=== PATIENT | female | born 1955 | race Caucasian/White ===

== ENCOUNTER 2016-05-10 16:04 | Emergency (ER) | payer OTHER ==
[~2016-05-10 16:04] MED LIST: CEPH500C PO; DILT120C2 PO; FURO-68 PO; HYDR-2672 PO; MULT-18 PO; ONDA4TAB10 PO; PANT40TA5 PO; PETR99OI2 TP; POTA20TA12 PO; PROP225C3 PO; PROP225T2 PO; Vancomycin Hcl PO; WARF2.5T PO
[2016-05-10 16:41] VITALS: BP 152/64
[2016-05-10] MEDS ORDERED: PROCHLORPERAZINE 10 MG/2 ML VIAL. IM ONE (17:15)
[2016-05-10] MEDS ORDERED: DIPHENHYDRAMINE 50 MG/ML VIAL IM ONE (17:15)
--- NOTE | 2016-05-10 17:28 | PHYS DOC ---
Past Medical History Past Medical History: A-Fib, Hypertension, Other Additional Past Medical Histor: lymphadema, morbid obesity Past Surgical History: Appendectomy, Cholecystectomy, Tubal ligation Alcohol Use: None Drug Use: None Adult General Chief Complaint Chief Complaint: NAUSEA/VOMITING/DIARRHA HPI HPI Patient is a 60 year old female who presents the emergency room with complaint of nausea, vomiting and diarrhea that began 4 days ago. Patient reports nonbloody but bilious emesis that initially began the first 2 days of her illness. That she be and experienced nonbloody/nonblack diarrhea yesterday. Patient states that she has had some improvement with diarrhea and she's only had 2 loose bowel movements today. Patient states that she's been hasn't to take her medication for the past couple of days because she worries about vomiting. Patient denies any history of chronic gastrointestinal diseases. Patient states that she does have a "nervous stomach" and has been prescribed Zofran in the past. Patient states that she took 8 mg of Zofran earlier today and was "barely The nausea and vomiting under control". Review of Systems Review of Systems Constitutional: Denies fever or chills [] Eyes: Denies change in visual acuity, redness, or eye pain [] HENT: Denies nasal congestion or sore throat [] Respiratory: Denies cough or shortness of breath [] Cardiovascular: No additional information not addressed in HPI [] GI: Denies abdominal pain, nausea, vomiting, bloody stools or diarrhea [] : Denies dysuria or hematuria [] Musculoskeletal: Denies back pain or joint pain [] Integument: Denies rash or skin lesions [] Neurologic: Denies headache, focal weakness or sensory changes [] Endocrine: Denies polyuria or polydipsia [] Current Medications Current Medications Current Medications Medications (Trade) Dose Ordered Sig/Hoang Start Time Stop Time Status Last Admin Dose Admin Diphenhydramine HCl (Benadryl) 25 mg 1X ONCE 05/10/16 17:15 05/10/16 17:16 DC 05/10/16 17:51 25 MG Prochlorperazine Edisylate (Compazine) 10 mg 1X ONCE 05/10/16 17:15 05/10/16 17:16 DC 05/10/16 17:51 10 MG Allergies Allergies Allergies Coded Allergies Type Severity Reaction Last Updated Verified Sulfa (Sulfonamide Antibiotics) Allergy Intermediate Rash 04/18/14 Yes amoxicillin Allergy Intermediate Rash 04/18/14 Yes clavulanic acid Allergy Intermediate Rash 04/18/14 Yes dabigatran etexilate Allergy Intermediate Rash 04/18/14 Yes meperidine Allergy Intermediate HALLUCINATIONS 04/18/14 Yes Physical Exam Physical Exam Constitutional: Well developed, well nourished, no acute distress, non-toxic appearance. [] HENT: Normocephalic, atraumatic, bilateral external ears normal, oropharynx moist, no oral exudates, nose normal. [] Eyes: PERRLA, EOMI, conjunctiva normal, no discharge. [] Neck: Normal range of motion, no tenderness, supple, no stridor. [] Cardiovascular:Heart rate regular rhythm, no murmur [] Lungs & Thorax: Bilateral breath sounds clear to auscultation [] Abdomen: Patient has a very large abdomen. Bowel sounds are difficult to auscultate due to the patient's body habitus. There is no palpable defect to the abdominal wall or pulsatile mass. Patient does not have a complaint of focal abdominal tenderness. There is no rebound or guarding. Skin: Warm, dry, no erythema, no rash. [] Back: No tenderness, no CVA tenderness. [] Extremities: No tenderness, no cyanosis, no clubbing, ROM intact, no edema. [] Neurologic: Alert and oriented X 3, normal motor function, normal sensory function, no focal deficits noted. [] Psychologic: Affect normal, judgement normal, mood normal. [] Current Patient Data Vital Signs Vital Signs Date Time Temp Pulse Resp B/P Pulse Ox O2 Delivery O2 Flow Rate FiO2 05/10/16 16:41 98.3 52 24 94 Room Air 98.3 EKG EKG [] Radiology/Procedures Radiology/Procedures [] Course & Med Decision Making Course & Med Decision Making Patient received 10 mg of Compazine and 25 mg of Benadryl IM. Patient was able to drink juice without throwing up. She's had no episodes of emesis during her stay in the emergency department. Dragon Disclaimer Dragon Disclaimer This electronic medical record was generated, in whole or in part, using a voice recognition dictation system. Departure Departure Impression: Primary Impression: Nausea and vomiting Disposition: HOME, SELF-CARE Condition: IMPROVED Referrals: JAGUAR BRICE MD (PCP) Patient Instructions: Viral Gastroenteritis, [id number] Additional Instructions: 1. Take the medication as prescribed. 2. Review the discharge instructions for reasons to return to the emergency room. 3. Clear liquids, light soups and broths for the next 24 hours. Begin advanced her diet after that period of time. Avoid fried foods, heavy foods or creams or gravies for the next 72 hours. 4. Call your primary care doctor's office the morning to schedule follow-up appointment to be seen within the next 2-3 days. Scripts Prochlorperazine Maleate (Compazine)10 Mg [id number] Mg PO Q8HRS nausea and vomiting #10 Prov:DIDIER GARDNER 05/10/16 DIDIER GARDNER May 10, 2016 17:28
[2016-05-10] MEDS ORDERED: PROC10TA57 PO (18:49)
== END 2016-05-10 18:57 | disposition home or self-care (01) ==
LOC: ER 16:04
DX: R11.2 Nausea with vomiting, unspecified (principal); I10 Essential (primary) hypertension; E66.01 Morbid (severe) obesity due to excess calories; Z68.41 Body mass index [BMI] 40.0-44.9, adult; Z88.0 Allergy status to penicillin; Z88.1 Allergy status to other antibiotic agents; Z88.5 Allergy status to narcotic agent; Z88.8 Allergy status to other drugs, medicaments and biological substances; Z88.2 Allergy status to sulfonamides
CPT/HCPCS: 96372; 99284; J0780; J1200

== ENCOUNTER 2016-07-12 15:53 | Inpatient (IN) | payer OTHER ==
[~2016-07-12] VITALS: Ht 171.4 cm; Wt 172.9 kg
[~2016-07-12 15:53] MED LIST changes: +PROC10TA57 PO
[2016-07-12] MEDS ORDERED: HYDROCODONE/APAP 10/325 TABLET. PO PRN (21:15)
[2016-07-12] MEDS ORDERED: VANCOMYCIN 1.75 GM in IV NORMAL SALINE 500ML BAG 500 ML IV ONE (21:15)
[2016-07-12] MEDS ORDERED: VANCOMYCIN PER PHARMACY MC PRN (21:15)
[2016-07-12] MEDS ORDERED: ONDANSETRON ODT 4 MG TAB.RAPDIS PO PRN (21:15)
[2016-07-12] MEDS ORDERED: WARFARIN 2.5 MG TABLET. PO SCH (21:15)
[2016-07-12] MEDS ORDERED: VENTOLIN HFA18 GM INH (21:21)
[2016-07-12] MEDS ORDERED: POTA20TA82 PO (21:21)
[2016-07-12] MEDS ORDERED: CEPH-264 PO (21:21)
[2016-07-12] MEDS ORDERED: OXYC-250 PO (21:21)
[2016-07-12] MEDS ORDERED: ATOR10TA60 PO (21:21)
[2016-07-12] MEDS ORDERED: CEFTRIAXONE SODIUM 2 GM in IV NORMAL SALINE 100ML 100 ML IV SCH (22:00)
[2016-07-12 22:23] LABS: BASO # 0.1 x10^3/uL (0.0-0.2); BASO % 1 % (0-3); EOS % 2 % (0-3); HEMATOCRIT 29.1 % (36.0-47.0); HEMOGLOBIN 9.3 g/dL (12.0-15.5); LYMPH # 1.1 x10^3/uL (1.0-4.8); LYMPH % 15 % (24-48); MEAN CORPUSCULAR HEMOGLOBIN 26 pg (25-35); MEAN CORPUSCULAR HGB CONC 32 g/dL (31-37); MEAN CORPUSCULAR VOLUME 83 fL (79-100); MONO % 8 % (0-9); NEUT % 74 % (31-73); PLATELET COUNT 358 x10^3/uL (140-400); RED BLOOD COUNT 3.53 x10^6/uL (3.50-5.40); RED CELL DISTRIBUTION WIDTH 16.1 % (11.5-14.5); WHITE BLOOD COUNT 7.8 x10^3/uL (4.0-11.0)
--- NOTE | 2016-07-12 22:30 | EKG ---
[facility] [address] [place] [address] Test Date: 2016-07-12 Test Time: 22:24:33 Pat Name: JERI RAMOS Department: Room: 560 1 Gender: F Surgical Scheduler: ANNALISA : 1955 Requested By: JAGUAR BRICE Order Number: [id number] Reading MD: Measurements Intervals [place] Rate: 70 P: 44 LA: 170 QRS: 31 QRSD: 94 T: 45 QT: 458 QTc: 498 Interpretive Statements SINUS RHYTHM CONSIDER RIGHT VENTRICULAR HYPERTROPHY ST & T ABNORMALITY, CONSIDER ANTEROSEPTAL ISCHEMIA OR LEFT VENTRICULAR STRAIN T ABNORMALITY IN ANTERIOR LEADS ABNORMAL ECG RI6.01 Unconfirmed report Compared to ECG 04/15/2014 09:32:41 Possible ischemia now present T-wave abnormality now present Atrial flutter no longer present
[2016-07-12 22:34] LABS: PROTHROMBIN TIME PATIENT 65.9 SEC (11.7-14.0)
[2016-07-12 22:44] LABS: INR 8.5 (0.8-1.1)
[2016-07-12 23:00] VITALS: BP 124/50
[2016-07-12] MEDS: IV DEXTROSE 5 %-0.45 % NACL 1,000 ML IV SCH (23:13)
[2016-07-12] MEDS ORDERED: PHYTONADIONE 10 MG/ML AMPUL. SQ ONE (23:30)
[2016-07-12] MEDS ORDERED: PROPAFENONE SR 225 MG CAP.ER.12H. PO ONE (23:45)
[2016-07-13] MEDS ORDERED: VANCOMYCIN 2 GM in IV NORMAL SALINE 500ML BAG 500 ML IV ONE ×2
[2016-07-13] MEDS: OXYCODONE/APAP 5/325 TABLET. PO PRN ×3 (00:17→16:24)
[2016-07-13 03:00] VITALS: BP 103/49
[2016-07-13 04:21] LABS: BASO # 0.1 x10^3/uL (0.0-0.2); BASO % 1 % (0-3); EOS % 3 % (0-3); HEMATOCRIT 28.9 % (36.0-47.0); HEMOGLOBIN 9.4 g/dL (12.0-15.5); LYMPH # 1.3 x10^3/uL (1.0-4.8); LYMPH % 19 % (24-48); MEAN CORPUSCULAR HEMOGLOBIN 26 pg (25-35); MEAN CORPUSCULAR HGB CONC 32 g/dL (31-37); MEAN CORPUSCULAR VOLUME 82 fL (79-100); MONO % 11 % (0-9); NEUT % 66 % (31-73); PLATELET COUNT 375 x10^3/uL (140-400); RED BLOOD COUNT 3.55 x10^6/uL (3.50-5.40); RED CELL DISTRIBUTION WIDTH 17.1 % (11.5-14.5)
[2016-07-13 04:28] LABS: PROTHROMBIN TIME PATIENT 63.3 SEC (11.7-14.0)
[2016-07-13 04:41] LABS: CALCIUM 8.5 mg/dL (8.5-10.1); CREATININE 1.1 mg/dL (0.6-1.0); GFR 50.8; POTASSIUM 3.6 mmol/L (3.5-5.1)
[2016-07-13] MEDS ORDERED: PHYTONADIONE 10 MG/ML AMPUL. SQ ONE (06:00)
[2016-07-13] MEDS: PANTOPRAZOLE 40 MG TABLET. PO SCH (06:08)
[2016-07-13 07:00] VITALS: BP 104/61
[2016-07-13] MEDS: FUROSEMIDE 40 MG TABLET PO SCH (08:33)
[2016-07-13] MEDS: PROPAFENONE SR 225 MG CAP.ER.12H. PO SCH ×2 (08:33→22:12)
[2016-07-13] MEDS: SENNOSIDES/DOCUSATE 8.6/50MG TABLET. PO SCH ×2 (08:34→22:12)
[2016-07-13] MEDS: POTASSIUM CHLORIDE 20 MEQ TABLET.ER. PO SCH (08:34)
[2016-07-13] MEDS: DILTIAZEM HCL 120 MG CAP.ER.24H PO SCH (08:34)
[2016-07-13] MEDS ORDERED: VANCOMYCIN 1 GM in IV NORMAL SALINE 250ML 250 ML IV SCH (09:15)
--- NOTE | 2016-07-13 09:56 | PDOC ---
Provider Note Provider Note Pt seen.H&P dictated. #[id number] JAGUAR BRICE MD Jul 13, 2016 09:56
--- NOTE | 2016-07-13 10:21 | PDOC ---
Infectious Disease Note Vital Sign Vital Signs Vital Signs Date Time Temp Pulse Resp B/P Pulse Ox O2 Delivery O2 Flow Rate FiO2 07/13/16 08:34 59 104/61 07/13/16 08:33 Room Air 07/13/16 07:00 98.3 20 93 98.3 Labs Lab Laboratory Tests Test 07/12/16 21:55 07/13/16 04:03 White Blood Count 7.8x10^3/uL (4.0-11.0) 7.0x10^3/uL (4.0-11.0) Red Blood Count 3.53x10^6/uL (3.50-5.40) 3.55x10^6/uL (3.50-5.40) Hemoglobin 9.3g/dL (12.0-15.5) 9.4g/dL (12.0-15.5) Hematocrit 29.1% (36.0-47.0) 28.9% (36.0-47.0) Mean Corpuscular Volume 83fL (79-100) 82fL (79-100) Mean Corpuscular Hemoglobin 26pg (25-35) 26pg (25-35) Mean Corpuscular Hemoglobin Concent 32g/dL (31-37) 32g/dL (31-37) Red Cell Distribution Width 16.1% (11.5-14.5) 17.1% (11.5-14.5) Platelet Count 358x10^3/uL (140-400) 375x10^3/uL (140-400) Neutrophils (%) (Auto) 74% (31-73) 66% (31-73) Lymphocytes (%) (Auto) 15% (24-48) 19% (24-48) Monocytes (%) (Auto) 8% (0-9) 11% (0-9) Eosinophils (%) (Auto) 2% (0-3) 3% (0-3) Basophils (%) (Auto) 1% (0-3) 1% (0-3) Neutrophils # (Auto) 5.8x10^3uL (1.8-7.7) 4.6x10^3uL (1.8-7.7) Lymphocytes # (Auto) 1.1x10^3/uL (1.0-4.8) 1.3x10^3/uL (1.0-4.8) Monocytes # (Auto) 0.6x10^3/uL (0.0-1.1) 0.8x10^3/uL (0.0-1.1) Eosinophils # (Auto) 0.2x10^3/uL (0.0-0.7) 0.2x10^3/uL (0.0-0.7) Basophils # (Auto) 0.1x10^3/uL (0.0-0.2) 0.1x10^3/uL (0.0-0.2) Prothrombin Time 65.9SEC (11.7-14.0) 63.3SEC (11.7-14.0) Prothromb Time International Ratio 8.5 (0.8-1.1) 8.0 (0.8-1.1) Albumin 1.8g/dL (3.4-5.0) Thyroid Stimulating Hormone (TSH) 1.567uIU/mL (0.358-3.74) Sodium Level 140mmol/L (136-145) Potassium Level 3.6mmol/L (3.5-5.1) Chloride Level 103mmol/L (98-107) Carbon Dioxide Level 27mmol/L (21-32) Anion Gap 10 (6-14) Blood Urea Nitrogen 10mg/dL (7-20) Creatinine 1.1mg/dL (0.6-1.0) Estimated GFR (Cockcroft-Gault) 50.8 Glucose Level 89mg/dL (70-99) Calcium Level 8.5mg/dL (8.5-10.1) Objective Assessment Left leg cellulitis Panniculitis Obesity h/o C diff Plan Plan of Care change antibiotics to unasyn po vanc bid YOLETTE COOK MD Jul 13, 2016 10:21
--- NOTE | 2016-07-13 10:41 | PDOC ---
SURGICAL PROGRESS NOTE Subjective 60 yo F with cellulitis and chronic lymphedema pt poor surgical candidate agree with wound care consult will also order PT eval for lymphedema treatment Thanks for consult! [id number] Vital Signs Vital Signs Date Time Temp Pulse Resp B/P Pulse Ox O2 Delivery O2 Flow Rate FiO2 07/13/16 08:34 59 104/61 07/13/16 08:33 Room Air 07/13/16 07:00 98.3 20 93 98.3 I&O Intake and Output 07/13/16 07:00 Intake Total 660 ml Balance 660 ml Intake Oral 660 ml # Voids 2 Labs Laboratory Tests Test 07/12/16 21:55 07/13/16 04:03 White Blood Count 7.8x10^3/uL (4.0-11.0) 7.0x10^3/uL (4.0-11.0) Red Blood Count 3.53x10^6/uL (3.50-5.40) 3.55x10^6/uL (3.50-5.40) Hemoglobin 9.3g/dL (12.0-15.5) 9.4g/dL (12.0-15.5) Hematocrit 29.1% (36.0-47.0) 28.9% (36.0-47.0) Mean Corpuscular Volume 83fL (79-100) 82fL (79-100) Mean Corpuscular Hemoglobin 26pg (25-35) 26pg (25-35) Mean Corpuscular Hemoglobin Concent 32g/dL (31-37) 32g/dL (31-37) Red Cell Distribution Width 16.1% (11.5-14.5) 17.1% (11.5-14.5) Platelet Count 358x10^3/uL (140-400) 375x10^3/uL (140-400) Neutrophils (%) (Auto) 74% (31-73) 66% (31-73) Lymphocytes (%) (Auto) 15% (24-48) 19% (24-48) Monocytes (%) (Auto) 8% (0-9) 11% (0-9) Eosinophils (%) (Auto) 2% (0-3) 3% (0-3) Basophils (%) (Auto) 1% (0-3) 1% (0-3) Neutrophils # (Auto) 5.8x10^3uL (1.8-7.7) 4.6x10^3uL (1.8-7.7) Lymphocytes # (Auto) 1.1x10^3/uL (1.0-4.8) 1.3x10^3/uL (1.0-4.8) Monocytes # (Auto) 0.6x10^3/uL (0.0-1.1) 0.8x10^3/uL (0.0-1.1) Eosinophils # (Auto) 0.2x10^3/uL (0.0-0.7) 0.2x10^3/uL (0.0-0.7) Basophils # (Auto) 0.1x10^3/uL (0.0-0.2) 0.1x10^3/uL (0.0-0.2) Prothrombin Time 65.9SEC (11.7-14.0) 63.3SEC (11.7-14.0) Prothromb Time International Ratio 8.5 (0.8-1.1) 8.0 (0.8-1.1) Albumin 1.8g/dL (3.4-5.0) Thyroid Stimulating Hormone (TSH) 1.567uIU/mL (0.358-3.74) Sodium Level 140mmol/L (136-145) Potassium Level 3.6mmol/L (3.5-5.1) Chloride Level 103mmol/L (98-107) Carbon Dioxide Level 27mmol/L (21-32) Anion Gap 10 (6-14) Blood Urea Nitrogen 10mg/dL (7-20) Creatinine 1.1mg/dL (0.6-1.0) Estimated GFR (Cockcroft-Gault) 50.8 Glucose Level 89mg/dL (70-99) Calcium Level 8.5mg/dL (8.5-10.1) Laboratory Tests Test 07/12/16 21:55 07/13/16 04:03 White Blood Count 7.8x10^3/uL (4.0-11.0) 7.0x10^3/uL (4.0-11.0) Red Blood Count 3.53x10^6/uL (3.50-5.40) 3.55x10^6/uL (3.50-5.40) Hemoglobin 9.3g/dL (12.0-15.5) 9.4g/dL (12.0-15.5) Hematocrit 29.1% (36.0-47.0) 28.9% (36.0-47.0) Mean Corpuscular Volume 83fL (79-100) 82fL (79-100) Mean Corpuscular Hemoglobin 26pg (25-35) 26pg (25-35) Mean Corpuscular Hemoglobin Concent 32g/dL (31-37) 32g/dL (31-37) Red Cell Distribution Width 16.1% (11.5-14.5) 17.1% (11.5-14.5) Platelet Count 358x10^3/uL (140-400) 375x10^3/uL (140-400) Neutrophils (%) (Auto) 74% (31-73) 66% (31-73) Lymphocytes (%) (Auto) 15% (24-48) 19% (24-48) Monocytes (%) (Auto) 8% (0-9) 11% (0-9) Eosinophils (%) (Auto) 2% (0-3) 3% (0-3) Basophils (%) (Auto) 1% (0-3) 1% (0-3) Neutrophils # (Auto) 5.8x10^3uL (1.8-7.7) 4.6x10^3uL (1.8-7.7) Lymphocytes # (Auto) 1.1x10^3/uL (1.0-4.8) 1.3x10^3/uL (1.0-4.8) Monocytes # (Auto) 0.6x10^3/uL (0.0-1.1) 0.8x10^3/uL (0.0-1.1) Eosinophils # (Auto) 0.2x10^3/uL (0.0-0.7) 0.2x10^3/uL (0.0-0.7) Basophils # (Auto) 0.1x10^3/uL (0.0-0.2) 0.1x10^3/uL (0.0-0.2) Prothrombin Time 65.9SEC (11.7-14.0) 63.3SEC (11.7-14.0) Prothromb Time International Ratio 8.5 (0.8-1.1) 8.0 (0.8-1.1) Albumin 1.8g/dL (3.4-5.0) Thyroid Stimulating Hormone (TSH) 1.567uIU/mL (0.358-3.74) Sodium Level 140mmol/L (136-145) Potassium Level 3.6mmol/L (3.5-5.1) Chloride Level 103mmol/L (98-107) Carbon Dioxide Level 27mmol/L (21-32) Anion Gap 10 (6-14) Blood Urea Nitrogen 10mg/dL (7-20) Creatinine 1.1mg/dL (0.6-1.0) Estimated GFR (Cockcroft-Gault) 50.8 Glucose Level 89mg/dL (70-99) Calcium Level 8.5mg/dL (8.5-10.1) Problem List Problems Medical Problems: (1) Left leg cellulitis Status: Acute Problems: DARBY SIMENTAL MD Jul 13, 2016 10:41
[2016-07-13 11:11] VITALS: BP 94/49
[2016-07-13] MEDS: AMPICILLIN/SULBACTAM 3 GM in IV NORMAL SALINE 100ML 100 ML IV SCH ×2 (11:43→18:02)
[2016-07-13] MEDS: VANCOMYCIN 125 MG/2.5 ML ORAL SOLUTION. PO SCH ×2 (11:48→22:12)
[2016-07-13] MEDS ORDERED: VANCOMYCIN 2 GM in IV NORMAL SALINE 500ML BAG 500 ML IV SCH (12:00)
--- NOTE | 2016-07-13 14:46 | HP ---
ADMIT DATE: 07/12/2016 LOCATION: 560. REASON FOR ADMISSION TO THE HOSPITAL: Cellulitis, lymphedema with secondary cellulitis of the left thigh with draining, redness and fever. HISTORY OF PRESENT ILLNESS: The patient is a 60-year-old female with history of morbid obesity, chronic lymphedema of both extremities and she is on antibiotics outpatient including Keflex. The patient had finished 3 rounds of antibiotic. She is still having lot of drainage, redness and oozing and she was feverish, was seen in the office. She had kind of lot of fluid dripping from the thigh, redness, tender, was admitted to the hospital for IV antibiotics. PAST MEDICAL HISTORY: Has a history of hypertension, atrial fibrillation on Coumadin, obesity and lymphedema. PAST SURGICAL HISTORY: Had a cardiac catheterization. No major blockages, surgery in the right breast for benign lesion, tubal ligation, arthritis, appendectomy and gallbladder surgery. ALLERGIES: TO SULFA, AMOXICILLIN, AUGMENTIN, PRADAXA, AND DEMEROL. FAMILY HISTORY: Positive for diabetes, kidney problems in the mother. MEDICATIONS AT HOME: Coumadin 2.5 mg daily, atorvastatin 10 mg daily, oxycodone 10/325 q. 6, albuterol 2 puffs 4 times daily, Keflex recently 500 mg 4 times daily, multivitamin daily, potassium 20 mEq daily, diltiazem 120 mg daily, Lasix 40 mg daily, Zofran 4 mg daily, Protonix 40 mg daily, propafenone 225 mg twice a day. PERSONAL HISTORY: Denies smoking, alcohol or drug abuse. REVIEW OF SYMPTOMS: CARDIAC: No chest pain. LUNGS: No cough, sputum. CONSTITUTIONAL: Complains of feverish, not feeling well. The patient looks sick. PHYSICAL EXAMINATION: VITAL SIGNS: Temperature at the time of admission 98, pulse 68, respirations 20, blood pressure 124/50, 93% on room air. HEENT: Head is atraumatic. Pupils equal. Oral cavity: No congestion. NECK: Supple. Thyroid not enlarged. JVD not elevated. CHEST: Symmetrical. CARDIOVASCULAR: S1, S2. LUNGS: Clear. GENERAL: The patient is obese. BMI 59.3, morbid obesity. ABDOMEN: Obese. No mass palpable. EXTERNAL GENITALIA: No Newman. RECTAL: Deferred. EXTREMITIES: Chronic lymphedema of both extremities, has discoloration on the right upper thigh, but the left upper thigh has redness, oozing lot of drainage and some blister there, mostly in the lower part of the thigh and lymphedema. LABORATORY DATA: Shows a white count of 8, hemoglobin 9, platelets 358. Electrolytes: Sodium 140, potassium 3.6, chloride 103, bicarbonate 27, BUN 10, creatinine 1.1. Albumin 1.8. TSH is 1.57. INR is 8.5. FINAL IMPRESSION: 1. Cellulitis of the thigh. 2. Chronic lymphedema. 3. Atrial fibrillation, on Coumadin. 4. Coagulopathy. 5. Morbid obesity. 6. Protein-calorie malnutrition, moderate. 7. Hypertension. 8. Hyperlipidemia. 9. Arthritis. PLAN: At this time, admit to hospital, IV antibiotics, vancomycin and Rocephin and ID consult and General Surgery consult, lymphedema consult, wound cultures, rest, elevation and see how the patient's condition improves, hold Coumadin because of coagulopathy. The patient was on antibiotics and supposed to cut down the Coumadin dose by half but she forgot and given vitamin K one dose and monitor INR. No evidence of any bleeding at this point. JAGUAR BRICE MD DR: PALAK/shayla JOB#: [id number] / [id number]
[2016-07-13 15:00] VITALS: BP 110/57
[2016-07-13] MEDS: IV DEXTROSE 5 %-0.45 % NACL 1,000 ML IV SCH ×2 (15:01→17:11)
[2016-07-13 19:00] VITALS: BP 91/44
--- NOTE | 2016-07-13 22:57 | CONS ---
DATE OF CONSULTATION: 07/13/2016 REQUESTING PHYSICIAN: Dr. Townsend. REASON FOR CONSULTATION: Cellulitis of the leg. HISTORY OF PRESENT ILLNESS: This is a 60-year-old female with morbid obesity with multiple layers of pannus on the leg and abdomen, who was admitted with leaking from the left leg pannus, yellow fluid. The patient denies any fever. Denies any nausea, vomiting, diarrhea, chest pain, shortness of breath, abdominal pain, urinary symptoms, bowel symptoms. PAST MEDICAL HISTORY: Positive for morbid obesity. She has had colon polyps, osteoarthritis, gastroesophageal reflux disease. PAST SURGICAL HISTORY: Has had appendicectomy, breast biopsy and cholecystectomy. SOCIAL HISTORY: Negative for smoking, alcohol, illicit drug use. The patient does have dogs and she says she is not allowing them to lick. REVIEW OF SYSTEMS: As per HPI, all other systems reviewed are negative. CURRENT MEDICATIONS: Reviewed. The patient is on vancomycin and Rocephin. PHYSICAL EXAMINATION: GENERAL: Alert, oriented female, not in any distress. VITAL SIGNS: Stable, afebrile. HEENT: NAD. NECK: Supple, no JVP. No lymphadenopathy. LUNGS: Clear. HEART: S1, S2 regular. ABDOMEN: Benign. EXTREMITIES: The patient does have significant pannus on the abdomen and into the legs and the pannus from the left leg is leaking with some erythema in the surrounding area. NEUROLOGIC: The patient is neurologically intact. LABORATORY DATA: White count is normal. Creatinine is 1.1. IMPRESSION: 1. Left leg cellulitis. 2. Left leg panniculitis. 3. History of Clostridium difficile. 4. Obesity. 5. Arthritis. RECOMMENDATIONS: We will change vancomycin and Rocephin to Unasyn p.o., vancomycin b.i.d. to protect her from C. diff and will continue to follow. Leg elevation should be done and ambulation. Thank you very much, Dr. Townsend for giving me the opportunity to participate in this patient's care. YOLETTE COOK MD DR: ALINE/shayla JOB#: [id number] / [id number]
[2016-07-13 23:00] VITALS: BP 104/49
[2016-07-14] MEDS: AMPICILLIN/SULBACTAM 3 GM in IV NORMAL SALINE 100ML 100 ML IV SCH ×4 (00:27→18:22)
[2016-07-14 03:00] VITALS: BP 108/49
[2016-07-14] MEDS: OXYCODONE/APAP 5/325 TABLET. PO PRN ×3 (03:52→21:52)
[2016-07-14 06:28] LABS: INR 3.3 (0.8-1.1); PROTHROMBIN TIME PATIENT 31.4 SEC (11.7-14.0)
[2016-07-14 06:37] LABS: ALBUMIN 1.9 g/dL (3.4-5.0); ALBUMIN/GLOBULIN RATIO 0.3 (1.0-1.7); CALCIUM 8.6 mg/dL (8.5-10.1); CHOLESTEROL/HDL RATIO 4.4; CREATININE 1.2 mg/dL (0.6-1.0); POTASSIUM 3.5 mmol/L (3.5-5.1); TOTAL BILIRUBIN 0.3 mg/dL (0.2-1.0); TOTAL PROTEIN 7.8 g/dL (6.4-8.2)
[2016-07-14 07:00] VITALS: BP 106/83
[2016-07-14] MEDS: POTASSIUM CHLORIDE 20 MEQ TABLET.ER. PO SCH (09:00)
[2016-07-14] MEDS: FUROSEMIDE 40 MG TABLET PO SCH (09:00)
[2016-07-14] MEDS: VANCOMYCIN 125 MG/2.5 ML ORAL SOLUTION. PO SCH ×2 (09:15→21:53)
[2016-07-14] MEDS: PANTOPRAZOLE 40 MG TABLET. PO SCH (09:16)
[2016-07-14] MEDS: SENNOSIDES/DOCUSATE 8.6/50MG TABLET. PO SCH ×2 (09:16→21:53)
[2016-07-14] MEDS: PROPAFENONE SR 225 MG CAP.ER.12H. PO SCH ×2 (09:16→21:53)
[2016-07-14] MEDS: DILTIAZEM HCL 120 MG CAP.ER.24H PO SCH (09:16)
--- NOTE | 2016-07-14 09:31 | PDOC ---
Infectious Disease Note Subjective Subjective feeling ok ROS ROS GEN: Denies fevers, chills, sweats HEENT: Denies blurred vision, sore throat CV: Denies chest pain RESP: Denies shortness of air, cough GI: Denies n/v/d NEURO: Denies confusion, dizziness Vital Sign Vital Signs Vital Signs Date Time Temp Pulse Resp B/P Pulse Ox O2 Delivery O2 Flow Rate FiO2 07/14/16 09:16 69 106/83 07/14/16 08:00 Room Air 07/14/16 07:00 98.6 16 92.0 98.6 07/14/16 03:00 98 Physical Exam PHYSICAL EXAM GENERAL: NAD, Alert HEENT: PERRL, OC/OP NECK: Supple, no JVD, no LN LUNGS: Clear HEART: S1S2, no gallop, no murmur ABD: Soft, NT, no organomegaly, no rebound EXT: No edema, no cyanosis,, left leg wound with pannus and drainage DIGITAL PH[employer] PRINTER: Alert, oriented x 3, no focal neurologic deficit SKIN: No rash IV: ok Labs Lab Laboratory Tests Test 07/14/16 05:20 Prothrombin Time 31.4SEC (11.7-14.0) Prothromb Time International Ratio 3.3 (0.8-1.1) Sodium Level 137mmol/L (136-145) Potassium Level 3.5mmol/L (3.5-5.1) Chloride Level 103mmol/L (98-107) Carbon Dioxide Level 27mmol/L (21-32) Anion Gap 7 (6-14) Blood Urea Nitrogen 7mg/dL (7-20) Creatinine 1.2mg/dL (0.6-1.0) Estimated GFR (Cockcroft-Gault) 46.0 BUN/Creatinine Ratio 6 (6-20) Glucose Level 95mg/dL (70-99) Calcium Level 8.6mg/dL (8.5-10.1) Total Bilirubin 0.3mg/dL (0.2-1.0) Aspartate Amino Transf (AST/SGOT) 20U/L (15-37) Alanine Aminotransferase (ALT/SGPT) 10U/L (14-59) Alkaline Phosphatase 134U/L (46-116) Total Protein 7.8g/dL (6.4-8.2) Albumin 1.9g/dL (3.4-5.0) Albumin/Globulin Ratio 0.3 (1.0-1.7) Triglycerides Level 144mg/dL (0-150) Cholesterol Level 106mg/dL (0-200) LDL Cholesterol, Calculated 53mg/dL (0-100) VLDL Cholesterol, Calculated 29mg/dL (0-40) HDL Cholesterol 24mg/dL (40-60) Cholesterol/HDL Ratio 4.4 Micro G neg valerio Objective Assessment Left leg cellulitis Panniculitis Obesity h/o C diff Plan Plan of Care unasyn po vanc bid pt/ot YOLETTE COOK MD Jul 14, 2016 09:31
--- NOTE | 2016-07-14 10:28 | PDOC ---
PROGRESS NOTES Subjective Subjective less pain today Objective Objective Vital Signs Date Time Temp Pulse Resp B/P Pulse Ox O2 Delivery O2 Flow Rate FiO2 07/14/16 09:16 69 106/83 07/14/16 08:00 Room Air 07/14/16 07:00 98.6 16 92.0 98.6 07/14/16 03:00 98 Intake and Output 07/14/16 07:00 Intake Total 760 ml Output Total 553 ml Balance 207 ml Intake Oral 660 ml IV Total 100 ml Output Urine Total 553 ml # Voids 1 # Bowel Movements 1 Physical Exam Abdomen: Normal bowel sounds, Soft Heart: Regular rate, Normal S1 Extremities: No clubbing General: Alert HEENT: Atraumatic Lungs: Clear to auscultation Neck: Supple Neuro: Normal speech Psych/Mental Status: Mental status NL Diagnosis Problem List Problems Medical Problems: (1) Left leg cellulitis Status: Acute Assessment Assessment Problems Medical Problems: (1) Left leg cellulitis Status: Acute FINAL IMPRESSION: 1. Cellulitis of the thigh. 2. Chronic lymphedema. 3. Atrial fibrillation, on Coumadin. 4. Coagulopathy. 5. Morbid obesity. 6. Protein-calorie malnutrition, moderate. 7. Hypertension. 8. Hyperlipidemia. 9. Arthritis. PLAN: Inr 3.6 today improving holding coumadin. ID and surgery consult appreciated. At this time, admit to hospital, IV antibiotics, vanco+unasyn+po vanco and ID consult and General Surgery consult, lymphedema consult, wound cultures, rest, elevation and see how the patient's condition improves, hold Coumadin because of coagulopathy. The patient was on antibiotics and supposed to cut down the Coumadin dose by half but she forgot and given vitamin K one dose and monitor INR. No evidence of any bleeding at this point. Problems: Plan Plan of Care Problems Medical Problems: (1) Left leg cellulitis Status: Acute Comment Review of Relevant I have reviewed the following items quentin (where applicable) has been applied. Labs Laboratory Tests Test 07/14/16 05:20 Prothrombin Time 31.4SEC (11.7-14.0) Prothromb Time International Ratio 3.3 (0.8-1.1) Sodium Level 137mmol/L (136-145) Potassium Level 3.5mmol/L (3.5-5.1) Chloride Level 103mmol/L (98-107) Carbon Dioxide Level 27mmol/L (21-32) Anion Gap 7 (6-14) Blood Urea Nitrogen 7mg/dL (7-20) Creatinine 1.2mg/dL (0.6-1.0) Estimated GFR (Cockcroft-Gault) 46.0 BUN/Creatinine Ratio 6 (6-20) Glucose Level 95mg/dL (70-99) Calcium Level 8.6mg/dL (8.5-10.1) Total Bilirubin 0.3mg/dL (0.2-1.0) Aspartate Amino Transf (AST/SGOT) 20U/L (15-37) Alanine Aminotransferase (ALT/SGPT) 10U/L (14-59) Alkaline Phosphatase 134U/L (46-116) Total Protein 7.8g/dL (6.4-8.2) Albumin 1.9g/dL (3.4-5.0) Albumin/Globulin Ratio 0.3 (1.0-1.7) Triglycerides Level 144mg/dL (0-150) Cholesterol Level 106mg/dL (0-200) LDL Cholesterol, Calculated 53mg/dL (0-100) VLDL Cholesterol, Calculated 29mg/dL (0-40) HDL Cholesterol 24mg/dL (40-60) Cholesterol/HDL Ratio 4.4 Microbiology 07/12/16 Blood Culture - Preliminary, Resulted NO GROWTH AFTER 1 DAY 07/12/16 Gram Stain - Final, Complete Medications Current Medications Ampicillin Sodium/ Sulbactam Sodium/ Sodium Chloride (Unasyn/Iv Sodium Chloride 0.9% 100ml) 100 ml @ 200 mls/hr Q6HRS IV Last administered on 07/14/16 06:02; Start 07/13/16 at 12:00 Vancomycin HCl 125 mg BID PO Last administered on 07/14/16 09:15; Start at 11:30 Vancomycin HCl 1 each 1 each 1X ONCE MC ; Start 07/14/16 at 11:30; Stop 07/14/16 at 11:30; Status DC Vancomycin HCl/ Sodium Chloride (Iv Sodium Chloride 0.9% 500ml Bag) 500 ml @ 250 mls/hr Q12H IV ; Start 07/13/16 at 12:00; Stop 07/13/16 at 12:00; Status DC Vitals/I & O Vital Sign - Last 24 Hours 07/13/16 07/13/16 07/13/16 07/13/16 11:11 15:00 16:24 19:00 Temp 97.0 98.2 98.2 97.0 98.2 98.2 Pulse 74 72 61 Resp 14 16 20 B/P 94/49 110/57 91/44 Pulse Ox 94 95 93 O2 Delivery Room Air Room Air Room Air Room Air 07/13/16 07/13/16 07/13/16 07/14/16 20:00 22:12 23:00 03:00 Temp 98.3 98.0 98.3 98.0 Pulse 61 65 65 Resp 20 20 B/P 91/44 104/49 108/49 Pulse Ox 96 98 O2 Delivery Room Air Room Air Room Air 07/14/16 07/14/16 07/14/16 07/14/16 03:52 07:00 08:00 09:16 Temp 98.6 98.6 Pulse 69 69 Resp 20 16 B/P 106/83 106/83 O2 Delivery Room Air Room Air Room Air O2 Flow Rate 92.0 07/14/16 09:16 Pulse 69 B/P 106/83 Intake and Output 07/13/16 07/13/16 07/14/16 15:00 23:00 07:00 Intake Total 360 ml 400 ml Output Total 300 ml 253 ml Balance -300 ml 107 ml 400 ml JAGUAR BRICE MD Jul 14, 2016 10:28
[2016-07-14 11:00] VITALS: BP 106/74
--- NOTE | 2016-07-14 11:37 | CONS ---
DATE OF CONSULTATION: 07/13/2016 REFERRING PHYSICIANS: Dr. Evangelist Flores, Dr. Townsend. Thank you for the consult. CHIEF COMPLAINT: Drainage from left leg, diagnosis of left leg cellulitis, chronic lymphedema. HISTORY OF PRESENT ILLNESS: This is a 60-year-old female with history of chronic lymphedema, who developed significant drainage from the left leg, which is serous in nature. She reports chronic lymphedema of her bilateral lower extremities, and reports easy infection of this tissue. She reports her legs have been worsening in size for quite some time. She is seen in her hospital room and appears to be relatively comfortable and is tolerating diet. She has significant serous drainage from her left medial thigh and large area of chronic lymphedema. ALLERGIES: SHE HAS AN ALLERGY TO DEMEROL, GABAPENTIN, AMOXIL, SULFA, POTASSIUM. MEDICATIONS: Reviewed, but include Coumadin. PAST MEDICAL HISTORY: Obesity, atrial fibrillation, hypertension, arthritis, chronic lymphedema in the lower extremities. PAST SURGICAL HISTORY: Includes cardiac cath, colonoscopies, appendectomy, and cholecystectomy. SOCIAL HISTORY: No tobacco, no significant alcohol use. FAMILY HISTORY: Noncontributory. REVIEW OF SYSTEMS: All systems reviewed and negative except for HPI. PHYSICAL EXAMINATION: GENERAL: Well-developed, morbidly obese female, has BMI of 59.3. VITAL SIGNS: She is afebrile. Vital signs within normal limits. HEENT: Normocephalic, anicteric sclerae, atraumatic. Oropharynx clear. NECK: Supple. CHEST: Bilateral chest excursion. ABDOMEN: Soft, nondistended, nontender to palpation, morbidly obese. EXTREMITIES: She has chronic lymphedema of the bilateral lower extremities with significant woody edema especially of the medial thighs bilaterally, right leg being larger than the left. She has significant serous drainage of the left medial thigh. White blood cell count is 7.0. Creatinine is mildly elevated at 1.1. INR is 8. IMPRESSION AND RECOMMENDATIONS: A 60-year-old female with chronic lymphedema of the bilateral lower extremities. She certainly represents a very poor surgical candidate. Given her longstanding lymphedema and elevated INR, certainly I would recommend holding her Coumadin at this time and carefully monitoring. Regarding her lymphedema, I agree with wound care consult, but she may also benefit from physical therapy consultation for lymphedema treatment. She may benefit from being seen in the Lymphedema Clinic. I will be available for possible intervention. Thank you for allowing me to participate in the care of this pleasant patient. DARBY SIMENTAL MD DR: VOLODYMYR/shayla JOB#: [id number] / [id number] EVANGELIST Garcia MD, VINAYA MD
--- NOTE | 2016-07-14 13:56 | PDOC ---
SURGICAL PROGRESS NOTE Subjective Pt with c/o significant drainage left thigh Vital Signs Vital Signs Date Time Temp Pulse Resp B/P Pulse Ox O2 Delivery O2 Flow Rate FiO2 07/14/16 13:48 Room Air 07/14/16 11:00 98.2 82 106/74 95 98.2 07/14/16 07:00 16 92.0 I&O Intake and Output 07/14/16 07:00 Intake Total 760 ml Output Total 553 ml Balance 207 ml Intake Oral 660 ml IV Total 100 ml Output Urine Total 553 ml # Voids 1 # Bowel Movements 1 General: Alert, Oriented X3, Cooperative, No acute distress Extremities: Other (extensive edema, serous drainage left thigh) Labs Laboratory Tests Test 07/12/16 21:55 07/13/16 04:03 07/14/16 05:20 White Blood Count 7.8x10^3/uL (4.0-11.0) 7.0x10^3/uL (4.0-11.0) Red Blood Count 3.53x10^6/uL (3.50-5.40) 3.55x10^6/uL (3.50-5.40) Hemoglobin 9.3g/dL (12.0-15.5) 9.4g/dL (12.0-15.5) Hematocrit 29.1% (36.0-47.0) 28.9% (36.0-47.0) Mean Corpuscular Volume 83fL (79-100) 82fL (79-100) Mean Corpuscular Hemoglobin 26pg (25-35) 26pg (25-35) Mean Corpuscular Hemoglobin Concent 32g/dL (31-37) 32g/dL (31-37) Red Cell Distribution Width 16.1% (11.5-14.5) 17.1% (11.5-14.5) Platelet Count 358x10^3/uL (140-400) 375x10^3/uL (140-400) Neutrophils (%) (Auto) 74% (31-73) 66% (31-73) Lymphocytes (%) (Auto) 15% (24-48) 19% (24-48) Monocytes (%) (Auto) 8% (0-9) 11% (0-9) Eosinophils (%) (Auto) 2% (0-3) 3% (0-3) Basophils (%) (Auto) 1% (0-3) 1% (0-3) Neutrophils # (Auto) 5.8x10^3uL (1.8-7.7) 4.6x10^3uL (1.8-7.7) Lymphocytes # (Auto) 1.1x10^3/uL (1.0-4.8) 1.3x10^3/uL (1.0-4.8) Monocytes # (Auto) 0.6x10^3/uL (0.0-1.1) 0.8x10^3/uL (0.0-1.1) Eosinophils # (Auto) 0.2x10^3/uL (0.0-0.7) 0.2x10^3/uL (0.0-0.7) Basophils # (Auto) 0.1x10^3/uL (0.0-0.2) 0.1x10^3/uL (0.0-0.2) Prothrombin Time 65.9SEC (11.7-14.0) 63.3SEC (11.7-14.0) 31.4SEC (11.7-14.0) Prothromb Time International Ratio 8.5 (0.8-1.1) 8.0 (0.8-1.1) 3.3 (0.8-1.1) Albumin 1.8g/dL (3.4-5.0) 1.9g/dL (3.4-5.0) Thyroid Stimulating Hormone (TSH) 1.567uIU/mL (0.358-3.74) Sodium Level 140mmol/L (136-145) 137mmol/L (136-145) Potassium Level 3.6mmol/L (3.5-5.1) 3.5mmol/L (3.5-5.1) Chloride Level 103mmol/L (98-107) 103mmol/L (98-107) Carbon Dioxide Level 27mmol/L (21-32) 27mmol/L (21-32) Anion Gap 10 (6-14) 7 (6-14) Blood Urea Nitrogen 10mg/dL (7-20) 7mg/dL (7-20) Creatinine 1.1mg/dL (0.6-1.0) 1.2mg/dL (0.6-1.0) Estimated GFR (Cockcroft-Gault) 50.8 46.0 Glucose Level 89mg/dL (70-99) 95mg/dL (70-99) Calcium Level 8.5mg/dL (8.5-10.1) 8.6mg/dL (8.5-10.1) BUN/Creatinine Ratio 6 (6-20) Total Bilirubin 0.3mg/dL (0.2-1.0) Aspartate Amino Transf (AST/SGOT) 20U/L (15-37) Alanine Aminotransferase (ALT/SGPT) 10U/L (14-59) Alkaline Phosphatase 134U/L (46-116) Total Protein 7.8g/dL (6.4-8.2) Albumin/Globulin Ratio 0.3 (1.0-1.7) Triglycerides Level 144mg/dL (0-150) Cholesterol Level 106mg/dL (0-200) LDL Cholesterol, Calculated 53mg/dL (0-100) VLDL Cholesterol, Calculated 29mg/dL (0-40) HDL Cholesterol 24mg/dL (40-60) Cholesterol/HDL Ratio 4.4 Laboratory Tests Test 07/14/16 05:20 Prothrombin Time 31.4SEC (11.7-14.0) Prothromb Time International Ratio 3.3 (0.8-1.1) Sodium Level 137mmol/L (136-145) Potassium Level 3.5mmol/L (3.5-5.1) Chloride Level 103mmol/L (98-107) Carbon Dioxide Level 27mmol/L (21-32) Anion Gap 7 (6-14) Blood Urea Nitrogen 7mg/dL (7-20) Creatinine 1.2mg/dL (0.6-1.0) Estimated GFR (Cockcroft-Gault) 46.0 BUN/Creatinine Ratio 6 (6-20) Glucose Level 95mg/dL (70-99) Calcium Level 8.6mg/dL (8.5-10.1) Total Bilirubin 0.3mg/dL (0.2-1.0) Aspartate Amino Transf (AST/SGOT) 20U/L (15-37) Alanine Aminotransferase (ALT/SGPT) 10U/L (14-59) Alkaline Phosphatase 134U/L (46-116) Total Protein 7.8g/dL (6.4-8.2) Albumin 1.9g/dL (3.4-5.0) Albumin/Globulin Ratio 0.3 (1.0-1.7) Triglycerides Level 144mg/dL (0-150) Cholesterol Level 106mg/dL (0-200) LDL Cholesterol, Calculated 53mg/dL (0-100) VLDL Cholesterol, Calculated 29mg/dL (0-40) HDL Cholesterol 24mg/dL (40-60) Cholesterol/HDL Ratio 4.4 Problem List Problems Medical Problems: (1) Left leg cellulitis Status: Acute Assessment/Plan cont supportive care and dressing changes lymphedema team treatment Problems: DARBY SIMENTAL MD Jul 14, 2016 13:56
[2016-07-14 15:00] VITALS: BP 100/88
[2016-07-14 19:00] VITALS: BP 98/34
[2016-07-14 22:51] VITALS: BP 103/53
[2016-07-15] MEDS: AMPICILLIN/SULBACTAM 3 GM in IV NORMAL SALINE 100ML 100 ML IV SCH ×4 (00:03→17:35)
[2016-07-15 02:37] VITALS: BP 105/40
[2016-07-15 05:33] LABS: PROTHROMBIN TIME PATIENT 21.7 SEC (11.7-14.0)
[2016-07-15 07:00] VITALS: BP 105/47
[2016-07-15] MEDS: PANTOPRAZOLE 40 MG TABLET. PO SCH (08:41)
[2016-07-15] MEDS: OXYCODONE/APAP 5/325 TABLET. PO PRN ×2 (08:42→17:36)
[2016-07-15] MEDS: SENNOSIDES/DOCUSATE 8.6/50MG TABLET. PO SCH ×2 (08:42→21:57)
[2016-07-15] MEDS: DILTIAZEM HCL 120 MG CAP.ER.24H PO SCH (08:43)
[2016-07-15] MEDS: PROPAFENONE SR 225 MG CAP.ER.12H. PO SCH ×2 (08:43→21:57)
[2016-07-15] MEDS: VANCOMYCIN 125 MG/2.5 ML ORAL SOLUTION. PO SCH ×2 (08:44→21:57)
[2016-07-15] MEDS: FUROSEMIDE 40 MG TABLET PO SCH (08:44)
[2016-07-15] MEDS: POTASSIUM CHLORIDE 20 MEQ TABLET.ER. PO SCH (08:45)
[2016-07-15 11:00] VITALS: BP 117/71
--- NOTE | 2016-07-15 11:04 | PDOC ---
Infectious Disease Note Subjective Subjective feeling ok ROS ROS GEN: Denies fevers, chills, sweats HEENT: Denies blurred vision, sore throat CV: Denies chest pain RESP: Denies shortness of air, cough GI: Denies n/v/d NEURO: Denies confusion, dizziness MSK: Denies weakness, joint pain/swelling Vital Sign Vital Signs Vital Signs Date Time Temp Pulse Resp B/P Pulse Ox O2 Delivery O2 Flow Rate FiO2 07/15/16 08:43 73 105/47 07/15/16 08:42 Room Air 07/15/16 07:00 97.5 18 95 97.5 07/14/16 20:00 92.0 Physical Exam PHYSICAL EXAM GENERAL: NAD, Alert HEENT: PERRL, OC/OP NECK: Supple, no JVD, no LN LUNGS: Clear HEART: S1S2, no gallop, no murmur ABD: Soft, NT, no organomegaly, no rebound EXT: No edema, no cyanosis 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
--- NOTE | 2016-07-15 11:28 | PDOC ---
SURGICAL PROGRESS NOTE Subjective Pt feels better after shower, still with drainage Vital Signs Vital Signs Date Time Temp Pulse Resp B/P Pulse Ox O2 Delivery O2 Flow Rate FiO2 07/15/16 08:43 73 105/47 07/15/16 08:42 Room Air 07/15/16 07:00 97.5 18 95 97.5 07/14/16 20:00 92.0 I&O Intake and Output 07/15/16 07:00 Intake Total 3590 ml Output Total 750 ml Balance 2840 ml Intake Oral 3590 ml Output Urine Total 750 ml # Voids 12 # Bowel Movements 2 General: Alert, Oriented X3, Cooperative, No acute distress Skin: Other (Biliateral chronic edema, serous drainage left thigh) Labs Laboratory Tests Test 07/14/16 05:20 07/15/16 05:10 Prothrombin Time 31.4SEC (11.7-14.0) 21.7SEC (11.7-14.0) Prothromb Time International Ratio 3.3 (0.8-1.1) 2.0 (0.8-1.1) Sodium Level 137mmol/L (136-145) Potassium Level 3.5mmol/L (3.5-5.1) Chloride Level 103mmol/L (98-107) Carbon Dioxide Level 27mmol/L (21-32) Anion Gap 7 (6-14) Blood Urea Nitrogen 7mg/dL (7-20) Creatinine 1.2mg/dL (0.6-1.0) Estimated GFR (Cockcroft-Gault) 46.0 BUN/Creatinine Ratio 6 (6-20) Glucose Level 95mg/dL (70-99) Calcium Level 8.6mg/dL (8.5-10.1) Total Bilirubin 0.3mg/dL (0.2-1.0) Aspartate Amino Transf (AST/SGOT) 20U/L (15-37) Alanine Aminotransferase (ALT/SGPT) 10U/L (14-59) Alkaline Phosphatase 134U/L (46-116) Total Protein 7.8g/dL (6.4-8.2) Albumin 1.9g/dL (3.4-5.0) Albumin/Globulin Ratio 0.3 (1.0-1.7) Triglycerides Level 144mg/dL (0-150) Cholesterol Level 106mg/dL (0-200) LDL Cholesterol, Calculated 53mg/dL (0-100) VLDL Cholesterol, Calculated 29mg/dL (0-40) HDL Cholesterol 24mg/dL (40-60) Cholesterol/HDL Ratio 4.4 Laboratory Tests Test 07/15/16 05:10 Prothrombin Time 21.7SEC (11.7-14.0) Prothromb Time International Ratio 2.0 (0.8-1.1) Problem List Problems Medical Problems: (1) Left leg cellulitis Status: Acute Assessment/Plan lymphedema OT consult for treatment no surgical plans Problems: DARBY SIMENTAL MD Jul 15, 2016 11:28
[2016-07-15 15:05] VITALS: BP 118/57
[2016-07-15] MEDS ORDERED: MINERAL OIL/PETROLATUM TOPICAL CREAM 113GM JAR. TP PRN (15:15)
[2016-07-15] MEDS ORDERED: WARFARIN 2 MG TABLET. PO ONE (16:00)
[2016-07-15 19:00] VITALS: BP 126/59
[2016-07-15 23:25] VITALS: BP 102/49
[2016-07-16] MEDS: AMPICILLIN/SULBACTAM 3 GM in IV NORMAL SALINE 100ML 100 ML IV SCH ×2 (00:04→05:59)
[2016-07-16] MEDS: OXYCODONE/APAP 5/325 TABLET. PO PRN ×2 (00:16→08:20)
[2016-07-16 03:33] VITALS: BP 110/52
[2016-07-16 05:54] LABS: INR 1.9 (0.8-1.1); PROTHROMBIN TIME PATIENT 20.3 SEC (11.7-14.0)
[2016-07-16 07:00] VITALS: BP 123/60
[2016-07-16] MEDS: PANTOPRAZOLE 40 MG TABLET. PO SCH (08:18)
[2016-07-16] MEDS: VANCOMYCIN 125 MG/2.5 ML ORAL SOLUTION. PO SCH (08:19)
[2016-07-16] MEDS: DILTIAZEM HCL 120 MG CAP.ER.24H PO SCH (08:21)
[2016-07-16] MEDS: SENNOSIDES/DOCUSATE 8.6/50MG TABLET. PO SCH (08:21)
[2016-07-16] MEDS: POTASSIUM CHLORIDE 20 MEQ TABLET.ER. PO SCH (08:21)
[2016-07-16] MEDS: FUROSEMIDE 40 MG TABLET PO SCH (08:21)
[2016-07-16] MEDS: PROPAFENONE SR 225 MG CAP.ER.12H. PO SCH (08:22)
--- NOTE | 2016-07-16 08:29 | PDOC ---
SURGICAL PROGRESS NOTE Subjective Pt reports being hungry this AM, but otherwise doing well. She was evaluated by lymphedema team, and no new interventions available Vital Signs Vital Signs Date Time Temp Pulse Resp B/P Pulse Ox O2 Delivery O2 Flow Rate FiO2 07/16/16 08:22 69 123/60 07/16/16 08:20 Room Air 07/16/16 07:00 97.6 14 97.6 07/16/16 03:33 94 07/15/16 20:00 92.0 I&O Intake and Output 07/16/16 07:00 Intake Total 700 ml Output Total 976 ml Balance -276 ml Intake Oral 600 ml IV Total 100 ml Output Urine Total 975 ml Stool Total 1 ml # Voids 4 # Bowel Movements 3 General: Alert, Oriented X3, Cooperative, No acute distress Skin: Other (chronic lymphedema bilaterally, draining serous fluid left thigh) Labs Laboratory Tests Test 07/15/16 05:10 07/16/16 05:00 Prothrombin Time 21.7SEC (11.7-14.0) 20.3SEC (11.7-14.0) Prothromb Time International Ratio 2.0 (0.8-1.1) 1.9 (0.8-1.1) Laboratory Tests Test 07/16/16 05:00 Prothrombin Time 20.3SEC (11.7-14.0) Prothromb Time International Ratio 1.9 (0.8-1.1) Problem List Problems Medical Problems: (1) Left leg cellulitis Status: Acute Assessment/Plan cont local wound care no surgical plans Problems: DARBY SIMENTAL MD Jul 16, 2016 08:29
--- NOTE | 2016-07-16 09:36 | PDOC ---
Infectious Disease Note Subjective Subjective feeling ok ROS ROS GEN: Denies fevers, chills, sweats HEENT: Denies blurred vision, sore throat CV: Denies chest pain RESP: Denies shortness of air, cough GI: Denies n/v/d NEURO: Denies confusion, dizziness MSK: Denies weakness, joint pain/swelling Vital Sign Vital Signs Vital Signs Date Time Temp Pulse Resp B/P Pulse Ox O2 Delivery O2 Flow Rate FiO2 07/16/16 08:22 69 123/60 07/16/16 08:20 Room Air 07/16/16 08:00 92.0 07/16/16 07:00 97.6 14 97.6 07/16/16 03:33 94 Physical Exam PHYSICAL EXAM GENERAL: NAD, Alert HEENT: PERRL, OC/OP NECK: Supple, no JVD, no LN LUNGS: Clear HEART: S1S2, no gallop, no murmur ABD: Soft, NT, no organomegaly, no rebound EXT: No edema, no cyanosis 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
[2016-07-16] MEDS ORDERED: CIPROFLOXACIN HCL 250 MG TABLET PO SCH (10:00)
--- NOTE | 2016-07-16 10:37 | PDOC ---
PROGRESS NOTES Subjective Subjective slowly improving Objective Objective Vital Signs Date Time Temp Pulse Resp B/P Pulse Ox O2 Delivery O2 Flow Rate FiO2 07/16/16 09:20 Room Air 07/16/16 08:22 69 123/60 07/16/16 08:00 92.0 07/16/16 07:00 97.6 14 97.6 07/16/16 03:33 94 Intake and Output 07/16/16 07:00 Intake Total 700 ml Output Total 976 ml Balance -276 ml Intake Oral 600 ml IV Total 100 ml Output Urine Total 975 ml Stool Total 1 ml # Voids 4 # Bowel Movements 3 Physical Exam Abdomen: Normal bowel sounds, Soft Heart: Regular rate, Normal S1 Extremities: No clubbing General: Alert, Oriented X3, Cooperative, No acute distress HEENT: Atraumatic Lungs: Clear to auscultation Neck: Supple Neuro: Normal speech Psych/Mental Status: Mental status NL Skin: Other (chronic lymphedema bilaterally, draining serous fluid left thigh) COMMENT drainage from left thigh Diagnosis Problem List Problems Medical Problems: (1) Left leg cellulitis Status: Acute Assessment Assessment Problems Medical Problems: (1) Left leg cellulitis Status: Acute FINAL IMPRESSION: 1. Cellulitis of the thigh. 2. Chronic lymphedema. 3. Atrial fibrillation, on Coumadin. 4. Coagulopathy. 5. Morbid obesity. 6. Protein-calorie malnutrition, moderate. 7. Hypertension. 8. Hyperlipidemia. 9. Arthritis. PLAN: oral antibiotics. d/c to [facility]U today Inr 2.6today improving holding coumadin.restart from tomorrow ID and surgery consult appreciated. At this time, admit to hospital, IV antibiotics, vanco+unasyn+po vanco and ID consult and General Surgery consult, lymphedema consult, wound cultures, rest, elevation and see how the patient's condition improves, hold Coumadin because of coagulopathy. The patient was on antibiotics and supposed to cut down the Coumadin dose by half but she forgot and given vitamin K one dose and monitor INR. No evidence of any bleeding at this point. Problems: Plan Plan of Care Problems Medical Problems: (1) Left leg cellulitis Status: Acute Comment Review of Relevant I have reviewed the following items quentin (where applicable) has been applied. Labs Laboratory Tests Test 07/16/16 05:00 Prothrombin Time 20.3SEC (11.7-14.0) Prothromb Time International Ratio 1.9 (0.8-1.1) Microbiology 07/12/16 Blood Culture - Preliminary, Resulted NO GROWTH AFTER 3 DAYS 07/12/16 Gram Stain - Final, Complete Medications Current Medications Ciprofloxacin (Cipro) 500 mg BID PO Last administered on 07/16/16 10:04; Start 07/16/16 at 10:00 Multi-Ingred Cream/Lotion/Oil/ Oint (Hydrocerin) 1 dante PRN BID PRN TP Dry skin on legs Last administered on 07/15/16 21:58; Start 07/15/16 at 15:15 Warfarin Sodium (Coumadin Per Pharmacy) 1 each PRN DAILY PRN MC SEE COMMENTS Last administered on 07/15/16 16:13; Start 07/15/16 at 14:30 Warfarin Sodium (Coumadin) 2 mg 1X WARF ONCE PO Last administered on 07/15/16 17:35; Start 07/15/16 at 16:00; Stop 07/15/16 at 16:01; Status DC Vitals/I & O Vital Sign - Last 24 Hours 07/15/16 07/15/16 07/15/16 07/15/16 11:00 15:05 17:36 19:00 Temp 97.8 97.6 97.5 97.8 97.6 97.5 Pulse 68 61 68 Resp 18 16 18 B/P 117/71 118/57 126/59 Pulse Ox 94 94 96 O2 Delivery Room Air Room Air Room Air Room Air 07/15/16 07/15/16 07/15/16 07/16/16 20:00 21:57 23:25 00:16 Temp 97.8 97.8 Pulse 68 67 Resp 18 20 B/P 126/59 102/49 Pulse Ox 94 O2 Delivery Room Air Room Air Room Air O2 Flow Rate 92.0 07/16/16 07/16/16 07/16/16 07/16/16 01:16 03:33 07:00 08:00 Temp 97.8 97.6 97.8 97.6 Pulse 62 69 Resp 20 18 14 B/P 110/52 123/60 Pulse Ox 94 O2 Delivery Room Air Room Air Room Air O2 Flow Rate 92.0 07/16/16 07/16/16 07/16/16 07/16/16 08:20 08:21 08:22 09:20 Pulse 69 69 B/P 123/60 123/60 O2 Delivery Room Air Room Air Intake and Output 07/15/16 07/15/16 07/16/16 15:00 23:00 07:00 Intake Total 360 ml 340 ml Output Total 376 ml 600 ml Balance -376 ml -240 ml 340 ml JAGUAR BRICE MD Jul 16, 2016 10:37
[2016-07-16 10:52] VITALS: BP 105/43
[2016-07-16 15:00] VITALS: BP 103/46
[2016-07-16] MEDS ORDERED: WARFARIN 2.5 MG TABLET. PO ONE (16:00)
[2016-07-16] MEDS ORDERED: AMOXICILLIN 250 MG CAPSULE PO SCH (21:00)
--- NOTE | 2016-07-17 14:40 | PDOC ---
Provider Note Provider Note Discharge summary dictated. #[id number] JAGUAR BRICE MD Jul 17, 2016 14:40
--- NOTE | 2016-07-17 18:32 | DS ---
DATE OF DISCHARGE: 07/16/2016 REASON FOR ADMISSION TO THE HOSPITAL: Left thigh cellulitis, chronic lymphedema. CONSULTATIONS: Dr. Evangelist Flores, Infectious Disease and Dr. Ferreira, General Surgery. PROCEDURES DONE: None. COMPLICATIONS NOTED: None. HOSPITAL COURSE: The patient is a 60-year-old female. The patient has comorbid obesity, chronic lymphedema of lower extremities, mostly in the thighs, the patient has developed cellulitis with infection and draining, was admitted to the hospital, seen by Infectious Disease, was given vancomycin and Zosyn IVs. The patient was seen by General Surgery, does not think she needs any surgical intervention at this point, recommended Lymphedema Clinic to see compression wraps, the patient was seeing Physical Therapy and Lymphedema Clinic. On the whole, patient's condition was slightly improving and antibiotics were changed from IV to oral, and she was discharged from nursing home to [place]. The patient also has a history of atrial fibrillation, on Coumadin; hypertension; and hyperlipidemia. FINAL DIAGNOSES: 1. Left leg cellulitis. 2. Chronic lymphedema. 3. Atrial fibrillation, rate controlled. 4. Coumadin for anticoagulation, for 5. Morbid obesity. BMI is 56. 6. Hypertension and hyperlipidemia. ADDENDUM: The cultures shows Serratia and enterococcus. The patient will be followed at the assisted with PT, OT, and compression wraps. JAGUAR BRICE MD DR: PALAK/shayla JOB#: [id number] / [id number] JAIDA
== END 2016-07-16 16:12 | DRG 603 ==
LOC: 5 SOUTH 18:38
PROVIDERS: ADMIT Internal Medicine; ATTEND Internal Medicine
DX: L03.116 Cellulitis of left lower limb (principal); E44.0 Moderate protein-calorie malnutrition; D68.9 Coagulation defect, unspecified; Z68.43 Body mass index [BMI] 50.0-59.9, adult; M79.3 Panniculitis, unspecified; E66.01 Morbid (severe) obesity due to excess calories; E78.5 Hyperlipidemia, unspecified; I10 Essential (primary) hypertension; I48.91 Unspecified atrial fibrillation; K21.9 Gastro-esophageal reflux disease without esophagitis; M19.90 Unspecified osteoarthritis, unspecified site; Z79.01 Long term (current) use of anticoagulants; Z79.899 Other long term (current) drug therapy; Z88.2 Allergy status to sulfonamides; Z88.1 Allergy status to other antibiotic agents; Z88.8 Allergy status to other drugs, medicaments and biological substances; Z83.3 Family history of diabetes mellitus; Z86.010 Personal history of colon polyps
CPT/HCPCS: 36415; 80048; 80053; 80061; 82040; 84443; 85027; 85610; 87040; 87071; 87075; 87186; 87205; 93005; J0295; J0696; J3370; J3430; J7040; 97110; 97530

== ENCOUNTER 2016-08-17 10:08 | Inpatient (IN) | payer OTHER ==
[~2016-08-17] VITALS: Ht 170.2 cm; Wt 178.7 kg
[~2016-08-17 10:08] MED LIST changes: +ATOR10TA60 PO; +CEPH-264 PO; +OXYC-250 PO; +POTA20TA82 PO; +VENTOLIN HFA18 GM INH; -WARF2.5T PO; +WARF2.5T83 PO
[2016-08-17] MEDS ORDERED: KETOROLAC TROMETHAMINE 60 MG/2 ML INJ. IM ONE (11:30)
--- NOTE | 2016-08-17 12:23 | RAD ---
AP and lateral left knee radiographs 08/17/2016 Clinical history: Left knee pain post fall. Portable AP and crosstable lateral digital radiographs of left knee were obtained. Comparison study is dated 10/12/2013. No fracture or dislocation of the left knee is seen. Moderate to severe degenerative changes are seen involving all 3 compartments of the left knee. Impression: No fracture or dislocation of the left knee is seen.
--- NOTE | 2016-08-17 13:52 | PHYS DOC ---
Past Medical History Past Medical History: A-Fib, Hypertension, Other Additional Past Medical Histor: lymphadema, morbid obesity Past Surgical History: Appendectomy, Cholecystectomy, Tubal ligation Alcohol Use: None Drug Use: None Adult General Chief Complaint Chief Complaint: PAIN CONTROL HPI HPI Patient is a 60 year old female with history of morbidity obesity, left knee pain, A. fib and hypertension who presents today with left knee pain. Patient states she has history of chronic left knee pain. Patient states the pain got exacerbated 2 days ago after she fell. Patient states she's not been able to ambulate since she fell. Patient denies any loss of consciousness when she fell. She states she took oxycodone 10/325 mg today with no relief. Review of Systems Review of Systems Constitutional: Denies fever or chills [] Eyes: Denies change in visual acuity, redness, or eye pain [] Musculoskeletal: Left knee pain Integument: Denies rash or skin lesions [] Neurologic: Denies headache, focal weakness or sensory changes [] Endocrine: Denies polyuria or polydipsia [] Current Medications Current Medications Current Medications Medications (Trade) Dose Ordered Sig/Hoang Start Time Stop Time Status Last Admin Dose Admin Ketorolac Tromethamine (Toradol Im) 30 mg 1X ONCE 08/17/16 11:30 08/17/16 11:31 DC 08/17/16 11:28 30 MG Allergies Allergies Allergies Coded Allergies Type Severity Reaction Last Updated Verified Sulfa (Sulfonamide Antibiotics) Allergy Intermediate Rash 04/18/14 Yes amoxicillin Allergy Intermediate Rash 04/18/14 Yes clavulanic acid Allergy Intermediate Rash 04/18/14 Yes dabigatran etexilate Allergy Intermediate Rash 04/18/14 Yes meperidine Allergy Intermediate HALLUCINATIONS 04/18/14 Yes Physical Exam Physical Exam Constitutional: Well developed, well nourished, no acute distress, non-toxic appearance. [] HENT: Normocephalic, atraumatic, bilateral external ears normal, oropharynx moist, no oral exudates, nose normal. [] Skin: Warm, dry, no erythema, no rash. [] Back: No tenderness, no CVA tenderness. [] Extremities: This is a morbidly obese patient with no obvious deformity to the left knee, exam extremely difficult due to her weight and body habitus. +2 left pedal pulse. Cap refill less than 2 seconds the left lower extremity. Sensation intact to the left lower extremity. Neurologic: Alert and oriented X 3, normal motor function, normal sensory function, no focal deficits noted. [] Psychologic: Affect normal, judgement normal, mood normal. [] Current Patient Data Vital Signs Vital Signs Date Time Temp Pulse Resp B/P Pulse Ox O2 Delivery O2 Flow Rate FiO2 08/17/16 10:16 98.4 80 18 105/50 96 Nasal Cannula 1 98.4 EKG EKG [] Radiology/Procedures Radiology/Procedures [] Course & Med Decision Making Course & Med Decision Making Pertinent Labs and Imaging studies reviewed. (See chart for details) This is a morbidly obese patient who presents today ED with left knee pain after falling 3 days ago, exam is extremely difficult due to her weight and body habitus Left knee x-rays 2 views interpreted by radiologist are negative for any acute findings. Patient states she's not been able to ambulate for the last 2 days after falling. 14:[address] Townsend who accepted patient for admission. Consult was placed for Dr. Chou pain management per request of Dr. Cary Pérez Disclaimer Beto Disclaimer This electronic medical record was generated, in whole or in part, using a voice recognition dictation system. Departure Departure Impression: Primary Impression: Fall from standing Additional Impression: Left knee pain Disposition: ADMITTED INPATIENT Condition: STABLE Referrals: JAGUAR TOWNSEND MD (PCP) Problem Qualifiers Primary Impression: Fall from standing Encounter type: initial encounter Qualified Code: W19.XXXA - Unspecified fall, initial encounter Additional Impression: Left knee pain Chronicity: chronic Qualified Code: M25.562 - Pain in left knee RADHASHORTYFiorMINH ASSOCIATE PROFESSOR PHYSICIAN Aug 17, 2016 13:52
[2016-08-17] MEDS ORDERED: MORPHINE SULFATE 2 MG/ML DISP.SYRIN. IV PRN (14:30)
[2016-08-17] MEDS ORDERED: ACETAMINOPHEN 325 MG TABLET. PO PRN (14:30)
[2016-08-17] MEDS ORDERED: ONDANSETRON PF 4 MG/2 ML VIAL. IV PRN (14:30)
--- NOTE | 2016-08-17 16:20 | ACF ---
Admission Forms Criteria PAIN MANAGEMENT [facility] Clinical Indications for Admission to Inpatient Care (Place 'X' for any and all applicable criteria): Hospital admission is needed for appropriate care of the patient because of 1 or more of the following are present (1)(2)(3)(4)(5): [ ]I. Severe pain requiring acute inpatient management as indicated by 1 or more of the following (2)(5)(10): [ ]a) Continuous or frequent (eg, every 2 to 4 hours) parenteral analgesics required [A] [ ]b) Necessity (ie, alternative approaches not effective) for analgesic regimen that can only be performed or initiated in inpatient setting [X]II. Pain causing debilitation to the point of inability to function or be supported at any other level of care [ ]III. Severe side effects from pain medications as indicated by ANY ONE of the following (12)(13)(14)(15): [ ]a) Uncontrollable seizures [ ]b) Cardiac arrhythmias of immediate concern [ ]c) Dehydration that is severe or persistent [ ]d) Vomiting that is severe or persistent [ ]e) Altered mental status that is severe or persistent [ ]f) Obstipation with inadequate GI function to maintain nutrition The original [employer] content created by [employer] has been revised. The portions of the content which have been revised are identified through the use of italic text or in bold, and [email or web address] has neither reviewed nor approved the modified material. All other unmodified content is copyright [employer]. Please see references footnoted in the original [employer] edition 2016 Admission Criteria Met?: Yes SARAH POP Aug 17, 2016 16:20
[2016-08-17 19:00] VITALS: BP 112/46
[2016-08-17 19:40] LABS: INR 2.1 (0.8-1.1); PROTHROMBIN TIME PATIENT 22.1 SEC (11.7-14.0)
[2016-08-17] MEDS ORDERED: NON FORMULARY ITEM (Albuterol Sulfate (Ventolin Hfa Inhaler) 2 PUFF) INH SCH (20:00)
[2016-08-17] MEDS: ALBUTEROL SULFATE 2.5 MG/3 ML NEBU. NEB SCH (20:44)
[2016-08-17] MEDS: NYSTATIN TOPICAL POWDER 15GM BOTTLE. TP SCH (21:00)
[2016-08-17] MEDS ORDERED: PETROLATUM WHITE TP SCH (21:00)
[2016-08-17] MEDS ORDERED: ONDANSETRON ODT 4 MG TAB.RAPDIS. PO SCH (22:00)
[2016-08-17] MEDS: WARFARIN 2.5 MG TABLET. PO SCH (22:16)
[2016-08-17] MEDS: ATORVASTATIN CALCIUM 10 MG TABLET. PO SCH (22:16)
[2016-08-17] MEDS: PROPAFENONE SR 225 MG CAP.ER.12H. PO SCH (22:20)
[2016-08-17] MEDS: OXYCODONE/APAP 10/325 TABLET. PO PRN (22:40)
[2016-08-17 23:00] VITALS: BP 128/50
[2016-08-18] VITALS (21 sets, daily range): BP systolic 88–189; BP diastolic 38–97
[2016-08-18] MEDS ORDERED: ONDANSETRON ODT 4 MG TAB.RAPDIS. PO PRN (01:15)
[2016-08-18 05:09] LABS: CALCIUM 8.4 mg/dL (8.5-10.1); CREATININE 1.8 mg/dL (0.6-1.0); GFR 28.8
[2016-08-18 06:52] LABS: BASO % 0 % (0-3); EOS % 1 % (0-3); HEMATOCRIT 28.8 % (36.0-47.0); HEMOGLOBIN 9.1 g/dL (12.0-15.5); LYMPH # 0.6 x10^3/uL (1.0-4.8); LYMPH % 4 % (24-48); MEAN CORPUSCULAR HEMOGLOBIN 27 pg (25-35); MEAN CORPUSCULAR HGB CONC 32 g/dL (31-37); MEAN CORPUSCULAR VOLUME 83 fL (79-100); MONO % 3 % (0-9); NEUT % 92 % (31-73); PLATELET COUNT 90 x10^3/uL (140-400); RED BLOOD COUNT 3.46 x10^6/uL (3.50-5.40); RED CELL DISTRIBUTION WIDTH 17.4 % (11.5-14.5); WHITE BLOOD COUNT 16.8 x10^3/uL (4.0-11.0)
[2016-08-18] MEDS: ALBUTEROL SULFATE 2.5 MG/3 ML NEBU. NEB SCH ×3 (07:07→19:45)
[2016-08-18] MEDS ORDERED: PANTOPRAZOLE 40 MG TABLET.DR. PO SCH (07:30)
--- NOTE | 2016-08-18 07:56 | EKG ---
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
[2016-08-18] MEDS ORDERED: POTASSIUM CHLORIDE 20 MEQ TABLET.ER. PO SCH (08:00)
--- NOTE | 2016-08-18 08:16 | RAD ---
Portable chest, 08/18/2016: History: Hypertension Comparison is made to a study from 04/15/2014. The heart is at the upper limits of normal in size. There is calcific plaquing of the aorta. The pulmonary vascularity is normal. There is mild linear scarring in the left base. No acute infiltrates are seen. A density at the cardiac apex is probably due to a prominent epicardial fat pad. IMPRESSION: 1. Borderline cardiomegaly. 2. No acute abnormality is detected.
[2016-08-18] MEDS: PROPAFENONE SR 225 MG CAP.ER.12H. PO SCH ×2 (09:00→21:00)
[2016-08-18] MEDS: NYSTATIN TOPICAL POWDER 15GM BOTTLE. TP SCH (09:00)
[2016-08-18] MEDS ORDERED: FUROSEMIDE 40 MG TABLET. PO SCH (09:00)
[2016-08-18] MEDS: MULTIVITAMIN with MINERAL TABLET. PO SCH (09:29)
[2016-08-18] MEDS ORDERED: IV NORMAL SALINE 1000ML BAG 1,000 ML IV ONE ×2 (10:00→17:45)
[2016-08-18] MEDS ORDERED: VANCOMYCIN 1.5 GM in IV NORMAL SALINE 500ML BAG 500 ML IV SCH (10:00)
[2016-08-18] MEDS ORDERED: VANCOMYCIN PER PHARMACY MC PRN (10:00)
[2016-08-18] MEDS: WARFARIN 2.5 MG TABLET. PO SCH (10:01)
--- NOTE | 2016-08-18 10:07 | PDOC ---
Provider Note Provider Note Pt seen,H&P dictated. transfer to icu JAGUAR BRICE MD Aug 18, 2016 10:07
[2016-08-18 10:18] LABS: PLT ESTIMATE DECREASED (ADEQUATE)
[2016-08-18] MEDS ORDERED: VANCOMYCIN 2 GM in IV NORMAL SALINE 500ML BAG 500 ML IV ONE (11:00)
[2016-08-18 11:19] LABS: BILIRUBIN,URINE SMALL (NEG); GLUCOSE,URINE NEGATIVE (NEG); NITRITE,URINE NEGATIVE (NEG); PROTEIN,URINE 100 mg/dL (NEG-TRACE)
[2016-08-18 11:22] LABS: ALBUMIN/GLOBULIN RATIO 0.4 (1.0-1.7); CREATININE 1.7 mg/dL (0.6-1.0); GFR 30.8; MAGNESIUM 1.7 mg/dL (1.8-2.4); POTASSIUM 3.6 mmol/L (3.5-5.1); TOTAL BILIRUBIN 0.9 mg/dL (0.2-1.0); TOTAL PROTEIN 6.9 g/dL (6.4-8.2)
[2016-08-18 11:41] LABS: BODY TEMP ABG 99.3 DEG; CORRECTED PCO2 ABG 31 mmHg; CORRECTED PH ABG 7.44; CORRECTED PO2 ABG 87 mmHg; HCO3 ABG 21 mmol/L (21-28); SAT O2 ABG 96 % (92-99)
[2016-08-18 11:42] LABS: FIO2 ABG 40; PCO2 ABG 31 mmHg (35-46); PH ABG 7.45 (7.35-7.45); PO2 ABG 85 mmHg (65-108)
[2016-08-18 11:43] LABS: BACTERIA,URINE 0 /HPF (0-FEW); RBC,URINE OCC /HPF (0-2); WBC,URINE 0 /HPF (0-4)
[2016-08-18 11:44] LABS: SQUAMOUS EPITHELIAL CELL,UR OCC /LPF
[2016-08-18] MEDS: IV NORMAL SALINE 1000ML BAG 1,000 ML IV SCH ×2 (12:10→20:00)
--- NOTE | 2016-08-18 12:26 | PDOC ---
Infectious Disease Note Vital Sign Vital Signs Vital Signs Date Time Temp Pulse Resp B/P Pulse Ox O2 Delivery O2 Flow Rate FiO2 08/18/16 11:00 94 Nasal Cannula 4.0 08/18/16 09:00 111 88/38 08/18/16 07:00 98.3 28 98.3 Labs Lab Laboratory Tests Test 08/17/16 18:55 08/18/16 03:50 08/18/16 10:29 08/18/16 10:40 Prothrombin Time 22.1SEC (11.7-14.0) Prothromb Time International Ratio 2.1 (0.8-1.1) White Blood Count 16.8x10^3/uL (4.0-11.0) Red Blood Count 3.46x10^6/uL (3.50-5.40) Hemoglobin 9.1g/dL (12.0-15.5) Hematocrit 28.8% (36.0-47.0) Mean Corpuscular Volume 83fL (79-100) Mean Corpuscular Hemoglobin 27pg (25-35) Mean Corpuscular Hemoglobin Concent 32g/dL (31-37) Red Cell Distribution Width 17.4% (11.5-14.5) Platelet Count 90x10^3/uL (140-400) Neutrophils (%) (Auto) 92% (31-73) Lymphocytes (%) (Auto) 4% (24-48) Monocytes (%) (Auto) 3% (0-9) Eosinophils (%) (Auto) 1% (0-3) Basophils (%) (Auto) 0% (0-3) Neutrophils # (Auto) 15.5x10^3uL (1.8-7.7) Lymphocytes # (Auto) 0.6x10^3/uL (1.0-4.8) Monocytes # (Auto) 0.4x10^3/uL (0.0-1.1) Eosinophils # (Auto) 0.2x10^3/uL (0.0-0.7) Basophils # (Auto) 0.0x10^3/uL (0.0-0.2) Segmented Neutrophils % 96% (35-66) Band Neutrophils % 3% (0-9) Lymphocytes % 1% (24-48) Platelet Estimate Decreased (ADEQUATE) Sodium Level 136mmol/L (136-145) 135mmol/L (136-145) Potassium Level 4.0mmol/L (3.5-5.1) 3.6mmol/L (3.5-5.1) Chloride Level 101mmol/L (98-107) 100mmol/L (98-107) Carbon Dioxide Level 26mmol/L (21-32) 22mmol/L (21-32) Anion Gap 9 (6-14) 13 (6-14) Blood Urea Nitrogen 42mg/dL (7-20) 39mg/dL (7-20) Creatinine 1.8mg/dL (0.6-1.0) 1.7mg/dL (0.6-1.0) Estimated GFR (Cockcroft-Gault) 28.8 30.8 Glucose Level 86mg/dL (70-99) 77mg/dL (70-99) Calcium Level 8.4mg/dL (8.5-10.1) 8.0mg/dL (8.5-10.1) O2 Saturation 96% (92-99) Arterial Blood pH 7.45 (7.35-7.45) Arterial Blood pH (Temp corrected) 7.44 Arterial Blood pCO2 at Patient Temp 31mmHg (35-46) Arterial Blood pCO2 (Temp correct) 31mmHg Arterial Blood pO2 at Patient Temp 85mmHg (65-108) Arterial Blood pO2 (Temp corrected) 87mmHg Arterial Blood HCO3 21mmol/L (21-28) Arterial Blood Base Excess -3mmol/L (-3-3) FiO2 40 BUN/Creatinine Ratio 23 (6-20) Lactic Acid Level 3.5mmol/L (0.4-2.0) Magnesium Level 1.7mg/dL (1.8-2.4) Total Bilirubin 0.9mg/dL (0.2-1.0) Aspartate Amino Transf (AST/SGOT) 99U/L (15-37) Alanine Aminotransferase (ALT/SGPT) 27U/L (14-59) Alkaline Phosphatase 136U/L (46-116) Total Protein 6.9g/dL (6.4-8.2) Albumin 2.0g/dL (3.4-5.0) Albumin/Globulin Ratio 0.4 (1.0-1.7) Test 08/18/16 11:00 Urine Collection Type Unknown Urine Color Kristine Urine Clarity Cloudy Urine pH 6.0 Urine Specific [place] >=1.030 Urine Protein 100mg/dL (NEG-TRACE) Urine Glucose (UA) Negativemg/dL (NEG) Urine Ketones (Stick) Negativemg/dL (NEG) Urine Blood Trace (NEG) Urine Nitrite Negative (NEG) Urine Bilirubin Small (NEG) Urine Urobilinogen Dipstick 1.0mg/dL (0.2 mg/dL) Urine Leukocyte Esterase Negative (NEG) Urine RBC Occ/HPF (0-2) Urine WBC 0/HPF (0-4) Urine Squamous Epithelial Cells Occ/LPF Urine Amorphous Sediment Present/HPF Urine Bacteria 0/HPF (0-FEW) Urine Hyaline Casts Occasional/HPF Urine Mucus Slight/LPF Objective Assessment Leukocytosis Lactic acidosis Dehydration LISSETH Hypotension likely sec to dehydration , infection appears less likely Obesity Plan Plan of Care change antibiotics to meropenem hydration supportive care soon to d/c antibiotics d/w YOLETTE Ledesma MD Aug 18, 2016 12:26
--- NOTE | 2016-08-18 12:38 | HP ---
ADMIT DATE: 08/17/2016 LOCATION: [facility] REASON FOR ADMISSION TO THE HOSPITAL: Weakness, confusion and possible sepsis. HISTORY OF PRESENT ILLNESS: The patient is a 60-year-old female with history of morbid obesity, atrial fibrillation, chronic lymphedema. She had C. diff colitis in the past. She was at [facility] recovering from leg cellulitis, went home and she was not doing well. She has kind of pain, did not fall at home. No fractures and she said she cannot be at home and she was found to have a white count of 16,000 this morning. The patient was confused. She was dry. BUN and creatinine was elevated. White count was elevated and she looks like she is in acute sepsis with hypertension and confusion. The patient is transferred to the ICU, started on IV fluids, bolus and antibiotics. PAST MEDICAL HISTORY: Has a history of morbid obesity, atrial fibrillation, hypertension, hyperlipidemia, chronic lymphedema with cellulitis of the legs. PAST SURGICAL HISTORY: Had appendectomy, gallbladder surgery, tubal ligation and cardiac catheterization in the past. No major blockages. ALLERGIES: SULFA, AMOXIL, CARBOLIC ACID, DABIGATRAN and DEMEROL. MEDICATIONS AT HOME: Atorvastatin 10 mg daily, diltiazem 100 mg daily, Lasix 40 mg daily, multivitamin daily, Zofran daily, oxycodone 10/325 q. 6, Protonix 40 mg daily, potassium 20 mEq daily, propafenone 225 mg twice a day, Coumadin 2.5 mg daily. PERSONAL HISTORY: No history of smoking, alcohol or drug abuse. SOCIAL HISTORY: Lives at home, walks with a walker. REVIEW OF SYSTEMS: Fourteen-system reviewed: CARDIAC: Denies any chest pain. LUNGS: No cough or sputum. GASTROINTESTINAL: No nausea or vomiting. NEUROLOGIC: The patient is drifting in and out of conversation, recognized my name, but patient's mouth is dry. PHYSICAL EXAMINATION: VITAL SIGNS: At the time of admission shows a temperature 98, pulse 80, respirations 18, blood pressure 105/50, 96% on 2 liters. HEENT: Head is atraumatic. Pupils equal. Oral cavity, dry mouth. NECK: Supple. Thyroid not enlarged. JVD not elevated. CHEST: Symmetrical. CARDIOVASCULAR: S1, S2. LUNGS: Clear to auscultation. ABDOMEN: Morbid obesity, nontender. EXTERNAL GENITALIA: No Newman. RECTAL: Deferred. EXTREMITIES: Chronic lymphedema, has thickening of the skin secondary to chronic lymphedema. No redness at this time. Foot, no ulcerations. NEUROLOGIC: The patient is in and out drifting, making conversations, recognized my name, but she goes in to sleep. LABORATORY DATA: Shows a white count of 16.8, hemoglobin 9, platelets 90,000. Electrolytes show sodium 136, potassium 4.0, chloride 101, bicarbonate 26, BUN 42, creatinine 1.8, glucose 86. INR is 2.1. Chest x-ray was negative. X-ray of the knee, negative for fracture. FINAL IMPRESSION: 1. Acute sepsis. 2. Elevated white count with hypertension as well as renal insufficiency. 3. Chronic recurrent cellulitis of the legs. 4. Chronic lymphedema. 5. Morbid obesity. 6. History of Clostridium difficile. 7. Chronic atrial fibrillation, on Coumadin. PLAN: At this time, was admitted to the hospital. Blood cultures, urine cultures. Broad spectrum antibiotic. ID consult. Newman catheter to monitor urine output. Check stool for C. diff. I will transfer to the ICU because of acute change in mental status. I will also check lactic acid. JAGUAR BRICE MD DR: PALAK/shayla JOB#: [id number] / [id number]
--- NOTE | 2016-08-18 12:43 | PDOC ---
PULMONARY PROGRESS NOTES Vitals Vital Signs Date Time Temp Pulse Resp B/P Pulse Ox O2 Delivery O2 Flow Rate FiO2 08/18/16 11:00 94 Nasal Cannula 4.0 08/18/16 09:00 111 88/38 08/18/16 07:00 98.3 28 98.3 Labs Laboratory Tests Test 08/17/16 18:55 08/18/16 03:50 08/18/16 10:29 08/18/16 10:40 Prothrombin Time 22.1SEC (11.7-14.0) Prothromb Time International Ratio 2.1 (0.8-1.1) White Blood Count 16.8x10^3/uL (4.0-11.0) Red Blood Count 3.46x10^6/uL (3.50-5.40) Hemoglobin 9.1g/dL (12.0-15.5) Hematocrit 28.8% (36.0-47.0) Mean Corpuscular Volume 83fL (79-100) Mean Corpuscular Hemoglobin 27pg (25-35) Mean Corpuscular Hemoglobin Concent 32g/dL (31-37) Red Cell Distribution Width 17.4% (11.5-14.5) Platelet Count 90x10^3/uL (140-400) Neutrophils (%) (Auto) 92% (31-73) Lymphocytes (%) (Auto) 4% (24-48) Monocytes (%) (Auto) 3% (0-9) Eosinophils (%) (Auto) 1% (0-3) Basophils (%) (Auto) 0% (0-3) Neutrophils # (Auto) 15.5x10^3uL (1.8-7.7) Lymphocytes # (Auto) 0.6x10^3/uL (1.0-4.8) Monocytes # (Auto) 0.4x10^3/uL (0.0-1.1) Eosinophils # (Auto) 0.2x10^3/uL (0.0-0.7) Basophils # (Auto) 0.0x10^3/uL (0.0-0.2) Segmented Neutrophils % 96% (35-66) Band Neutrophils % 3% (0-9) Lymphocytes % 1% (24-48) Platelet Estimate Decreased (ADEQUATE) Sodium Level 136mmol/L (136-145) 135mmol/L (136-145) Potassium Level 4.0mmol/L (3.5-5.1) 3.6mmol/L (3.5-5.1) Chloride Level 101mmol/L (98-107) 100mmol/L (98-107) Carbon Dioxide Level 26mmol/L (21-32) 22mmol/L (21-32) Anion Gap 9 (6-14) 13 (6-14) Blood Urea Nitrogen 42mg/dL (7-20) 39mg/dL (7-20) Creatinine 1.8mg/dL (0.6-1.0) 1.7mg/dL (0.6-1.0) Estimated GFR (Cockcroft-Gault) 28.8 30.8 Glucose Level 86mg/dL (70-99) 77mg/dL (70-99) Calcium Level 8.4mg/dL (8.5-10.1) 8.0mg/dL (8.5-10.1) O2 Saturation 96% (92-99) Arterial Blood pH 7.45 (7.35-7.45) Arterial Blood pH (Temp corrected) 7.44 Arterial Blood pCO2 at Patient Temp 31mmHg (35-46) Arterial Blood pCO2 (Temp correct) 31mmHg Arterial Blood pO2 at Patient Temp 85mmHg (65-108) Arterial Blood pO2 (Temp corrected) 87mmHg Arterial Blood HCO3 21mmol/L (21-28) Arterial Blood Base Excess -3mmol/L (-3-3) FiO2 40 BUN/Creatinine Ratio 23 (6-20) Lactic Acid Level 3.5mmol/L (0.4-2.0) Magnesium Level 1.7mg/dL (1.8-2.4) Total Bilirubin 0.9mg/dL (0.2-1.0) Aspartate Amino Transf (AST/SGOT) 99U/L (15-37) Alanine Aminotransferase (ALT/SGPT) 27U/L (14-59) Alkaline Phosphatase 136U/L (46-116) Total Protein 6.9g/dL (6.4-8.2) Albumin 2.0g/dL (3.4-5.0) Albumin/Globulin Ratio 0.4 (1.0-1.7) Test 4/12/17 11:00 Urine Collection Type Unknown Urine Color Kristine Urine Clarity Cloudy Urine pH 6.0 Urine Specific [place] >=1.030 Urine Protein 100mg/dL (NEG-TRACE) Urine Glucose (UA) Negativemg/dL (NEG) Urine Ketones (Stick) Negativemg/dL (NEG) Urine Blood Trace (NEG) Urine Nitrite Negative (NEG) Urine Bilirubin Small (NEG) Urine Urobilinogen Dipstick 1.0mg/dL (0.2 mg/dL) Urine Leukocyte Esterase Negative (NEG) Urine RBC Occ/HPF (0-2) Urine WBC 0/HPF (0-4) Urine Squamous Epithelial Cells Occ/LPF Urine Amorphous Sediment Present/HPF Urine Bacteria 0/HPF (0-FEW) Urine Hyaline Casts Occasional/HPF Urine Mucus Slight/LPF Laboratory Tests Test 08/17/16 18:55 08/18/16 03:50 08/18/16 10:29 08/18/16 10:40 Prothrombin Time 22.1SEC (11.7-14.0) Prothromb Time International Ratio 2.1 (0.8-1.1) White Blood Count 16.8x10^3/uL (4.0-11.0) Red Blood Count 3.46x10^6/uL (3.50-5.40) Hemoglobin 9.1g/dL (12.0-15.5) Hematocrit 28.8% (36.0-47.0) Mean Corpuscular Volume 83fL (79-100) Mean Corpuscular Hemoglobin 27pg (25-35) Mean Corpuscular Hemoglobin Concent 32g/dL (31-37) Red Cell Distribution Width 17.4% (11.5-14.5) Platelet Count 90x10^3/uL (140-400) Neutrophils (%) (Auto) 92% (31-73) Lymphocytes (%) (Auto) 4% (24-48) Monocytes (%) (Auto) 3% (0-9) Eosinophils (%) (Auto) 1% (0-3) Basophils (%) (Auto) 0% (0-3) Neutrophils # (Auto) 15.5x10^3uL (1.8-7.7) Lymphocytes # (Auto) 0.6x10^3/uL (1.0-4.8) Monocytes # (Auto) 0.4x10^3/uL (0.0-1.1) Eosinophils # (Auto) 0.2x10^3/uL (0.0-0.7) Basophils # (Auto) 0.0x10^3/uL (0.0-0.2) Segmented Neutrophils % 96% (35-66) Band Neutrophils % 3% (0-9) Lymphocytes % 1% (24-48) Platelet Estimate Decreased (ADEQUATE) Sodium Level 136mmol/L (136-145) 135mmol/L (136-145) Potassium Level 4.0mmol/L (3.5-5.1) 3.6mmol/L (3.5-5.1) Chloride Level 101mmol/L (98-107) 100mmol/L (98-107) Carbon Dioxide Level 26mmol/L (21-32) 22mmol/L (21-32) Anion Gap 9 (6-14) 13 (6-14) Blood Urea Nitrogen 42mg/dL (7-20) 39mg/dL (7-20) Creatinine 1.8mg/dL (0.6-1.0) 1.7mg/dL (0.6-1.0) Estimated GFR (Cockcroft-Gault) 28.8 30.8 Glucose Level 86mg/dL (70-99) 77mg/dL (70-99) Calcium Level 8.4mg/dL (8.5-10.1) 8.0mg/dL (8.5-10.1) O2 Saturation 96% (92-99) Arterial Blood pH 7.45 (7.35-7.45) Arterial Blood pH (Temp corrected) 7.44 Arterial Blood pCO2 at Patient Temp 31mmHg (35-46) Arterial Blood pCO2 (Temp correct) 31mmHg Arterial Blood pO2 at Patient Temp 85mmHg (65-108) Arterial Blood pO2 (Temp corrected) 87mmHg Arterial Blood HCO3 21mmol/L (21-28) Arterial Blood Base Excess -3mmol/L (-3-3) FiO2 40 BUN/Creatinine Ratio 23 (6-20) Lactic Acid Level 3.5mmol/L (0.4-2.0) Magnesium Level 1.7mg/dL (1.8-2.4) Total Bilirubin 0.9mg/dL (0.2-1.0) Aspartate Amino Transf (AST/SGOT) 99U/L (15-37) Alanine Aminotransferase (ALT/SGPT) 27U/L (14-59) Alkaline Phosphatase 136U/L (46-116) Total Protein 6.9g/dL (6.4-8.2) Albumin 2.0g/dL (3.4-5.0) Albumin/Globulin Ratio 0.4 (1.0-1.7) Test 08/18/16 11:00 Urine Collection Type Unknown Urine Color Kristine Urine Clarity Cloudy Urine pH 6.0 Urine Specific [place] >=1.030 Urine Protein 100mg/dL (NEG-TRACE) Urine Glucose (UA) Negativemg/dL (NEG) Urine Ketones (Stick) Negativemg/dL (NEG) Urine Blood Trace (NEG) Urine Nitrite Negative (NEG) Urine Bilirubin Small (NEG) Urine Urobilinogen Dipstick 1.0mg/dL (0.2 mg/dL) Urine Leukocyte Esterase Negative (NEG) Urine RBC Occ/HPF (0-2) Urine WBC 0/HPF (0-4) Urine Squamous Epithelial Cells Occ/LPF Urine Amorphous Sediment Present/HPF Urine Bacteria 0/HPF (0-FEW) Urine Hyaline Casts Occasional/HPF Urine Mucus Slight/LPF Medications Active Scripts Medications Dose Route/Sig Days Date Category Dose Instructions Keflex (Cephalexin) 500 Mg Capsule 500 Mg PO QID 07/12/16 Reported take for 10 days start 07/12 Percocet 10-325 Mg Tablet (Oxycodone/Acetaminophen) 1 Each Tablet 1 Tab PO PRN Q6HRS PRN 07/12/16 Reported Potassium Chloride 20 Meq Tablet.er 20 Meq PO DAILY 07/12/16 Reported Ventolin Hfa Inhaler (Albuterol Sulfate) 18 Gm Hfa.aer.ad 2 Puff INH Q4HRS 07/12/16 Reported Atorvastatin Calcium 10 Mg Tablet 1 Tab PO DAILY 07/12/16 Reported Daily Vitamin (Multivitamin) 1 Each Tablet 1 Each PO DAILY 04/15/14 Reported Coumadin (Warfarin Sodium) 2.5 Mg Tablet 0.5 Tab PO DAILY 04/15/14 Reported Propafenone Hcl 225 Mg Cap.er.12h 225 Mg PO BID 04/15/14 Reported Pantoprazole Sodium 40 Mg Tablet.dr 1 Tab PO DAILY 04/15/14 Reported Aquaphor (Petrolatum,White) 99 Gm Oint...g. 99 Gm TP BID 12/04/13 Reported Cardizem Cd (Diltiazem Hcl) 120 Mg Cap.er.24h 120 Mg PO DAILY 12/04/13 Reported Zofran Odt (Ondansetron) 4 Mg Tab.rapdis 8 Mg PO Q8HRS 12/04/13 Reported x 2 days start 6 then 4 mg q 6hrs prn Lasix (Furosemide) 40 Mg Tablet 40 Mg PO DAILY 12/04/13 Reported Impression . FULL CONSULT DICTATED POSSIBLE SEPSIS D/W TWILA ELKINS MD Aug 18, 2016 12:43
[2016-08-18] MEDS ORDERED: SODIUM BICARB ADULT 8.4% 50 MEQ/50 ML DISP.SYRIN. ONE (12:57)
[2016-08-18] MEDS ORDERED: EPINEPHrine SYRINGE 1 MG/10 ML SYRINGE ONE ×2 (12:57)
[2016-08-18] MEDS ORDERED: MIDAZOLAM HCL/PF 5 MG/5 ML VIAL. ONE (12:57)
[2016-08-18] MEDS ORDERED: MIDAZOLAM PREMIX 100 ML IV ONE ×2 (13:05→18:21)
[2016-08-18 13:17] LABS: HCO3 ABG 19 mmol/L (21-28); PO2 ABG 217 mmHg (65-108); SAT O2 ABG 99 % (92-99)
--- NOTE | 2016-08-18 13:29 | RAD ---
Portable chest, 08/18/2016: History: Intubation, post code Comparison is made to the study of earlier the same day. The patient is rotated to the left. An ET tube has been inserted with its tip located 3.5 cm above the lyndon. The heart is at the upper limits of normal in size. Mild right parahilar infiltrate has developed obscuring the underlying pulmonary vascularity. No definite pleural fluid is seen. IMPRESSION: 1. The ET tube is in satisfactory position. 2. Mild right parahilar infiltrates have developed suggesting pulmonary edema. Pneumonia is less likely.
--- NOTE | 2016-08-18 13:52 | PDOC5 ---
CODE REPORT CODE REPORT CODE NOTE PT IN THE ICU AND WENT INTO V-TACH CODE WAS CALLED AND PT WAS SHOCKED BUT RHYTHM WENT INTO A FIB WITH RVR CPR INITIATED, PT INTUBATED BY THE ER PHYSICIAN PT WAS TREATED AND REQUIRED 2 MORE SHOCKS WELL MEDS. SHE ONLY HAD A SMALL IV IN THE HAND. IO INSERTED INTO L PRETIBIAL AREA BY RN AT THE END OF THE CODE A TRIPLE LUMEN CENTRAL LINE WAS INSERTED INTO THE RIGHT FEMORAL LINE WITH CLEAN ENERGY POLICY ANALYST. PT IN SINUS TACH WITH A BP OF 140/52 AFTER THE CODE. MOVING ALL EXTREMITIES. CXR SHOWED ET TUBE IN GOOD POSITION. MARY LOU SANCHEZ MD Aug 18, 2016 13:52
[2016-08-18 13:55] LABS: PCO2 ABG 64 mmHg (35-46)
--- NOTE | 2016-08-18 14:27 | RAD ---
Right leg venous Doppler study: Clinical indications: Right leg swelling and pain. Findings: Duplex sonography (including price scale evaluation and color flow and waveform spectral analysis) of the proximal aspect of the greater saphenous vein and proximal aspect of the profunda femoral vein and the entire length of the common femoral and superficial femoral and popliteal veins and the tibioperoneal trunk and the proximal aspect of the posterior tibial and peroneal veins of the right leg was performed. Normal compressibility, augmentation of color Doppler flow after calf compression, and respiratory variation of Doppler flow is seen. Thus, there are no sonographic findings of deep venous thrombosis within these veins. Impression: There are no sonographic findings of deep venous thrombosis within the veins discussed above of the right lower extremity. Left leg venous Doppler study: Clinical indications: Left leg swelling and pain. Findings: Duplex sonography (including price scale evaluation and color flow and waveform spectral analysis) of the proximal aspect of the greater saphenous vein and the proximal aspect of the profunda femoral vein and the entire length of the common femoral and superficial femoral and popliteal veins and the tibioperoneal trunk and the proximal aspect of the posterior tibial and peroneal veins of the left leg was performed. Normal compressibility, augmentation of color Doppler flow after calf compression, and respiratory variation of Doppler flow is seen. Thus, there are no sonographic findings of deep venous thrombosis within these veins. Impression: There are no sonographic findings of deep venous thrombosis within the veins discussed above of the left lower extremity.
[2016-08-18] MEDS ORDERED: DIGOXIN IV 500 MCG/2 ML AMPUL. IV STA (14:29)
[2016-08-18] MEDS ORDERED: MAGNESIUM SULFATE 1GM 100 ML IV ONE (15:00)
--- NOTE | 2016-08-18 15:04 | PDOC2 ---
CARDIAC CONSULT DATE OF CONSULT Date of Consult DATE: 08/18/16 TIME: 14:40 REASON FOR CONSULT Reason for Consult: cardiopulmonary arrest REFERRING PHYSICIAN Referring Physician: Dr. Bushra Townsend SOURCE Source: Caregiver (son), Chart review HISTORY OF PRESENT ILLNESS HISTORY OF PRESENT ILLNESS 60 year old female admitted through the ER on 08/17/2016 with left knee and fall 2 days prior to admission. Recent admission @ [facility] for lower extremity cellulitis. Transferred to ICU earlier today with hypotension. Cardiopulmonary arrest started about 1251; cyanotic with respiratory arrest. Rhythm VT and shocked; then into atrial fib with RVR; intubated by ER physician. Also treated with meds and required 1 more shocks. Seen post-code, is intubated/sedated. Reason for Visit: CP arrest PAST MEDICAL HISTORY Cardiovascular: AFIB, HTN, Hyperlipidemia GI: Other (morbid obesity with BMI of 59) Musculoskeletal: Other (falls) Dermatology: Cellulitis, Other (chronic lymphedema) PAST SURGICAL HISTORY Past Surgical History: Appendectomy, Cholecystectomy, Tubal Ligation FAMILY HISTORY Family History: Family History Unknown SOCIAL HISTORY Smoke: No ALCOHOL: none Drugs: None Lives: with Family (son) CURRENT MEDICATIONS CURRENT MEDICATIONS Current Medications Medications (Trade) Dose Ordered Sig/Hoang Route PRN Reason Start Time Stop Time Status Last Admin Dose Admin Atorvastatin Calcium (Lipitor) 10 mg QHS PO 08/17/16 21:00 08/17/16 22:16 Ondansetron HCl (Zofran Odt) 8 mg Q8HRS PO 08/17/16 22:00 08/18/16 01:13 DC 08/17/16 22:16 Oxycodone/ Acetaminophen (Percocet 10/325) 1 tab PRN Q6HRS PRN PO PAIN 08/17/16 18:30 08/17/16 22:40 Pantoprazole Sodium (Protonix) 40 mg DAILYAC PO 08/18/16 07:30 08/18/16 09:29 Propafenone HCl (Rythmol Sr) 225 mg BID PO 08/17/16 21:00 08/17/16 22:20 Warfarin Sodium (Coumadin) 2.5 mg DAILY PO 08/17/16 22:00 08/18/16 12:48 DC 08/18/16 10:01 Multivitamins (Thera M Plus) 1 tab DAILY PO 08/18/16 09:00 08/18/16 09:29 Potassium Chloride (Klor-Con) 20 meq DAILYWBKFT PO 08/18/16 08:00 08/18/16 10:10 DC 08/18/16 09:29 Nystatin (Nystop) 1 dante BID TP 08/17/16 21:00 08/17/16 21:00 Albuterol Sulfate (Ventolin Neb Soln) 2.5 mg RTQID NEB 08/17/16 20:00 08/18/16 11:07 Warfarin Sodium 1 each 1 each PRN DAILY PRN MC SEE COMMENTS 08/17/16 21:15 08/18/16 12:47 Sodium Chloride 1,000 ml @ 100 mls/hr Q10H IV 08/18/16 10:00 08/18/16 12:10 Sodium Chloride 1,000 ml @ 1,000 mls/hr 1X ONCE IV 08/18/16 10:00 08/18/16 10:59 DC 08/18/16 12:34 Levofloxacin/ Dextrose 150 ml @ 100 mls/hr Q24H IV 08/18/16 11:00 08/18/16 12:31 DC 08/18/16 12:09 Vancomycin HCl/ Sodium Chloride (Iv Sodium Chloride 0.9% 500ml Bag) 500 ml @ 250 mls/hr 1X ONCE IV 08/18/16 11:00 08/18/16 12:36 DC 08/18/16 12:28 ALLERGIES ALLERGIES: Coded Allergies: Sulfa (Sulfonamide Antibiotics) (Verified Allergy, Intermediate, Rash, 03/22) amoxicillin (Verified Allergy, Intermediate, Rash, 04/18/14) clavulanic acid (Verified Allergy, Intermediate, Rash, 04/18/14) dabigatran etexilate (Verified Allergy, Intermediate, Rash, 04/18/14) meperidine (Verified Allergy, Intermediate, HALLUCINATIONS, 04/18/14) ROS Review of System unobtainable due to intubation PHYSICAL EXAM General: Other (intubated/sedated) HEENT: Other (petechiae on face and neck) Heart: Regular rate, Normal S1, Normal S2, Other (tachycardic) Abdomen: Soft, Other (obese abdomen and difficult to examine) Extremities: Other (trace to 1+ edema - LE) Skin: No rashes Neuro: Other (sedated) Psych/Mental Status: Other (sedated) MUSCULOSKELETAL: Osteoarthritic changes both hands VITALS VITALS Vital Signs Date Time Temp Pulse Resp B/P Pulse Ox O2 Delivery O2 Flow Rate FiO2 08/18/16 11:00 94 Nasal Cannula 4.0 08/18/16 09:00 111 88/38 08/18/16 07:00 98.3 28 98.3 LABS Lab: Laboratory Tests Test 08/17/16 18:55 08/18/16 03:50 08/18/16 10:29 08/18/16 10:40 Prothrombin Time 22.1SEC (11.7-14.0) Prothromb Time International Ratio 2.1 (0.8-1.1) White Blood Count 16.8x10^3/uL (4.0-11.0) Red Blood Count 3.46x10^6/uL (3.50-5.40) Hemoglobin 9.1g/dL (12.0-15.5) Hematocrit 28.8% (36.0-47.0) Mean Corpuscular Volume 83fL (79-100) Mean Corpuscular Hemoglobin 27pg (25-35) Mean Corpuscular Hemoglobin Concent 32g/dL (31-37) Red Cell Distribution Width 17.4% (11.5-14.5) Platelet Count 90x10^3/uL (140-400) Neutrophils (%) (Auto) 92% (31-73) Lymphocytes (%) (Auto) 4% (24-48) Monocytes (%) (Auto) 3% (0-9) Eosinophils (%) (Auto) 1% (0-3) Basophils (%) (Auto) 0% (0-3) Neutrophils # (Auto) 15.5x10^3uL (1.8-7.7) Lymphocytes # (Auto) 0.6x10^3/uL (1.0-4.8) Monocytes # (Auto) 0.4x10^3/uL (0.0-1.1) Eosinophils # (Auto) 0.2x10^3/uL (0.0-0.7) Basophils # (Auto) 0.0x10^3/uL (0.0-0.2) Segmented Neutrophils % 96% (35-66) Band Neutrophils % 3% (0-9) Lymphocytes % 1% (24-48) Platelet Estimate Decreased (ADEQUATE) Sodium Level 136mmol/L (136-145) 135mmol/L (136-145) Potassium Level 4.0mmol/L (3.5-5.1) 3.6mmol/L (3.5-5.1) Chloride Level 101mmol/L (98-107) 100mmol/L (98-107) Carbon Dioxide Level 26mmol/L (21-32) 22mmol/L (21-32) Anion Gap 9 (6-14) 13 (6-14) Blood Urea Nitrogen 42mg/dL (7-20) 39mg/dL (7-20) Creatinine 1.8mg/dL (0.6-1.0) 1.7mg/dL (0.6-1.0) Estimated GFR (Cockcroft-Gault) 28.8 30.8 Glucose Level 86mg/dL (70-99) 77mg/dL (70-99) Calcium Level 8.4mg/dL (8.5-10.1) 8.0mg/dL (8.5-10.1) O2 Saturation 96% (92-99) Arterial Blood pH 7.45 (7.35-7.45) Arterial Blood pH (Temp corrected) 7.44 Arterial Blood pCO2 at Patient Temp 31mmHg (35-46) Arterial Blood pCO2 (Temp correct) 31mmHg Arterial Blood pO2 at Patient Temp 85mmHg (65-108) Arterial Blood pO2 (Temp corrected) 87mmHg Arterial Blood HCO3 21mmol/L (21-28) Arterial Blood Base Excess -3mmol/L (-3-3) FiO2 40 BUN/Creatinine Ratio 23 (6-20) Lactic Acid Level 3.5mmol/L (0.4-2.0) Magnesium Level 1.7mg/dL (1.8-2.4) Total Bilirubin 0.9mg/dL (0.2-1.0) Aspartate Amino Transf (AST/SGOT) 99U/L (15-37) Alanine Aminotransferase (ALT/SGPT) 27U/L (14-59) Alkaline Phosphatase 136U/L (46-116) Total Protein 6.9g/dL (6.4-8.2) Albumin 2.0g/dL (3.4-5.0) Albumin/Globulin Ratio 0.4 (1.0-1.7) Test 08/18/16 11:00 08/18/16 13:10 08/18/16 13:11 Urine Collection Type Unknown Urine Color Kristine Urine Clarity Cloudy Urine pH 6.0 Urine Specific [place] >=1.030 Urine Protein 100mg/dL (NEG-TRACE) Urine Glucose (UA) Negativemg/dL (NEG) Urine Ketones (Stick) Negativemg/dL (NEG) Urine Blood Trace (NEG) Urine Nitrite Negative (NEG) Urine Bilirubin Small (NEG) Urine Urobilinogen Dipstick 1.0mg/dL (0.2 mg/dL) Urine Leukocyte Esterase Negative (NEG) Urine RBC Occ/HPF (0-2) Urine WBC 0/HPF (0-4) Urine Squamous Epithelial Cells Occ/LPF Urine Amorphous Sediment Present/HPF Urine Bacteria 0/HPF (0-FEW) Urine Hyaline Casts Occasional/HPF Urine Mucus Slight/LPF Lactic Acid Level 6.6mmol/L (0.4-2.0) O2 Saturation 99% (92-99) Arterial Blood pH 7.10 (7.35-7.45) Arterial Blood pCO2 at Patient Temp 64mmHg (35-46) Arterial Blood pO2 at Patient Temp 217mmHg (65-108) Arterial Blood HCO3 19mmol/L (21-28) Arterial Blood Base Excess -11mmol/L (-3-3) IMAGES IMAGES CXR: Comparison is made to the study of earlier the same day. The patient is rotated to the left. An ET tube has been inserted with its tip located 3.5 cm above the lyndon. The heart is at the upper limits of normal in size. Mild right parahilar infiltrate has developed obscuring the underlying pulmonary vascularity. No definite pleural fluid is seen. IMPRESSION: 1. The ET tube is in satisfactory position. 2. Mild right parahilar infiltrates have developed suggesting pulmonary edema. Pneumonia is less likely. EKG EKG post - code pending EKG done @ 0754 today - ASSESSMENT/PLAN ASSESSMENT/PLAN 1. cardiopulmonary arrest VT with shock to afib RVR to VT = total of 2 shocks LE venous negative for DVT echo pending to evaluate LV function and assess wall motion may benefit from VQ scan or CT scan to evaluate for pulm embolus etiology currently unclear 2. atrial fib also with ST EKG pending will give one dose of dig in effort to decrease rate 3. morbid obesity 4. recent tx for cellulitis Problems: ARACELY URBANO CUSTOMER SUPPORT ASSOCIATE Aug 18, 2016 15:04
--- NOTE | 2016-08-18 15:12 | EKG ---
[facility] [address] [place] [address] Test Date: 2016-08-18 Test Time: 15:11:31 Pat Name: JERI RAMOS Department: Room: 102 1 Gender: F Pulp Bleacher: CORDELL : 1955 Requested By: ARACELY URBANO Order Number: [id number] Reading MD: Syed Figueroa Measurements Intervals [place] Rate: 141 P: -107 OK: 82 QRS: 43 QRSD: 96 T: 64 QT: 324 QTc: 498 Interpretive Statements SINUS TACHYCARDIA NON-SPECIFIC ST/T CHANGES Electronically Signed On 08-31-2016 11:59:53 CDT by Syed Figueroa
[2016-08-18] MEDS: MEROPENEM 500 MG in IV NORMAL SALINE 50ML 50 ML IV SCH ×2 (15:31→21:57)
[2016-08-18 16:09] LABS: BASO # 0.1 x10^3/uL (0.0-0.2); BASO % 0 % (0-3); EOS % 1 % (0-3); HEMATOCRIT 34.2 % (36.0-47.0); HEMOGLOBIN 10.6 g/dL (12.0-15.5); LYMPH # 4.3 x10^3/uL (1.0-4.8); LYMPH % 21 % (24-48); MEAN CORPUSCULAR HEMOGLOBIN 26 pg (25-35); MEAN CORPUSCULAR HGB CONC 31 g/dL (31-37); MEAN CORPUSCULAR VOLUME 84 fL (79-100); MONO % 6 % (0-9); NEUT % 71 % (31-73); PLATELET COUNT 96 x10^3/uL (140-400); RED BLOOD COUNT 4.07 x10^6/uL (3.50-5.40); RED CELL DISTRIBUTION WIDTH 18.1 % (11.5-14.5); WHITE BLOOD COUNT 20.4 x10^3/uL (4.0-11.0)
[2016-08-18 16:18] LABS: CALCIUM 8.1 mg/dL (8.5-10.1); CREATININE 1.8 mg/dL (0.6-1.0); GFR 28.8
[2016-08-18 16:26] LABS: FIO2 ABG 100; HCO3 ABG 20 mmol/L (21-28); PCO2 ABG 41 mmHg (35-46); PH ABG 7.31 (7.35-7.45); PO2 ABG 131 mmHg (65-108); SAT O2 ABG 98 % (92-99)
[2016-08-18 16:34] LABS: ANISOCYTOSIS SLIGHT; PLT ESTIMATE DECREASED (ADEQUATE); TOXIC GRANULATION SLIGHT; TOXIC VACUOLATION MOD
--- NOTE | 2016-08-18 17:00 | PDOC ---
PROGRESS NOTES Subjective Subjective ON VENT .S/P CODE BLUE Objective Objective Vital Signs Date Time Temp Pulse Resp B/P Pulse Ox O2 Delivery O2 Flow Rate FiO2 08/18/16 16:32 99 Ventilator 08/18/16 15:19 149 123/63 08/18/16 13:00 15.0 08/18/16 07:00 98.3 28 98.3 Intake and Output 08/18/16 07:00 Intake Total 1800 ml Balance 1800 ml Intake Oral 1800 ml # Voids 2 # Bowel Movements 1 Physical Exam Abdomen: Soft, Other (obese abdomen and difficult to examine) Heart: Normal S1, Normal S2, Other (tachycardic) Extremities: Other (trace to 1+ edema - LE) General: Other (intubated/sedated) HEENT: Other (petechiae on face and neck) MUSCULOSKELETAL: Osteoarthritic changes both hands Neuro: Other (sedated) Psych/Mental Status: Other (sedated) Skin: No rashes Diagnosis Problem List Problems Medical Problems: (1) Fall from standing Status: Acute (2) Left knee pain Status: Acute Assessment Assessment Problems Medical Problems: (1) Fall from standing Status: Acute (2) Left knee pain Status: Acute FINAL IMPRESSION: CODE BLUE INTUBATED 1. Acute sepsis. 2. Elevated white count with hypertension as well as renal insufficiency. 3. Chronic recurrent cellulitis of the legs. 4. Chronic lymphedema. 5. Morbid obesity. 6. History of Clostridium difficile. 7. Chronic atrial fibrillation, on Coumadin. PLAN: SPOKE WITH PULMONARY SPOKE WITH SONS ,FAMILY. SEEN IN ICU, ON VENT. NO URINE OUT PUT At this time, was admitted to the hospital. Blood cultures, urine cultures. Broad spectrum antibiotic. ID consult. Newman catheter to monitor urine output. Check stool for C. diff. I will transfer to the ICU because of acute change in mental status. I will also check lactic acid. Problems: Plan Plan of Care Problems Medical Problems: (1) Fall from standing Status: Acute (2) Left knee pain Status: Acute Comment Review of Relevant I have reviewed the following items quentin (where applicable) has been applied. Labs Laboratory Tests Test 08/17/16 18:55 08/18/16 03:50 08/18/16 10:29 08/18/16 10:40 Prothrombin Time 22.1SEC (11.7-14.0) Prothromb Time International Ratio 2.1 (0.8-1.1) White Blood Count 16.8x10^3/uL (4.0-11.0) Red Blood Count 3.46x10^6/uL (3.50-5.40) Hemoglobin 9.1g/dL (12.0-15.5) Hematocrit 28.8% (36.0-47.0) Mean Corpuscular Volume 83fL (79-100) Mean Corpuscular Hemoglobin 27pg (25-35) Mean Corpuscular Hemoglobin Concent 32g/dL (31-37) Red Cell Distribution Width 17.4% (11.5-14.5) Platelet Count 90x10^3/uL (140-400) Neutrophils (%) (Auto) 92% (31-73) Lymphocytes (%) (Auto) 4% (24-48) Monocytes (%) (Auto) 3% (0-9) Eosinophils (%) (Auto) 1% (0-3) Basophils (%) (Auto) 0% (0-3) Neutrophils # (Auto) 15.5x10^3uL (1.8-7.7) Lymphocytes # (Auto) 0.6x10^3/uL (1.0-4.8) Monocytes # (Auto) 0.4x10^3/uL (0.0-1.1) Eosinophils # (Auto) 0.2x10^3/uL (0.0-0.7) Basophils # (Auto) 0.0x10^3/uL (0.0-0.2) Segmented Neutrophils % 96% (35-66) Band Neutrophils % 3% (0-9) Lymphocytes % 1% (24-48) Platelet Estimate Decreased (ADEQUATE) Sodium Level 136mmol/L (136-145) 135mmol/L (136-145) Potassium Level 4.0mmol/L (3.5-5.1) 3.6mmol/L (3.5-5.1) Chloride Level 101mmol/L (98-107) 100mmol/L (98-107) Carbon Dioxide Level 26mmol/L (21-32) 22mmol/L (21-32) Anion Gap 9 (6-14) 13 (6-14) Blood Urea Nitrogen 42mg/dL (7-20) 39mg/dL (7-20) Creatinine 1.8mg/dL (0.6-1.0) 1.7mg/dL (0.6-1.0) Estimated GFR (Cockcroft-Gault) 28.8 30.8 Glucose Level 86mg/dL (70-99) 77mg/dL (70-99) Calcium Level 8.4mg/dL (8.5-10.1) 8.0mg/dL (8.5-10.1) O2 Saturation 96% (92-99) Arterial Blood pH 7.45 (7.35-7.45) Arterial Blood pH (Temp corrected) 7.44 Arterial Blood pCO2 at Patient Temp 31mmHg (35-46) Arterial Blood pCO2 (Temp correct) 31mmHg Arterial Blood pO2 at Patient Temp 85mmHg (65-108) Arterial Blood pO2 (Temp corrected) 87mmHg Arterial Blood HCO3 21mmol/L (21-28) Arterial Blood Base Excess -3mmol/L (-3-3) FiO2 40 BUN/Creatinine Ratio 23 (6-20) Lactic Acid Level 3.5mmol/L (0.4-2.0) Magnesium Level 1.7mg/dL (1.8-2.4) Total Bilirubin 0.9mg/dL (0.2-1.0) Aspartate Amino Transf (AST/SGOT) 99U/L (15-37) Alanine Aminotransferase (ALT/SGPT) 27U/L (14-59) Alkaline Phosphatase 136U/L (46-116) Total Protein 6.9g/dL (6.4-8.2) Albumin 2.0g/dL (3.4-5.0) Albumin/Globulin Ratio 0.4 (1.0-1.7) Thyroid Stimulating Hormone (TSH) 1.328uIU/mL (0.358-3.74) Test 08/18/16 11:00 08/18/16 13:10 08/18/16 13:11 08/18/16 16:23 Urine Collection Type Unknown Urine Color Kristine Urine Clarity Cloudy Urine pH 6.0 Urine Specific [place] >=1.030 Urine Protein 100mg/dL (NEG-TRACE) Urine Glucose (UA) Negativemg/dL (NEG) Urine Ketones (Stick) Negativemg/dL (NEG) Urine Blood Trace (NEG) Urine Nitrite Negative (NEG) Urine Bilirubin Small (NEG) Urine Urobilinogen Dipstick 1.0mg/dL (0.2 mg/dL) Urine Leukocyte Esterase Negative (NEG) Urine RBC Occ/HPF (0-2) Urine WBC 0/HPF (0-4) Urine Squamous Epithelial Cells Occ/LPF Urine Amorphous Sediment Present/HPF Urine Bacteria 0/HPF (0-FEW) Urine Hyaline Casts Occasional/HPF Urine Mucus Slight/LPF White Blood Count 20.4x10^3/uL (4.0-11.0) Red Blood Count 4.07x10^6/uL (3.50-5.40) Hemoglobin 10.6g/dL (12.0-15.5) Hematocrit 34.2% (36.0-47.0) Mean Corpuscular Volume 84fL (79-100) Mean Corpuscular Hemoglobin 26pg (25-35) Mean Corpuscular Hemoglobin Concent 31g/dL (31-37) Red Cell Distribution Width 18.1% (11.5-14.5) Platelet Count 96x10^3/uL (140-400) Neutrophils (%) (Auto) 71% (31-73) Lymphocytes (%) (Auto) 21% (24-48) Monocytes (%) (Auto) 6% (0-9) Eosinophils (%) (Auto) 1% (0-3) Basophils (%) (Auto) 0% (0-3) Neutrophils # (Auto) 14.5x10^3uL (1.8-7.7) Lymphocytes # (Auto) 4.3x10^3/uL (1.0-4.8) Monocytes # (Auto) 1.2x10^3/uL (0.0-1.1) Eosinophils # (Auto) 0.3x10^3/uL (0.0-0.7) Basophils # (Auto) 0.1x10^3/uL (0.0-0.2) Segmented Neutrophils % 60% (35-66) Band Neutrophils % 13% (0-9) Lymphocytes % 20% (24-48) Atypical Lymphocytes % (Manual) 1% (0-0) Monocytes % 5% (0-10) Metamyelocytes % 1% (0-0) Toxic Granulation Slight Toxic Vacuolation Mod Platelet Estimate Decreased (ADEQUATE) Anisocytosis Slight Sodium Level 136mmol/L (136-145) Potassium Level 4.0mmol/L (3.5-5.1) Chloride Level 101mmol/L (98-107) Carbon Dioxide Level 18mmol/L (21-32) Anion Gap 17 (6-14) Blood Urea Nitrogen 38mg/dL (7-20) Creatinine 1.8mg/dL (0.6-1.0) Estimated GFR (Cockcroft-Gault) 28.8 Glucose Level 138mg/dL (70-99) Lactic Acid Level 6.6mmol/L (0.4-2.0) Calcium Level 8.1mg/dL (8.5-10.1) Troponin I Quantitative 0.732ng/mL (0.000-0.055) O2 Saturation 99% (92-99) 98% (92-99) Arterial Blood pH 7.10 (7.35-7.45) 7.31 (7.35-7.45) Arterial Blood pCO2 at Patient Temp 64mmHg (35-46) 41mmHg (35-46) Arterial Blood pO2 at Patient Temp 217mmHg (65-108) 131mmHg (65-108) Arterial Blood HCO3 19mmol/L (21-28) 20mmol/L (21-28) Arterial Blood Base Excess -11mmol/L (-3-3) -6mmol/L (-3-3) FiO2 100 Medications Current Medications Albuterol Sulfate (Ventolin Neb Soln) 2.5 mg RTQID NEB Last administered on 11:07; Start 08/17/16 at 20:00 Atorvastatin Calcium (Lipitor) 10 mg QHS PO Last administered on 08/17/16 22: 16; Start 08/17/16 at 21:00 Digoxin 250 mcg 250 mcg 1X STAT IV Last administered on 08/18/16 15:19; Start 08/18/16 at 14:29; Stop 08/18/16 at 14:33; Status DC Diltiazem HCl (Cardizem 24hr Cd) 120 mg DAILY PO ; Start 08/18/16 at 09:00 Furosemide (Lasix) 40 mg DAILY PO ; Start 08/18/16 at 09:00; Stop 08/18/16 at 10 :10; Status DC Levofloxacin/ Dextrose 100 ml @ 100 mls/hr Q24H IV ; Start 08/18/16 at 10:00; Status UNV Levofloxacin/ Dextrose 150 ml @ 100 mls/hr Q24H IV Last administered on 12:09; Start 08/18/16 at 11:00; Stop 08/18/16 at 12:31; Status DC Magnesium Sulfate/ Dextrose (Magnesium Sulfate PREMIX 1GM) 100 ml @ 100 mls/hr 1X ONCE IV Last administered on 08/18/16 15:00; Start 08/18/16 at 15:00; Stop 08/18/16 at 15:59; Status DC Meropenem/Sodium Chloride (Merrem/Iv Sodium Chloride 0.9% 50ml) 50 ml @ 100 mls /hr Q8HRS IV Last administered on 08/18/16 15:31; Start 08/18/16 at 14:00 Midazolam HCl (Versed 100mg/ 100ml Premix) 100 ml @ As Directed STK-MED ONCE IV ; Start 08/18/16 at 13:05; Stop 08/18/16 at 13:06; Status DC Multivitamins (Thera M Plus) 1 tab DAILY PO Last administered on 08/18/16 09: 29; Start 08/18/16 at 09:00 Non-Formulary Medication 2 puff Q4HRS INH FOR ASTHMA; Start 08/17/16 at 20:00; Status UNV Non-Formulary Medication 99 gm BID TP ; Start 08/17/16 at 21:00; Status UNV Norepinephrine Bitartrate 8 mg/ Sodium Chloride 258 ml @ 1.93 mls/hr CONT PRN IV SEE I/O RECORD; Start 08/18/16 at 13:00 Nystatin (Nystop) 1 dante BID TP Last administered on 08/17/16 21:00; Start 03/25 at 21:00 Ondansetron HCl (Zofran Odt) 8 mg Q8HRS PO Last administered on 08/17/16 22:16 ; Start 08/17/16 at 22:00; Stop 08/18/16 at 01:13; Status DC Ondansetron HCl 8 mg 8 mg PRN Q8HRS PRN PO NAUSEA; Start 08/18/16 at 01:15 Oxycodone/ Acetaminophen (Percocet 10/325) 1 tab PRN Q6HRS PRN PO PAIN Last administered on 08/17/16 22:40; Start 08/17/16 at 18:30 Pantoprazole Sodium (Protonix) 40 mg DAILYAC PO Last administered on 08/18/16 09:29; Start 08/18/16 at 07:30 Potassium Chloride (Klor-Con) 20 meq DAILYWBKFT PO Last administered on 09:29; Start 08/18/16 at 08:00; Stop 08/18/16 at 10:10; Status DC Propafenone HCl (Rythmol Sr) 225 mg BID PO Last administered on 08/17/16 22:20 ; Start 08/17/16 at 21:00 Sodium Chloride 1,000 ml @ 100 mls/hr Q10H IV Last administered on 08/18/16 12:10; Start 08/18/16 at 10:00 Sodium Chloride 1,000 ml @ 1,000 mls/hr 1X ONCE IV Last administered on 12:34; Start 08/18/16 at 10:00; Stop 08/18/16 at 10:59; Status DC Vancomycin HCl 1.5 gm/Sodium Chloride 500 ml @ 250 mls/hr Q24H IV ; Start 08/18 at 10:00; Status UNV Vancomycin HCl 1 each 1 each PRN DAILY PRN MC SEE COMMENTS; Start 08/18/16 at 10:00; Stop 08/18/16 at 12:31; Status DC Vancomycin HCl 2 gm/Sodium Chloride 500 ml @ 250 mls/hr 1X ONCE IV Last administered on 08/18/16 12:28; Start 08/18/16 at 11:00; Stop 08/18/16 at 12:36 ; Status DC Vancomycin HCl/ Sodium Chloride (Iv Sodium Chloride 0.9% 250ml) 250 ml @ 250 mls/hr DAILY IV ; Start 08/19/16 at 09:00; Status UNV Warfarin Sodium (Coumadin Per Physician) 1 each PRN DAILY PRN MC SEE COMMENTS Last administered on 08/18/16 15:20; Start 08/17/16 at 21:15 Warfarin Sodium (Coumadin) 2.5 mg DAILY PO Last administered on 08/18/16t 10:01 ; Start 08/17/16 at 22:00; Stop 08/18/16 at 12:48; Status DC Warfarin Sodium 2.5 mg 2.5 mg DAILY16 PO ; Start 08/19/16 at 16:00 Vitals/I & O Vital Sign - Last 24 Hours 08/17/16 08/17/16 08/17/16 08/17/16 17:46 19:00 20:00 20:45 Temp 98.6 98.6 Pulse 79 Resp 18 B/P 112/46 Pulse Ox 94 93 O2 Delivery Nasal Cannula Nasal Cannula Nasal Cannula Nasal Cannula O2 Flow Rate 2.0 2.0 2.0 2.0 08/17/16 08/17/16 08/18/16 08/18/16 22:20 23:00 03:00 07:00 Temp 97.6 98.3 98.3 97.6 98.3 98.3 Pulse 79 95 77 111 Resp 18 18 28 B/P 112/46 128/50 105/40 88/38 Pulse Ox 89 95 90 O2 Delivery Room Air Nasal Cannula Nasal Cannula O2 Flow Rate 2.0 2.0 08/18/16 08/18/16 08/18/16 08/18/16 07:09 08:30 09:00 11:00 Pulse 111 B/P 88/38 Pulse Ox 91 94 O2 Delivery Nasal Cannula Nasal Cannula Nasal Cannula O2 Flow Rate 2.0 2.0 4.0 08/18/16 08/18/16 08/18/16 08/18/16 13:00 13:10 15:19 16:32 Pulse 149 B/P 123/63 Pulse Ox 98 99 O2 Delivery Bag Valve Mask Ventilator Ventilator O2 Flow Rate 15.0 Intake and Output 08/17/16 08/17/16 08/18/16 15:00 23:00 07:00 Intake Total 900 ml 900 ml Balance 900 ml 900 ml JAGUAR BRICE MD Aug 18, 2016 17:00
[2016-08-18] MEDS ORDERED: ACETAMINOPHEN 325 MG TABLET. PO PRN (17:15)
--- NOTE | 2016-08-18 17:34 | RAD ---
PROCEDURE KUB. HISTORY OG tube placement. TECHNIQUE Supine position. COMPARISON None. FINDINGS There is enteric tube, tip is in the stomach. There is motion artifact. There are cholecystectomy clips. There is small amount of air in the stomach. Minimal air in visualized bowel. Right lateral abdomen and lower abdomen are excluded. No evidence of bowel obstruction. IMPRESSION Enteric tube tip is in the stomach. Electronically signed by: Vinicius Fonseca MD (Aug 18, 2016 17:33:58)
[2016-08-18] MEDS: NOREPINEPHRINE 8 MG in IV NORMAL SALINE 250 ML IV PRN (17:35)
[2016-08-18] MEDS: MORPHINE SULFATE/PF 30 ML IV PRN (18:06)
[2016-08-18] MEDS: SODIUM BICARBONATE VIAL 50 MEQ in IV 1/2 NORMAL SALINE 1,000 ML IV SCH ×2 (18:17→20:11)
[2016-08-18] MEDS ORDERED: DIGOXIN IV 500 MCG/2 ML AMPUL. IV ONE (18:30)
--- NOTE | 2016-08-18 18:52 | PDOC ---
Provider Note Provider Note SECOND VISIT S/P CODE BLUE PT RE EVAULATION ABG NOTED SUSPECT SEPSIS AND CARDIAC ARREST SPOKE WITH SON, NO SPECIFIC SYMPTOMS THE PAST WEEK THAT ARE AID US IN NARROWING DOWN THE CAUSE OF PT CODE BLUE WILL CONTINUE CURRENT SUPPORT TWILA OROZCO MD Aug 18, 2016 18:52
[2016-08-18] MEDS: ATORVASTATIN CALCIUM 10 MG TABLET. PO SCH (21:56)
--- NOTE | 2016-08-18 23:38 | CONS ---
DATE OF CONSULTATION: 08/18/2016 REQUESTING PHYSICIAN: Dr. Townsend. REASON FOR CONSULTATION: Possible sepsis. HISTORY OF PRESENT ILLNESS: This is a 60-year-old female with morbid obesity who came in because of left knee pain. The patient actually also fell at home. The patient was on the floor and then had hypotension, hence she was transferred to the ICU. The patient has been put on vancomycin and Levaquin and consult has been requested. The patient does have slightly elevated lactic acid. The patient's blood pressure responded to IV fluids. The patient is alert, awake. The only complaint she has is left knee pain. The patient denies any nausea, vomiting, diarrhea. Denies any chest pain, shortness of breath, abdominal pain. She denies any bleeding, denies any urinary symptoms. PAST MEDICAL HISTORY: Positive for morbid obesity, atrial fibrillation, hypertension, has had appendicectomy, cholecystectomy. The patient has lymphedema, also recent a month ago admission with the left leg pannus leaking and infection. The patient was treated, now it has healed. REVIEW OF SYSTEMS: As per HPI. All other systems reviewed are negative. Social History : denies smoking, etoh or drugs CURRENT MEDICATIONS: Reviewed. PHYSICAL EXAMINATION: GENERAL: Alert, oriented female, not in any distress. VITAL SIGNS: Stable, afebrile. HEENT: NAD. NECK: Supple, no JVP, no lymphadenopathy. LUNGS: Clear. CARDIOVASCULAR: S1, S2 regular. ABDOMEN: Benign. EXTREMITIES: No edema or cyanosis other than significant lymphedema and pannuses that she has. Her knee feels tender, slightly swollen. There is no redness. There is no other abnormality detected. Her movements are very painful. LABORATORY DATA: White count is 16,000, BUN 39, creatinine 1.7. Urinalysis unremarkable. Prior cultures reviewed. An x-ray of the knee was unremarkable for any acute fracture. IMPRESSION: 1. Hypotension, likely secondary to dehydration, infection appears less likely, but cannot entirely be ruled out in this patient. 2. Lactic acidosis. 3. Dehydration. 4. Acute kidney injury. 5. Morbid obesity. 6. Leukocytosis. 7. Left knee pain. The patient probably has cartilage injury. RECOMMENDATIONS: 1. We would change antibiotics to meropenem. Blood cultures have been done, soon to be able to discontinue if blood culture remains negative. 2. Hydration. 3. Supportive care. 4. The patient is going to need MRI of the left knee. Discussion with Dr. Oliveira done. Thank you very much, Dr. Townsend for giving me opportunity to participate in this patient's care. YOLETTE COOK MD DR: ALINE/shayla JOB#: [id number] / [id number] JAIDA
--- NOTE | 2016-08-18 23:47 | CONS ---
DATE OF CONSULTATION: 08/18/2016 ATTENDING PHYSICIAN: Dr. Townsend. REASON FOR CONSULTATION: The patient is seen in pulmonary consultation at the request of Dr. Townsend for acute respiratory failure requiring facemask. HISTORY OF PRESENT ILLNESS: The patient is a 60-year-old female, morbidly obese with a body mass index of 59, presented with left knee pain. Apparently, she fell. She has some left knee pain. She is on Coumadin. It appears that she may have a hematoma. She has a prior history of AFib, hypertension. The patient was admitted to the floor today. She started experiencing increasing shortness of breath. Arterial blood gas was obtained revealing evidence of acidosis, compensated pH of 7.44, PaCO2 of 31, pO2 of 85. Her white count is elevated. INR is 2.1. Electrolytes are noted. BUN and creatinine are elevated. I reviewed her chest x-ray, cardiomegaly with no acute cardiopulmonary process. The patient is short of breath, has no specific complaints except for the knee pain. PAST MEDICAL HISTORY: Chronic AFib, hypertension, morbid obesity, chronic lymphedema. PAST SURGICAL HISTORY: Status post appendectomy, cholecystectomy and tubal ligation. ALLERGIES: LISTED TO AUGMENTIN, SULFA. SHE IS ALSO INTOLERANT TO MEPERIDINE and DABIGATRAN. HOME MEDICATIONS: List was reviewed. Please see the MRAD. CURRENT MEDICATIONS: List was likewise reviewed. PHYSICAL EXAMINATION: GENERAL: The patient was in the intensive care unit on facemask oxygen. VITAL SIGNS: O2 saturation was greater than 92%. Earlier today, she had a low blood pressure of 88/38. HEENT: Eyes, the sclerae were nonicteric. NECK: Jugular venous distention was not elevated. No lymphadenopathy. CHEST: Full expansion. LUNGS: Poor airway flow with no wheezes. CARDIOVASCULAR: Regular rate and rhythm with S1, S2, no S3. ABDOMEN: Obese. EXTREMITIES: Obese. There was hematoma in the left posterior knee ____ left leg, mainly around the knee. IMPRESSION: 1. Acute respiratory failure secondary to sepsis. 2. Sepsis with hypotension. 3. Atrial fibrillation. 4. Acute on chronic kidney failure. 5. Morbid obesity. 6. MULTIPLE ALLERGIES TO MEDICATIONS INCLUDING AMOXICILLIN. PLAN: 1. Continue current supportive care with IV antibiotics, IV fluids, oxygen supplementation. 2. P.r.n. BiPAP. 3. Broad-spectrum antibiotics to cover both for gram-negative and gram-positive organisms. 4. Consult ID, already performed. I do appreciate the privilege in sharing in the patient's care. Total cumulative critical care time of 40 minutes. TWILA OROZCO MD DR: SAMY/shayla JOB#: [id number] / [id number]
[2016-08-19] VITALS (24 sets, daily range): BP systolic 90–144; BP diastolic 40–54
[2016-08-19] MEDS: NYSTATIN TOPICAL POWDER 15GM BOTTLE. TP SCH ×3 (00:41→22:40)
[2016-08-19] MEDS: IV NORMAL SALINE 1000ML BAG 1,000 ML IV SCH (02:20)
[2016-08-19] MEDS: SODIUM BICARBONATE VIAL 50 MEQ in IV 1/2 NORMAL SALINE 1,000 ML IV SCH ×3 (02:20→19:29)
[2016-08-19] MEDS: MIDAZOLAM PREMIX 100 ML IV PRN ×2 (03:46→19:28)
[2016-08-19] MEDS: NOREPINEPHRINE 8 MG in IV NORMAL SALINE 250 ML IV PRN (03:47)
[2016-08-19] MEDS: MEROPENEM 500 MG in IV NORMAL SALINE 50ML 50 ML IV SCH ×3 (05:21→17:43)
[2016-08-19 05:48] LABS: BASO % 0 % (0-3); EOS % 4 % (0-3); HEMATOCRIT 28.7 % (36.0-47.0); HEMOGLOBIN 9.1 g/dL (12.0-15.5); LYMPH # 1.2 x10^3/uL (1.0-4.8); LYMPH % 9 % (24-48); MEAN CORPUSCULAR HEMOGLOBIN 26 pg (25-35); MEAN CORPUSCULAR HGB CONC 32 g/dL (31-37); MEAN CORPUSCULAR VOLUME 83 fL (79-100); MONO % 11 % (0-9); NEUT % 77 % (31-73); PLATELET COUNT 70 x10^3/uL (140-400); RED BLOOD COUNT 3.44 x10^6/uL (3.50-5.40); RED CELL DISTRIBUTION WIDTH 17.9 % (11.5-14.5); WHITE BLOOD COUNT 13.1 x10^3/uL (4.0-11.0)
[2016-08-19 06:02] LABS: PROTHROMBIN TIME PATIENT 45.2 SEC (11.7-14.0)
[2016-08-19 06:06] LABS: ALBUMIN 1.4 g/dL (3.4-5.0); ALBUMIN/GLOBULIN RATIO 0.3 (1.0-1.7); CALCIUM 7.7 mg/dL (8.5-10.1); CREATININE 1.5 mg/dL (0.6-1.0); GFR 35.5; POTASSIUM 3.7 mmol/L (3.5-5.1); TOTAL BILIRUBIN 0.6 mg/dL (0.2-1.0); TOTAL PROTEIN 6.1 g/dL (6.4-8.2)
[2016-08-19 06:09] LABS: INR 5.2 (0.8-1.1)
--- NOTE | 2016-08-19 07:34 | PDOC ---
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5-5.1) Chloride Level 100mmol/L (98-107) Carbon Dioxide Level 22mmol/L (21-32) Anion Gap 13 (6-14) Blood Urea Nitrogen 39mg/dL (7-20) Creatinine 1.7mg/dL (0.6-1.0) Estimated GFR (Cockcroft-Gault) 30.8 BUN/Creatinine Ratio 23 (6-20) Glucose Level 77mg/dL (70-99) Lactic Acid Level 3.5mmol/L (0.4-2.0) Calcium Level 8.0mg/dL (8.5-10.1) Magnesium Level 1.7mg/dL (1.8-2.4) Total Bilirubin 0.9mg/dL (0.2-1.0) Aspartate Amino Transf (AST/SGOT) 99U/L (15-37) Alanine Aminotransferase (ALT/SGPT) 27U/L (14-59) Alkaline Phosphatase 136U/L (46-116) Total Protein 6.9g/dL (6.4-8.2) Albumin 2.0g/dL (3.4-5.0) Albumin/Globulin Ratio 0.4 (1.0-1.7) Thyroid Stimulating Hormone (TSH) 1.328uIU/mL (0.358-3.74) Urine Collection Type Unknown Urine Color Kristine Urine Clarity Cloudy Urine pH 6.0 Urine Specific [place] >=1.030 Urine Protein 100mg/dL (NEG-TRACE) Urine Glucose (UA) Negativemg/dL (NEG) Urine Ketones (Stick) Negativemg/dL (NEG) Urine Blood Trace (NEG) Urine Nitrite Negative (NEG) Urine Bilirubin Small (NEG) Urine Urobilinogen Dipstick 1.0mg/dL (0.2 mg/dL) Urine Leukocyte Esterase Negative (NEG) Urine RBC Occ/HPF (0-2) Urine WBC 0/HPF (0-4) Urine Squamous Epithelial Cells Occ/LPF Urine Amorphous Sediment Present/HPF Urine Bacteria 0/HPF (0-FEW) Urine Hyaline Casts Occasional/HPF Urine Mucus Slight/LPF Test 08/18/16 13:10 08/18/16 13:11 08/18/16 16:23 08/19/16 01:40 White Blood Count 20.4x10^3/uL (4.0-11.0) Red Blood Count 4.07x10^6/uL (3.50-5.40) Hemoglobin 10.6g/dL (12.0-15.5) Hematocrit 34.2% (36.0-47.0) Mean Corpuscular Volume 84fL (79-100) Mean Corpuscular Hemoglobin 26pg (25-35) Mean Corpuscular Hemoglobin Concent 31g/dL (31-37) Red Cell Distribution Width 18.1% (11.5-14.5) Platelet Count 96x10^3/uL (140-400) Neutrophils (%) (Auto) 71% (31-73) Lymphocytes (%) (Auto) 21% (24-48) Monocytes (%) (Auto) 6% (0-9) Eosinophils (%) (Auto) 1% (0-3) Basophils (%) (Auto) 0% (0-3) Neutrophils # (Auto) 14.5x10^3uL (1.8-7.7) Lymphocytes # (Auto) 4.3x10^3/uL (1.0-4.8) Monocytes # (Auto) 1.2x10^3/uL (0.0-1.1) Eosinophils # (Auto) 0.3x10^3/uL (0.0-0.7) Basophils # (Auto) 0.1x10^3/uL (0.0-0.2) Segmented Neutrophils % 60% (35-66) Band Neutrophils % 13% (0-9) Lymphocytes % 20% (24-48) Atypical Lymphocytes % (Manual) 1% (0-0) Monocytes % 5% (0-10) Metamyelocytes % 1% (0-0) Toxic Granulation Slight Toxic Vacuolation Mod Platelet Estimate Decreased (ADEQUATE) Anisocytosis Slight Sodium Level 136mmol/L (136-145) Potassium Level 4.0mmol/L (3.5-5.1) Chloride Level 101mmol/L (98-107) Carbon Dioxide Level 18mmol/L (21-32) Anion Gap 17 (6-14) Blood Urea Nitrogen 38mg/dL (7-20) Creatinine 1.8mg/dL (0.6-1.0) Estimated GFR (Cockcroft-Gault) 28.8 Glucose Level 138mg/dL (70-99) Lactic Acid Level 6.6mmol/L (0.4-2.0) Calcium Level 8.1mg/dL (8.5-10.1) Troponin I Quantitative 0.732ng/mL (0.000-0.055) 1.852ng/mL (0.000-0.055) O2 Saturation 99% (92-99) 98% (92-99) Arterial Blood pH 7.10 (7.35-7.45) 7.31 (7.35-7.45) Arterial Blood pCO2 at Patient Temp 64mmHg (35-46) 41mmHg (35-46) Arterial Blood pO2 at Patient Temp 217mmHg (65-108) 131mmHg (65-108) Arterial Blood HCO3 19mmol/L (21-28) 20mmol/L (21-28) Arterial Blood Base Excess -11mmol/L (-3-3) -6mmol/L (-3-3) FiO2 100 Test 08/19/16 05:37 White Blood Count 13.1x10^3/uL (4.0-11.0) Red Blood Count 3.44x10^6/uL (3.50-5.40) Hemoglobin 9.1g/dL (12.0-15.5) Hematocrit 28.7% (36.0-47.0) Mean Corpuscular Volume 83fL (79-100) Mean Corpuscular Hemoglobin 26pg (25-35) Mean Corpuscular Hemoglobin Concent 32g/dL (31-37) Red Cell Distribution Width 17.9% (11.5-14.5) Platelet Count 70x10^3/uL (140-400) Neutrophils (%) (Auto) 77% (31-73) Lymphocytes (%) (Auto) 9% (24-48) Monocytes (%) (Auto) 11% (0-9) Eosinophils (%) (Auto) 4% (0-3) Basophils (%) (Auto) 0% (0-3) Neutrophils # (Auto) 10.0x10^3uL (1.8-7.7) Lymphocytes # (Auto) 1.2x10^3/uL (1.0-4.8) Monocytes # (Auto) 1.4x10^3/uL (0.0-1.1) Eosinophils # (Auto) 0.5x10^3/uL (0.0-0.7) Basophils # (Auto) 0.0x10^3/uL (0.0-0.2) Prothrombin Time 45.2SEC (11.7-14.0) Prothromb Time International Ratio 5.2 (0.8-1.1) Sodium Level 141mmol/L (136-145) Potassium Level 3.7mmol/L (3.5-5.1) Chloride Level 108mmol/L (98-107) Carbon Dioxide Level 23mmol/L (21-32) Anion Gap 10 (6-14) Blood Urea Nitrogen 31mg/dL (7-20) Creatinine 1.5mg/dL (0.6-1.0) Estimated GFR (Cockcroft-Gault) 35.5 BUN/Creatinine Ratio 21 (6-20) Glucose Level 84mg/dL (70-99) Lactic Acid Level 1.5mmol/L (0.4-2.0) Calcium Level 7.7mg/dL (8.5-10.1) Total Bilirubin 0.6mg/dL (0.2-1.0) Aspartate Amino Transf (AST/SGOT) 72U/L (15-37) Alanine Aminotransferase (ALT/SGPT) 20U/L (14-59) Alkaline Phosphatase 110U/L (46-116) Total Protein 6.1g/dL (6.4-8.2) Albumin 1.4g/dL (3.4-5.0) Albumin/Globulin Ratio 0.3 (1.0-1.7) Triglycerides Level 174mg/dL (0-150) Cholesterol Level 72mg/dL (0-200) LDL Cholesterol, Calculated 31mg/dL (0-100) VLDL Cholesterol, Calculated 35mg/dL (0-40) HDL Cholesterol 6mg/dL (40-60) Cholesterol/HDL Ratio 12.0 Objective Assessment Leukocytosis Lactic acidosis Dehydration LISSETH Hypotension likely sec to dehydration , infection appears less likely Obesity Respiratory failure Plan Plan of Care meropenem hydration supportive care d/w YOLETTE Ledesma MD Aug 19, 2016 07:34
[2016-08-19] MEDS: ALBUTEROL SULFATE 2.5 MG/3 ML NEBU. NEB SCH ×4 (07:41→19:31)
--- NOTE | 2016-08-19 07:54 | EKG ---
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
[2016-08-19] MEDS: MULTIVITAMIN with MINERAL TABLET. PO SCH (08:56)
[2016-08-19] MEDS: PROPAFENONE SR 225 MG CAP.ER.12H. PO SCH ×2 (09:00→21:00)
[2016-08-19] MEDS ORDERED: VANCOMYCIN 1 GM in IV NORMAL SALINE 250ML 250 ML IV SCH (09:00)
[2016-08-19] MEDS: PANTOPRAZOLE IV PUSH 40 MG VIAL. IVP SCH (09:13)
[2016-08-19 09:20] LABS: HCO3 ABG 20 mmol/L (21-28); PCO2 ABG 32 mmHg (35-46); PH ABG 7.42 (7.35-7.45); PO2 ABG 143 mmHg (65-108); SAT O2 ABG 99 % (92-99)
--- NOTE | 2016-08-19 10:00 | RAD ---
AP portable chest radiograph 08/19/2016 Clinical History: Pneumonia. Respiratory failure. An AP portable erect digital radiograph of the chest was obtained. Comparison study is dated 08/18/2016. The ET tube is unchanged in position. An NG tube has been placed. The tip of this tube is off this radiograph in the expected location of the body the stomach. The cardiac silhouette is mildly enlarged. Atherosclerotic calcification of the thoracic aorta is seen. Areas of infiltrate/atelectasis are seen involving both lower lobes, left greater than right which have increased since the previous examination. No pneumothorax or large pleural effusion is noted. The osseous structures are unchanged. Impression: Areas of atelectasis and/or infiltrate are seen involving both lower lobes, left greater than right which have increased since the previous examination.
--- NOTE | 2016-08-19 10:08 | PDOC ---
PULMONARY PROGRESS NOTES Subjective PT SEDATED ON VENT Vitals Vital Signs Date Time Temp Pulse Resp B/P Pulse Ox O2 Delivery O2 Flow Rate FiO2 08/19/16 09:36 99 Ventilator 08/19/16 06:00 97 22 106/46 08/19/16 04:00 98.7 98.7 08/18/16 13:00 15.0 Lungs: Clear Cardiovascular: S1, S2 Abdomen: Other (OBESE) Extremities: Other (OBESE) Skin: Warm, Dry Labs Laboratory Tests Test 08/17/16 18:55 08/18/16 03:50 08/18/16 08:00 08/18/16 10:29 Prothrombin Time 22.1SEC (11.7-14.0) Prothromb Time International Ratio 2.1 (0.8-1.1) White Blood Count 16.8x10^3/uL (4.0-11.0) Red Blood Count 3.46x10^6/uL (3.50-5.40) Hemoglobin 9.1g/dL (12.0-15.5) Hematocrit 28.8% (36.0-47.0) Mean Corpuscular Volume 83fL (79-100) Mean Corpuscular Hemoglobin 27pg (25-35) Mean Corpuscular Hemoglobin Concent 32g/dL (31-37) Red Cell Distribution Width 17.4% (11.5-14.5) Platelet Count 90x10^3/uL (140-400) Neutrophils (%) (Auto) 92% (31-73) Lymphocytes (%) (Auto) 4% (24-48) Monocytes (%) (Auto) 3% (0-9) Eosinophils (%) (Auto) 1% (0-3) Basophils (%) (Auto) 0% (0-3) Neutrophils # (Auto) 15.5x10^3uL (1.8-7.7) Lymphocytes # (Auto) 0.6x10^3/uL (1.0-4.8) Monocytes # (Auto) 0.4x10^3/uL (0.0-1.1) Eosinophils # (Auto) 0.2x10^3/uL (0.0-0.7) Basophils # (Auto) 0.0x10^3/uL (0.0-0.2) Segmented Neutrophils % 96% (35-66) Band Neutrophils % 3% (0-9) Lymphocytes % 1% (24-48) Platelet Estimate Decreased (ADEQUATE) Sodium Level 136mmol/L (136-145) Potassium Level 4.0mmol/L (3.5-5.1) Chloride Level 101mmol/L (98-107) Carbon Dioxide Level 26mmol/L (21-32) Anion Gap 9 (6-14) Blood Urea Nitrogen 42mg/dL (7-20) Creatinine 1.8mg/dL (0.6-1.0) Estimated GFR (Cockcroft-Gault) 28.8 Glucose Level 86mg/dL (70-99) Calcium Level 8.4mg/dL (8.5-10.1) Nasal Screen MRSA (PCR) Positive (Negative) O2 Saturation 96% (92-99) Arterial Blood pH 7.45 (7.35-7.45) Arterial Blood pH (Temp corrected) 7.44 Arterial Blood pCO2 at Patient Temp 31mmHg (35-46) Arterial Blood pCO2 (Temp correct) 31mmHg Arterial Blood pO2 at Patient Temp 85mmHg (65-108) Arterial Blood pO2 (Temp corrected) 87mmHg Arterial Blood HCO3 21mmol/L (21-28) Arterial Blood Base Excess -3mmol/L (-3-3) FiO2 40 Test 08/18/16 10:40 08/18/16 11:00 08/18/16 13:10 08/18/16 13:11 Sodium Level 135mmol/L (136-145) 136mmol/L (136-145) Potassium Level 3.6mmol/L (3.5-5.1) 4.0mmol/L (3.5-5.1) Chloride Level 100mmol/L (98-107) 101mmol/L (98-107) Carbon Dioxide Level 22mmol/L (21-32) 18mmol/L (21-32) Anion Gap 13 (6-14) 17 (6-14) Blood Urea Nitrogen 39mg/dL (7-20) 38mg/dL (7-20) Creatinine 1.7mg/dL (0.6-1.0) 1.8mg/dL (0.6-1.0) Estimated GFR (Cockcroft-Gault) 30.8 28.8 BUN/Creatinine Ratio 23 (6-20) Glucose Level 77mg/dL (70-99) 138mg/dL (70-99) Lactic Acid Level 3.5mmol/L (0.4-2.0) 6.6mmol/L (0.4-2.0) Calcium Level 8.0mg/dL (8.5-10.1) 8.1mg/dL (8.5-10.1) Magnesium Level 1.7mg/dL (1.8-2.4) Total Bilirubin 0.9mg/dL (0.2-1.0) Aspartate Amino Transf (AST/SGOT) 99U/L (15-37) Alanine Aminotransferase (ALT/SGPT) 27U/L (14-59) Alkaline Phosphatase 136U/L (46-116) Total Protein 6.9g/dL (6.4-8.2) Albumin 2.0g/dL (3.4-5.0) Albumin/Globulin Ratio 0.4 (1.0-1.7) Thyroid Stimulating Hormone (TSH) 1.328uIU/mL (0.358-3.74) Urine Collection Type Unknown Urine Color Kristine Urine Clarity Cloudy Urine pH 6.0 Urine Specific [place] >=1.030 Urine Protein 100mg/dL (NEG-TRACE) Urine Glucose (UA) Negativemg/dL (NEG) Urine Ketones (Stick) Negativemg/dL (NEG) Urine Blood Trace (NEG) Urine Nitrite Negative (NEG) Urine Bilirubin Small (NEG) Urine Urobilinogen Dipstick 1.0mg/dL (0.2 mg/dL) Urine Leukocyte Esterase Negative (NEG) Urine RBC Occ/HPF (0-2) Urine WBC 0/HPF (0-4) Urine Squamous Epithelial Cells Occ/LPF Urine Amorphous Sediment Present/HPF Urine Bacteria 0/HPF (0-FEW) Urine Hyaline Casts Occasional/HPF Urine Mucus Slight/LPF White Blood Count 20.4x10^3/uL (4.0-11.0) Red Blood Count 4.07x10^6/uL (3.50-5.40) Hemoglobin 10.6g/dL (12.0-15.5) Hematocrit 34.2% (36.0-47.0) Mean Corpuscular Volume 84fL (79-100) Mean Corpuscular Hemoglobin 26pg (25-35) Mean Corpuscular Hemoglobin Concent 31g/dL (31-37) Red Cell Distribution Width 18.1% (11.5-14.5) Platelet Count 96x10^3/uL (140-400) Neutrophils (%) (Auto) 71% (31-73) Lymphocytes (%) (Auto) 21% (24-48) Monocytes (%) (Auto) 6% (0-9) Eosinophils (%) (Auto) 1% (0-3) Basophils (%) (Auto) 0% (0-3) Neutrophils # (Auto) 14.5x10^3uL (1.8-7.7) Lymphocytes # (Auto) 4.3x10^3/uL (1.0-4.8) Monocytes # (Auto) 1.2x10^3/uL (0.0-1.1) Eosinophils # (Auto) 0.3x10^3/uL (0.0-0.7) Basophils # (Auto) 0.1x10^3/uL (0.0-0.2) Segmented Neutrophils % 60% (35-66) Band Neutrophils % 13% (0-9) Lymphocytes % 20% (24-48) Atypical Lymphocytes % (Manual) 1% (0-0) Monocytes % 5% (0-10) Metamyelocytes % 1% (0-0) Toxic Granulation Slight Toxic Vacuolation Mod Platelet Estimate Decreased (ADEQUATE) Anisocytosis Slight Troponin I Quantitative 0.732ng/mL (0.000-0.055) O2 Saturation 99% (92-99) Arterial Blood pH 7.10 (7.35-7.45) Arterial Blood pCO2 at Patient Temp 64mmHg (35-46) Arterial Blood pO2 at Patient Temp 217mmHg (65-108) Arterial Blood HCO3 19mmol/L (21-28) Arterial Blood Base Excess -11mmol/L (-3-3) Test 08/18/16 16:23 08/19/16 01:40 08/19/16 05:37 O2 Saturation 98% (92-99) Arterial Blood pH 7.31 (7.35-7.45) Arterial Blood pCO2 at Patient Temp 41mmHg (35-46) Arterial Blood pO2 at Patient Temp 131mmHg (65-108) Arterial Blood HCO3 20mmol/L (21-28) Arterial Blood Base Excess -6mmol/L (-3-3) FiO2 100 Troponin I Quantitative 1.852ng/mL (0.000-0.055) White Blood Count 13.1x10^3/uL (4.0-11.0) Red Blood Count 3.44x10^6/uL (3.50-5.40) Hemoglobin 9.1g/dL (12.0-15.5) Hematocrit 28.7% (36.0-47.0) Mean Corpuscular Volume 83fL (79-100) Mean Corpuscular Hemoglobin 26pg (25-35) Mean Corpuscular Hemoglobin Concent 32g/dL (31-37) Red Cell Distribution Width 17.9% (11.5-14.5) Platelet Count 70x10^3/uL (140-400) Neutrophils (%) (Auto) 77% (31-73) Lymphocytes (%) (Auto) 9% (24-48) Monocytes (%) (Auto) 11% (0-9) Eosinophils (%) (Auto) 4% (0-3) Basophils (%) (Auto) 0% (0-3) Neutrophils # (Auto) 10.0x10^3uL (1.8-7.7) Lymphocytes # (Auto) 1.2x10^3/uL (1.0-4.8) Monocytes # (Auto) 1.4x10^3/uL (0.0-1.1) Eosinophils # (Auto) 0.5x10^3/uL (0.0-0.7) Basophils # (Auto) 0.0x10^3/uL (0.0-0.2) Prothrombin Time 45.2SEC (11.7-14.0) Prothromb Time International Ratio 5.2 (0.8-1.1) Sodium Level 141mmol/L (136-145) Potassium Level 3.7mmol/L (3.5-5.1) Chloride Level 108mmol/L (98-107) Carbon Dioxide Level 23mmol/L (21-32) Anion Gap 10 (6-14) Blood Urea Nitrogen 31mg/dL (7-20) Creatinine 1.5mg/dL (0.6-1.0) Estimated GFR (Cockcroft-Gault) 35.5 BUN/Creatinine Ratio 21 (6-20) Glucose Level 84mg/dL (70-99) Lactic Acid Level 1.5mmol/L (0.4-2.0) Calcium Level 7.7mg/dL (8.5-10.1) Total Bilirubin 0.6mg/dL (0.2-1.0) Aspartate Amino Transf (AST/SGOT) 72U/L (15-37) Alanine Aminotransferase (ALT/SGPT) 20U/L (14-59) Alkaline Phosphatase 110U/L (46-116) Total Protein 6.1g/dL (6.4-8.2) Albumin 1.4g/dL (3.4-5.0) Albumin/Globulin Ratio 0.3 (1.0-1.7) Triglycerides Level 174mg/dL (0-150) Cholesterol Level 72mg/dL (0-200) LDL Cholesterol, Calculated 31mg/dL (0-100) VLDL Cholesterol, Calculated 35mg/dL (0-40) HDL Cholesterol 6mg/dL (40-60) Cholesterol/HDL Ratio 12.0 Laboratory Tests Test 08/18/16 10:29 08/18/16 10:40 08/18/16 11:00 08/18/16 13:10 O2 Saturation 96% (92-99) Arterial Blood pH 7.45 (7.35-7.45) Arterial Blood pH (Temp corrected) 7.44 Arterial Blood pCO2 at Patient Temp 31mmHg (35-46) Arterial Blood pCO2 (Temp correct) 31mmHg Arterial Blood pO2 at Patient Temp 85mmHg (65-108) Arterial Blood pO2 (Temp corrected) 87mmHg Arterial Blood HCO3 21mmol/L (21-28) Arterial Blood Base Excess -3mmol/L (-3-3) FiO2 40 Sodium Level 135mmol/L (136-145) 136mmol/L (136-145) Potassium Level 3.6mmol/L (3.5-5.1) 4.0mmol/L (3.5-5.1) Chloride Level 100mmol/L (98-107) 101mmol/L (98-107) Carbon Dioxide Level 22mmol/L (21-32) 18mmol/L (21-32) Anion Gap 13 (6-14) 17 (6-14) Blood Urea Nitrogen 39mg/dL (7-20) 38mg/dL (7-20) Creatinine 1.7mg/dL (0.6-1.0) 1.8mg/dL (0.6-1.0) Estimated GFR (Cockcroft-Gault) 30.8 28.8 BUN/Creatinine Ratio 23 (6-20) Glucose Level 77mg/dL (70-99) 138mg/dL (70-99) Lactic Acid Level 3.5mmol/L (0.4-2.0) 6.6mmol/L (0.4-2.0) Calcium Level 8.0mg/dL (8.5-10.1) 8.1mg/dL (8.5-10.1) Magnesium Level 1.7mg/dL (1.8-2.4) Total Bilirubin 0.9mg/dL (0.2-1.0) Aspartate Amino Transf (AST/SGOT) 99U/L (15-37) Alanine Aminotransferase (ALT/SGPT) 27U/L (14-59) Alkaline Phosphatase 136U/L (46-116) Total Protein 6.9g/dL (6.4-8.2) Albumin 2.0g/dL (3.4-5.0) Albumin/Globulin Ratio 0.4 (1.0-1.7) Thyroid Stimulating Hormone (TSH) 1.328uIU/mL (0.358-3.74) Urine Collection Type Unknown Urine Color Kristine Urine Clarity Cloudy Urine pH 6.0 Urine Specific [place] >=1.030 Urine Protein 100mg/dL (NEG-TRACE) Urine Glucose (UA) Negativemg/dL (NEG) Urine Ketones (Stick) Negativemg/dL (NEG) Urine Blood Trace (NEG) Urine Nitrite Negative (NEG) Urine Bilirubin Small (NEG) Urine Urobilinogen Dipstick 1.0mg/dL (0.2 mg/dL) Urine Leukocyte Esterase Negative (NEG) Urine RBC Occ/HPF (0-2) Urine WBC 0/HPF (0-4) Urine Squamous Epithelial Cells Occ/LPF Urine Amorphous Sediment Present/HPF Urine Bacteria 0/HPF (0-FEW) Urine Hyaline Casts Occasional/HPF Urine Mucus Slight/LPF White Blood Count 20.4x10^3/uL (4.0-11.0) Red Blood Count 4.07x10^6/uL (3.50-5.40) Hemoglobin 10.6g/dL (12.0-15.5) Hematocrit 34.2% (36.0-47.0) Mean Corpuscular Volume 84fL (79-100) Mean Corpuscular Hemoglobin 26pg (25-35) Mean Corpuscular Hemoglobin Concent 31g/dL (31-37) Red Cell Distribution Width 18.1% (11.5-14.5) Platelet Count 96x10^3/uL (140-400) Neutrophils (%) (Auto) 71% (31-73) Lymphocytes (%) (Auto) 21% (24-48) Monocytes (%) (Auto) 6% (0-9) Eosinophils (%) (Auto) 1% (0-3) Basophils (%) (Auto) 0% (0-3) Neutrophils # (Auto) 14.5x10^3uL (1.8-7.7) Lymphocytes # (Auto) 4.3x10^3/uL (1.0-4.8) Monocytes # (Auto) 1.2x10^3/uL (0.0-1.1) Eosinophils # (Auto) 0.3x10^3/uL (0.0-0.7) Basophils # (Auto) 0.1x10^3/uL (0.0-0.2) Segmented Neutrophils % 60% (35-66) Band Neutrophils % 13% (0-9) Lymphocytes % 20% (24-48) Atypical Lymphocytes % (Manual) 1% (0-0) Monocytes % 5% (0-10) Metamyelocytes % 1% (0-0) Toxic Granulation Slight Toxic Vacuolation Mod Platelet Estimate Decreased (ADEQUATE) Anisocytosis Slight Troponin I Quantitative 0.732ng/mL (0.000-0.055) Test 08/18/16 13:11 08/18/16 16:23 08/19/16 01:40 08/19/16 05:37 O2 Saturation 99% (92-99) 98% (92-99) Arterial Blood pH 7.10 (7.35-7.45) 7.31 (7.35-7.45) Arterial Blood pCO2 at Patient Temp 64mmHg (35-46) 41mmHg (35-46) Arterial Blood pO2 at Patient Temp 217mmHg (65-108) 131mmHg (65-108) Arterial Blood HCO3 19mmol/L (21-28) 20mmol/L (21-28) Arterial Blood Base Excess -11mmol/L (-3-3) -6mmol/L (-3-3) FiO2 100 Troponin I Quantitative 1.852ng/mL (0.000-0.055) White Blood Count 13.1x10^3/uL (4.0-11.0) Red Blood Count 3.44x10^6/uL (3.50-5.40) Hemoglobin 9.1g/dL (12.0-15.5) Hematocrit 28.7% (36.0-47.0) Mean Corpuscular Volume 83fL (79-100) Mean Corpuscular Hemoglobin 26pg (25-35) Mean Corpuscular Hemoglobin Concent 32g/dL (31-37) Red Cell Distribution Width 17.9% (11.5-14.5) Platelet Count 70x10^3/uL (140-400) Neutrophils (%) (Auto) 77% (31-73) Lymphocytes (%) (Auto) 9% (24-48) Monocytes (%) (Auto) 11% (0-9) Eosinophils (%) (Auto) 4% (0-3) Basophils (%) (Auto) 0% (0-3) Neutrophils # (Auto) 10.0x10^3uL (1.8-7.7) Lymphocytes # (Auto) 1.2x10^3/uL (1.0-4.8) Monocytes # (Auto) 1.4x10^3/uL (0.0-1.1) Eosinophils # (Auto) 0.5x10^3/uL (0.0-0.7) Basophils # (Auto) 0.0x10^3/uL (0.0-0.2) Prothrombin Time 45.2SEC (11.7-14.0) Prothromb Time International Ratio 5.2 (0.8-1.1) Sodium Level 141mmol/L (136-145) Potassium Level 3.7mmol/L (3.5-5.1) Chloride Level 108mmol/L (98-107) Carbon Dioxide Level 23mmol/L (21-32) Anion Gap 10 (6-14) Blood Urea Nitrogen 31mg/dL (7-20) Creatinine 1.5mg/dL (0.6-1.0) Estimated GFR (Cockcroft-Gault) 35.5 BUN/Creatinine Ratio 21 (6-20) Glucose Level 84mg/dL (70-99) Lactic Acid Level 1.5mmol/L (0.4-2.0) Calcium Level 7.7mg/dL (8.5-10.1) Total Bilirubin 0.6mg/dL (0.2-1.0) Aspartate Amino Transf (AST/SGOT) 72U/L (15-37) Alanine Aminotransferase (ALT/SGPT) 20U/L (14-59) Alkaline Phosphatase 110U/L (46-116) Total Protein 6.1g/dL (6.4-8.2) Albumin 1.4g/dL (3.4-5.0) Albumin/Globulin Ratio 0.3 (1.0-1.7) Triglycerides Level 174mg/dL (0-150) Cholesterol Level 72mg/dL (0-200) LDL Cholesterol, Calculated 31mg/dL (0-100) VLDL Cholesterol, Calculated 35mg/dL (0-40) HDL Cholesterol 6mg/dL (40-60) Cholesterol/HDL Ratio 12.0 Medications Active Scripts Medications Dose Route/Sig Days Date Category Dose Instructions Keflex (Cephalexin) 500 Mg Capsule 500 Mg PO QID 07/12/16 Reported take for 10 days start 07/12 Percocet 10-325 Mg Tablet (Oxycodone/Acetaminophen) 1 Each Tablet 1 Tab PO PRN Q6HRS PRN 07/12/16 Reported Potassium Chloride 20 Meq Tablet.er 20 Meq PO DAILY 07/12/16 Reported Ventolin Hfa Inhaler (Albuterol Sulfate) 18 Gm Hfa.aer.ad 2 Puff INH Q4HRS 07/12/16 Reported Atorvastatin Calcium 10 Mg Tablet 1 Tab PO DAILY 07/12/16 Reported Daily Vitamin (Multivitamin) 1 Each Tablet 1 Each PO DAILY 04/15/14 Reported Coumadin (Warfarin Sodium) 2.5 Mg Tablet 0.5 Tab PO DAILY 04/15/14 Reported Propafenone Hcl 225 Mg Cap.er.12h 225 Mg PO BID 04/15/14 Reported Pantoprazole Sodium 40 Mg Tablet. 1 Tab PO DAILY 04/15/14 Reported Aquaphor (Petrolatum,White) 99 Gm Oint...g. 99 Gm TP BID 12/04/13 Reported Cardizem Cd (Diltiazem Hcl) 120 Mg Cap.er.24h 120 Mg PO DAILY 12/04/13 Reported Zofran Odt (Ondansetron) 4 Mg Tab.rapdis 8 Mg PO Q8HRS 12/04/13 Reported x 2 days start 3/6 then 4 mg q 6hrs prn Lasix (Furosemide) 40 Mg Tablet 40 Mg PO DAILY 12/04/13 Reported Comments cxr reviewed Impression . 1. Acute respiratory failure secondary to sepsis. 2. Sepsis with hypotension. 3. Atrial fibrillation. 4. Acute on chronic kidney failure. 5. Morbid obesity. 6. MULTIPLE ALLERGIES TO MEDICATIONS INCLUDING AMOXICILLIN. 7. S/P code blue V-Fib 8. Abnormal cxr with infiltrates, possible edema or pneumonia Plan . on levophed d/w Dr Flores 1. pressors 2. ac mode 3. Broad-spectrum antibiotics to cover both for gram-negative and gram- positive organisms. 4. follow card input 5. follow nephro input CCT 30 min TWILA OROZCO MD Aug 19, 2016 10:07
--- NOTE | 2016-08-19 10:17 | PDOC ---
PROGRESS NOTES Subjective Subjective intubated on vent Objective Objective Vital Signs Date Time Temp Pulse Resp B/P Pulse Ox O2 Delivery O2 Flow Rate FiO2 08/19/16 09:36 99 Ventilator 08/19/16 06:00 97 22 106/46 08/19/16 04:00 98.7 98.7 08/18/16 13:00 15.0 Intake and Output 08/19/16 06:59 Intake Total 5826.80 ml Output Total 2715 ml Balance 3111.80 ml IV Total 5826.80 ml Output Urine Total 2465 ml Gastric Drainage Total 250 ml Physical Exam Abdomen: Soft, Other (obese abdomen and difficult to examine) Heart: Normal S1, Normal S2, Other (tachycardic) Extremities: Other (trace to 1+ edema - LE) General: Other (intubated/sedated) HEENT: Other (petechiae on face and neck) Lungs: Normal air movement MUSCULOSKELETAL: Osteoarthritic changes both hands Neuro: Other (sedated) Psych/Mental Status: Other (sedated) Skin: No rashes COMMENT pigmentation neck Diagnosis Problem List Problems Medical Problems: (1) Fall from standing Status: Acute (2) Left knee pain Status: Acute Assessment Assessment Problems Medical Problems: (1) Fall from standing Status: Acute (2) Left knee pain Status: Acute FINAL IMPRESSION: CODE BLUE INTUBATED Bacteremia gram positive. sepsis with lactic acidosis 1. Acute sepsis. 2. Elevated white count with hypertension as well as renal insufficiency. 3. Chronic recurrent cellulitis of the legs. 4. Chronic lymphedema. 5. Morbid obesity. 6. History of Clostridium difficile. 7. Chronic atrial fibrillation, on Coumadin. PLAN: SPOKE WITH PULMONARY SPOKE WITH ID SEEN IN ICU, ON VENT. URINE OUT PUT IMPROVED inr 5.4 hold coumadin low platelets 70,000 due to sepsis. critical care 30mts At this time, was admitted to the hospital. Blood cultures, urine cultures. Broad spectrum antibiotic. ID consult. Newman catheter to monitor urine output. Check stool for C. diff. I will transfer to the ICU because of acute change in mental status. I will also check lactic acid. Problems: Plan Plan of Care Problems Medical Problems: (1) Fall from standing Status: Acute (2) Left knee pain Status: Acute Comment Review of Relevant I have reviewed the following items quentin (where applicable) has been applied. Labs Laboratory Tests Test 08/18/16 10:29 08/18/16 10:40 08/18/16 11:00 08/18/16 13:10 O2 Saturation 96% (92-99) Arterial Blood pH 7.45 (7.35-7.45) Arterial Blood pH (Temp corrected) 7.44 Arterial Blood pCO2 at Patient Temp 31mmHg (35-46) Arterial Blood pCO2 (Temp correct) 31mmHg Arterial Blood pO2 at Patient Temp 85mmHg (65-108) Arterial Blood pO2 (Temp corrected) 87mmHg Arterial Blood HCO3 21mmol/L (21-28) Arterial Blood Base Excess -3mmol/L (-3-3) FiO2 40 Sodium Level 135mmol/L (136-145) 136mmol/L (136-145) Potassium Level 3.6mmol/L (3.5-5.1) 4.0mmol/L (3.5-5.1) Chloride Level 100mmol/L (98-107) 101mmol/L (98-107) Carbon Dioxide Level 22mmol/L (21-32) 18mmol/L (21-32) Anion Gap 13 (6-14) 17 (6-14) Blood Urea Nitrogen 39mg/dL (7-20) 38mg/dL (7-20) Creatinine 1.7mg/dL (0.6-1.0) 1.8mg/dL (0.6-1.0) Estimated GFR (Cockcroft-Gault) 30.8 28.8 BUN/Creatinine Ratio 23 (6-20) Glucose Level 77mg/dL (70-99) 138mg/dL (70-99) Lactic Acid Level 3.5mmol/L (0.4-2.0) 6.6mmol/L (0.4-2.0) Calcium Level 8.0mg/dL (8.5-10.1) 8.1mg/dL (8.5-10.1) Magnesium Level 1.7mg/dL (1.8-2.4) Total Bilirubin 0.9mg/dL (0.2-1.0) Aspartate Amino Transf (AST/SGOT) 99U/L (15-37) Alanine Aminotransferase (ALT/SGPT) 27U/L (14-59) Alkaline Phosphatase 136U/L (46-116) Total Protein 6.9g/dL (6.4-8.2) Albumin 2.0g/dL (3.4-5.0) Albumin/Globulin Ratio 0.4 (1.0-1.7) Thyroid Stimulating Hormone (TSH) 1.328uIU/mL (0.358-3.74) Urine Collection Type Unknown Urine Color Kristine Urine Clarity Cloudy Urine pH 6.0 Urine Specific [place] >=1.030 Urine Protein 100mg/dL (NEG-TRACE) Urine Glucose (UA) Negativemg/dL (NEG) Urine Ketones (Stick) Negativemg/dL (NEG) Urine Blood Trace (NEG) Urine Nitrite Negative (NEG) Urine Bilirubin Small (NEG) Urine Urobilinogen Dipstick 1.0mg/dL (0.2 mg/dL) Urine Leukocyte Esterase Negative (NEG) Urine RBC Occ/HPF (0-2) Urine WBC 0/HPF (0-4) Urine Squamous Epithelial Cells Occ/LPF Urine Amorphous Sediment Present/HPF Urine Bacteria 0/HPF (0-FEW) Urine Hyaline Casts Occasional/HPF Urine Mucus Slight/LPF White Blood Count 20.4x10^3/uL (4.0-11.0) Red Blood Count 4.07x10^6/uL (3.50-5.40) Hemoglobin 10.6g/dL (12.0-15.5) Hematocrit 34.2% (36.0-47.0) Mean Corpuscular Volume 84fL (79-100) Mean Corpuscular Hemoglobin 26pg (25-35) Mean Corpuscular Hemoglobin Concent 31g/dL (31-37) Red Cell Distribution Width 18.1% (11.5-14.5) Platelet Count 96x10^3/uL (140-400) Neutrophils (%) (Auto) 71% (31-73) Lymphocytes (%) (Auto) 21% (24-48) Monocytes (%) (Auto) 6% (0-9) Eosinophils (%) (Auto) 1% (0-3) Basophils (%) (Auto) 0% (0-3) Neutrophils # (Auto) 14.5x10^3uL (1.8-7.7) Lymphocytes # (Auto) 4.3x10^3/uL (1.0-4.8) Monocytes # (Auto) 1.2x10^3/uL (0.0-1.1) Eosinophils # (Auto) 0.3x10^3/uL (0.0-0.7) Basophils # (Auto) 0.1x10^3/uL (0.0-0.2) Segmented Neutrophils % 60% (35-66) Band Neutrophils % 13% (0-9) Lymphocytes % 20% (24-48) Atypical Lymphocytes % (Manual) 1% (0-0) Monocytes % 5% (0-10) Metamyelocytes % 1% (0-0) Toxic Granulation Slight Toxic Vacuolation Mod Platelet Estimate Decreased (ADEQUATE) Anisocytosis Slight Troponin I Quantitative 0.732ng/mL (0.000-0.055) Test 08/18/16 13:11 08/18/16 16:23 08/19/16 01:40 08/19/16 05:37 O2 Saturation 99% (92-99) 98% (92-99) Arterial Blood pH 7.10 (7.35-7.45) 7.31 (7.35-7.45) Arterial Blood pCO2 at Patient Temp 64mmHg (35-46) 41mmHg (35-46) Arterial Blood pO2 at Patient Temp 217mmHg (65-108) 131mmHg (65-108) Arterial Blood HCO3 19mmol/L (21-28) 20mmol/L (21-28) Arterial Blood Base Excess -11mmol/L (-3-3) -6mmol/L (-3-3) FiO2 100 Troponin I Quantitative 1.852ng/mL (0.000-0.055) White Blood Count 13.1x10^3/uL (4.0-11.0) Red Blood Count 3.44x10^6/uL (3.50-5.40) Hemoglobin 9.1g/dL (12.0-15.5) Hematocrit 28.7% (36.0-47.0) Mean Corpuscular Volume 83fL (79-100) Mean Corpuscular Hemoglobin 26pg (25-35) Mean Corpuscular Hemoglobin Concent 32g/dL (31-37) Red Cell Distribution Width 17.9% (11.5-14.5) Platelet Count 70x10^3/uL (140-400) Neutrophils (%) (Auto) 77% (31-73) Lymphocytes (%) (Auto) 9% (24-48) Monocytes (%) (Auto) 11% (0-9) Eosinophils (%) (Auto) 4% (0-3) Basophils (%) (Auto) 0% (0-3) Neutrophils # (Auto) 10.0x10^3uL (1.8-7.7) Lymphocytes # (Auto) 1.2x10^3/uL (1.0-4.8) Monocytes # (Auto) 1.4x10^3/uL (0.0-1.1) Eosinophils # (Auto) 0.5x10^3/uL (0.0-0.7) Basophils # (Auto) 0.0x10^3/uL (0.0-0.2) Prothrombin Time 45.2SEC (11.7-14.0) Prothromb Time International Ratio 5.2 (0.8-1.1) Sodium Level 141mmol/L (136-145) Potassium Level 3.7mmol/L (3.5-5.1) Chloride Level 108mmol/L (98-107) Carbon Dioxide Level 23mmol/L (21-32) Anion Gap 10 (6-14) Blood Urea Nitrogen 31mg/dL (7-20) Creatinine 1.5mg/dL (0.6-1.0) Estimated GFR (Cockcroft-Gault) 35.5 BUN/Creatinine Ratio 21 (6-20) Glucose Level 84mg/dL (70-99) Lactic Acid Level 1.5mmol/L (0.4-2.0) Calcium Level 7.7mg/dL (8.5-10.1) Total Bilirubin 0.6mg/dL (0.2-1.0) Aspartate Amino Transf (AST/SGOT) 72U/L (15-37) Alanine Aminotransferase (ALT/SGPT) 20U/L (14-59) Alkaline Phosphatase 110U/L (46-116) Total Protein 6.1g/dL (6.4-8.2) Albumin 1.4g/dL (3.4-5.0) Albumin/Globulin Ratio 0.3 (1.0-1.7) Triglycerides Level 174mg/dL (0-150) Cholesterol Level 72mg/dL (0-200) LDL Cholesterol, Calculated 31mg/dL (0-100) VLDL Cholesterol, Calculated 35mg/dL (0-40) HDL Cholesterol 6mg/dL (40-60) Cholesterol/HDL Ratio 12.0 Microbiology 08/18/16 Blood Culture - Final, Complete Medications Current Medications Acetaminophen 650 mg 650 mg PRN Q6HRS PRN PO FEVER; Start 08/18/16 at 17:15 Digoxin 250 mcg 250 mcg 1X ONCE IV Last administered on 08/18/16 18:17; Start 08/18/16 at 18:30; Stop 08/18/16 at 18:31; Status DC Digoxin 250 mcg 250 mcg 1X STAT IV Last administered on 08/18/16 15:19; Start 08/18/16 at 14:29; Stop 08/18/16 at 14:33; Status DC Fentanyl Citrate 30 ml @ 0 mls/hr CONT PRN IV PROTOCOL; Start 08/18/16 at 17:45 ; Status UNV Levofloxacin/ Dextrose 150 ml @ 100 mls/hr Q24H IV Last administered on 12:09; Start 08/18/16 at 11:00; Stop 08/18/16 at 12:31; Status DC Magnesium Sulfate/ Dextrose 100 ml @ 100 mls/hr 1X ONCE IV Last administered on 08/18/16 15:00; Start 08/18/16 at 15:00; Stop 08/18/16 at 15:59; Status DC Meropenem/Sodium Chloride (Merrem/Iv Sodium Chloride 0.9% 50ml) 50 ml @ 100 mls /hr Q6HRS IV ; Start 08/19/16 at 12:00 Meropenem/Sodium Chloride (Merrem/Iv Sodium Chloride 0.9% 50ml) 50 ml @ 100 mls /hr Q8HRS IV Last administered on 08/19/16 05:21; Start 08/18/16 at 14:00; Stop 08/19/16 at 08:47; Status DC Midazolam HCl 100 ml @ As Directed STK-MED ONCE IV ; Start 08/18/16 at 18:21; Stop 08/18/16 at 18:22; Status DC Midazolam HCl 100 ml @ 0 mls/hr CONT PRN IV SEE I/O RECORD Last administered on 08/19/16 03:46; Start 08/18/16 at 18:30 Midazolam HCl (Versed 100mg/ 100ml Premix) 100 ml @ As Directed STK-MED ONCE IV ; Start 08/18/16 at 13:05; Stop 08/18/16 at 13:06; Status DC Morphine Sulfate (Morphine 30 Mg/ 30 ml [employer]OR [employer]) 30 ml @ 0 mls/hr CONT PRN PRN IV PROTOCOL Last administered on 08/18/16 18:06; Start 08/18/16 at 17:45 Norepinephrine Bitartrate 8 mg/ Sodium Chloride 258 ml @ 1.93 mls/hr CONT PRN IV SEE I/O RECORD Last administered on 08/19/16 03:47; Start 08/18/16 at 13:00 Pantoprazole Sodium (Protonix Vial) 40 mg DAILY IVP Last administered on 09:13; Start 08/19/16 at 09:00 Sodium Bicarbonate 50 meq/Sodium Chloride 1,050 ml @ 150 mls/hr Q7H IV Last administered on 08/19/16 02:20; Start 08/18/16 at 18:30 Sodium Chloride (Iv Sodium Chloride 0.9% 1000ml Bag) 1,000 ml @ 1,000 mls/hr 1X ONCE IV Last administered on 08/18/16 18:05; Start 08/18/16 at 17:45; Stop 08/18/16 at 18:44; Status DC Vancomycin HCl 1 gm/Sodium Chloride 250 ml @ 250 mls/hr DAILY IV ; Start at 09:00; Status UNV Vancomycin HCl 2 gm/Sodium Chloride 500 ml @ 250 mls/hr 1X ONCE IV Last administered on 08/18/16 12:28; Start 08/18/16 at 11:00; Stop 08/18/16 at 12:36 ; Status DC Warfarin Sodium 2.5 mg 2.5 mg DAILY16 PO ; Start 08/19/16 at 16:00; Stop at 16:00; Status DC Vitals/I & O Vital Sign - Last 24 Hours 08/18/16 08/18/16 08/18/16 08/18/16 11:00 11:30 12:00 12:00 Temp 99.3 99.3 Pulse 96 94 Resp 33 31 B/P 113/68 98/41 Pulse Ox 94 96 92 O2 Delivery Nasal Cannula Simple Mask Nasal Cannula O2 Flow Rate 4.0 5.0 5.0 08/18/16 08/18/16 08/18/16 08/18/16 12:00 12:30 13:00 13:00 Pulse 92 74 Resp 29 27 B/P 100/42 149/59 Pulse Ox 97 61 O2 Delivery Mask Nasal Cannula Bag Valve Mask Ventilator O2 Flow Rate 5.0 5.0 15.0 08/18/16 08/18/16 08/18/16 08/18/16 13:10 13:30 14:00 14:30 Pulse 164 146 148 Resp 28 26 24 B/P 138/64 117/57 120/55 Pulse Ox 98 100 100 100 O2 Delivery Ventilator Ventilator Ventilator Ventilator 08/18/16 08/18/16 08/18/16 08/18/16 15:00 15:19 15:30 16:00 Pulse 148 149 138 148 Resp 24 27 26 B/P 135/60 123/63 133/77 152/60 Pulse Ox 100 100 100 O2 Delivery Ventilator Ventilator Ventilator 08/18/16 08/18/16 08/18/16 08/18/16 16:00 16:00 16:30 16:32 Temp 102.7 102.7 Pulse 140 Resp 27 B/P 155/70 Pulse Ox 99 99 O2 Delivery Mechanical Ventilator Ventilator Ventilator 08/18/16 08/18/16 08/18/16 08/18/16 17:30 17:51 18:06 18:17 Pulse 138 55 Resp 25 24 B/P 148/60 150/55 Pulse Ox 99 99 80 O2 Delivery Ventilator Ventilator Ventilator 08/18/16 08/18/16 08/18/16 08/18/16 18:30 18:36 19:00 19:48 Pulse 127 126 Resp 22 22 22 B/P 138/66 149/56 Pulse Ox 100 100 99 100 O2 Delivery Ventilator Ventilator Ventilator Ventilator 08/18/16 08/18/16 08/18/16 08/18/16 20:00 20:00 21:00 22:00 Temp 99.5 99.5 Pulse 123 118 117 Resp 23 22 24 B/P 142/54 103/47 117/48 Pulse Ox 99 99 100 O2 Delivery Mechanical Ventilator Ventilator Ventilator Ventilator 08/18/16 08/18/16 08/19/16 08/19/16 22:15 23:00 00:00 00:00 Temp 99.0 99.0 Pulse 111 105 Resp 22 25 B/P 102/50 97/44 Pulse Ox 100 100 100 O2 Delivery Ventilator Ventilator Ventilator Mechanical Ventilator 08/19/16 08/19/16 08/19/16 08/19/16 00:22 01:00 02:00 03:00 Pulse 105 105 101 Resp 22 22 B/P 97/49 111/49 106/53 Pulse Ox 100 99 99 99 O2 Delivery Ventilator Ventilator Ventilator Ventilator 08/19/16 08/19/16 08/19/16 08/19/16 03:21 04:00 04:00 05:00 Temp 98.7 98.7 Pulse 97 97 Resp 22 B/P 99/48 97/43 Pulse Ox 99 100 99 O2 Delivery Ventilator Mechanical Ventilator Ventilator Ventilator 08/19/16 08/19/16 08/19/16 08/19/16 05:00 06:00 07:35 09:36 Pulse 97 Resp 22 B/P 106/46 Pulse Ox 99 99 99 99 O2 Delivery Ventilator Ventilator Ventilator Ventilator Intake and Output 08/18/16 08/18/16 08/19/16 14:59 22:59 06:59 Intake Total 4559.5 ml 1267.30 ml Output Total 90 ml 1220 ml 1405 ml Balance -90 ml 3339.5 ml -137.70 ml JAGUAR BRICE MD Aug 19, 2016 10:16
[2016-08-19 10:53] LABS: FIO2 ABG 60
--- NOTE | 2016-08-19 11:49 | CARD ---
APPROVED REPORT EXAM: Two-dimensional and M-mode echocardiogram with Doppler and color Doppler. Other Information Quality : FairHR: 138bpm Rhythm : Tachycardia INDICATION Post code RISK FACTORS Obesity 2D DIMENSIONS RVDd2.6 (2.9-3.5cm)Left Atrium(2D)3.5 (1.6-4.0cm) IVSd1.2 (0.7-1.1cm)Aortic Root(2D)2.7 (2.0-3.7cm) LVDd4.9 (3.9-5.9cm)LVOT Diameter2.6 (1.8-2.4cm) PWd1.2 (0.7-1.1cm)LVDs3.9 (2.5-4.0cm) FS (%) 19.7 %SV44.8 ml Aortic Valve AoV Peak Darrell.241.5cm/sAoV VTI35.2cm AO Peak GR.23.3mmHgLVOT VTI 22.61cm AO Mean GR.16mmHg Mitral Valve MV E Peak Gr.9mmHgMV E Mean Gr.5mmHg Tricuspid Valve TR P. [id number] TR Peak Gr.59mmHg LEFT VENTRICLE Technically difficult study. The left ventricle is normal size. There is mild concentric left ventric ular hypertrophy. Left ventricle systolic function appears normal. The Ejection Fraction is 55-60%. L eft ventricular diastolic function was not assessed due to tachycardia. RIGHT VENTRICLE The right ventricle is borderline dilated. There is normal right ventricular wall thickness. The righ t ventricular systolic function is normal. ATRIA The left atrium size is normal. The right atrium size is normal. The interatrial septum is intact wit h no evidence for an atrial septal defect or patent foramen ovale as noted on 2-D or Doppler imaging. AORTIC VALVE The aortic valve is mildly sclerotic. The aortic valve is trileaflet. Doppler and Color Flow revealed no significant aortic regurgitation. There is no significant aortic valvular stenosis. MITRAL VALVE Mitral annular calcification is mild. The mitral valve leaflets are thickened. There is no evidence o f mitral valve prolapse. There is no mitral valve stenosis. Doppler and Color Flow revealed trace channing ral valve regurgitation. TRICUSPID VALVE Doppler and Color Flow revealed moderate tricuspid regurgitation. The pulmonary artery systolic press ure is estimated at 68 mmHg. PULMONIC VALVE The pulmonic valve is not well visualized. Doppler and Color Flow revealed no pulmonic valvular regur gitation. There is no pulmonic valvular stenosis. GREAT VESSELS The aortic root is normal in size. The ascending aorta is normal in size. The pulmonary artery is nor mal. The IVC is dilated. PERICARDIAL EFFUSION There is no evidence of significant pericardial effusion. Critical Notification Critical Value: No <Conclusion> Technically difficult study. The left ventricle is normal size. Left ventricle systolic function appears normal. The Ejection Fraction is 55-60%. There is mild concentric left ventricular hypertrophy. There is no significant aortic valvular stenosis. Doppler and Color Flow revealed no significant aortic regurgitation. Doppler and Color Flow revealed trace mitral valve regurgitation. Doppler and Color Flow revealed moderate tricuspid regurgitation. The pulmonary artery systolic pressure is estimated at 68 mmHg. Doppler and Color Flow revealed no pulmonic valvular regurgitation. There is no evidence of significant pericardial effusion.
--- NOTE | 2016-08-19 12:20 | PDOC2 ---
CONSULT Date of Consult Date of Consult DATE: 08/19/16 TIME: 12:16 Reason for Consult Reason for Consult: LISSETH Referring Physician Referring Physician: BABS Identification/Chief Complaint Chief Complaint KNEE PAIN Source Source: Chart review History of Present Illness Reason for Visit: THIS IS A 60 YR OLD HERE WITH LEFT KNEE PAIN. SHE WAS ON THE FLOOR AND BEING EVALUATED AND TREATED FOR THIS. SHE THEN DEVELOPED HYPOTENSION AND HAD WHAT APPEARS TO BE A RESP ARREST. SHE IS INTUBATED AND IN THE ICU. NO CKD HX BUT HER CR WENT UP TO 1.8 WITH ANURIA AND LACTIC ACIDOSIS Past Medical History Cardiovascular: AFIB, HTN, Hyperlipidemia GI: Other (morbid obesity with BMI of 59) Musculoskeletal: Other (falls) Dermatology: Cellulitis, Other (chronic lymphedema) Past Surgical History Past Surgical History: Appendectomy, Cholecystectomy, Tubal Ligation Family History Family History: Hypertension, Family History Unknown Social History No ALCOHOL: none Drugs: None Lives: with Family (son) Current Problem List Problem List Problems Medical Problems: (1) Fall from standing Status: Acute (2) Left knee pain Status: Acute Current Medications Current Medications Current Medications Ketorolac Tromethamine (Toradol Im) 30 mg 1X ONCE IM Last administered on 08/17 11:28; Start 08/17/16 at 11:30; Stop 08/17/16 at 11:31; Status DC Ondansetron HCl (Zofran) 4 mg PRN Q8HRS PRN IV NAUSEA/VOMITING; Start 08/17/16 at 14:30; Stop 08/18/16 at 14:29; Status DC Morphine Sulfate 2 mg PRN Q2HR PRN IV PAIN; Start 08/17/16 at 14:30; Stop 08/18 at 14:29; Status DC Acetaminophen (Tylenol) 650 mg PRN Q4HRS PRN PO FEVER; Start 08/17/16 at 14:30 ; Stop 08/18/16 at 14:29; Status DC Atorvastatin Calcium (Lipitor) 10 mg QHS PO Last administered on 08/18/16t 21: 56; Start 08/17/16 at 21:00 Diltiazem HCl (Cardizem 24hr Cd) 120 mg DAILY PO ; Start 08/18/16 at 09:00 Furosemide (Lasix) 40 mg DAILY PO ; Start 08/18/16 at 09:00; Stop 08/18/16 at 10 :10; Status DC Ondansetron HCl (Zofran Odt) 8 mg Q8HRS PO Last administered on 08/17/16 22:16 ; Start 08/17/16 at 22:00; Stop 08/18/16 at 01:13; Status DC Oxycodone/ Acetaminophen (Percocet 10/325) 1 tab PRN Q6HRS PRN PO PAIN Last administered on 08/17/16 22:40; Start 08/17/16 at 18:30 Pantoprazole Sodium (Protonix) 40 mg DAILYAC PO Last administered on 08/18/16 09:29; Start 08/18/16 at 07:30; Stop 08/18/16 at 17:08; Status DC Propafenone HCl (Rythmol Sr) 225 mg BID PO Last administered on 08/17/16 22:20 ; Start 08/17/16 at 21:00 Warfarin Sodium (Coumadin) 2.5 mg DAILY PO Last administered on 08/18/16 10:01 ; Start 08/17/16 at 22:00; Stop 08/18/16 at 12:48; Status DC Non-Formulary Medication 2 puff Q4HRS INH FOR ASTHMA; Start 08/17/16 at 20:00; Status UNV Multivitamins (Thera M Plus) 1 tab DAILY PO Last administered on 08/18/16 09: 29; Start 08/18/16 at 09:00 Non-Formulary Medication 99 gm BID TP ; Start 08/17/16 at 21:00; Status UNV Potassium Chloride (Klor-Con) 20 meq DAILYWBKFT PO Last administered on 09:29; Start 08/18/16 at 08:00; Stop 08/18/16 at 10:10; Status DC Nystatin (Nystop) 1 dante BID TP Last administered on 08/19/16 09:13; Start 03/25 at 21:00 Albuterol Sulfate (Ventolin Neb Soln) 2.5 mg RTQID NEB Last administered on 11:41; Start 08/17/16 at 20:00 Warfarin Sodium (Coumadin Per Physician) 1 each PRN DAILY PRN MC SEE COMMENTS Last administered on 08/18/16 15:20; Start 08/17/16 at 21:15; Stop 08/19/16 at 06:32; Status DC Ondansetron HCl 8 mg 8 mg PRN Q8HRS PRN PO NAUSEA; Start 08/18/16 at 01:15 Sodium Chloride 1,000 ml @ 100 mls/hr Q10H IV Last administered on 08/18/16 12:10; Start 08/18/16 at 10:00; Stop 08/19/16 at 02:21; Status DC Sodium Chloride 1,000 ml @ 1,000 mls/hr 1X ONCE IV Last administered on 12:34; Start 08/18/16 at 10:00; Stop 08/18/16 at 10:59; Status DC Vancomycin HCl 1.5 gm/Sodium Chloride 500 ml @ 250 mls/hr Q24H IV ; Start 08/18 at 10:00; Status UNV Vancomycin HCl/ Sodium Chloride (Iv Sodium Chloride 0.9% 250ml) 250 ml @ 250 mls/hr DAILY IV ; Start 08/19/16 at 09:00; Status UNV Vancomycin HCl 1 each 1 each PRN DAILY PRN MC SEE COMMENTS; Start 08/18/16 at 10:00; Stop 08/18/16 at 12:31; Status DC Levofloxacin/ Dextrose 100 ml @ 100 mls/hr Q24H IV ; Start 08/18/16 at 10:00; Status UNV Levofloxacin/ Dextrose 150 ml @ 100 mls/hr Q24H IV Last administered on 12:09; Start 08/18/16 at 11:00; Stop 08/18/16 at 12:31; Status DC Vancomycin HCl 2 gm/Sodium Chloride 500 ml @ 250 mls/hr 1X ONCE IV Last administered on 08/18/16 12:28; Start 08/18/16 at 11:00; Stop 08/18/16 at 12:36 ; Status DC Meropenem/Sodium Chloride (Merrem/Iv Sodium Chloride 0.9% 50ml) 50 ml @ 100 mls /hr Q8HRS IV Last administered on 08/19/16 05:21; Start 08/18/16 at 14:00; Stop 08/19/16 at 08:47; Status DC Warfarin Sodium 2.5 mg 2.5 mg DAILY16 PO ; Start 08/19/16 at 16:00; Stop at 16:00; Status DC Norepinephrine Bitartrate 8 mg/ Sodium Chloride 258 ml @ 1.93 mls/hr CONT PRN IV SEE I/O RECORD Last administered on 08/19/16 03:47; Start 08/18/16 at 13:00 Midazolam HCl (Versed 100mg/ 100ml Premix) 100 ml @ As Directed STK-MED ONCE IV ; Start 08/18/16 at 13:05; Stop 08/18/16 at 13:06; Status DC Digoxin 250 mcg 250 mcg 1X STAT IV Last administered on 08/18/16 15:19; Start 08/18/16 at 14:29; Stop 08/18/16 at 14:33; Status DC Magnesium Sulfate/ Dextrose 100 ml @ 100 mls/hr 1X ONCE IV Last administered on 08/18/16 15:00; Start 08/18/16 at 15:00; Stop 08/18/16 at 15:59; Status DC Sodium Chloride (Iv Sodium Chloride 0.9% 1000ml Bag) 1,000 ml @ 1,000 mls/hr 1X ONCE IV Last administered on 08/18/16 18:05; Start 08/18/16 at 17:45; Stop 08/18/16 at 18:44; Status DC Pantoprazole Sodium (Protonix Vial) 40 mg DAILY IVP Last administered on 09:13; Start 08/19/16 at 09:00 Acetaminophen 650 mg 650 mg PRN Q6HRS PRN PO FEVER; Start 08/18/16 at 17:15 Sodium Bicarbonate 50 meq/Sodium Chloride 1,050 ml @ 150 mls/hr Q7H IV Last administered on 08/19/16 11:30; Start 08/18/16 at 18:30 Fentanyl Citrate 30 ml @ 0 mls/hr CONT PRN IV PROTOCOL; Start 08/18/16 at 17:45 ; Status UNV Morphine Sulfate (Morphine 30 Mg/ 30 ml [employer]) 30 ml @ 0 mls/hr CONT PRN PRN IV PROTOCOL Last administered on 08/18/16 18:06; Start 08/18/16 at 17:45 Digoxin 250 mcg 250 mcg 1X ONCE IV Last administered on 08/18/16 18:17; Start 08/18/16 at 18:30; Stop 08/18/16 at 18:31; Status DC Midazolam HCl 100 ml @ As Directed STK-MED ONCE IV ; Start 08/18/16 at 18:21; Stop 08/18/16 at 18:22; Status DC Midazolam HCl 100 ml @ 0 mls/hr CONT PRN IV SEE I/O RECORD Last administered on 08/19/16t 03:46; Start 08/18/16 at 18:30 Meropenem/Sodium Chloride (Merrem/Iv Sodium Chloride 0.9% 50ml) 50 ml @ 100 mls /hr Q6HRS IV Last administered on 08/19/16t 12:14; Start 08/19/16 at 12:00 Midazolam HCl (Versed) 5 mg STK-MED ONCE .ROUTE ; Start 08/18/16 at 12:57; Stop 08/19/16 at 11:14; Status DC Epinephrine HCl (Epinephrine Syringe) 1 mg STK-MED ONCE .ROUTE ; Start 08/18/16 at 12:57; Stop 08/19/16 at 11:14; Status DC Sodium Bicarbonate 50 meq STK-MED ONCE .ROUTE ; Start 08/18/16 at 12:57; Stop at 11:14; Status DC Epinephrine HCl (Epinephrine Syringe) 1 mg STK-MED ONCE .ROUTE ; Start 08/18/16 at 12:57; Stop 08/19/16 at 11:14; Status DC Active Scripts Active Reported Keflex (Cephalexin) 500 Mg Capsule 500 Mg PO QID take for 10 days start 07/12 Percocet 10-325 Mg Tablet (Oxycodone/Acetaminophen) 1 Each Tablet 1 Tab PO PRN Q6HRS PRN Potassium Chloride 20 Meq Tablet.er 20 Meq PO DAILY Ventolin Hfa Inhaler (Albuterol Sulfate) 18 Gm Hfa.aer.ad 2 Puff INH Q4HRS Atorvastatin Calcium 10 Mg Tablet 1 Tab PO DAILY Daily Vitamin (Multivitamin) 1 Each Tablet 1 Each PO DAILY Coumadin (Warfarin Sodium) 2.5 Mg Tablet 0.5 Tab PO DAILY Propafenone Hcl 225 Mg Cap.er.12h 225 Mg PO BID Pantoprazole Sodium 40 Mg Tablet.dr 1 Tab PO DAILY Aquaphor (Petrolatum,White) 99 Gm Oint...g. 99 Gm TP BID Cardizem Cd (Diltiazem Hcl) 120 Mg Cap.er.24h 120 Mg PO DAILY Zofran Odt (Ondansetron) 4 Mg Tab.rapdis 8 Mg PO Q8HRS x 2 days start 07/12 then 4 mg q 6hrs prn Lasix (Furosemide) 40 Mg Tablet 40 Mg PO DAILY Allergies Allergies: Coded Allergies: Sulfa (Sulfonamide Antibiotics) (Verified Allergy, Intermediate, Rash, 03/22) amoxicillin (Verified Allergy, Intermediate, Rash, 04/18/14) clavulanic acid (Verified Allergy, Intermediate, Rash, 04/18/14) dabigatran etexilate (Verified Allergy, Intermediate, Rash, 04/18/14) meperidine (Verified Allergy, Intermediate, HALLUCINATIONS, 04/18/14) I S O L A T I O N *CONTACT* (Verified Allergy, Unknown, 08/19/16) mrsa ROS Review of System UNABLE TO OBTAIN Physical Exam General: No acute distress, Other (INTUBATED) HEENT: Atraumatic Lungs: Clear to auscultation Abdomen: Normal bowel sounds, No tenderness Skin: No breakdown Neuro: Normal speech, Cranial nerves 3-12 NL Psych/Mental Status: Mental status NL, Mood NL MUSCULOSKELETAL: No deformity Vitals VITALS Vital Signs Date Time Temp Pulse Resp B/P Pulse Ox O2 Delivery O2 Flow Rate FiO2 08/19/16 11:39 99 Ventilator 08/19/16 11:00 99 22 107/40 08/19/16 08:00 98.9 98.9 08/18/16 13:00 15.0 Labs Labs Laboratory Tests Test 08/17/16 18:55 08/18/16 03:50 08/18/16 08:00 08/18/16 10:29 Prothrombin Time 22.1SEC (11.7-14.0) Prothromb Time International Ratio 2.1 (0.8-1.1) White Blood Count 16.8x10^3/uL (4.0-11.0) Red Blood Count 3.46x10^6/uL (3.50-5.40) Hemoglobin 9.1g/dL (12.0-15.5) Hematocrit 28.8% (36.0-47.0) Mean Corpuscular Volume 83fL (79-100) Mean Corpuscular Hemoglobin 27pg (25-35) Mean Corpuscular Hemoglobin Concent 32g/dL (31-37) Red Cell Distribution Width 17.4% (11.5-14.5) Platelet Count 90x10^3/uL (140-400) Neutrophils (%) (Auto) 92% (31-73) Lymphocytes (%) (Auto) 4% (24-48) Monocytes (%) (Auto) 3% (0-9) Eosinophils (%) (Auto) 1% (0-3) Basophils (%) (Auto) 0% (0-3) Neutrophils # (Auto) 15.5x10^3uL (1.8-7.7) Lymphocytes # (Auto) 0.6x10^3/uL (1.0-4.8) Monocytes # (Auto) 0.4x10^3/uL (0.0-1.1) Eosinophils # (Auto) 0.2x10^3/uL (0.0-0.7) Basophils # (Auto) 0.0x10^3/uL (0.0-0.2) Segmented Neutrophils % 96% (35-66) Band Neutrophils % 3% (0-9) Lymphocytes % 1% (24-48) Platelet Estimate Decreased (ADEQUATE) Sodium Level 136mmol/L (136-145) Potassium Level 4.0mmol/L (3.5-5.1) Chloride Level 101mmol/L (98-107) Carbon Dioxide Level 26mmol/L (21-32) Anion Gap 9 (6-14) Blood Urea Nitrogen 42mg/dL (7-20) Creatinine 1.8mg/dL (0.6-1.0) Estimated GFR (Cockcroft-Gault) 28.8 Glucose Level 86mg/dL (70-99) Calcium Level 8.4mg/dL (8.5-10.1) Nasal Screen MRSA (PCR) Positive (Negative) O2 Saturation 96% (92-99) Arterial Blood pH 7.45 (7.35-7.45) Arterial Blood pH (Temp corrected) 7.44 Arterial Blood pCO2 at Patient Temp 31mmHg (35-46) Arterial Blood pCO2 (Temp correct) 31mmHg Arterial Blood pO2 at Patient Temp 85mmHg (65-108) Arterial Blood pO2 (Temp corrected) 87mmHg Arterial Blood HCO3 21mmol/L (21-28) Arterial Blood Base Excess -3mmol/L (-3-3) FiO2 40 Test 08/18/16 10:40 08/18/16 11:00 08/18/16 13:10 08/18/16 13:11 Sodium Level 135mmol/L (136-145) 136mmol/L (136-145) Potassium Level 3.6mmol/L (3.5-5.1) 4.0mmol/L (3.5-5.1) Chloride Level 100mmol/L (98-107) 101mmol/L (98-107) Carbon Dioxide Level 22mmol/L (21-32) 18mmol/L (21-32) Anion Gap 13 (6-14) 17 (6-14) Blood Urea Nitrogen 39mg/dL (7-20) 38mg/dL (7-20) Creatinine 1.7mg/dL (0.6-1.0) 1.8mg/dL (0.6-1.0) Estimated GFR (Cockcroft-Gault) 30.8 28.8 BUN/Creatinine Ratio 23 (6-20) Glucose Level 77mg/dL (70-99) 138mg/dL (70-99) Lactic Acid Level 3.5mmol/L (0.4-2.0) 6.6mmol/L (0.4-2.0) Calcium Level 8.0mg/dL (8.5-10.1) 8.1mg/dL (8.5-10.1) Magnesium Level 1.7mg/dL (1.8-2.4) Total Bilirubin 0.9mg/dL (0.2-1.0) Aspartate Amino Transf (AST/SGOT) 99U/L (15-37) Alanine Aminotransferase (ALT/SGPT) 27U/L (14-59) Alkaline Phosphatase 136U/L (46-116) Total Protein 6.9g/dL (6.4-8.2) Albumin 2.0g/dL (3.4-5.0) Albumin/Globulin Ratio 0.4 (1.0-1.7) Thyroid Stimulating Hormone (TSH) 1.328uIU/mL (0.358-3.74) Urine Collection Type Unknown Urine Color Kristine Urine Clarity Cloudy Urine pH 6.0 Urine Specific [place] >=1.030 Urine Protein 100mg/dL (NEG-TRACE) Urine Glucose (UA) Negativemg/dL (NEG) Urine Ketones (Stick) Negativemg/dL (NEG) Urine Blood Trace (NEG) Urine Nitrite Negative (NEG) Urine Bilirubin Small (NEG) Urine Urobilinogen Dipstick 1.0mg/dL (0.2 mg/dL) Urine Leukocyte Esterase Negative (NEG) Urine RBC Occ/HPF (0-2) Urine WBC 0/HPF (0-4) Urine Squamous Epithelial Cells Occ/LPF Urine Amorphous Sediment Present/HPF Urine Bacteria 0/HPF (0-FEW) Urine Hyaline Casts Occasional/HPF Urine Mucus Slight/LPF White Blood Count 20.4x10^3/uL (4.0-11.0) Red Blood Count 4.07x10^6/uL (3.50-5.40) Hemoglobin 10.6g/dL (12.0-15.5) Hematocrit 34.2% (36.0-47.0) Mean Corpuscular Volume 84fL (79-100) Mean Corpuscular Hemoglobin 26pg (25-35) Mean Corpuscular Hemoglobin Concent 31g/dL (31-37) Red Cell Distribution Width 18.1% (11.5-14.5) Platelet Count 96x10^3/uL (140-400) Neutrophils (%) (Auto) 71% (31-73) Lymphocytes (%) (Auto) 21% (24-48) Monocytes (%) (Auto) 6% (0-9) Eosinophils (%) (Auto) 1% (0-3) Basophils (%) (Auto) 0% (0-3) Neutrophils # (Auto) 14.5x10^3uL (1.8-7.7) Lymphocytes # (Auto) 4.3x10^3/uL (1.0-4.8) Monocytes # (Auto) 1.2x10^3/uL (0.0-1.1) Eosinophils # (Auto) 0.3x10^3/uL (0.0-0.7) Basophils # (Auto) 0.1x10^3/uL (0.0-0.2) Segmented Neutrophils % 60% (35-66) Band Neutrophils % 13% (0-9) Lymphocytes % 20% (24-48) Atypical Lymphocytes % (Manual) 1% (0-0) Monocytes % 5% (0-10) Metamyelocytes % 1% (0-0) Toxic Granulation Slight Toxic Vacuolation Mod Platelet Estimate Decreased (ADEQUATE) Anisocytosis Slight Troponin I Quantitative 0.732ng/mL (0.000-0.055) O2 Saturation 99% (92-99) Arterial Blood pH 7.10 (7.35-7.45) Arterial Blood pCO2 at Patient Temp 64mmHg (35-46) Arterial Blood pO2 at Patient Temp 217mmHg (65-108) Arterial Blood HCO3 19mmol/L (21-28) Arterial Blood Base Excess -11mmol/L (-3-3) Test 08/18/16 16:23 08/19/16 01:40 08/19/16 05:37 08/19/16 08:00 O2 Saturation 98% (92-99) 99% (92-99) Arterial Blood pH 7.31 (7.35-7.45) 7.42 (7.35-7.45) Arterial Blood pCO2 at Patient Temp 41mmHg (35-46) 32mmHg (35-46) Arterial Blood pO2 at Patient Temp 131mmHg (65-108) 143mmHg (65-108) Arterial Blood HCO3 20mmol/L (21-28) 20mmol/L (21-28) Arterial Blood Base Excess -6mmol/L (-3-3) -4mmol/L (-3-3) FiO2 100 60 Troponin I Quantitative 1.852ng/mL (0.000-0.055) White Blood Count 13.1x10^3/uL (4.0-11.0) Red Blood Count 3.44x10^6/uL (3.50-5.40) Hemoglobin 9.1g/dL (12.0-15.5) Hematocrit 28.7% (36.0-47.0) Mean Corpuscular Volume 83fL (79-100) Mean Corpuscular Hemoglobin 26pg (25-35) Mean Corpuscular Hemoglobin Concent 32g/dL (31-37) Red Cell Distribution Width 17.9% (11.5-14.5) Platelet Count 70x10^3/uL (140-400) Neutrophils (%) (Auto) 77% (31-73) Lymphocytes (%) (Auto) 9% (24-48) Monocytes (%) (Auto) 11% (0-9) Eosinophils (%) (Auto) 4% (0-3) Basophils (%) (Auto) 0% (0-3) Neutrophils # (Auto) 10.0x10^3uL (1.8-7.7) Lymphocytes # (Auto) 1.2x10^3/uL (1.0-4.8) Monocytes # (Auto) 1.4x10^3/uL (0.0-1.1) Eosinophils # (Auto) 0.5x10^3/uL (0.0-0.7) Basophils # (Auto) 0.0x10^3/uL (0.0-0.2) Prothrombin Time 45.2SEC (11.7-14.0) Prothromb Time International Ratio 5.2 (0.8-1.1) Sodium Level 141mmol/L (136-145) Potassium Level 3.7mmol/L (3.5-5.1) Chloride Level 108mmol/L (98-107) Carbon Dioxide Level 23mmol/L (21-32) Anion Gap 10 (6-14) Blood Urea Nitrogen 31mg/dL (7-20) Creatinine 1.5mg/dL (0.6-1.0) Estimated GFR (Cockcroft-Gault) 35.5 BUN/Creatinine Ratio 21 (6-20) Glucose Level 84mg/dL (70-99) Lactic Acid Level 1.5mmol/L (0.4-2.0) Calcium Level 7.7mg/dL (8.5-10.1) Total Bilirubin 0.6mg/dL (0.2-1.0) Aspartate Amino Transf (AST/SGOT) 72U/L (15-37) Alanine Aminotransferase (ALT/SGPT) 20U/L (14-59) Alkaline Phosphatase 110U/L (46-116) Total Protein 6.1g/dL (6.4-8.2) Albumin 1.4g/dL (3.4-5.0) Albumin/Globulin Ratio 0.3 (1.0-1.7) Triglycerides Level 174mg/dL (0-150) Cholesterol Level 72mg/dL (0-200) LDL Cholesterol, Calculated 31mg/dL (0-100) VLDL Cholesterol, Calculated 35mg/dL (0-40) HDL Cholesterol 6mg/dL (40-60) Cholesterol/HDL Ratio 12.0 Laboratory Tests Test 08/18/16 13:10 08/18/16 13:11 08/18/16 16:23 08/19/16 01:40 White Blood Count 20.4x10^3/uL (4.0-11.0) Red Blood Count 4.07x10^6/uL (3.50-5.40) Hemoglobin 10.6g/dL (12.0-15.5) Hematocrit 34.2% (36.0-47.0) Mean Corpuscular Volume 84fL (79-100) Mean Corpuscular Hemoglobin 26pg (25-35) Mean Corpuscular Hemoglobin Concent 31g/dL (31-37) Red Cell Distribution Width 18.1% (11.5-14.5) Platelet Count 96x10^3/uL (140-400) Neutrophils (%) (Auto) 71% (31-73) Lymphocytes (%) (Auto) 21% (24-48) Monocytes (%) (Auto) 6% (0-9) Eosinophils (%) (Auto) 1% (0-3) Basophils (%) (Auto) 0% (0-3) Neutrophils # (Auto) 14.5x10^3uL (1.8-7.7) Lymphocytes # (Auto) 4.3x10^3/uL (1.0-4.8) Monocytes # (Auto) 1.2x10^3/uL (0.0-1.1) Eosinophils # (Auto) 0.3x10^3/uL (0.0-0.7) Basophils # (Auto) 0.1x10^3/uL (0.0-0.2) Segmented Neutrophils % 60% (35-66) Band Neutrophils % 13% (0-9) Lymphocytes % 20% (24-48) Atypical Lymphocytes % (Manual) 1% (0-0) Monocytes % 5% (0-10) Metamyelocytes % 1% (0-0) Toxic Granulation Slight Toxic Vacuolation Mod Platelet Estimate Decreased (ADEQUATE) Anisocytosis Slight Sodium Level 136mmol/L (136-145) Potassium Level 4.0mmol/L (3.5-5.1) Chloride Level 101mmol/L (98-107) Carbon Dioxide Level 18mmol/L (21-32) Anion Gap 17 (6-14) Blood Urea Nitrogen 38mg/dL (7-20) Creatinine 1.8mg/dL (0.6-1.0) Estimated GFR (Cockcroft-Gault) 28.8 Glucose Level 138mg/dL (70-99) Lactic Acid Level 6.6mmol/L (0.4-2.0) Calcium Level 8.1mg/dL (8.5-10.1) Troponin I Quantitative 0.732ng/mL (0.000-0.055) 1.852ng/mL (0.000-0.055) O2 Saturation 99% (92-99) 98% (92-99) Arterial Blood pH 7.10 (7.35-7.45) 7.31 (7.35-7.45) Arterial Blood pCO2 at Patient Temp 64mmHg (35-46) 41mmHg (35-46) Arterial Blood pO2 at Patient Temp 217mmHg (65-108) 131mmHg (65-108) Arterial Blood HCO3 19mmol/L (21-28) 20mmol/L (21-28) Arterial Blood Base Excess -11mmol/L (-3-3) -6mmol/L (-3-3) FiO2 100 Test 08/19/16 05:37 08/19/16 08:00 White Blood Count 13.1x10^3/uL (4.0-11.0) Red Blood Count 3.44x10^6/uL (3.50-5.40) Hemoglobin 9.1g/dL (12.0-15.5) Hematocrit 28.7% (36.0-47.0) Mean Corpuscular Volume 83fL (79-100) Mean Corpuscular Hemoglobin 26pg (25-35) Mean Corpuscular Hemoglobin Concent 32g/dL (31-37) Red Cell Distribution Width 17.9% (11.5-14.5) Platelet Count 70x10^3/uL (140-400) Neutrophils (%) (Auto) 77% (31-73) Lymphocytes (%) (Auto) 9% (24-48) Monocytes (%) (Auto) 11% (0-9) Eosinophils (%) (Auto) 4% (0-3) Basophils (%) (Auto) 0% (0-3) Neutrophils # (Auto) 10.0x10^3uL (1.8-7.7) Lymphocytes # (Auto) 1.2x10^3/uL (1.0-4.8) Monocytes # (Auto) 1.4x10^3/uL (0.0-1.1) Eosinophils # (Auto) 0.5x10^3/uL (0.0-0.7) Basophils # (Auto) 0.0x10^3/uL (0.0-0.2) Prothrombin Time 45.2SEC (11.7-14.0) Prothromb Time International Ratio 5.2 (0.8-1.1) Sodium Level 141mmol/L (136-145) Potassium Level 3.7mmol/L (3.5-5.1) Chloride Level 108mmol/L (98-107) Carbon Dioxide Level 23mmol/L (21-32) Anion Gap 10 (6-14) Blood Urea Nitrogen 31mg/dL (7-20) Creatinine 1.5mg/dL (0.6-1.0) Estimated GFR (Cockcroft-Gault) 35.5 BUN/Creatinine Ratio 21 (6-20) Glucose Level 84mg/dL (70-99) Lactic Acid Level 1.5mmol/L (0.4-2.0) Calcium Level 7.7mg/dL (8.5-10.1) Total Bilirubin 0.6mg/dL (0.2-1.0) Aspartate Amino Transf (AST/SGOT) 72U/L (15-37) Alanine Aminotransferase (ALT/SGPT) 20U/L (14-59) Alkaline Phosphatase 110U/L (46-116) Total Protein 6.1g/dL (6.4-8.2) Albumin 1.4g/dL (3.4-5.0) Albumin/Globulin Ratio 0.3 (1.0-1.7) Triglycerides Level 174mg/dL (0-150) Cholesterol Level 72mg/dL (0-200) LDL Cholesterol, Calculated 31mg/dL (0-100) VLDL Cholesterol, Calculated 35mg/dL (0-40) HDL Cholesterol 6mg/dL (40-60) Cholesterol/HDL Ratio 12.0 O2 Saturation 99% (92-99) Arterial Blood pH 7.42 (7.35-7.45) Arterial Blood pCO2 at Patient Temp 32mmHg (35-46) Arterial Blood pO2 at Patient Temp 143mmHg (65-108) Arterial Blood HCO3 20mmol/L (21-28) Arterial Blood Base Excess -4mmol/L (-3-3) FiO2 60 Assessment/Plan Assessment/Plan IMP LISSETH DEHYDRATION RESP FAILURE ALLERGIC RXN TO VANCOMYCIN LEFT KNEE PAIN MORBID OBESITY LACTIC ACIDOSIS HYPOTENSION PLAN HCO3 GTT VOLUME EXPAND VENT SUPPORT EXPECT RENAL RECOVERY START TF ALESHA BONNER MD Aug 19, 2016 12:20
--- NOTE | 2016-08-19 12:22 | PDOC ---
CARDIO Progress Notes Date and Time Date of Service 08/19/2016 Time of Evaluation 1210 Subjective Subjective: Other (intubated/sedated) Vitals Vitals Vital Signs Date Time Temp Pulse Resp B/P Pulse Ox O2 Delivery O2 Flow Rate FiO2 08/19/16 11:39 99 Ventilator 08/19/16 11:00 99 22 107/40 08/19/16 08:00 98.9 98.9 08/18/16 13:00 15.0 Weight Weight [ ] Stability Assessment Stability Assess.: unstable for transfer (Intesive V. sign monit. req) Input and Output Intake and Output Intake and Output 08/19/16 06:59 Intake Total 5826.80 ml Output Total 2715 ml Balance 3111.80 ml IV Total 5826.80 ml Output Urine Total 2465 ml Gastric Drainage Total 250 ml Laboratory Labs Laboratory Tests Test 08/18/16 13:10 08/18/16 13:11 08/18/16 16:23 08/19/16 01:40 White Blood Count 20.4x10^3/uL (4.0-11.0) Red Blood Count 4.07x10^6/uL (3.50-5.40) Hemoglobin 10.6g/dL (12.0-15.5) Hematocrit 34.2% (36.0-47.0) Mean Corpuscular Volume 84fL (79-100) Mean Corpuscular Hemoglobin 26pg (25-35) Mean Corpuscular Hemoglobin Concent 31g/dL (31-37) Red Cell Distribution Width 18.1% (11.5-14.5) Platelet Count 96x10^3/uL (140-400) Neutrophils (%) (Auto) 71% (31-73) Lymphocytes (%) (Auto) 21% (24-48) Monocytes (%) (Auto) 6% (0-9) Eosinophils (%) (Auto) 1% (0-3) Basophils (%) (Auto) 0% (0-3) Neutrophils # (Auto) 14.5x10^3uL (1.8-7.7) Lymphocytes # (Auto) 4.3x10^3/uL (1.0-4.8) Monocytes # (Auto) 1.2x10^3/uL (0.0-1.1) Eosinophils # (Auto) 0.3x10^3/uL (0.0-0.7) Basophils # (Auto) 0.1x10^3/uL (0.0-0.2) Segmented Neutrophils % 60% (35-66) Band Neutrophils % 13% (0-9) Lymphocytes % 20% (24-48) Atypical Lymphocytes % (Manual) 1% (0-0) Monocytes % 5% (0-10) Metamyelocytes % 1% (0-0) Toxic Granulation Slight Toxic Vacuolation Mod Platelet Estimate Decreased (ADEQUATE) Anisocytosis Slight Sodium Level 136mmol/L (136-145) Potassium Level 4.0mmol/L (3.5-5.1) Chloride Level 101mmol/L (98-107) Carbon Dioxide Level 18mmol/L (21-32) Anion Gap 17 (6-14) Blood Urea Nitrogen 38mg/dL (7-20) Creatinine 1.8mg/dL (0.6-1.0) Estimated GFR (Cockcroft-Gault) 28.8 Glucose Level 138mg/dL (70-99) Lactic Acid Level 6.6mmol/L (0.4-2.0) Calcium Level 8.1mg/dL (8.5-10.1) Troponin I Quantitative 0.732ng/mL (0.000-0.055) 1.852ng/mL (0.000-0.055) O2 Saturation 99% (92-99) 98% (92-99) Arterial Blood pH 7.10 (7.35-7.45) 7.31 (7.35-7.45) Arterial Blood pCO2 at Patient Temp 64mmHg (35-46) 41mmHg (35-46) Arterial Blood pO2 at Patient Temp 217mmHg (65-108) 131mmHg (65-108) Arterial Blood HCO3 19mmol/L (21-28) 20mmol/L (21-28) Arterial Blood Base Excess -11mmol/L (-3-3) -6mmol/L (-3-3) FiO2 100 Test 08/19/16 05:37 08/19/16 08:00 White Blood Count 13.1x10^3/uL (4.0-11.0) Red Blood Count 3.44x10^6/uL (3.50-5.40) Hemoglobin 9.1g/dL (12.0-15.5) Hematocrit 28.7% (36.0-47.0) Mean Corpuscular Volume 83fL (79-100) Mean Corpuscular Hemoglobin 26pg (25-35) Mean Corpuscular Hemoglobin Concent 32g/dL (31-37) Red Cell Distribution Width 17.9% (11.5-14.5) Platelet Count 70x10^3/uL (140-400) Neutrophils (%) (Auto) 77% (31-73) Lymphocytes (%) (Auto) 9% (24-48) Monocytes (%) (Auto) 11% (0-9) Eosinophils (%) (Auto) 4% (0-3) Basophils (%) (Auto) 0% (0-3) Neutrophils # (Auto) 10.0x10^3uL (1.8-7.7) Lymphocytes # (Auto) 1.2x10^3/uL (1.0-4.8) Monocytes # (Auto) 1.4x10^3/uL (0.0-1.1) Eosinophils # (Auto) 0.5x10^3/uL (0.0-0.7) Basophils # (Auto) 0.0x10^3/uL (0.0-0.2) Prothrombin Time 45.2SEC (11.7-14.0) Prothromb Time International Ratio 5.2 (0.8-1.1) Sodium Level 141mmol/L (136-145) Potassium Level 3.7mmol/L (3.5-5.1) Chloride Level 108mmol/L (98-107) Carbon Dioxide Level 23mmol/L (21-32) Anion Gap 10 (6-14) Blood Urea Nitrogen 31mg/dL (7-20) Creatinine 1.5mg/dL (0.6-1.0) Estimated GFR (Cockcroft-Gault) 35.5 BUN/Creatinine Ratio 21 (6-20) Glucose Level 84mg/dL (70-99) Lactic Acid Level 1.5mmol/L (0.4-2.0) Calcium Level 7.7mg/dL (8.5-10.1) Total Bilirubin 0.6mg/dL (0.2-1.0) Aspartate Amino Transf (AST/SGOT) 72U/L (15-37) Alanine Aminotransferase (ALT/SGPT) 20U/L (14-59) Alkaline Phosphatase 110U/L (46-116) Total Protein 6.1g/dL (6.4-8.2) Albumin 1.4g/dL (3.4-5.0) Albumin/Globulin Ratio 0.3 (1.0-1.7) Triglycerides Level 174mg/dL (0-150) Cholesterol Level 72mg/dL (0-200) LDL Cholesterol, Calculated 31mg/dL (0-100) VLDL Cholesterol, Calculated 35mg/dL (0-40) HDL Cholesterol 6mg/dL (40-60) Cholesterol/HDL Ratio 12.0 O2 Saturation 99% (92-99) Arterial Blood pH 7.42 (7.35-7.45) Arterial Blood pCO2 at Patient Temp 32mmHg (35-46) Arterial Blood pO2 at Patient Temp 143mmHg (65-108) Arterial Blood HCO3 20mmol/L (21-28) Arterial Blood Base Excess -4mmol/L (-3-3) FiO2 60 Microbiology Micro Microbiology 08/18/16 Blood Culture - Final, Complete Radiology Rad Impression 08/19/2016 An AP portable erect digital radiograph of the chest was obtained. Comparison study is dated 08/18/2016. The ET tube is unchanged in position. An NG tube has been placed. The tip of this tube is off this radiograph in the expected location of the body the stomach. The cardiac silhouette is mildly enlarged. Atherosclerotic calcification of the thoracic aorta is seen. Areas of infiltrate/atelectasis are seen involving both lower lobes, left greater than right which have increased since the previous examination. No pneumothorax or large pleural effusion is noted. The osseous structures are unchanged. Impression: Areas of atelectasis and/or infiltrate are seen involving both lower lobes, left greater than right which have increased since the previous examination. Case Discussion Case Discussed with: Family Physical Exam Chest: Symmetric LUNGS: Other (diminished anteriorly) Heart: S1S2, irregularly irregular (tachycardic), other (tele: AF/AT) Abdomen: Other (morbidly obese) Extremities: Other (++ lower extremity edema with venous stasis changes) Neurology: other (sedated) Assessment Assessment 1. cardiopulmonary arrest VT with shock to afib RVR to VT = total of 2 shocks septic with lactic acid > 6 and WBC of 20 yesterday with fever to 102.7 yesterday as well - abx per ID echo with preserved LV function and EF of 55-60% and no WMA seen troponin levels increased as expected after pt received CPR & 2 shocks 2. atrial fib/atrial tach rates about 100 today would not treat further; will likely decrease as sepsis treated 3. acute respiratory failure per pulm 4 sepsis abx per ID ARACELY URBANO [facility] Aug 19, 2016 12:21
[2016-08-19] MEDS ORDERED: LIDOCAINE 1% / SOD BICARB 8.4% 20 ML VIAL. IJ ONE ×2 (13:35→14:00)
--- NOTE | 2016-08-19 14:19 | PDOC ---
Exam Rn X Ray Rn X Ray Jose Raul Php Wordpress Developer Php Wordpress Developer F Ndumbu Pre-Procedure Diagnosis Pre-Procedure Diagnosis 60 YO female ICU patient---post Code Blue---on Vent. Bedside Picc requested for IV abx, pressors, and sedation. Post-Procedure Diagnosis Post-Procedure Diagnosis Same Procedure Performed Procedure Performed Bedside ICU sono guided Power Picc insertion. Type of Anesthesia Type of Anesthesia Local Estimated Blood Loss EBL: Minimal Drain/Tubes Drains/Tubes Right cephalic vein 6F 3L 45cm Power Picc Condition of Patient Condition of Patient No change. Sedated on vent. No apparent complication. Disposition Disposition STAT pCXR requested for Picc position. Full report to follow. YOUNG JEFFERSON MD Aug 19, 2016 14:19
--- NOTE | 2016-08-19 14:34 | RAD ---
Portable chest, 08/19/2016, 2:21 PM: History: Check PICC placement Comparison is made to this morning's study. The tip of the ET tube lies well above the lynodn. An NG tube extends into the stomach. A right PICC has been inserted. Its tip is not clearly defined, however, it appears to extend into the superior to mid aspect of the right atrium. The heart is enlarged. Moderate bilateral pulmonary infiltrates continue to worsen. The underlying pulmonary vascularity is poorly defined. IMPRESSION: 1. Interval insertion of a right PICC extending into the right atrium. 2. The ET tube and NG tube are in satisfactory position. 3. Worsening bilateral pulmonary infiltrates suggesting pulmonary edema and/or pneumonia.
[2016-08-19] MEDS ORDERED: WARFARIN 2.5 MG TABLET. PO SCH (16:00)
[2016-08-19] MEDS ORDERED: POTASSIUM CHLORIDE 20 MEQ/15 ML ORAL LIQUID. PEG ONE (18:15)
[2016-08-19] MEDS ORDERED: DIGOXIN IV 500 MCG/2 ML AMPUL. IV ONE ×2 (18:15)
[2016-08-19] MEDS: ATORVASTATIN CALCIUM 10 MG TABLET. PO SCH (22:40)
[2016-08-20] VITALS (23 sets, daily range): BP systolic 83–148; BP diastolic 30–91
[2016-08-20] MEDS: MEROPENEM 500 MG in IV NORMAL SALINE 50ML 50 ML IV SCH ×5 (00:17→23:30)
[2016-08-20] MEDS: SODIUM BICARBONATE VIAL 50 MEQ in IV 1/2 NORMAL SALINE 1,000 ML IV SCH ×3 (04:09→19:26)
[2016-08-20] MEDS ORDERED: DIGOXIN IV 500 MCG/2 ML AMPUL. IV ONE (04:15)
[2016-08-20 05:47] LABS: BASO % 0 % (0-3); EOS % 1 % (0-3); HEMATOCRIT 30.8 % (36.0-47.0); LYMPH # 1.5 x10^3/uL (1.0-4.8); LYMPH % 12 % (24-48); MEAN CORPUSCULAR HEMOGLOBIN 27 pg (25-35); MEAN CORPUSCULAR HGB CONC 33 g/dL (31-37); MEAN CORPUSCULAR VOLUME 81 fL (79-100); MONO % 8 % (0-9); NEUT % 79 % (31-73); PLATELET COUNT 106 x10^3/uL (140-400); RED BLOOD COUNT 3.79 x10^6/uL (3.50-5.40); WHITE BLOOD COUNT 12.6 x10^3/uL (4.0-11.0)
[2016-08-20] MEDS: NOREPINEPHRINE 8 MG in IV NORMAL SALINE 250 ML IV PRN (05:52)
[2016-08-20 06:08] LABS: CALCIUM 7.6 mg/dL (8.5-10.1); CREATININE 1.1 mg/dL (0.6-1.0); GFR 50.8; POTASSIUM 3.8 mmol/L (3.5-5.1)
--- NOTE | 2016-08-20 06:58 | RAD ---
Bedside ultrasound guided PICC placement Indication: 60-year-old female ICU patient post CODE BLUE, sedated on ventilator, with sepsis. She has poor peripheral IV access. Bedside PICC insertion has been requested for antibiotics, sedation, and pressors. Anesthesia: Local only Sterility: All elements of maximal sterile barrier technique were utilized, including cap, mask, sterile gown, sterile gloves, large sterile sheet, appropriate hand hygiene, and 2% chlorhexidine for cutaneous antisepsis. Procedure: Informed consent was obtained from the patient's son. This procedure was performed bedside in ICU. Preliminary ultrasound examination of right upper arm revealed wide patency of right cephalic vein, which was documented with a single hard copy ultrasound image. Right upper arm was then prepped and draped in the usual sterile fashion, utilizing all elements of maximal sterile barrier technique, as described above. Using aseptic technique, local anesthesia, direct ultrasound guidance, and the micropuncture system, successful percutaneous entry was achieved into right cephalic vein at level of distal humerus. A 6F triple lumen Power PICC was trimmed to 45 cm in length, was inserted through a 6F peel-away sheath, and was easily advanced centrally. The PICC was then demonstrated to flush and aspirate normally, and was secured at the skin exit site with suture and sterile dressing. Patient tolerated the procedure well, without complication. A STAT portable CXR was requested for line position. Impression: Successful, uneventful sono guided placement of right cephalic vein 6F 3L 45 cm Power PICC, bedside in ICU, as described.
[2016-08-20] MEDS: ALBUTEROL SULFATE 2.5 MG/3 ML NEBU. NEB SCH ×4 (07:28→19:54)
--- NOTE | 2016-08-20 07:50 | PDOC ---
Infectious Disease Note Subjective Subjective Pt is intubated on vent ROS ROS unable to do Vital Sign Vital Signs Vital Signs Date Time Temp Pulse Resp B/P Pulse Ox O2 Delivery O2 Flow Rate FiO2 08/20/16 06:00 134 21 107/48 97 Ventilator 08/20/16 04:00 99.2 99.2 Physical Exam PHYSICAL EXAM GENERAL: NAD, on vent HEENT: PERRL, OC/OP NECK: Supple, no JVD, no LN LUNGS: Clear HEART: S1S2, no gallop, no murmur ABD: Soft, NT, no organomegaly, no rebound EXT: No edema, no cyanosis CEMENT PAVER: sedated on vent SKIN: No rash IV: ok Labs Lab Laboratory Tests Test 08/19/16 08:00 08/20/16 05:30 O2 Saturation 99% (92-99) Arterial Blood pH 7.42 (7.35-7.45) Arterial Blood pCO2 at Patient Temp 32mmHg (35-46) Arterial Blood pO2 at Patient Temp 143mmHg (65-108) Arterial Blood HCO3 20mmol/L (21-28) Arterial Blood Base Excess -4mmol/L (-3-3) FiO2 60 White Blood Count 12.6x10^3/uL (4.0-11.0) Red Blood Count 3.79x10^6/uL (3.50-5.40) Hemoglobin 10.0g/dL (12.0-15.5) Hematocrit 30.8% (36.0-47.0) Mean Corpuscular Volume 81fL (79-100) Mean Corpuscular Hemoglobin 27pg (25-35) Mean Corpuscular Hemoglobin Concent 33g/dL (31-37) Red Cell Distribution Width 18.0% (11.5-14.5) Platelet Count 106x10^3/uL (140-400) Neutrophils (%) (Auto) 79% (31-73) Lymphocytes (%) (Auto) 12% (24-48) Monocytes (%) (Auto) 8% (0-9) Eosinophils (%) (Auto) 1% (0-3) Basophils (%) (Auto) 0% (0-3) Neutrophils # (Auto) 9.9x10^3uL (1.8-7.7) Lymphocytes # (Auto) 1.5x10^3/uL (1.0-4.8) Monocytes # (Auto) 1.0x10^3/uL (0.0-1.1) Eosinophils # (Auto) 0.2x10^3/uL (0.0-0.7) Basophils # (Auto) 0.0x10^3/uL (0.0-0.2) Sodium Level 143mmol/L (136-145) Potassium Level 3.8mmol/L (3.5-5.1) Chloride Level 108mmol/L (98-107) Carbon Dioxide Level 24mmol/L (21-32) Anion Gap 11 (6-14) Blood Urea Nitrogen 20mg/dL (7-20) Creatinine 1.1mg/dL (0.6-1.0) Estimated GFR (Cockcroft-Gault) 50.8 Glucose Level 116mg/dL (70-99) Calcium Level 7.6mg/dL (8.5-10.1) Micro BLOOD CULTURE Final GRAM POSITIVE COCCI IN PAIRS AND CHAINS, SUGGESTIVE OF STREP. IN 3 OF 3 BOTTLES, TWO SETS DRAWN IN AM ON 08/18/16 CALLED TO [facility] IN ICU AT 8:15 ON 08/19/16 DW MT SENT TO LAB [facility] FOR FURTHER WORKUP. Objective Assessment Leukocytosis Lactic acidosis Dehydration LISSETH Hypotension likely sec to dehydration , infection appears less likely Obesity Respiratory failure BC + G + cocci in chains, id pending Plan Plan of Care meropenem + vanc hydration supportive care YOLETTE COOK MD Aug 20, 2016 07:50
[2016-08-20 07:57] LABS: HCO3 ABG 22 mmol/L (21-28); PCO2 ABG 32 mmHg (35-46); PH ABG 7.45 (7.35-7.45); PO2 ABG 78 mmHg (65-108); SAT O2 ABG 95 % (92-99)
[2016-08-20] MEDS ORDERED: VANCOMYCIN 2 GM in IV NORMAL SALINE 500ML BAG 500 ML IV ONE (08:00)
[2016-08-20] MEDS: PROPAFENONE SR 225 MG CAP.ER.12H. PO SCH ×2 (09:00→21:00)
[2016-08-20 09:03] LABS: FIO2 ABG 50
--- NOTE | 2016-08-20 09:34 | PDOC ---
CARDIO Progress Notes Date and Time Date of Service 08/20/2016 Time of Evaluation 09 Subjective Subjective: Other (intubated/sedated) Vitals Vitals Vital Signs Date Time Temp Pulse Resp B/P Pulse Ox O2 Delivery O2 Flow Rate FiO2 08/20/16 08:58 Mechanical Ventilator 5.0 08/20/16 07:28 98 08/20/16 06:00 134 21 107/48 08/20/16 04:00 99.2 99.2 Weight Weight [ ] Stability Assessment Stability Assess.: unstable for transfer (Intesive V. sign monit. req) Input and Output Intake and Output Intake and Output 08/20/16 06:59 Intake Total 4031 ml Output Total 3090 ml Balance 941 ml IV Total 3798 ml Tube Feeding 233 ml Output Urine Total 3090 ml Laboratory Labs Laboratory Tests Test 08/20/16 05:30 08/20/16 08:00 White Blood Count 12.6x10^3/uL (4.0-11.0) Red Blood Count 3.79x10^6/uL (3.50-5.40) Hemoglobin 10.0g/dL (12.0-15.5) Hematocrit 30.8% (36.0-47.0) Mean Corpuscular Volume 81fL (79-100) Mean Corpuscular Hemoglobin 27pg (25-35) Mean Corpuscular Hemoglobin Concent 33g/dL (31-37) Red Cell Distribution Width 18.0% (11.5-14.5) Platelet Count 106x10^3/uL (140-400) Neutrophils (%) (Auto) 79% (31-73) Lymphocytes (%) (Auto) 12% (24-48) Monocytes (%) (Auto) 8% (0-9) Eosinophils (%) (Auto) 1% (0-3) Basophils (%) (Auto) 0% (0-3) Neutrophils # (Auto) 9.9x10^3uL (1.8-7.7) Lymphocytes # (Auto) 1.5x10^3/uL (1.0-4.8) Monocytes # (Auto) 1.0x10^3/uL (0.0-1.1) Eosinophils # (Auto) 0.2x10^3/uL (0.0-0.7) Basophils # (Auto) 0.0x10^3/uL (0.0-0.2) Sodium Level 143mmol/L (136-145) Potassium Level 3.8mmol/L (3.5-5.1) Chloride Level 108mmol/L (98-107) Carbon Dioxide Level 24mmol/L (21-32) Anion Gap 11 (6-14) Blood Urea Nitrogen 20mg/dL (7-20) Creatinine 1.1mg/dL (0.6-1.0) Estimated GFR (Cockcroft-Gault) 50.8 Glucose Level 116mg/dL (70-99) Calcium Level 7.6mg/dL (8.5-10.1) O2 Saturation 95% (92-99) Arterial Blood pH 7.45 (7.35-7.45) Arterial Blood pCO2 at Patient Temp 32mmHg (35-46) Arterial Blood pO2 at Patient Temp 78mmHg (65-108) Arterial Blood HCO3 22mmol/L (21-28) Arterial Blood Base Excess -2mmol/L (-3-3) FiO2 50 Microbiology Micro Microbiology 08/19/16 Blood Culture - Preliminary, Resulted NO GROWTH AFTER 1 DAY 08/18/16 Urine Culture - Preliminary, Resulted 08/18/16 Urine Culture Result 1 (SILVINA) - Preliminary, Resulted Case Discussion Case Discussed with: Family Physical Exam Chest: Symmetric LUNGS: Other (coarse anteriorly) Heart: S1S2, irregularly irregular (tachycardic), other (tele: AF/AT) Abdomen: Other (morbidly obese) Extremities: Other (+ lower extremity edema with venous stasis changes) Neurology: other (sedated) Assessment Assessment 1. cardiopulmonary arrest VT with shock to afib RVR to VT = total of 2 shocks echo with preserved LV function and EF of 55-60% and no WMA seen continues to require vasopressive support continue supportive care 2. atrial fib/atrial tach was in SR yesterday afternoon; now back in afib with RVR will supplement K and check Mg INR was 5.2 yesterday 3. acute respiratory failure remains intubated/vent per pulm 4 sepsis abx per ARACELY YOST APRN Aug 20, 2016 09:34
[2016-08-20] MEDS ORDERED: POTASSIUM CHLORIDE 20MEQ 50 ML IV ONE (10:00)
[2016-08-20] MEDS: MIDAZOLAM PREMIX 100 ML IV PRN (10:30)
[2016-08-20] MEDS: MULTIVITAMIN with MINERAL TABLET. PO SCH (10:31)
[2016-08-20] MEDS: NYSTATIN TOPICAL POWDER 15GM BOTTLE. TP SCH ×2 (10:32→21:16)
[2016-08-20] MEDS: PANTOPRAZOLE IV PUSH 40 MG VIAL. IVP SCH (10:32)
--- NOTE | 2016-08-20 10:46 | PDOC ---
Renal-Progress Notes Subjective Notes Notes NONE History of Present Illness Hx of present illness STABLE Vitals Vitals Vital Signs Date Time Temp Pulse Resp B/P Pulse Ox O2 Delivery O2 Flow Rate FiO2 08/20/16 08:58 Mechanical Ventilator 5.0 08/20/16 07:28 98 08/20/16 06:00 134 21 107/48 08/20/16 04:00 99.2 99.2 Weight Weight [ ] Stability Assess. Stability Assess.: unstable for transfer (Intesive V. sign monit. req) I.O. Intake and Output Intake and Output 08/20/16 07:00 Intake Total 4031 ml Output Total 2965 ml Balance 1066 ml IV Total 3798 ml Tube Feeding 233 ml Output Urine Total 2965 ml Labs Labs Laboratory Tests Test 08/20/16 05:30 08/20/16 08:00 White Blood Count 12.6x10^3/uL (4.0-11.0) Red Blood Count 3.79x10^6/uL (3.50-5.40) Hemoglobin 10.0g/dL (12.0-15.5) Hematocrit 30.8% (36.0-47.0) Mean Corpuscular Volume 81fL (79-100) Mean Corpuscular Hemoglobin 27pg (25-35) Mean Corpuscular Hemoglobin Concent 33g/dL (31-37) Red Cell Distribution Width 18.0% (11.5-14.5) Platelet Count 106x10^3/uL (140-400) Neutrophils (%) (Auto) 79% (31-73) Lymphocytes (%) (Auto) 12% (24-48) Monocytes (%) (Auto) 8% (0-9) Eosinophils (%) (Auto) 1% (0-3) Basophils (%) (Auto) 0% (0-3) Neutrophils # (Auto) 9.9x10^3uL (1.8-7.7) Lymphocytes # (Auto) 1.5x10^3/uL (1.0-4.8) Monocytes # (Auto) 1.0x10^3/uL (0.0-1.1) Eosinophils # (Auto) 0.2x10^3/uL (0.0-0.7) Basophils # (Auto) 0.0x10^3/uL (0.0-0.2) Sodium Level 143mmol/L (136-145) Potassium Level 3.8mmol/L (3.5-5.1) Chloride Level 108mmol/L (98-107) Carbon Dioxide Level 24mmol/L (21-32) Anion Gap 11 (6-14) Blood Urea Nitrogen 20mg/dL (7-20) Creatinine 1.1mg/dL (0.6-1.0) Estimated GFR (Cockcroft-Gault) 50.8 Glucose Level 116mg/dL (70-99) Calcium Level 7.6mg/dL (8.5-10.1) Magnesium Level 2.0mg/dL (1.8-2.4) O2 Saturation 95% (92-99) Arterial Blood pH 7.45 (7.35-7.45) Arterial Blood pCO2 at Patient Temp 32mmHg (35-46) Arterial Blood pO2 at Patient Temp 78mmHg (65-108) Arterial Blood HCO3 22mmol/L (21-28) Arterial Blood Base Excess -2mmol/L (-3-3) FiO2 50 Micro Micro Microbiology 08/19/16 Blood Culture - Preliminary, Resulted NO GROWTH AFTER 1 DAY 08/18/16 Urine Culture - Preliminary, Resulted 08/18/16 Urine Culture Result 1 (SILVINA) - Preliminary, Resulted Case Discussion Case Discussed with: Family Review of Systems Constitutional: yes: no symptom reported Physical Exam General Appearance: no apparent distress Skin: warm Respiratory: decreased breath sounds Heart: S1S2 Abdomen: soft, bowel sounds present Genitourinary: bladder flat Neurology: alert, other (sedated) Musculoskeletal: Other (falls) Assessment Assessment IMP LISSETH-RESOLVED PLAN I WILL SIGN OFF ALESHA BONNER MD Aug 20, 2016 10:46
[2016-08-20] MEDS: VANCOMYCIN PER PHARMACY MC PRN (11:22)
[2016-08-20 12:18] LABS: INR 6.4 (0.8-1.1)
--- NOTE | 2016-08-20 12:20 | PDOC ---
PROGRESS NOTES Subjective Subjective on vent ,sedated Objective Objective Vital Signs Date Time Temp Pulse Resp B/P Pulse Ox O2 Delivery O2 Flow Rate FiO2 08/20/16 10:58 99 Ventilator 08/20/16 08:58 5.0 08/20/16 06:00 134 21 107/48 08/20/16 04:00 99.2 99.2 Intake and Output 08/20/16 07:00 Intake Total 4031 ml Output Total 2965 ml Balance 1066 ml IV Total 3798 ml Tube Feeding 233 ml Output Urine Total 2965 ml Physical Exam Abdomen: Normal bowel sounds, No tenderness Heart: Normal S1, Normal S2, Other (tachycardic) Extremities: Other (trace to 1+ edema - LE) General: No acute distress, Other (INTUBATED) HEENT: Atraumatic Lungs: Normal air movement MUSCULOSKELETAL: No deformity Neuro: Normal speech, Cranial nerves 3-12 NL Psych/Mental Status: Mental status NL, Mood NL Skin: No breakdown COMMENT pigmentation neck Diagnosis Problem List Problems Medical Problems: (1) Fall from standing Status: Acute (2) Left knee pain Status: Acute Assessment Assessment Problems Medical Problems: (1) Fall from standing Status: Acute (2) Left knee pain Status: Acute FINAL IMPRESSION: CODE BLUE INTUBATED Bacteremia gram positive strep. sepsis with lactic acidosis 1. Acute sepsis with hypotension. 2. Elevated white count with hypertension as well as renal insufficiency. 3. Chronic recurrent cellulitis of the legs. 4. Chronic lymphedema. 5. Morbid obesity. 6. History of Clostridium difficile. 7. Chronic atrial fibrillation, on Coumadin. 8. coagulopathy PLAN: iv antibiotics. vanco+meropenum. weaning off sedation. hypotension on low dose levophed SPOKE WITH PULMONARY SPOKE WITH ID SEEN IN ICU, ON VENT. URINE OUT PUT IMPROVED inr 6.4 hold coumadin low platelets 70,000 due to sepsis.improving to 90,000 critical care less than 30mts At this time, was admitted to the hospital. Blood cultures, urine cultures. Broad spectrum antibiotic. ID consult. Newman catheter to monitor urine output. Check stool for C. diff. I will transfer to the ICU because of acute change in mental status. I will also check lactic acid. Problems: Plan Plan of Care Problems Medical Problems: (1) Fall from standing Status: Acute (2) Left knee pain Status: Acute Comment Review of Relevant I have reviewed the following items quentin (where applicable) has been applied. Labs Laboratory Tests Test 08/20/16 05:30 08/20/16 08:00 08/20/16 11:15 White Blood Count 12.6x10^3/uL (4.0-11.0) Red Blood Count 3.79x10^6/uL (3.50-5.40) Hemoglobin 10.0g/dL (12.0-15.5) Hematocrit 30.8% (36.0-47.0) Mean Corpuscular Volume 81fL (79-100) Mean Corpuscular Hemoglobin 27pg (25-35) Mean Corpuscular Hemoglobin Concent 33g/dL (31-37) Red Cell Distribution Width 18.0% (11.5-14.5) Platelet Count 106x10^3/uL (140-400) Neutrophils (%) (Auto) 79% (31-73) Lymphocytes (%) (Auto) 12% (24-48) Monocytes (%) (Auto) 8% (0-9) Eosinophils (%) (Auto) 1% (0-3) Basophils (%) (Auto) 0% (0-3) Neutrophils # (Auto) 9.9x10^3uL (1.8-7.7) Lymphocytes # (Auto) 1.5x10^3/uL (1.0-4.8) Monocytes # (Auto) 1.0x10^3/uL (0.0-1.1) Eosinophils # (Auto) 0.2x10^3/uL (0.0-0.7) Basophils # (Auto) 0.0x10^3/uL (0.0-0.2) Sodium Level 143mmol/L (136-145) Potassium Level 3.8mmol/L (3.5-5.1) Chloride Level 108mmol/L (98-107) Carbon Dioxide Level 24mmol/L (21-32) Anion Gap 11 (6-14) Blood Urea Nitrogen 20mg/dL (7-20) Creatinine 1.1mg/dL (0.6-1.0) Estimated GFR (Cockcroft-Gault) 50.8 Glucose Level 116mg/dL (70-99) Calcium Level 7.6mg/dL (8.5-10.1) Magnesium Level 2.0mg/dL (1.8-2.4) O2 Saturation 95% (92-99) Arterial Blood pH 7.45 (7.35-7.45) Arterial Blood pCO2 at Patient Temp 32mmHg (35-46) Arterial Blood pO2 at Patient Temp 78mmHg (65-108) Arterial Blood HCO3 22mmol/L (21-28) Arterial Blood Base Excess -2mmol/L (-3-3) FiO2 50 Prothrombin Time 53.0SEC (11.7-14.0) Prothromb Time International Ratio 6.4 (0.8-1.1) Microbiology 08/19/16 Blood Culture - Preliminary, Resulted NO GROWTH AFTER 1 DAY 08/18/16 Urine Culture - Preliminary, Resulted 08/18/16 Urine Culture Result 1 (SILVINA) - Preliminary, Resulted Medications Current Medications Digoxin (Lanoxin) 125 mcg 1X ONCE IV Last administered on 08/19/16 18:18; Start 08/19/16 at 18:15; Stop 08/19/16 at 18:16; Status DC Digoxin (Lanoxin) 125 mcg 1X ONCE IV Last administered on 08/20/16 04:07; Start 08/20/16 at 04:15; Stop 08/20/16 at 04:16; Status DC Digoxin (Lanoxin) 500 mcg 1X ONCE IV ; Start 08/19/16 at 18:15; Stop 08/19/16 at 18:16; Status Cancel Heparin Sodium/ Sodium Chloride 60 unit 1X ONCE IV Last administered on 14:14; Start 08/19/16 at 14:00; Stop 08/19/16 at 14:01; Status DC Heparin Sodium/ Sodium Chloride 500 ml @ As Directed STK-MED ONCE .ROUTE ; Start 08/19/16 at 13:36; Stop 08/19/16 at 13:37; Status DC Lidocaine/Sodium Bicarbonate (Buffered Lidocaine 1%) 3 ml 1X ONCE IJ Last administered on 08/19/16 14:13; Start 08/19/16 at 14:00; Stop 08/19/16 at 14:01 ; Status DC Lidocaine/Sodium Bicarbonate 20 ml 20 ml STK-MED ONCE IJ ; Start 08/19/16 at 13: 35; Stop 08/19/16 at 13:36; Status DC Potassium Chloride 50 ml @ 50 mls/hr 1X ONCE IV Last administered on 10:31; Start 08/20/16 at 10:00; Stop 08/20/16 at 10:59; Status DC Potassium Chloride (KCl Oral Soln) 40 meq 1X ONCE PEG Last administered on 18:18; Start 08/19/16 at 18:15; Stop 08/19/16 at 18:16; Status DC Vancomycin HCl 1 each 1X ONCE MC ; Start 08/21/16 at 22:30; Stop 08/21/16 at 22 :31 Vancomycin HCl 1 each 1 each PRN DAILY PRN MC SEE COMMENTS Last administered on 08/20/16 11:22; Start 08/20/16 at 08:00 Vancomycin HCl 2 gm/Sodium Chloride 500 ml @ 250 mls/hr 1X ONCE IV Last administered on 08/20/16 10:33; Start 08/20/16 at 08:00; Stop 08/20/16 at 09:59 ; Status DC Vancomycin HCl/ Sodium Chloride (Iv Sodium Chloride 0.9% 500ml Bag) 500 ml @ 250 mls/hr Q12H IV ; Start 08/20/16 at 23:00 Warfarin Sodium (Coumadin) 2.5 mg DAILY16 PO ; Start 08/19/16 at 16:00; Stop at 16:00; Status DC Vitals/I & O Vital Sign - Last 24 Hours 08/19/16 08/19/16 08/19/16 08/19/16 13:00 13:06 14:00 14:59 Pulse 100 100 Resp 21 21 B/P 106/42 90/42 Pulse Ox 96 99 95 99 O2 Delivery Ventilator Ventilator Ventilator Ventilator 08/19/16 08/19/16 08/19/16 08/19/16 15:00 16:00 16:00 17:00 Temp 98.7 98.7 Pulse 101 100 98 Resp 22 21 21 B/P 119/44 106/47 103/40 Pulse Ox 97 97 96 O2 Delivery Ventilator Mechanical Ventilator Ventilator Ventilator 08/19/16 08/19/16 08/19/16 08/19/16 17:00 18:00 18:18 19:34 Pulse 141 148 Resp 21 B/P 122/50 106/42 Pulse Ox 99 95 96 O2 Delivery Ventilator Ventilator Ventilator 08/19/16 08/19/16 08/19/1613/17 19:49 20:00 20:00 20:00 Temp 100.1 100.1 Pulse 149 148 Resp 21 21 B/P 144/44 114/44 Pulse Ox 97 97 O2 Delivery Ventilator Mechanical Ventilator Ventilator 08/19/16 08/19/16 08/19/16 08/19/16 21:00 21:00 22:00 22:37 Pulse 149 148 149 Resp 21 21 B/P 108/53 107/47 111/41 Pulse Ox 99 99 99 O2 Delivery Ventilator Ventilator Ventilator 08/19/16 08/20/16 08/20/16 08/20/16 23:00 00:00 00:00 00:00 Temp 99.6 99.6 Pulse 150 126 Resp 21 21 B/P 119/54 99/53 Pulse Ox 99 99 O2 Delivery Ventilator Ventilator Mechanical Ventilator 08/20/16 08/20/16 08/20/16 08/20/16 01:00 02:00 02:47 03:00 Pulse 154 162 164 Resp 21 21 21 B/P 91/44 93/41 95/48 Pulse Ox 99 97 98 98 O2 Delivery Ventilator Ventilator Ventilator Ventilator 08/20/16 08/20/16 08/20/16 08/20/16 04:00 04:00 04:07 05:00 Temp 99.2 99.2 Pulse 164 165 110 Resp 21 21 B/P 90/49 90/59 84/50 Pulse Ox 98 97 O2 Delivery Mechanical Ventilator Ventilator Ventilator 08/20/16 08/20/16 08/20/16 08/20/16 06:00 07:28 08:58 09:30 Pulse 134 Resp 21 B/P 107/48 Pulse Ox 97 98 98 O2 Delivery Ventilator Ventilator Mechanical Ventilator Ventilator O2 Flow Rate 5.0 08/20/16 10:58 Pulse Ox 99 O2 Delivery Ventilator Intake and Output 08/19/16 08/19/16 08/20/16 15:00 23:00 07:00 Intake Total 30 ml 4001 ml Output Total 1235 ml 1150 ml 580 ml Balance -1235 ml -1120 ml 3421 ml JAGUAR BRICE MD Aug 20, 2016 12:20
--- NOTE | 2016-08-20 14:46 | PDOC ---
PULMONARY PROGRESS NOTES Subjective PT SEDATED ON VENT, on Levo Vitals Vital Signs Date Time Temp Pulse Resp B/P Pulse Ox O2 Delivery O2 Flow Rate FiO2 08/20/16 12:00 Mechanical Ventilator 08/20/16 12:00 130 21 106/50 99 08/20/16 08:58 5.0 08/20/16 08:00 99.5 99.5 Lungs: Clear Cardiovascular: S1, S2 Abdomen: Other (OBESE) Extremities: Other (OBESE) Skin: Warm, Dry Labs Laboratory Tests Test 08/18/16 16:23 08/19/16 01:40 08/19/16 05:37 08/19/16 08:00 O2 Saturation 98% (92-99) 99% (92-99) Arterial Blood pH 7.31 (7.35-7.45) 7.42 (7.35-7.45) Arterial Blood pCO2 at Patient Temp 41mmHg (35-46) 32mmHg (35-46) Arterial Blood pO2 at Patient Temp 131mmHg (65-108) 143mmHg (65-108) Arterial Blood HCO3 20mmol/L (21-28) 20mmol/L (21-28) Arterial Blood Base Excess -6mmol/L (-3-3) -4mmol/L (-3-3) FiO2 100 60 Troponin I Quantitative 1.852ng/mL (0.000-0.055) White Blood Count 13.1x10^3/uL (4.0-11.0) Red Blood Count 3.44x10^6/uL (3.50-5.40) Hemoglobin 9.1g/dL (12.0-15.5) Hematocrit 28.7% (36.0-47.0) Mean Corpuscular Volume 83fL (79-100) Mean Corpuscular Hemoglobin 26pg (25-35) Mean Corpuscular Hemoglobin Concent 32g/dL (31-37) Red Cell Distribution Width 17.9% (11.5-14.5) Platelet Count 70x10^3/uL (140-400) Neutrophils (%) (Auto) 77% (31-73) Lymphocytes (%) (Auto) 9% (24-48) Monocytes (%) (Auto) 11% (0-9) Eosinophils (%) (Auto) 4% (0-3) Basophils (%) (Auto) 0% (0-3) Neutrophils # (Auto) 10.0x10^3uL (1.8-7.7) Lymphocytes # (Auto) 1.2x10^3/uL (1.0-4.8) Monocytes # (Auto) 1.4x10^3/uL (0.0-1.1) Eosinophils # (Auto) 0.5x10^3/uL (0.0-0.7) Basophils # (Auto) 0.0x10^3/uL (0.0-0.2) Prothrombin Time 45.2SEC (11.7-14.0) Prothromb Time International Ratio 5.2 (0.8-1.1) Sodium Level 141mmol/L (136-145) Potassium Level 3.7mmol/L (3.5-5.1) Chloride Level 108mmol/L (98-107) Carbon Dioxide Level 23mmol/L (21-32) Anion Gap 10 (6-14) Blood Urea Nitrogen 31mg/dL (7-20) Creatinine 1.5mg/dL (0.6-1.0) Estimated GFR (Cockcroft-Gault) 35.5 BUN/Creatinine Ratio 21 (6-20) Glucose Level 84mg/dL (70-99) Lactic Acid Level 1.5mmol/L (0.4-2.0) Calcium Level 7.7mg/dL (8.5-10.1) Total Bilirubin 0.6mg/dL (0.2-1.0) Aspartate Amino Transf (AST/SGOT) 72U/L (15-37) Alanine Aminotransferase (ALT/SGPT) 20U/L (14-59) Alkaline Phosphatase 110U/L (46-116) Total Protein 6.1g/dL (6.4-8.2) Albumin 1.4g/dL (3.4-5.0) Albumin/Globulin Ratio 0.3 (1.0-1.7) Triglycerides Level 174mg/dL (0-150) Cholesterol Level 72mg/dL (0-200) LDL Cholesterol, Calculated 31mg/dL (0-100) VLDL Cholesterol, Calculated 35mg/dL (0-40) HDL Cholesterol 6mg/dL (40-60) Cholesterol/HDL Ratio 12.0 Test 08/20/16 05:30 08/20/16 08:00 08/20/16 11:15 White Blood Count 12.6x10^3/uL (4.0-11.0) Red Blood Count 3.79x10^6/uL (3.50-5.40) Hemoglobin 10.0g/dL (12.0-15.5) Hematocrit 30.8% (36.0-47.0) Mean Corpuscular Volume 81fL (79-100) Mean Corpuscular Hemoglobin 27pg (25-35) Mean Corpuscular Hemoglobin Concent 33g/dL (31-37) Red Cell Distribution Width 18.0% (11.5-14.5) Platelet Count 106x10^3/uL (140-400) Neutrophils (%) (Auto) 79% (31-73) Lymphocytes (%) (Auto) 12% (24-48) Monocytes (%) (Auto) 8% (0-9) Eosinophils (%) (Auto) 1% (0-3) Basophils (%) (Auto) 0% (0-3) Neutrophils # (Auto) 9.9x10^3uL (1.8-7.7) Lymphocytes # (Auto) 1.5x10^3/uL (1.0-4.8) Monocytes # (Auto) 1.0x10^3/uL (0.0-1.1) Eosinophils # (Auto) 0.2x10^3/uL (0.0-0.7) Basophils # (Auto) 0.0x10^3/uL (0.0-0.2) Sodium Level 143mmol/L (136-145) Potassium Level 3.8mmol/L (3.5-5.1) Chloride Level 108mmol/L (98-107) Carbon Dioxide Level 24mmol/L (21-32) Anion Gap 11 (6-14) Blood Urea Nitrogen 20mg/dL (7-20) Creatinine 1.1mg/dL (0.6-1.0) Estimated GFR (Cockcroft-Gault) 50.8 Glucose Level 116mg/dL (70-99) Calcium Level 7.6mg/dL (8.5-10.1) Magnesium Level 2.0mg/dL (1.8-2.4) O2 Saturation 95% (92-99) Arterial Blood pH 7.45 (7.35-7.45) Arterial Blood pCO2 at Patient Temp 32mmHg (35-46) Arterial Blood pO2 at Patient Temp 78mmHg (65-108) Arterial Blood HCO3 22mmol/L (21-28) Arterial Blood Base Excess -2mmol/L (-3-3) FiO2 50 Prothrombin Time 53.0SEC (11.7-14.0) Prothromb Time International Ratio 6.4 (0.8-1.1) Laboratory Tests Test 08/20/16 05:30 08/20/16 08:00 08/20/16 11:15 White Blood Count 12.6x10^3/uL (4.0-11.0) Red Blood Count 3.79x10^6/uL (3.50-5.40) Hemoglobin 10.0g/dL (12.0-15.5) Hematocrit 30.8% (36.0-47.0) Mean Corpuscular Volume 81fL (79-100) Mean Corpuscular Hemoglobin 27pg (25-35) Mean Corpuscular Hemoglobin Concent 33g/dL (31-37) Red Cell Distribution Width 18.0% (11.5-14.5) Platelet Count 106x10^3/uL (140-400) Neutrophils (%) (Auto) 79% (31-73) Lymphocytes (%) (Auto) 12% (24-48) Monocytes (%) (Auto) 8% (0-9) Eosinophils (%) (Auto) 1% (0-3) Basophils (%) (Auto) 0% (0-3) Neutrophils # (Auto) 9.9x10^3uL (1.8-7.7) Lymphocytes # (Auto) 1.5x10^3/uL (1.0-4.8) Monocytes # (Auto) 1.0x10^3/uL (0.0-1.1) Eosinophils # (Auto) 0.2x10^3/uL (0.0-0.7) Basophils # (Auto) 0.0x10^3/uL (0.0-0.2) Sodium Level 143mmol/L (136-145) Potassium Level 3.8mmol/L (3.5-5.1) Chloride Level 108mmol/L (98-107) Carbon Dioxide Level 24mmol/L (21-32) Anion Gap 11 (6-14) Blood Urea Nitrogen 20mg/dL (7-20) Creatinine 1.1mg/dL (0.6-1.0) Estimated GFR (Cockcroft-Gault) 50.8 Glucose Level 116mg/dL (70-99) Calcium Level 7.6mg/dL (8.5-10.1) Magnesium Level 2.0mg/dL (1.8-2.4) O2 Saturation 95% (92-99) Arterial Blood pH 7.45 (7.35-7.45) Arterial Blood pCO2 at Patient Temp 32mmHg (35-46) Arterial Blood pO2 at Patient Temp 78mmHg (65-108) Arterial Blood HCO3 22mmol/L (21-28) Arterial Blood Base Excess -2mmol/L (-3-3) FiO2 50 Prothrombin Time 53.0SEC (11.7-14.0) Prothromb Time International Ratio 6.4 (0.8-1.1) Medications Active Scripts Medications Dose Route/Sig Days Date Category Dose Instructions Keflex (Cephalexin) 500 Mg Capsule 500 Mg PO QID 07/12/16 Reported take for 10 days start 07/12 Percocet 10-325 Mg Tablet (Oxycodone/Acetaminophen) 1 Each Tablet 1 Tab PO PRN Q6HRS PRN 07/12/16 Reported Potassium Chloride 20 Meq Tablet.er 20 Meq PO DAILY 07/12/16 Reported Ventolin Hfa Inhaler (Albuterol Sulfate) 18 Gm Hfa.aer.ad 2 Puff INH Q4HRS 07/12/16 Reported Atorvastatin Calcium 10 Mg Tablet 1 Tab PO DAILY 07/12/16 Reported Daily Vitamin (Multivitamin) 1 Each Tablet 1 Each PO DAILY 04/15/14 Reported Coumadin (Warfarin Sodium) 2.5 Mg Tablet 0.5 Tab PO DAILY 04/15/14 Reported Propafenone Hcl 225 Mg Cap.er.12h 225 Mg PO BID 04/15/14 Reported Pantoprazole Sodium 40 Mg Tablet. 1 Tab PO DAILY 04/15/14 Reported Aquaphor (Petrolatum,White) 99 Gm Oint...g. 99 Gm TP BID 7/29/14 Reported Cardizem Cd (Diltiazem Hcl) 120 Mg Cap.er.24h 120 Mg PO DAILY 12/04/13 Reported Zofran Odt (Ondansetron) 4 Mg Tab.rapdis 8 Mg PO Q8HRS 12/04/13 Reported x 2 days start 3/6 then 4 mg q 6hrs prn Lasix (Furosemide) 40 Mg Tablet 40 Mg PO DAILY 12/04/13 Reported Comments IMPRESSION: 1. Interval insertion of a right PICC extending into the right atrium. 2. The ET tube and NG tube are in satisfactory position. 3. Worsening bilateral pulmonary infiltrates suggesting pulmonary edema and/or pneumonia. Impression . 1. Acute respiratory failure secondary to sepsis. 2. Sepsis with hypotension. 3. Atrial fibrillation. 4. Acute on chronic kidney failure. 5. Morbid obesity. 6. MULTIPLE ALLERGIES TO MEDICATIONS INCLUDING AMOXICILLIN. 7. S/P code blue V-Fib 8. Abnormal cxr with infiltrates, possible edema or pneumonia Plan . on levophed continue support family updated 1. pressors 2. ac mode 3. Broad-spectrum antibiotics to cover both for gram-negative and gram- positive organisms. 4. follow card input 5. follow nephro input CCT 30 min TWILA OROZCO MD Aug 20, 2016 14:46
[2016-08-20] MEDS ORDERED: PHYTONADIONE (VIT K1) 5 MG TABLET NG ONE (15:00)
[2016-08-20] MEDS: MORPHINE SULFATE/PF 30 ML IV PRN (17:31)
[2016-08-20] MEDS: ATORVASTATIN CALCIUM 10 MG TABLET. PO SCH (21:16)
[2016-08-20] MEDS: PROPAFENONE 150 MG TABLET. PO SCH ×2 (21:55→23:39)
[2016-08-20] MEDS: VANCOMYCIN 2 GM in IV NORMAL SALINE 500ML BAG 500 ML IV SCH (22:48)
[2016-08-21] VITALS (24 sets, daily range): BP systolic 84–131; BP diastolic 36–71
[2016-08-21] MEDS: MIDAZOLAM PREMIX 100 ML IV PRN (01:33)
[2016-08-21] MEDS: NOREPINEPHRINE 8 MG in IV NORMAL SALINE 250 ML IV PRN (02:24)
[2016-08-21] MEDS: SODIUM BICARBONATE VIAL 50 MEQ in IV 1/2 NORMAL SALINE 1,000 ML IV SCH ×3 (02:24→17:45)
[2016-08-21] MEDS: MEROPENEM 500 MG in IV NORMAL SALINE 50ML 50 ML IV SCH ×2 (05:24→11:33)
[2016-08-21 05:52] LABS: BASO # 0.1 x10^3/uL (0.0-0.2); BASO % 1 % (0-3); EOS % 3 % (0-3); HEMATOCRIT 29.4 % (36.0-47.0); HEMOGLOBIN 9.5 g/dL (12.0-15.5); LYMPH # 1.4 x10^3/uL (1.0-4.8); LYMPH % 13 % (24-48); MEAN CORPUSCULAR HEMOGLOBIN 26 pg (25-35); MEAN CORPUSCULAR HGB CONC 32 g/dL (31-37); MEAN CORPUSCULAR VOLUME 81 fL (79-100); MONO % 8 % (0-9); NEUT % 76 % (31-73); PLATELET COUNT 135 x10^3/uL (140-400); RED BLOOD COUNT 3.66 x10^6/uL (3.50-5.40); RED CELL DISTRIBUTION WIDTH 18.1 % (11.5-14.5); WHITE BLOOD COUNT 11.3 x10^3/uL (4.0-11.0)
[2016-08-21 05:59] LABS: CALCIUM 6.7 mg/dL (8.5-10.1); CREATININE 0.8 mg/dL (0.6-1.0); GFR 73.4; POTASSIUM 3.5 mmol/L (3.5-5.1)
[2016-08-21] MEDS: PROPAFENONE 150 MG TABLET. PO SCH ×3 (06:07→21:01)
--- NOTE | 2016-08-21 07:06 | PDOC ---
PULMONARY PROGRESS NOTES Subjective PT SEDATED ON VENT, on Levo Vitals Vital Signs Date Time Temp Pulse Resp B/P Pulse Ox O2 Delivery O2 Flow Rate FiO2 08/21/16 06:07 125 131/59 08/21/16 06:00 22 96 Ventilator 08/21/16 03:00 98.7 98.7 08/20/16 08:58 5.0 Comments ros discussed w rn, as mentioned as above other sys otherwise neg HEENT: Other (nc at perrl orally intubated. nose clear) Lungs: Crackles Cardiovascular: S1, S2 Abdomen: Soft, Non-tender, Other ( no mass obese) Extremities: Other (edema) Skin: Warm, Dry Labs Laboratory Tests Test 08/19/16 08:00 08/20/16 05:30 08/20/16 08:00 08/20/16 11:15 O2 Saturation 99% (92-99) 95% (92-99) Arterial Blood pH 7.42 (7.35-7.45) 7.45 (7.35-7.45) Arterial Blood pCO2 at Patient Temp 32mmHg (35-46) 32mmHg (35-46) Arterial Blood pO2 at Patient Temp 143mmHg (65-108) 78mmHg (65-108) Arterial Blood HCO3 20mmol/L (21-28) 22mmol/L (21-28) Arterial Blood Base Excess -4mmol/L (-3-3) -2mmol/L (-3-3) FiO2 60 50 White Blood Count 12.6x10^3/uL (4.0-11.0) Red Blood Count 3.79x10^6/uL (3.50-5.40) Hemoglobin 10.0g/dL (12.0-15.5) Hematocrit 30.8% (36.0-47.0) Mean Corpuscular Volume 81fL (79-100) Mean Corpuscular Hemoglobin 27pg (25-35) Mean Corpuscular Hemoglobin Concent 33g/dL (31-37) Red Cell Distribution Width 18.0% (11.5-14.5) Platelet Count 106x10^3/uL (140-400) Neutrophils (%) (Auto) 79% (31-73) Lymphocytes (%) (Auto) 12% (24-48) Monocytes (%) (Auto) 8% (0-9) Eosinophils (%) (Auto) 1% (0-3) Basophils (%) (Auto) 0% (0-3) Neutrophils # (Auto) 9.9x10^3uL (1.8-7.7) Lymphocytes # (Auto) 1.5x10^3/uL (1.0-4.8) Monocytes # (Auto) 1.0x10^3/uL (0.0-1.1) Eosinophils # (Auto) 0.2x10^3/uL (0.0-0.7) Basophils # (Auto) 0.0x10^3/uL (0.0-0.2) Sodium Level 143mmol/L (136-145) Potassium Level 3.8mmol/L (3.5-5.1) Chloride Level 108mmol/L (98-107) Carbon Dioxide Level 24mmol/L (21-32) Anion Gap 11 (6-14) Blood Urea Nitrogen 20mg/dL (7-20) Creatinine 1.1mg/dL (0.6-1.0) Estimated GFR (Cockcroft-Gault) 50.8 Glucose Level 116mg/dL (70-99) Calcium Level 7.6mg/dL (8.5-10.1) Magnesium Level 2.0mg/dL (1.8-2.4) Prothrombin Time 53.0SEC (11.7-14.0) Prothromb Time International Ratio 6.4 (0.8-1.1) Test 08/21/16 05:00 White Blood Count 11.3x10^3/uL (4.0-11.0) Red Blood Count 3.66x10^6/uL (3.50-5.40) Hemoglobin 9.5g/dL (12.0-15.5) Hematocrit 29.4% (36.0-47.0) Mean Corpuscular Volume 81fL (79-100) Mean Corpuscular Hemoglobin 26pg (25-35) Mean Corpuscular Hemoglobin Concent 32g/dL (31-37) Red Cell Distribution Width 18.1% (11.5-14.5) Platelet Count 135x10^3/uL (140-400) Neutrophils (%) (Auto) 76% (31-73) Lymphocytes (%) (Auto) 13% (24-48) Monocytes (%) (Auto) 8% (0-9) Eosinophils (%) (Auto) 3% (0-3) Basophils (%) (Auto) 1% (0-3) Neutrophils # (Auto) 8.6x10^3uL (1.8-7.7) Lymphocytes # (Auto) 1.4x10^3/uL (1.0-4.8) Monocytes # (Auto) 0.9x10^3/uL (0.0-1.1) Eosinophils # (Auto) 0.3x10^3/uL (0.0-0.7) Basophils # (Auto) 0.1x10^3/uL (0.0-0.2) Sodium Level 147mmol/L (136-145) Potassium Level 3.5mmol/L (3.5-5.1) Chloride Level 111mmol/L (98-107) Carbon Dioxide Level 27mmol/L (21-32) Anion Gap 9 (6-14) Blood Urea Nitrogen 15mg/dL (7-20) Creatinine 0.8mg/dL (0.6-1.0) Estimated GFR (Cockcroft-Gault) 73.4 Glucose Level 124mg/dL (70-99) Calcium Level 6.7mg/dL (8.5-10.1) Laboratory Tests Test 08/20/16 08:00 08/20/16 11:15 08/21/16 05:00 O2 Saturation 95% (92-99) Arterial Blood pH 7.45 (7.35-7.45) Arterial Blood pCO2 at Patient Temp 32mmHg (35-46) Arterial Blood pO2 at Patient Temp 78mmHg (65-108) Arterial Blood HCO3 22mmol/L (21-28) Arterial Blood Base Excess -2mmol/L (-3-3) FiO2 50 Prothrombin Time 53.0SEC (11.7-14.0) Prothromb Time International Ratio 6.4 (0.8-1.1) White Blood Count 11.3x10^3/uL (4.0-11.0) Red Blood Count 3.66x10^6/uL (3.50-5.40) Hemoglobin 9.5g/dL (12.0-15.5) Hematocrit 29.4% (36.0-47.0) Mean Corpuscular Volume 81fL (79-100) Mean Corpuscular Hemoglobin 26pg (25-35) Mean Corpuscular Hemoglobin Concent 32g/dL (31-37) Red Cell Distribution Width 18.1% (11.5-14.5) Platelet Count 135x10^3/uL (140-400) Neutrophils (%) (Auto) 76% (31-73) Lymphocytes (%) (Auto) 13% (24-48) Monocytes (%) (Auto) 8% (0-9) Eosinophils (%) (Auto) 3% (0-3) Basophils (%) (Auto) 1% (0-3) Neutrophils # (Auto) 8.6x10^3uL (1.8-7.7) Lymphocytes # (Auto) 1.4x10^3/uL (1.0-4.8) Monocytes # (Auto) 0.9x10^3/uL (0.0-1.1) Eosinophils # (Auto) 0.3x10^3/uL (0.0-0.7) Basophils # (Auto) 0.1x10^3/uL (0.0-0.2) Sodium Level 147mmol/L (136-145) Potassium Level 3.5mmol/L (3.5-5.1) Chloride Level 111mmol/L (98-107) Carbon Dioxide Level 27mmol/L (21-32) Anion Gap 9 (6-14) Blood Urea Nitrogen 15mg/dL (7-20) Creatinine 0.8mg/dL (0.6-1.0) Estimated GFR (Cockcroft-Gault) 73.4 Glucose Level 124mg/dL (70-99) Calcium Level 6.7mg/dL (8.5-10.1) Medications Active Scripts Medications Dose Route/Sig Days Date Category Dose Instructions Keflex (Cephalexin) 500 Mg Capsule 500 Mg PO QID 07/12/16 Reported take for 10 days start 07/12 Percocet 10-325 Mg Tablet (Oxycodone/Acetaminophen) 1 Each Tablet 1 Tab PO PRN Q6HRS PRN 07/12/16 Reported Potassium Chloride 20 Meq Tablet.er 20 Meq PO DAILY 3/6/17 Reported Ventolin Hfa Inhaler (Albuterol Sulfate) 18 Gm Hfa.aer.ad 2 Puff INH Q4HRS 07/12/16 Reported Atorvastatin Calcium 10 Mg Tablet 1 Tab PO DAILY 07/12/16 Reported Daily Vitamin (Multivitamin) 1 Each Tablet 1 Each PO DAILY 04/15/14 Reported Coumadin (Warfarin Sodium) 2.5 Mg Tablet 0.5 Tab PO DAILY 04/15/14 Reported Propafenone Hcl 225 Mg Cap.er.12h 225 Mg PO BID 04/15/14 Reported Pantoprazole Sodium 40 Mg Tablet.dr 1 Tab PO DAILY 04/15/14 Reported Aquaphor (Petrolatum,White) 99 Gm Oint...g. 99 Gm TP BID 12/04/13 Reported Cardizem Cd (Diltiazem Hcl) 120 Mg Cap.er.24h 120 Mg PO DAILY 12/04/13 Reported Zofran Odt (Ondansetron) 4 Mg Tab.rapdis 8 Mg PO Q8HRS 12/04/13 Reported x 2 days start 07/12 then 4 mg q 6hrs prn Lasix (Furosemide) 40 Mg Tablet 40 Mg PO DAILY 12/04/13 Reported Comments IMPRESSION: 1. Interval insertion of a right PICC extending into the right atrium. 2. The ET tube and NG tube are in satisfactory position. 3. Worsening bilateral pulmonary infiltrates suggesting pulmonary edema and/or pneumonia. Impression . 1. Acute respiratory failure secondary to sepsis. 2. Sepsis with hypotension. 3. Atrial fibrillation. 4. Acute on chronic kidney failure. 5. Morbid obesity. 6. MULTIPLE ALLERGIES TO MEDICATIONS INCLUDING AMOXICILLIN. 7. S/P code blue V-Fib 8. Abnormal cxr with infiltrates, possible edema or pneumonia Plan . on levophed 1. pressors to keep map 65 2. cont vent support until more stable and more alert. setting reviewed. 3. Broad-spectrum antibiotics to cover both for gram-negative and gram- positive organisms. 4. follow card input 5. follow nephro input discussed w rn, rt RANI FELTON MD Aug 21, 2016 07:06
[2016-08-21] MEDS: ALBUTEROL SULFATE 2.5 MG/3 ML NEBU. NEB SCH ×4 (07:51→19:56)
[2016-08-21] MEDS: MULTIVITAMIN with MINERAL TABLET. PO SCH (08:57)
[2016-08-21] MEDS: PANTOPRAZOLE IV PUSH 40 MG VIAL. IVP SCH (08:58)
[2016-08-21] MEDS: NYSTATIN TOPICAL POWDER 15GM BOTTLE. TP SCH ×2 (08:58→20:59)
--- NOTE | 2016-08-21 09:00 | PDOC ---
Infectious Disease Note Subjective Subjective Sedated Remains intubated. FiO2 40% Hypotension. on Levophed 6 mcg No fever or diarrhea ROS ROS unobtainable Vital Sign Vital Signs Vital Signs Date Time Temp Pulse Resp B/P Pulse Ox O2 Delivery O2 Flow Rate FiO2 08/21/16 08:00 99.3 120 22 100/47 96 Ventilator 99.3 08/20/16 08:58 5.0 Physical Exam PHYSICAL EXAM GENERAL: Intubated and sedated, mittens HEENT: Pupils small. ETT. OGT LUNGS: Clear HEART: S1S2, tachy 120s ABD: Obese, soft : Newman EXT: BLE edema. No cyanosis LINING SCRUBBER: Unresponsive/sedated SKIN: Purpuric-type rash anterior neck, as well as petechial type rash lightly on face and arms. RUE-PICC. clean Labs Lab Laboratory Tests Test 08/20/16 11:15 08/21/16 05:00 Prothrombin Time 53.0SEC (11.7-14.0) Prothromb Time International Ratio 6.4 (0.8-1.1) White Blood Count 11.3x10^3/uL (4.0-11.0) Red Blood Count 3.66x10^6/uL (3.50-5.40) Hemoglobin 9.5g/dL (12.0-15.5) Hematocrit 29.4% (36.0-47.0) Mean Corpuscular Volume 81fL (79-100) Mean Corpuscular Hemoglobin 26pg (25-35) Mean Corpuscular Hemoglobin Concent 32g/dL (31-37) Red Cell Distribution Width 18.1% (11.5-14.5) Platelet Count 135x10^3/uL (140-400) Neutrophils (%) (Auto) 76% (31-73) Lymphocytes (%) (Auto) 13% (24-48) Monocytes (%) (Auto) 8% (0-9) Eosinophils (%) (Auto) 3% (0-3) Basophils (%) (Auto) 1% (0-3) Neutrophils # (Auto) 8.6x10^3uL (1.8-7.7) Lymphocytes # (Auto) 1.4x10^3/uL (1.0-4.8) Monocytes # (Auto) 0.9x10^3/uL (0.0-1.1) Eosinophils # (Auto) 0.3x10^3/uL (0.0-0.7) Basophils # (Auto) 0.1x10^3/uL (0.0-0.2) Sodium Level 147mmol/L (136-145) Potassium Level 3.5mmol/L (3.5-5.1) Chloride Level 111mmol/L (98-107) Carbon Dioxide Level 27mmol/L (21-32) Anion Gap 9 (6-14) Blood Urea Nitrogen 15mg/dL (7-20) Creatinine 0.8mg/dL (0.6-1.0) Estimated GFR (Cockcroft-Gault) 73.4 Glucose Level 124mg/dL (70-99) Calcium Level 6.7mg/dL (8.5-10.1) Micro 08/18. BLOOD CULT RESULT 1 Final Beta hemolytic Streptococcus, group B 08/19. BLOOD CULTURE Preliminary NO GROWTH AFTER 2 DAYS URINE CULTURE RES 1 Final No growth in 48 hours. Objective Assessment Group B strep. 08/18 Pulmonary infiltrates Leukocytosis. trending down Lactic acidosis, improved Dehydration LISSETH. resolved Hypotension likely sec to dehydration , infection appears less likely Obesity Respiratory failure s/p intubation MRSA nares positive Rash. purpuric/petechial-type -?reactive from code and intubation s/p code blue, V-fib. 08/18 Plan Plan of Care D/c Vanc Cont meropenem but increase to 1 gm q8 f/u cxr supportive care Attending Co-Sign Attending Co-Sign The patient was seen and interviewed as well as examined at the bedside. The chart was reviewed. The case was discussed. Agree with the plan of care. STORMY BAL APRN Aug 21, 2016 09:00 ALEX FRAZIER MD Aug 21, 2016 11:37
--- NOTE | 2016-08-21 09:18 | RAD ---
PORTABLE CHEST 1V Clinical Indication: intubated Comparison: August 19, 2016. Technique: Portable semiupright AP views of the chest are obtained. Findings: The patient is slightly rotated to the left. Distal tip of ET tube, visualized gastric tube and right upper extremity PICC line appears stable in position. Bilateral airspace opacities appear slightly improved when compared to the previous exam given differences in technique and positioning. Blunting of the costophrenic angles is seen, which may represent a small amount of pleural fluid. Cardiomediastinal silhouette appears stable in size. Visualized osseous structures and overlying soft tissues demonstrate no acute interval change. IMPRESSION: Stable positioning of lines and tubes. Slight improved bilateral opacities.
[2016-08-21] MEDS: VANCOMYCIN PER PHARMACY MC PRN (09:29)
--- NOTE | 2016-08-21 10:23 | PDOC ---
IM PROGRESS NOTES- Subjective Subjective None.Unable to do systems review- pt is not responsive. Objective Vitals Vital Signs Date Time Temp Pulse Resp B/P Pulse Ox O2 Delivery O2 Flow Rate FiO2 08/21/16 09:00 122 21 99/41 96 Ventilator 08/21/16 08:00 99.3 99.3 08/20/16 08:58 5.0 Input & Output Intake and Output 08/21/16 07:00 Intake Total 3749 ml Output Total 1465 ml Balance 2284 ml Intake Oral 0 ml IV Total 2746 ml Tube Feeding 913 ml Blood Product IV Normal Saline Flush 90 ml Output Urine Total 1465 ml Gastric Drainage Total 0 ml Physical Exam Physical Exam HEENT: Head is atraumatic. Not responsive but resists opening the eyes on mechanical ventilation NECK: Supple. Thyroid not enlarged. JVD not elevated CARDIOVASCULAR: S1, S2. LUNGS: decreased BS biateral ABDOMEN: Morbid obesity, nontender. EXTREMITIES: Chronic lymphedema, has thickening of the skin secondary to chronic lymphedema. No redness at this time. Foot, no ulcerations. NEUROLOGIC: not responsive Labs Laboratory Tests Test 08/20/16 05:30 08/20/16 08:00 08/20/16 11:15 08/21/16 05:00 White Blood Count 12.6x10^3/uL (4.0-11.0) 11.3x10^3/uL (4.0-11.0) Red Blood Count 3.79x10^6/uL (3.50-5.40) 3.66x10^6/uL (3.50-5.40) Hemoglobin 10.0g/dL (12.0-15.5) 9.5g/dL (12.0-15.5) Hematocrit 30.8% (36.0-47.0) 29.4% (36.0-47.0) Mean Corpuscular Volume 81fL (79-100) 81fL (79-100) Mean Corpuscular Hemoglobin 27pg (25-35) 26pg (25-35) Mean Corpuscular Hemoglobin Concent 33g/dL (31-37) 32g/dL (31-37) Red Cell Distribution Width 18.0% (11.5-14.5) 18.1% (11.5-14.5) Platelet Count 106x10^3/uL (140-400) 135x10^3/uL (140-400) Neutrophils (%) (Auto) 79% (31-73) 76% (31-73) Lymphocytes (%) (Auto) 12% (24-48) 13% (24-48) Monocytes (%) (Auto) 8% (0-9) 8% (0-9) Eosinophils (%) (Auto) 1% (0-3) 3% (0-3) Basophils (%) (Auto) 0% (0-3) 1% (0-3) Neutrophils # (Auto) 9.9x10^3uL (1.8-7.7) 8.6x10^3uL (1.8-7.7) Lymphocytes # (Auto) 1.5x10^3/uL (1.0-4.8) 1.4x10^3/uL (1.0-4.8) Monocytes # (Auto) 1.0x10^3/uL (0.0-1.1) 0.9x10^3/uL (0.0-1.1) Eosinophils # (Auto) 0.2x10^3/uL (0.0-0.7) 0.3x10^3/uL (0.0-0.7) Basophils # (Auto) 0.0x10^3/uL (0.0-0.2) 0.1x10^3/uL (0.0-0.2) Sodium Level 143mmol/L (136-145) 147mmol/L (136-145) Potassium Level 3.8mmol/L (3.5-5.1) 3.5mmol/L (3.5-5.1) Chloride Level 108mmol/L (98-107) 111mmol/L (98-107) Carbon Dioxide Level 24mmol/L (21-32) 27mmol/L (21-32) Anion Gap 11 (6-14) 9 (6-14) Blood Urea Nitrogen 20mg/dL (7-20) 15mg/dL (7-20) Creatinine 1.1mg/dL (0.6-1.0) 0.8mg/dL (0.6-1.0) Estimated GFR (Cockcroft-Gault) 50.8 73.4 Glucose Level 116mg/dL (70-99) 124mg/dL (70-99) Calcium Level 7.6mg/dL (8.5-10.1) 6.7mg/dL (8.5-10.1) Magnesium Level 2.0mg/dL (1.8-2.4) O2 Saturation 95% (92-99) Arterial Blood pH 7.45 (7.35-7.45) Arterial Blood pCO2 at Patient Temp 32mmHg (35-46) Arterial Blood pO2 at Patient Temp 78mmHg (65-108) Arterial Blood HCO3 22mmol/L (21-28) Arterial Blood Base Excess -2mmol/L (-3-3) FiO2 50 Prothrombin Time 53.0SEC (11.7-14.0) Prothromb Time International Ratio 6.4 (0.8-1.1) Laboratory Tests Test 08/20/16 11:15 08/21/16 05:00 Prothrombin Time 53.0SEC (11.7-14.0) Prothromb Time International Ratio 6.4 (0.8-1.1) White Blood Count 11.3x10^3/uL (4.0-11.0) Red Blood Count 3.66x10^6/uL (3.50-5.40) Hemoglobin 9.5g/dL (12.0-15.5) Hematocrit 29.4% (36.0-47.0) Mean Corpuscular Volume 81fL (79-100) Mean Corpuscular Hemoglobin 26pg (25-35) Mean Corpuscular Hemoglobin Concent 32g/dL (31-37) Red Cell Distribution Width 18.1% (11.5-14.5) Platelet Count 135x10^3/uL (140-400) Neutrophils (%) (Auto) 76% (31-73) Lymphocytes (%) (Auto) 13% (24-48) Monocytes (%) (Auto) 8% (0-9) Eosinophils (%) (Auto) 3% (0-3) Basophils (%) (Auto) 1% (0-3) Neutrophils # (Auto) 8.6x10^3uL (1.8-7.7) Lymphocytes # (Auto) 1.4x10^3/uL (1.0-4.8) Monocytes # (Auto) 0.9x10^3/uL (0.0-1.1) Eosinophils # (Auto) 0.3x10^3/uL (0.0-0.7) Basophils # (Auto) 0.1x10^3/uL (0.0-0.2) Sodium Level 147mmol/L (136-145) Potassium Level 3.5mmol/L (3.5-5.1) Chloride Level 111mmol/L (98-107) Carbon Dioxide Level 27mmol/L (21-32) Anion Gap 9 (6-14) Blood Urea Nitrogen 15mg/dL (7-20) Creatinine 0.8mg/dL (0.6-1.0) Estimated GFR (Cockcroft-Gault) 73.4 Glucose Level 124mg/dL (70-99) Calcium Level 6.7mg/dL (8.5-10.1) Meds Current Medications Phytonadione (Mephyton) 2.5 mg 1X ONCE NG Last administered on 08/20/16 15:30 ; Start 08/20/16 at 15:00; Stop 08/20/16 at 15:03; Status DC Propafenone HCl (Rythmol) 150 mg Q8HRS PO Last administered on 08/21/16 06:07 ; Start 08/20/16 at 22:00 Vancomycin HCl 1 each 1X ONCE MC ; Start 08/21/16 at 22:30; Stop 08/21/16 at 22 :31 Vancomycin HCl/ Sodium Chloride (Iv Sodium Chloride 0.9% 500ml Bag) 500 ml @ 250 mls/hr Q12H IV Last administered on 08/20/16 22:48; Start 08/20/16 at 23: 00 Assessment Assessment Problems Medical Problems: (1) Fall from standing Status: Acute (2) Left knee pain Status: Acute FINAL IMPRESSION: CODE BLUE INTUBATED Bacteremia gram positive strep. sepsis with lactic acidosis 1. Acute sepsis with hypotension. 2. Elevated white count with hypertension as well as renal insufficiency. 3. Chronic recurrent cellulitis of the legs. 4. Chronic lymphedema. 5. Morbid obesity. 6. History of Clostridium difficile. 7. Chronic atrial fibrillation, on Coumadin. 8. coagulopathy PLAN: iv antibiotics. vanco+meropenum. weaning off sedation. hypotension on low dose levophed Acute resiratory failure- on mechanical ventilation Coagulopathy Thrombocytopenia Hypokalemia- K 3.5 Prognosis is very poor. At this time, was admitted to the hospital. Blood cultures, urine cultures. Broad spectrum antibiotic. ID consult. Newman catheter to monitor urine output. Check stool for C. diff. I will transfer to the ICU because of acute change in mental status. I will also check lactic acid. Plan Plan For more details regarding further plans, please refer to the orders. JOSEPHINE HALE MD Aug 21, 2016 10:23
[2016-08-21 10:25] LABS: HCO3 ABG 23 mmol/L (21-28); PCO2 ABG 32 mmHg (35-46); PH ABG 7.47 (7.35-7.45); PO2 ABG 70 mmHg (65-108); SAT O2 ABG 94 % (92-99)
[2016-08-21 10:26] LABS: FIO2 ABG 40
[2016-08-21 10:51] LABS: INR 2.9 (0.8-1.1)
[2016-08-21] MEDS: VANCOMYCIN 2 GM in IV NORMAL SALINE 500ML BAG 500 ML IV SCH (11:29)
[2016-08-21] MEDS: MEROPENEM 1 GM in IV NORMAL SALINE 100ML 100 ML IV SCH ×2 (14:00→21:01)
--- NOTE | 2016-08-21 14:09 | PDOC ---
PROGRESS NOTES Subjective Subjective Intubated and sedated Objective Objective Vital Signs Date Time Temp Pulse Resp B/P Pulse Ox O2 Delivery O2 Flow Rate FiO2 08/21/16 13:19 96 Ventilator 08/21/16 13:00 126 22 103/36 08/21/16 12:00 100.0 100.0 08/20/16 08:58 5.0 Intake and Output 08/21/16 06:59 Intake Total 3749 ml Output Total 1315 ml Balance 2434 ml Intake Oral 0 ml IV Total 2746 ml Tube Feeding 913 ml Blood Product IV Normal Saline Flush 90 ml Output Urine Total 1315 ml Gastric Drainage Total 0 ml Physical Exam Abdomen: Normal bowel sounds, No tenderness Heart: Normal S1, Normal S2, Other (tachycardic) Extremities: Other (trace to 1+ edema - LE) General: Other (INTUBATED) HEENT: Atraumatic Lungs: Normal air movement MUSCULOSKELETAL: No deformity Skin: No breakdown COMMENT pigmentation neck Assessment Assessment 1. cardiopulmonary arrest VT with shock to afib RVR to VT = total of 2 shocks Telemetry did not show any further episodes of VT echo with preserved LV function and EF of 55-60% and no WMA seen continues to require vasopressive support continue vent management per pulmonary team 2. atrial fib/atrial tach Heart rate continues to be elevated Add digoxin for better rate control 3. acute respiratory failure remains intubated/vent per pulm 4 sepsis abx per ID Plan Plan of Care Problems Medical Problems: (1) Fall from standing Status: Acute (2) Left knee pain Status: Acute Comment Review of Relevant I have reviewed the following items quentin (where applicable) has been applied. Labs Laboratory Tests Test 08/21/16 05:00 08/21/16 08:00 08/21/16 10:25 White Blood Count 11.3x10^3/uL (4.0-11.0) Red Blood Count 3.66x10^6/uL (3.50-5.40) Hemoglobin 9.5g/dL (12.0-15.5) Hematocrit 29.4% (36.0-47.0) Mean Corpuscular Volume 81fL (79-100) Mean Corpuscular Hemoglobin 26pg (25-35) Mean Corpuscular Hemoglobin Concent 32g/dL (31-37) Red Cell Distribution Width 18.1% (11.5-14.5) Platelet Count 135x10^3/uL (140-400) Neutrophils (%) (Auto) 76% (31-73) Lymphocytes (%) (Auto) 13% (24-48) Monocytes (%) (Auto) 8% (0-9) Eosinophils (%) (Auto) 3% (0-3) Basophils (%) (Auto) 1% (0-3) Neutrophils # (Auto) 8.6x10^3uL (1.8-7.7) Lymphocytes # (Auto) 1.4x10^3/uL (1.0-4.8) Monocytes # (Auto) 0.9x10^3/uL (0.0-1.1) Eosinophils # (Auto) 0.3x10^3/uL (0.0-0.7) Basophils # (Auto) 0.1x10^3/uL (0.0-0.2) Sodium Level 147mmol/L (136-145) Potassium Level 3.5mmol/L (3.5-5.1) Chloride Level 111mmol/L (98-107) Carbon Dioxide Level 27mmol/L (21-32) Anion Gap 9 (6-14) Blood Urea Nitrogen 15mg/dL (7-20) Creatinine 0.8mg/dL (0.6-1.0) Estimated GFR (Cockcroft-Gault) 73.4 Glucose Level 124mg/dL (70-99) Calcium Level 6.7mg/dL (8.5-10.1) O2 Saturation 94% (92-99) Arterial Blood pH 7.47 (7.35-7.45) Arterial Blood pCO2 at Patient Temp 32mmHg (35-46) Arterial Blood pO2 at Patient Temp 70mmHg (65-108) Arterial Blood HCO3 23mmol/L (21-28) Arterial Blood Base Excess 0mmol/L (-3-3) FiO2 40 Prothrombin Time 29.0SEC (11.7-14.0) Prothromb Time International Ratio 2.9 (0.8-1.1) Microbiology 08/19/16 Blood Culture - Preliminary, Resulted NO GROWTH AFTER 2 DAYS 08/18/16 Urine Culture - Final, Complete 08/18/16 Urine Culture Result 1 (SILVINA) - Final, Complete Medications Current Medications Meropenem/Sodium Chloride (Merrem/Iv Sodium Chloride 0.9% 100ml) 100 ml @ 200 mls/hr Q8HRS IV ; Start 08/21/16 at 14:00 Phytonadione (Mephyton) 2.5 mg 1X ONCE NG Last administered on 08/20/16 15:30 ; Start 08/20/16 at 15:00; Stop 08/20/16 at 15:03; Status DC Propafenone HCl 150 mg 150 mg Q8HRS PO Last administered on 08/21/16 06:07; Start 08/20/16 at 22:00 Vancomycin HCl 1 each 1X ONCE MC ; Start 08/21/16 at 22:30; Stop 08/21/16 at 22 :30; Status DC Vancomycin HCl/ Sodium Chloride (Iv Sodium Chloride 0.9% 500ml Bag) 500 ml @ 250 mls/hr Q12H IV Last administered on 08/21/16 11:29; Start 08/20/16 at 23: 00; Stop 08/21/16 at 11:37; Status DC Vitals/I & O Vital Sign - Last 24 Hours 08/20/16 08/20/16 08/20/16 08/20/16 15:00 15:21 16:00 16:00 Pulse 130 126 Resp 21 30 B/P 87/41 91/35 Pulse Ox 98 99 97 O2 Delivery Ventilator Ventilator Mechanical Ventilator Ventilator 08/20/16 08/20/16 08/20/16 08/20/16 17:31 18:00 18:01 18:05 Pulse 125 Resp 21 B/P 91/58 Pulse Ox 97 97 99 99 O2 Delivery Ventilator Ventilator Ventilator Ventilator 08/20/16 08/20/16 08/20/16 08/20/16 19:00 19:51 20:00 20:00 Temp 98.4 98.4 Pulse 124 128 Resp 21 21 B/P 94/42 83/35 Pulse Ox 96 97 99 O2 Delivery Ventilator Ventilator Ventilator Mechanical Ventilator 08/20/16 08/20/16 08/20/16 08/20/16 21:00 22:00 23:00 23:22 Temp 98.6 98.6 Pulse 121 123 128 Resp 21 21 20 B/P 83/38 124/40 119/42 Pulse Ox 97 96 100 97 O2 Delivery Ventilator Ventilator Ventilator Ventilator 08/20/16 08/21/16 08/21/16 4/15/17 23:39 00:00 00:09 01:00 Pulse 126 125 130 Resp 22 23 B/P 148/55 114/46 90/47 Pulse Ox 96 94 O2 Delivery Ventilator Mechanical Ventilator Ventilator 08/21/16 08/21/16 08/21/16 08/21/16 02:00 03:00 03:40 04:00 Temp 98.7 98.7 Pulse 123 141 118 Resp 22 21 20 B/P 84/41 94/52 125/47 Pulse Ox 94 96 95 96 O2 Delivery Ventilator Ventilator 08/21/16 08/21/16 08/21/16 08/21/16 04:00 05:00 06:00 06:07 Pulse 123 120 125 Resp 22 22 B/P 118/58 131/59 131/59 Pulse Ox 97 96 O2 Delivery Mechanical Ventilator Ventilator Ventilator 08/21/16 08/21/16 08/21/16 08/21/16 07:00 07:51 08:00 08:00 Temp 99.3 99.3 Pulse 134 120 Resp 21 22 B/P 109/53 100/47 Pulse Ox 96 94 96 O2 Delivery Ventilator Ventilator Mechanical Ventilator Ventilator 08/21/16 08/21/16 08/21/16 08/21/16 08:52 09:00 09:00 10:00 Pulse 123 122 124 Resp 21 22 B/P 99/41 99/41 117/49 Pulse Ox 96 96 96 O2 Delivery Ventilator Ventilator Ventilator 08/21/16 08/21/16 08/21/16 08/21/16 11:00 11:17 12:00 12:00 Temp 100.0 100.0 Pulse 126 126 Resp 21 23 B/P 128/47 120/47 Pulse Ox 97 96 96 O2 Delivery Ventilator Ventilator Mechanical Ventilator Ventilator 08/21/16 08/21/16 13:00 13:19 Pulse 126 Resp 22 B/P 103/36 Pulse Ox 96 96 O2 Delivery Ventilator Ventilator Intake and Output 08/20/16 08/20/16 08/21/16 14:59 22:59 06:59 Intake Total 160 ml 2676 ml 913 ml Output Total 400 ml 395 ml 520 ml Balance -240 ml 2281 ml 393 ml CARLOS ELIZALDE MD Aug 21, 2016 14:09
[2016-08-21] MEDS: DIGOXIN IV 500 MCG/2 ML AMPUL. IV SCH (15:28)
[2016-08-21] MEDS: ATORVASTATIN CALCIUM 10 MG TABLET. PO SCH (20:59)
[2016-08-22] VITALS (24 sets, daily range): BP systolic 83–135; BP diastolic 35–60
[2016-08-22] MEDS: MIDAZOLAM PREMIX 100 ML IV PRN (01:03)
[2016-08-22] MEDS: SODIUM BICARBONATE VIAL 50 MEQ in IV 1/2 NORMAL SALINE 1,000 ML IV SCH ×4 (01:03→23:24)
[2016-08-22] MEDS: NOREPINEPHRINE 8 MG in IV NORMAL SALINE 250 ML IV PRN (04:56)
--- NOTE | 2016-08-22 05:01 | PDOC ---
PULMONARY PROGRESS NOTES Subjective PT SEDATED ON VENT, on Levo, has nasal secretion Vitals Vital Signs Date Time Temp Pulse Resp B/P Pulse Ox O2 Delivery O2 Flow Rate FiO2 08/22/16 04:00 98 Ventilator 08/22/16 04:00 122 22 125/54 08/22/16 03:01 98.8 98.8 08/21/16 22:00 Comments ros discussed w rn, as mentioned as above other sys otherwise neg HEENT: Other (nc at perrl orally intubated. nose clear) Lungs: Crackles Cardiovascular: S1, S2 Abdomen: Soft, Non-tender, Other ( no mass obese) Extremities: Other (edema) Skin: Warm, Dry Labs Laboratory Tests Test 08/20/16 05:30 08/20/16 08:00 08/20/16 11:15 08/21/16 05:00 White Blood Count 12.6x10^3/uL (4.0-11.0) 11.3x10^3/uL (4.0-11.0) Red Blood Count 3.79x10^6/uL (3.50-5.40) 3.66x10^6/uL (3.50-5.40) Hemoglobin 10.0g/dL (12.0-15.5) 9.5g/dL (12.0-15.5) Hematocrit 30.8% (36.0-47.0) 29.4% (36.0-47.0) Mean Corpuscular Volume 81fL (79-100) 81fL (79-100) Mean Corpuscular Hemoglobin 27pg (25-35) 26pg (25-35) Mean Corpuscular Hemoglobin Concent 33g/dL (31-37) 32g/dL (31-37) Red Cell Distribution Width 18.0% (11.5-14.5) 18.1% (11.5-14.5) Platelet Count 106x10^3/uL (140-400) 135x10^3/uL (140-400) Neutrophils (%) (Auto) 79% (31-73) 76% (31-73) Lymphocytes (%) (Auto) 12% (24-48) 13% (24-48) Monocytes (%) (Auto) 8% (0-9) 8% (0-9) Eosinophils (%) (Auto) 1% (0-3) 3% (0-3) Basophils (%) (Auto) 0% (0-3) 1% (0-3) Neutrophils # (Auto) 9.9x10^3uL (1.8-7.7) 8.6x10^3uL (1.8-7.7) Lymphocytes # (Auto) 1.5x10^3/uL (1.0-4.8) 1.4x10^3/uL (1.0-4.8) Monocytes # (Auto) 1.0x10^3/uL (0.0-1.1) 0.9x10^3/uL (0.0-1.1) Eosinophils # (Auto) 0.2x10^3/uL (0.0-0.7) 0.3x10^3/uL (0.0-0.7) Basophils # (Auto) 0.0x10^3/uL (0.0-0.2) 0.1x10^3/uL (0.0-0.2) Sodium Level 143mmol/L (136-145) 147mmol/L (136-145) Potassium Level 3.8mmol/L (3.5-5.1) 3.5mmol/L (3.5-5.1) Chloride Level 108mmol/L (98-107) 111mmol/L (98-107) Carbon Dioxide Level 24mmol/L (21-32) 27mmol/L (21-32) Anion Gap 11 (6-14) 9 (6-14) Blood Urea Nitrogen 20mg/dL (7-20) 15mg/dL (7-20) Creatinine 1.1mg/dL (0.6-1.0) 0.8mg/dL (0.6-1.0) Estimated GFR (Cockcroft-Gault) 50.8 73.4 Glucose Level 116mg/dL (70-99) 124mg/dL (70-99) Calcium Level 7.6mg/dL (8.5-10.1) 6.7mg/dL (8.5-10.1) Magnesium Level 2.0mg/dL (1.8-2.4) O2 Saturation 95% (92-99) Arterial Blood pH 7.45 (7.35-7.45) Arterial Blood pCO2 at Patient Temp 32mmHg (35-46) Arterial Blood pO2 at Patient Temp 78mmHg (65-108) Arterial Blood HCO3 22mmol/L (21-28) Arterial Blood Base Excess -2mmol/L (-3-3) FiO2 50 Prothrombin Time 53.0SEC (11.7-14.0) Prothromb Time International Ratio 6.4 (0.8-1.1) Test 08/21/16 08:00 08/21/16 10:25 O2 Saturation 94% (92-99) Arterial Blood pH 7.47 (7.35-7.45) Arterial Blood pCO2 at Patient Temp 32mmHg (35-46) Arterial Blood pO2 at Patient Temp 70mmHg (65-108) Arterial Blood HCO3 23mmol/L (21-28) Arterial Blood Base Excess 0mmol/L (-3-3) FiO2 40 Prothrombin Time 29.0SEC (11.7-14.0) Prothromb Time International Ratio 2.9 (0.8-1.1) Laboratory Tests Test 08/21/16 05:00 08/21/16 08:00 08/21/16 10:25 White Blood Count 11.3x10^3/uL (4.0-11.0) Red Blood Count 3.66x10^6/uL (3.50-5.40) Hemoglobin 9.5g/dL (12.0-15.5) Hematocrit 29.4% (36.0-47.0) Mean Corpuscular Volume 81fL (79-100) Mean Corpuscular Hemoglobin 26pg (25-35) Mean Corpuscular Hemoglobin Concent 32g/dL (31-37) Red Cell Distribution Width 18.1% (11.5-14.5) Platelet Count 135x10^3/uL (140-400) Neutrophils (%) (Auto) 76% (31-73) Lymphocytes (%) (Auto) 13% (24-48) Monocytes (%) (Auto) 8% (0-9) Eosinophils (%) (Auto) 3% (0-3) Basophils (%) (Auto) 1% (0-3) Neutrophils # (Auto) 8.6x10^3uL (1.8-7.7) Lymphocytes # (Auto) 1.4x10^3/uL (1.0-4.8) Monocytes # (Auto) 0.9x10^3/uL (0.0-1.1) Eosinophils # (Auto) 0.3x10^3/uL (0.0-0.7) Basophils # (Auto) 0.1x10^3/uL (0.0-0.2) Sodium Level 147mmol/L (136-145) Potassium Level 3.5mmol/L (3.5-5.1) Chloride Level 111mmol/L (98-107) Carbon Dioxide Level 27mmol/L (21-32) Anion Gap 9 (6-14) Blood Urea Nitrogen 15mg/dL (7-20) Creatinine 0.8mg/dL (0.6-1.0) Estimated GFR (Cockcroft-Gault) 73.4 Glucose Level 124mg/dL (70-99) Calcium Level 6.7mg/dL (8.5-10.1) O2 Saturation 94% (92-99) Arterial Blood pH 7.47 (7.35-7.45) Arterial Blood pCO2 at Patient Temp 32mmHg (35-46) Arterial Blood pO2 at Patient Temp 70mmHg (65-108) Arterial Blood HCO3 23mmol/L (21-28) Arterial Blood Base Excess 0mmol/L (-3-3) FiO2 40 Prothrombin Time 29.0SEC (11.7-14.0) Prothromb Time International Ratio 2.9 (0.8-1.1) Medications Active Scripts Medications Dose Route/Sig Days Date Category Dose Instructions Keflex (Cephalexin) 500 Mg Capsule 500 Mg PO QID 07/12/16 Reported take for 10 days start 07/12 Percocet 10-325 Mg Tablet (Oxycodone/Acetaminophen) 1 Each Tablet 1 Tab PO PRN Q6HRS PRN 07/12/16 Reported Potassium Chloride 20 Meq Tablet.er 20 Meq PO DAILY 07/12/16 Reported Ventolin Hfa Inhaler (Albuterol Sulfate) 18 Gm Hfa.aer.ad 2 Puff INH Q4HRS 07/12/16 Reported Atorvastatin Calcium 10 Mg Tablet 1 Tab PO DAILY 07/12/16 Reported Daily Vitamin (Multivitamin) 1 Each Tablet 1 Each PO DAILY 12/8/14 Reported Coumadin (Warfarin Sodium) 2.5 Mg Tablet 0.5 Tab PO DAILY 04/15/14 Reported Propafenone Hcl 225 Mg Cap.er.12h 225 Mg PO BID 04/15/14 Reported Pantoprazole Sodium 40 Mg Tablet.dr 1 Tab PO DAILY 04/15/14 Reported Aquaphor (Petrolatum,White) 99 Gm Oint...g. 99 Gm TP BID 12/04/13 Reported Cardizem Cd (Diltiazem Hcl) 120 Mg Cap.er.24h 120 Mg PO DAILY 12/04/13 Reported Zofran Odt (Ondansetron) 4 Mg Tab.rapdis 8 Mg PO Q8HRS 12/04/13 Reported x 2 days start 07/12 then 4 mg q 6hrs prn Lasix (Furosemide) 40 Mg Tablet 40 Mg PO DAILY 12/04/13 Reported Comments IMPRESSION: 1. Interval insertion of a right PICC extending into the right atrium. 2. The ET tube and NG tube are in satisfactory position. 3. Worsening bilateral pulmonary infiltrates suggesting pulmonary edema and/or pneumonia. Impression . 1. Acute respiratory failure secondary to sepsis. 2. Sepsis with hypotension. 3. Atrial fibrillation. 4. Acute on chronic kidney failure. 5. Morbid obesity. 6. MULTIPLE ALLERGIES TO MEDICATIONS INCLUDING AMOXICILLIN. 7. S/P code blue V-Fib 8. Abnormal cxr with infiltrates, possible edema or pneumonia Plan . on levophed 1. pressors to keep map 65 2. cont vent support until more stable and more alert. setting reviewed. will taper off sedation 3. Broad-spectrum antibiotics per id 4. follow card input 5. follow nephro input 5. am abg pcxr 6. ? sinusitis, will discuss w id discussed w rn, rt RANI FELTON MD Aug 22, 2016 05:01
[2016-08-22] MEDS: MEROPENEM 1 GM in IV NORMAL SALINE 100ML 100 ML IV SCH ×3 (06:00→21:36)
[2016-08-22] MEDS: PROPAFENONE 150 MG TABLET. PO SCH ×3 (06:01→22:23)
[2016-08-22 06:27] LABS: BASO % 0 % (0-3); EOS % 2 % (0-3); HEMOGLOBIN 9.2 g/dL (12.0-15.5); LYMPH # 1.4 x10^3/uL (1.0-4.8); LYMPH % 11 % (24-48); MEAN CORPUSCULAR HEMOGLOBIN 26 pg (25-35); MEAN CORPUSCULAR HGB CONC 32 g/dL (31-37); MEAN CORPUSCULAR VOLUME 83 fL (79-100); MONO % 5 % (0-9); NEUT % 82 % (31-73); PLATELET COUNT 166 x10^3/uL (140-400); RED BLOOD COUNT 3.52 x10^6/uL (3.50-5.40); RED CELL DISTRIBUTION WIDTH 18.2 % (11.5-14.5); WHITE BLOOD COUNT 12.6 x10^3/uL (4.0-11.0)
[2016-08-22 06:48] LABS: ALBUMIN 1.1 g/dL (3.4-5.0); ALBUMIN/GLOBULIN RATIO 0.2 (1.0-1.7); CALCIUM 6.7 mg/dL (8.5-10.1); CREATININE 0.8 mg/dL (0.6-1.0); TOTAL PROTEIN 5.8 g/dL (6.4-8.2)
[2016-08-22 06:49] LABS: GFR 73.4; POTASSIUM 3.8 mmol/L (3.5-5.1); TOTAL BILIRUBIN 0.5 mg/dL (0.2-1.0)
[2016-08-22] MEDS: ALBUTEROL SULFATE 2.5 MG/3 ML NEBU. NEB SCH ×4 (07:21→19:31)
[2016-08-22] MEDS: PANTOPRAZOLE IV PUSH 40 MG VIAL. IVP SCH (08:03)
[2016-08-22] MEDS: MULTIVITAMIN with MINERAL TABLET. PO SCH (08:03)
[2016-08-22] MEDS: DIGOXIN IV 500 MCG/2 ML AMPUL. IV SCH (08:03)
[2016-08-22] MEDS: NYSTATIN TOPICAL POWDER 15GM BOTTLE. TP SCH ×2 (08:04→20:32)
[2016-08-22 08:16] LABS: HCO3 ABG 28 mmol/L (21-28); PCO2 ABG 36 mmHg (35-46); PO2 ABG 78 mmHg (65-108); SAT O2 ABG 96 % (92-99)
[2016-08-22 08:58] LABS: FIO2 ABG 40
[2016-08-22 09:04] LABS: INR 2.2 (0.8-1.1); PROTHROMBIN TIME PATIENT 23.4 SEC (11.7-14.0)
--- NOTE | 2016-08-22 09:08 | RAD ---
PORTABLE CHEST 1V Clinical Indication: intubated Comparison: August 21, 2016 Technique: Portable semiupright AP view of the chest is obtained. Findings: Distal tip of ET tube, visualized gastric tube and right upper extremity PICC line appears stable in position. No interval pneumothorax is seen. Bilateral opacities appear unchanged from previous exam. No significant pleural effusion is seen. Visualized osseous structures and overlying soft tissues demonstrate no acute interval change. IMPRESSION: Stable radiographic appearance the chest, with bilateral opacities possibly infiltrate or edema.
--- NOTE | 2016-08-22 09:50 | PDOC ---
PROGRESS NOTES Subjective Subjective Intubated and sedated Objective Objective Vital Signs Date Time Temp Pulse Resp B/P Pulse Ox O2 Delivery O2 Flow Rate FiO2 08/22/16 09:23 98 Ventilator 08/22/16 09:00 120 21 132/44 08/22/16 08:00 98.3 98.3 08/21/16 22:00 Intake and Output 08/22/16 07:00 Intake Total 2255.61 ml Output Total 1600 ml Balance 655.61 ml Intake Oral 0 ml IV Total 1453.61 ml Tube Feeding 702 ml Blood Product IV Normal Saline Flush 100 ml Output Urine Total 1600 ml Gastric Drainage Total 0 ml Physical Exam Abdomen: Normal bowel sounds, No tenderness Heart: Normal S1, Normal S2, Other (tachycardic) Extremities: Other (trace to 1+ edema - LE) General: Other (INTUBATED) HEENT: Atraumatic Lungs: Normal air movement MUSCULOSKELETAL: No deformity Skin: No breakdown COMMENT pigmentation neck Assessment Assessment 1. cardiopulmonary arrest VT with shock to afib RVR to VT = total of 2 shocks Telemetry did not show any further episodes of VT echo with preserved LV function and EF of 55-60% and no WMA seen wean levophed off as tolerated continue vent management per pulmonary team 2. atrial fib/atrial tach Heart rate better controlled with addition of digoxin 3. acute respiratory failure remains intubated/vent per pulm 4 sepsis abx per ID Plan Plan of Care Problems Medical Problems: (1) Fall from standing Status: Acute (2) Left knee pain Status: Acute Comment Review of Relevant I have reviewed the following items quentin (where applicable) has been applied. Labs Laboratory Tests Test 08/21/16 10:25 08/22/16 06:00 08/22/16 07:25 08/22/16 08:12 Prothrombin Time 29.0SEC (11.7-14.0) 23.4SEC (11.7-14.0) Prothromb Time International Ratio 2.9 (0.8-1.1) 2.2 (0.8-1.1) White Blood Count 12.6x10^3/uL (4.0-11.0) Red Blood Count 3.52x10^6/uL (3.50-5.40) Hemoglobin 9.2g/dL (12.0-15.5) Hematocrit 29.0% (36.0-47.0) Mean Corpuscular Volume 83fL (79-100) Mean Corpuscular Hemoglobin 26pg (25-35) Mean Corpuscular Hemoglobin Concent 32g/dL (31-37) Red Cell Distribution Width 18.2% (11.5-14.5) Platelet Count 166x10^3/uL (140-400) Neutrophils (%) (Auto) 82% (31-73) Lymphocytes (%) (Auto) 11% (24-48) Monocytes (%) (Auto) 5% (0-9) Eosinophils (%) (Auto) 2% (0-3) Basophils (%) (Auto) 0% (0-3) Neutrophils # (Auto) 10.4x10^3uL (1.8-7.7) Lymphocytes # (Auto) 1.4x10^3/uL (1.0-4.8) Monocytes # (Auto) 0.6x10^3/uL (0.0-1.1) Eosinophils # (Auto) 0.2x10^3/uL (0.0-0.7) Basophils # (Auto) 0.0x10^3/uL (0.0-0.2) Sodium Level 144mmol/L (136-145) Potassium Level 3.8mmol/L (3.5-5.1) Chloride Level 109mmol/L (98-107) Carbon Dioxide Level 29mmol/L (21-32) Anion Gap 6 (6-14) Blood Urea Nitrogen 16mg/dL (7-20) Creatinine 0.8mg/dL (0.6-1.0) Estimated GFR (Cockcroft-Gault) 73.4 BUN/Creatinine Ratio 20 (6-20) Glucose Level 134mg/dL (70-99) Calcium Level 6.7mg/dL (8.5-10.1) Total Bilirubin 0.5mg/dL (0.2-1.0) Aspartate Amino Transf (AST/SGOT) 35U/L (15-37) Alanine Aminotransferase (ALT/SGPT) 14U/L (14-59) Alkaline Phosphatase 79U/L (46-116) Total Protein 5.8g/dL (6.4-8.2) Albumin 1.1g/dL (3.4-5.0) Albumin/Globulin Ratio 0.2 (1.0-1.7) O2 Saturation 96% (92-99) Arterial Blood pH 7.50 (7.35-7.45) Arterial Blood pCO2 at Patient Temp 36mmHg (35-46) Arterial Blood pO2 at Patient Temp 78mmHg (65-108) Arterial Blood HCO3 28mmol/L (21-28) Arterial Blood Base Excess 4mmol/L (-3-3) FiO2 40 Microbiology 08/19/16 Blood Culture - Preliminary, Resulted NO GROWTH AFTER 3 DAYS 08/18/16 Urine Culture - Final, Complete 08/18/16 Urine Culture Result 1 (SILVINA) - Final, Complete Medications Current Medications Chlorhexidine Gluconate (Peridex) 15 ml BID [facility] ; Start 08/22/16 at 11:00 Digoxin (Lanoxin) 125 mcg DAILY IV Last administered on 08/22/16 08:03; Start 08/21/16 at 15:00 Meropenem/Sodium Chloride (Merrem/Iv Sodium Chloride 0.9% 100ml) 100 ml @ 200 mls/hr Q8HRS IV Last administered on 08/22/16 06:00; Start 08/21/16 at 14:00 Vancomycin HCl 1 each 1 each 1X ONCE [facility] ; Start 08/21/16 at 22:30; Stop at 22:30; Status DC Vitals/I & O Vital Sign - Last 24 Hours 08/21/16 08/21/16 08/21/16 08/21/16 10:00 11:00 11:17 12:00 Pulse 124 126 Resp 22 21 B/P 117/49 128/47 Pulse Ox 96 97 96 O2 Delivery Ventilator Ventilator Ventilator Mechanical Ventilator 08/21/16 08/21/16 08/21/16 08/21/16 12:00 13:00 13:19 14:00 Temp 100.0 100.0 Pulse 126 126 126 Resp 23 22 22 B/P 120/47 103/36 97/50 Pulse Ox 96 96 96 97 O2 Delivery Ventilator Ventilator Ventilator Ventilator 08/21/16 08/21/16 08/21/16 08/21/16 15:00 15:06 15:28 15:41 Pulse 126 151 127 Resp 21 B/P 108/47 95/40 104/50 Pulse Ox 96 97 O2 Delivery Ventilator Ventilator 08/21/16 08/21/16 08/21/16 08/21/16 16:00 16:00 16:57 17:00 Temp 99.6 99.6 Pulse 131 144 Resp 22 23 B/P 121/61 119/41 Pulse Ox 97 97 97 O2 Delivery Ventilator Mechanical Ventilator Ventilator Ventilator 08/21/16 08/21/16 08/21/16 08/21/16 18:00 19:00 19:57 20:00 Temp 100.1 100.1 Pulse 148 133 129 Resp 21 22 21 B/P 107/71 90/42 104/37 Pulse Ox 96 96 94 95 O2 Delivery Ventilator Ventilator Ventilator Ventilator 08/21/16 08/21/16 08/21/16 08/21/16 20:00 21:01 21:09 22:00 Temp Pulse 134 130 134 Resp 22 22 B/P 102/42 110/38 94/39 Pulse Ox 96 95 O2 Delivery Mechanical Ventilator Ventilator Ventilator O2 Flow Rate 08/21/16 08/21/16 08/22/16 08/22/16 23:00 23:47 00:00 00:00 Temp 99.3 99.3 Pulse 133 120 Resp 22 24 B/P 93/43 135/56 Pulse Ox 95 94 95 O2 Delivery Ventilator Ventilator Mechanical Ventilator 08/22/16 08/22/16 08/22/16 08/22/16 01:00 02:00 02:08 03:01 Temp 99.3 98.8 99.3 98.8 Pulse 126 122 126 Resp 22 22 22 B/P 116/53 100/58 132/53 Pulse Ox 95 95 94 94 O2 Delivery Ventilator Ventilator Ventilator Ventilator 08/22/16 08/22/16 08/22/16 08/22/16 04:00 04:00 04:00 05:01 Pulse 122 124 Resp 22 22 B/P 125/54 98/48 Pulse Ox 98 98 98 O2 Delivery Ventilator Mechanical Ventilator Ventilator Ventilator 08/22/16 08/22/16 08/22/16 08/22/16 06:00 06:01 07:00 07:12 Pulse 111 117 120 Resp 20 21 B/P 100/52 118/45 106/47 Pulse Ox 100 97 97 O2 Delivery Ventilator Ventilator 08/22/16 08/22/16 08/22/16 08/22/16 08:00 08:00 08:03 09:00 Temp 98.3 98.3 Pulse 118 115 120 Resp 21 21 B/P 119/45 119/45 132/44 Pulse Ox 99 99 O2 Delivery Ventilator Mechanical Ventilator Ventilator 08/22/16 09:23 Pulse Ox 98 O2 Delivery Ventilator Intake and Output 08/21/16 08/21/16 08/22/16 15:00 23:00 07:00 Intake Total 60 ml 260 ml 1935.61 ml Output Total 525 ml 580 ml 495 ml Balance -465 ml -320 ml 1440.61 ml CARLOS ELIZALDE MD Aug 22, 2016 09:50
--- NOTE | 2016-08-22 09:52 | PDOC ---
IM PROGRESS NOTES- Subjective Subjective None.Unable to do systems review- pt is not responsive. Objective Vitals Vital Signs Date Time Temp Pulse Resp B/P Pulse Ox O2 Delivery O2 Flow Rate FiO2 08/22/16 09:23 98 Ventilator 08/22/16 09:00 120 21 132/44 08/22/16 08:00 98.3 98.3 08/21/16 22:00 Input & Output Intake and Output 08/22/16 07:00 Intake Total 2255.61 ml Output Total 1600 ml Balance 655.61 ml Intake Oral 0 ml IV Total 1453.61 ml Tube Feeding 702 ml Blood Product IV Normal Saline Flush 100 ml Output Urine Total 1600 ml Gastric Drainage Total 0 ml Physical Exam Physical Exam HEENT: Head is atraumatic. Not responsive but resists opening the eyes on mechanical ventilation NECK: Supple. Thyroid not enlarged. JVD not elevated CARDIOVASCULAR: S1, S2. LUNGS: decreased BS biateral ABDOMEN: Morbid obesity, nontender. EXTREMITIES: Chronic lymphedema, has thickening of the skin secondary to chronic lymphedema. No redness at this time. Foot, no ulcerations. NEUROLOGIC: not responsive Labs Laboratory Tests Test 08/20/16 11:15 08/21/16 05:00 08/21/16 08:00 08/21/16 10:25 Prothrombin Time 53.0SEC (11.7-14.0) 29.0SEC (11.7-14.0) Prothromb Time International Ratio 6.4 (0.8-1.1) 2.9 (0.8-1.1) White Blood Count 11.3x10^3/uL (4.0-11.0) Red Blood Count 3.66x10^6/uL (3.50-5.40) Hemoglobin 9.5g/dL (12.0-15.5) Hematocrit 29.4% (36.0-47.0) Mean Corpuscular Volume 81fL (79-100) Mean Corpuscular Hemoglobin 26pg (25-35) Mean Corpuscular Hemoglobin Concent 32g/dL (31-37) Red Cell Distribution Width 18.1% (11.5-14.5) Platelet Count 135x10^3/uL (140-400) Neutrophils (%) (Auto) 76% (31-73) Lymphocytes (%) (Auto) 13% (24-48) Monocytes (%) (Auto) 8% (0-9) Eosinophils (%) (Auto) 3% (0-3) Basophils (%) (Auto) 1% (0-3) Neutrophils # (Auto) 8.6x10^3uL (1.8-7.7) Lymphocytes # (Auto) 1.4x10^3/uL (1.0-4.8) Monocytes # (Auto) 0.9x10^3/uL (0.0-1.1) Eosinophils # (Auto) 0.3x10^3/uL (0.0-0.7) Basophils # (Auto) 0.1x10^3/uL (0.0-0.2) Sodium Level 147mmol/L (136-145) Potassium Level 3.5mmol/L (3.5-5.1) Chloride Level 111mmol/L (98-107) Carbon Dioxide Level 27mmol/L (21-32) Anion Gap 9 (6-14) Blood Urea Nitrogen 15mg/dL (7-20) Creatinine 0.8mg/dL (0.6-1.0) Estimated GFR (Cockcroft-Gault) 73.4 Glucose Level 124mg/dL (70-99) Calcium Level 6.7mg/dL (8.5-10.1) O2 Saturation 94% (92-99) Arterial Blood pH 7.47 (7.35-7.45) Arterial Blood pCO2 at Patient Temp 32mmHg (35-46) Arterial Blood pO2 at Patient Temp 70mmHg (65-108) Arterial Blood HCO3 23mmol/L (21-28) Arterial Blood Base Excess 0mmol/L (-3-3) FiO2 40 Test 08/22/16 06:00 08/22/16 07:25 08/22/16 08:12 White Blood Count 12.6x10^3/uL (4.0-11.0) Red Blood Count 3.52x10^6/uL (3.50-5.40) Hemoglobin 9.2g/dL (12.0-15.5) Hematocrit 29.0% (36.0-47.0) Mean Corpuscular Volume 83fL (79-100) Mean Corpuscular Hemoglobin 26pg (25-35) Mean Corpuscular Hemoglobin Concent 32g/dL (31-37) Red Cell Distribution Width 18.2% (11.5-14.5) Platelet Count 166x10^3/uL (140-400) Neutrophils (%) (Auto) 82% (31-73) Lymphocytes (%) (Auto) 11% (24-48) Monocytes (%) (Auto) 5% (0-9) Eosinophils (%) (Auto) 2% (0-3) Basophils (%) (Auto) 0% (0-3) Neutrophils # (Auto) 10.4x10^3uL (1.8-7.7) Lymphocytes # (Auto) 1.4x10^3/uL (1.0-4.8) Monocytes # (Auto) 0.6x10^3/uL (0.0-1.1) Eosinophils # (Auto) 0.2x10^3/uL (0.0-0.7) Basophils # (Auto) 0.0x10^3/uL (0.0-0.2) Sodium Level 144mmol/L (136-145) Potassium Level 3.8mmol/L (3.5-5.1) Chloride Level 109mmol/L (98-107) Carbon Dioxide Level 29mmol/L (21-32) Anion Gap 6 (6-14) Blood Urea Nitrogen 16mg/dL (7-20) Creatinine 0.8mg/dL (0.6-1.0) Estimated GFR (Cockcroft-Gault) 73.4 BUN/Creatinine Ratio 20 (6-20) Glucose Level 134mg/dL (70-99) Calcium Level 6.7mg/dL (8.5-10.1) Total Bilirubin 0.5mg/dL (0.2-1.0) Aspartate Amino Transf (AST/SGOT) 35U/L (15-37) Alanine Aminotransferase (ALT/SGPT) 14U/L (14-59) Alkaline Phosphatase 79U/L (46-116) Total Protein 5.8g/dL (6.4-8.2) Albumin 1.1g/dL (3.4-5.0) Albumin/Globulin Ratio 0.2 (1.0-1.7) O2 Saturation 96% (92-99) Arterial Blood pH 7.50 (7.35-7.45) Arterial Blood pCO2 at Patient Temp 36mmHg (35-46) Arterial Blood pO2 at Patient Temp 78mmHg (65-108) Arterial Blood HCO3 28mmol/L (21-28) Arterial Blood Base Excess 4mmol/L (-3-3) FiO2 40 Prothrombin Time 23.4SEC (11.7-14.0) Prothromb Time International Ratio 2.2 (0.8-1.1) Laboratory Tests Test 08/21/16 10:25 08/22/16 06:00 08/22/16 07:25 08/22/16 08:12 Prothrombin Time 29.0SEC (11.7-14.0) 23.4SEC (11.7-14.0) Prothromb Time International Ratio 2.9 (0.8-1.1) 2.2 (0.8-1.1) White Blood Count 12.6x10^3/uL (4.0-11.0) Red Blood Count 3.52x10^6/uL (3.50-5.40) Hemoglobin 9.2g/dL (12.0-15.5) Hematocrit 29.0% (36.0-47.0) Mean Corpuscular Volume 83fL (79-100) Mean Corpuscular Hemoglobin 26pg (25-35) Mean Corpuscular Hemoglobin Concent 32g/dL (31-37) Red Cell Distribution Width 18.2% (11.5-14.5) Platelet Count 166x10^3/uL (140-400) Neutrophils (%) (Auto) 82% (31-73) Lymphocytes (%) (Auto) 11% (24-48) Monocytes (%) (Auto) 5% (0-9) Eosinophils (%) (Auto) 2% (0-3) Basophils (%) (Auto) 0% (0-3) Neutrophils # (Auto) 10.4x10^3uL (1.8-7.7) Lymphocytes # (Auto) 1.4x10^3/uL (1.0-4.8) Monocytes # (Auto) 0.6x10^3/uL (0.0-1.1) Eosinophils # (Auto) 0.2x10^3/uL (0.0-0.7) Basophils # (Auto) 0.0x10^3/uL (0.0-0.2) Sodium Level 144mmol/L (136-145) Potassium Level 3.8mmol/L (3.5-5.1) Chloride Level 109mmol/L (98-107) Carbon Dioxide Level 29mmol/L (21-32) Anion Gap 6 (6-14) Blood Urea Nitrogen 16mg/dL (7-20) Creatinine 0.8mg/dL (0.6-1.0) Estimated GFR (Cockcroft-Gault) 73.4 BUN/Creatinine Ratio 20 (6-20) Glucose Level 134mg/dL (70-99) Calcium Level 6.7mg/dL (8.5-10.1) Total Bilirubin 0.5mg/dL (0.2-1.0) Aspartate Amino Transf (AST/SGOT) 35U/L (15-37) Alanine Aminotransferase (ALT/SGPT) 14U/L (14-59) Alkaline Phosphatase 79U/L (46-116) Total Protein 5.8g/dL (6.4-8.2) Albumin 1.1g/dL (3.4-5.0) Albumin/Globulin Ratio 0.2 (1.0-1.7) O2 Saturation 96% (92-99) Arterial Blood pH 7.50 (7.35-7.45) Arterial Blood pCO2 at Patient Temp 36mmHg (35-46) Arterial Blood pO2 at Patient Temp 78mmHg (65-108) Arterial Blood HCO3 28mmol/L (21-28) Arterial Blood Base Excess 4mmol/L (-3-3) FiO2 40 Meds Current Medications Chlorhexidine Gluconate (Peridex) 15 ml BID [facility] ; Start 08/22/16 at 11:00 Digoxin (Lanoxin) 125 mcg DAILY IV Last administered on 08/22/16 08:03; Start 08/21/16 at 15:00 Meropenem/Sodium Chloride (Merrem/Iv Sodium Chloride 0.9% 100ml) 100 ml @ 200 mls/hr Q8HRS IV Last administered on 08/22/16 06:00; Start 08/21/16 at 14:00 Vancomycin HCl 1 each 1 each 1X ONCE ; Start 4/15/17 at 22:30; Stop at 22:30; Status DC Assessment Assessment Problems Medical Problems: (1) Fall from standing Status: Acute (2) Left knee pain Status: Acute FINAL IMPRESSION: CODE BLUE INTUBATED Bacteremia gram positive strep. sepsis with lactic acidosis 1. Acute sepsis with hypotension. 2. Elevated white count with hypertension as well as renal insufficiency. 3. Chronic recurrent cellulitis of the legs. 4. Chronic lymphedema. 5. Morbid obesity. 6. History of Clostridium difficile. 7. Chronic atrial fibrillation, on Coumadin. 8. coagulopathy PLAN: iv antibiotics. vanco+meropenum. weaning off sedation. hypotension on low dose levophed Acute resiratory failure- on mechanical ventilation Coagulopathy INR decreased to 2.2.D/c Femoral line . Thrombocytopenia Hypokalemia- K 3.8 Improving. Leukocytosis- WBC 12.6 Prognosis is very poor. Sedation stopped 30 minutes ago but pt is not responsive. Plan Plan For more details regarding further plans, please refer to the orders. JOSEPHINE HALE MD Aug 22, 2016 09:52
--- NOTE | 2016-08-22 10:27 | PDOC ---
Infectious Disease Note Subjective Subjective Sedated but sedation turned off Remains intubated. FiO2 40% Hypotension. on Levophed 4 mcg No fever or diarrhea ROS ROS Unobtainable Vital Sign Vital Signs Vital Signs Date Time Temp Pulse Resp B/P Pulse Ox O2 Delivery O2 Flow Rate FiO2 08/22/16 09:23 98 Ventilator 08/22/16 09:00 120 21 132/44 08/22/16 08:00 98.3 98.3 08/21/16 22:00 Physical Exam PHYSICAL EXAM GENERAL: Intubated and sedated, mittens HEENT: Pupils small. ETT. OGT LUNGS: Clear HEART: S1S2, tachy 120s ABD: Obese, soft : Newman EXT: BLE edema. 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 RUE-PICC. clean Labs Lab Laboratory Tests Test 08/21/16 10:25 08/22/16 06:00 08/22/16 07:25 08/22/16 08:12 Prothrombin Time 29.0SEC (11.7-14.0) 23.4SEC (11.7-14.0) Prothromb Time International Ratio 2.9 (0.8-1.1) 2.2 (0.8-1.1) White Blood Count 12.6x10^3/uL (4.0-11.0) Red Blood Count 3.52x10^6/uL (3.50-5.40) Hemoglobin 9.2g/dL (12.0-15.5) Hematocrit 29.0% (36.0-47.0) Mean Corpuscular Volume 83fL (79-100) Mean Corpuscular Hemoglobin 26pg (25-35) Mean Corpuscular Hemoglobin Concent 32g/dL (31-37) Red Cell Distribution Width 18.2% (11.5-14.5) Platelet Count 166x10^3/uL (140-400) Neutrophils (%) (Auto) 82% (31-73) Lymphocytes (%) (Auto) 11% (24-48) Monocytes (%) (Auto) 5% (0-9) Eosinophils (%) (Auto) 2% (0-3) Basophils (%) (Auto) 0% (0-3) Neutrophils # (Auto) 10.4x10^3uL (1.8-7.7) Lymphocytes # (Auto) 1.4x10^3/uL (1.0-4.8) Monocytes # (Auto) 0.6x10^3/uL (0.0-1.1) Eosinophils # (Auto) 0.2x10^3/uL (0.0-0.7) Basophils # (Auto) 0.0x10^3/uL (0.0-0.2) Sodium Level 144mmol/L (136-145) Potassium Level 3.8mmol/L (3.5-5.1) Chloride Level 109mmol/L (98-107) Carbon Dioxide Level 29mmol/L (21-32) Anion Gap 6 (6-14) Blood Urea Nitrogen 16mg/dL (7-20) Creatinine 0.8mg/dL (0.6-1.0) Estimated GFR (Cockcroft-Gault) 73.4 BUN/Creatinine Ratio 20 (6-20) Glucose Level 134mg/dL (70-99) Calcium Level 6.7mg/dL (8.5-10.1) Total Bilirubin 0.5mg/dL (0.2-1.0) Aspartate Amino Transf (AST/SGOT) 35U/L (15-37) Alanine Aminotransferase (ALT/SGPT) 14U/L (14-59) Alkaline Phosphatase 79U/L (46-116) Total Protein 5.8g/dL (6.4-8.2) Albumin 1.1g/dL (3.4-5.0) Albumin/Globulin Ratio 0.2 (1.0-1.7) O2 Saturation 96% (92-99) Arterial Blood pH 7.50 (7.35-7.45) Arterial Blood pCO2 at Patient Temp 36mmHg (35-46) Arterial Blood pO2 at Patient Temp 78mmHg (65-108) Arterial Blood HCO3 28mmol/L (21-28) Arterial Blood Base Excess 4mmol/L (-3-3) FiO2 40 Objective Assessment Group B strep. 08/18 sepsis Pulmonary infiltrates Afib - RVR 08/21 Leukocytosis. mild elevation ? Afib Lactic acidosis, improved Dehydration LISSETH. resolved Hypotension likely sec to dehydration , infection appears less likely Obesity Respiratory failure s/p intubation MRSA nares positive Rash. purpuric/petechial-type -?reactive from code and intubation s/p code blue, V-fib. 08/18 Plan Plan of Care Cont meropenem 1 gm q8 F/u labs - Procalcitonin/BMP/CBC supportive care Critically ill Poor prognosis ALEX FRAZIER MD Aug 22, 2016 10:27
[2016-08-22] MEDS: CHLORHEXIDINE 0.12% 15 ML MOUTHWASH. SWSP SCH ×2 (12:25→20:32)
[2016-08-22] MEDS: ATORVASTATIN CALCIUM 10 MG TABLET. PO SCH (20:32)
[2016-08-22] MEDS: MORPHINE SULFATE/PF 30 ML IV PRN (21:09)
--- NOTE | 2016-08-22 23:54 | RAD ---
KUB Indication: OG tube placement. Time of exam 11:17 p.m. An OG tube passes below the diaphragm and appears to have the tip in the region of the gastric body. Impression: OG tube placement, as described. Electronically signed by: David Villaseñor MD (Aug 22, 2016 23:53:36)
[2016-08-23] VITALS (24 sets, daily range): BP systolic 83–118; BP diastolic 32–71
[2016-08-23] MEDS: MEROPENEM 1 GM in IV NORMAL SALINE 100ML 100 ML IV SCH ×3 (05:28→21:58)
[2016-08-23] MEDS: PROPAFENONE 150 MG TABLET. PO SCH ×3 (05:31→21:58)
[2016-08-23] MEDS: SODIUM BICARBONATE VIAL 50 MEQ in IV 1/2 NORMAL SALINE 1,000 ML IV SCH ×4 (06:17→22:14)
[2016-08-23 06:35] LABS: ALBUMIN/GLOBULIN RATIO 0.2 (1.0-1.7); CALCIUM 7.2 mg/dL (8.5-10.1); CREATININE 0.9 mg/dL (0.6-1.0); GFR 64.1; POTASSIUM 4.4 mmol/L (3.5-5.1); TOTAL BILIRUBIN 0.5 mg/dL (0.2-1.0); TOTAL PROTEIN 6.3 g/dL (6.4-8.2)
--- NOTE | 2016-08-23 07:02 | PDOC ---
Infectious Disease Note Subjective Subjective Sedated but sedation turned off Remains intubated. Hypotension. on Levophed 5 mcg No fever or diarrhea ROS ROS Unobtainable Vital Sign Vital Signs Vital Signs Date Time Temp Pulse Resp B/P Pulse Ox O2 Delivery O2 Flow Rate FiO2 08/23/16 06:00 116 22 107/38 100 Ventilator 08/23/16 03:00 98.9 98.9 08/22/16 15:30 5.0 Physical Exam PHYSICAL EXAM GENERAL: Intubated and not responsive yet, mittens HEENT: Pupils small. ETT. OGT LUNGS: Clear HEART: S1S2, tachy 120s ABD: Obese, soft : Newman EXT: BLE edema. 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 RUE-PICC. clean Labs Lab Laboratory Tests Test 08/22/16 07:25 08/22/16 08:12 08/23/16 05:30 O2 Saturation 96% (92-99) Arterial Blood pH 7.50 (7.35-7.45) Arterial Blood pCO2 at Patient Temp 36mmHg (35-46) Arterial Blood pO2 at Patient Temp 78mmHg (65-108) Arterial Blood HCO3 28mmol/L (21-28) Arterial Blood Base Excess 4mmol/L (-3-3) FiO2 40 Prothrombin Time 23.4SEC (11.7-14.0) Prothromb Time International Ratio 2.2 (0.8-1.1) Sodium Level 139mmol/L (136-145) Potassium Level 4.4mmol/L (3.5-5.1) Chloride Level 105mmol/L (98-107) Carbon Dioxide Level 28mmol/L (21-32) Anion Gap 6 (6-14) Blood Urea Nitrogen 16mg/dL (7-20) Creatinine 0.9mg/dL (0.6-1.0) Estimated GFR (Cockcroft-Gault) 64.1 BUN/Creatinine Ratio 18 (6-20) Glucose Level 115mg/dL (70-99) Calcium Level 7.2mg/dL (8.5-10.1) Total Bilirubin 0.5mg/dL (0.2-1.0) Aspartate Amino Transf (AST/SGOT) 34U/L (15-37) Alanine Aminotransferase (ALT/SGPT) 12U/L (14-59) Alkaline Phosphatase 72U/L (46-116) Total Protein 6.3g/dL (6.4-8.2) Albumin 1.0g/dL (3.4-5.0) Albumin/Globulin Ratio 0.2 (1.0-1.7) Objective Assessment Group B strep. 08/18 sepsis. Repeat 08/19 neg Pulmonary infiltrates Afib - RVR 08/21 Leukocytosis. mild elevation ? Afib Lactic acidosis, improved Dehydration LISSETH. resolved Hypotension likely sec to dehydration , infection appears less likely Obesity Respiratory failure s/p intubation MRSA nares positive Rash. purpuric/petechial-type -? reactive from code and intubation s/p code blue, V-fib. 08/18 Plan Plan of Care Cont meropenem 1 gm q8 F/u labs - Procalcitonin/CBC supportive care Critically ill Poor prognosis ALEX FRAZIER MD Aug 23, 2016 07:02
--- NOTE | 2016-08-23 07:32 | RAD ---
Portable chest, 08/23/2016: History: Respiratory failure Comparison is made to yesterday's study. The ET tube has its tip located well above the lyndon. An NG tube extends into the stomach. A right PICC extends into the superior aspect of the right atrium. The heart is enlarged. The pulmonary vascularity is congested with loss of vascular margination. Pulmonary infiltrates have worsened with loss of definition of both hemidiaphragms. There may be pleural fluid layering posteriorly contributing to the basilar opacities. IMPRESSION: 1. Stable tube positions. 2. Worsening pulmonary infiltrates most compatible with pulmonary edema due to congestive heart failure.
[2016-08-23] MEDS: ALBUTEROL SULFATE 2.5 MG/3 ML NEBU. NEB SCH ×4 (08:00→20:07)
[2016-08-23] MEDS: PANTOPRAZOLE IV PUSH 40 MG VIAL. IVP SCH (08:19)
[2016-08-23] MEDS: CHLORHEXIDINE 0.12% 15 ML MOUTHWASH. SWSP SCH ×2 (08:20→20:32)
[2016-08-23] MEDS: DIGOXIN IV 500 MCG/2 ML AMPUL. IV SCH (08:20)
[2016-08-23] MEDS: NYSTATIN TOPICAL POWDER 15GM BOTTLE. TP SCH ×2 (08:20→20:32)
[2016-08-23] MEDS: MULTIVITAMIN with MINERAL TABLET. PO SCH (08:20)
[2016-08-23] MEDS: NOREPINEPHRINE 8 MG in IV NORMAL SALINE 250 ML IV PRN (09:49)
--- NOTE | 2016-08-23 10:24 | PDOC ---
PROGRESS NOTES Subjective Subjective on vent,intubated.of sedation Objective Objective Vital Signs Date Time Temp Pulse Resp B/P Pulse Ox O2 Delivery O2 Flow Rate FiO2 08/23/16 09:53 124 22 107/55 99 Ventilator 08/23/16 08:18 98.8 98.8 08/23/16 08:09 5.0 Intake and Output 08/23/16 07:00 Intake Total 66870.12 ml Output Total 1910 ml Balance 8242.12 ml IV Total 5804.12 ml Tube Feeding 1466 ml Blood Product IV Normal Saline Flush 60 ml Other 2822 ml Output Urine Total 1910 ml Gastric Drainage Total 0 ml Physical Exam Abdomen: Normal bowel sounds, No tenderness Heart: Normal S1, Normal S2, Other (tachycardic) Extremities: Other (trace to 1+ edema - LE) General: Other (INTUBATED) HEENT: Atraumatic Lungs: Normal air movement MUSCULOSKELETAL: No deformity Skin: No breakdown COMMENT pigmentation neck Diagnosis Problem List Problems Medical Problems: (1) Fall from standing Status: Acute (2) Left knee pain Status: Acute Assessment Assessment Problems Medical Problems: (1) Fall from standing Status: Acute (2) Left knee pain Status: Acute FINAL IMPRESSION: CODE BLUE INTUBATED for resp failure Bacteremia gram positive -strep. sepsis with lactic acidosis. coagulopathy 1. Acute sepsis with hypotension. 2. Elevated white count with hypertension as well as renal insufficiency. 3. Chronic recurrent cellulitis of the legs. 4. Chronic lymphedema. 5. Morbid obesity. 6. History of Clostridium difficile. 7. Chronic atrial fibrillation, on Coumadin. 8. coagulopathy PLAN: spoke with ID iv antibiotics. meropenum. weaning off sedation. hypotension on low dose levophed Acute resiratory failure- on mechanical ventilation Coagulopathy INR decreased to 2.2. D/gabby Femoral line . Thrombocytopenia resolved Hypokalemia- K 3.8 Improving. Leukocytosis- WBC 12.6 Prognosis is very poor. Problems: Plan Plan of Care Problems Medical Problems: (1) Fall from standing Status: Acute (2) Left knee pain Status: Acute Comment Review of Relevant I have reviewed the following items quentin (where applicable) has been applied. Labs Laboratory Tests Test 08/23/16 05:30 Sodium Level 139mmol/L (136-145) Potassium Level 4.4mmol/L (3.5-5.1) Chloride Level 105mmol/L (98-107) Carbon Dioxide Level 28mmol/L (21-32) Anion Gap 6 (6-14) Blood Urea Nitrogen 16mg/dL (7-20) Creatinine 0.9mg/dL (0.6-1.0) Estimated GFR (Cockcroft-Gault) 64.1 BUN/Creatinine Ratio 18 (6-20) Glucose Level 115mg/dL (70-99) Calcium Level 7.2mg/dL (8.5-10.1) Total Bilirubin 0.5mg/dL (0.2-1.0) Aspartate Amino Transf (AST/SGOT) 34U/L (15-37) Alanine Aminotransferase (ALT/SGPT) 12U/L (14-59) Alkaline Phosphatase 72U/L (46-116) Total Protein 6.3g/dL (6.4-8.2) Albumin 1.0g/dL (3.4-5.0) Albumin/Globulin Ratio 0.2 (1.0-1.7) Procalcitonin 1.80ng/mL (0.00-0.10) Microbiology 08/19/16 Blood Culture - Preliminary, Resulted NO GROWTH AFTER 4 DAYS 08/18/16 Urine Culture - Final, Complete 08/18/16 Urine Culture Result 1 (SILVINA) - Final, Complete Medications Current Medications Chlorhexidine Gluconate (Peridex) 15 ml BID SWSP Last administered on t 08:20; Start 08/22/16 at 11:00 Vitals/I & O Vital Sign - Last 24 Hours 08/22/16 08/22/16 08/22/16 08/22/16 10:46 11:00 12:00 12:00 Temp 98.3 98.3 Pulse 118 114 Resp 22 21 B/P 101/44 96/38 Pulse Ox 99 98 99 O2 Delivery Ventilator Ventilator Ventilator Mechanical Ventilator 08/22/16 08/22/16 08/22/16 08/22/16 13:00 13:36 13:42 14:03 Pulse 120 117 121 Resp 22 14 B/P 108/45 108/45 83/43 Pulse Ox 98 98 97 O2 Delivery Ventilator Ventilator Ventilator 08/22/16 08/22/16 08/22/16 08/22/16 15:00 15:29 15:30 16:00 Pulse 111 115 Resp 22 22 B/P 106/35 95/48 Pulse Ox 100 97 98 O2 Delivery Ventilator Ventilator Mechanical Ventilator Ventilator O2 Flow Rate 5.0 08/22/16 08/22/16 08/22/16 08/22/16 16:45 17:35 17:43 19:00 Temp 98.6 98.4 98.6 98.4 Pulse 121 123 120 Resp 26 26 22 B/P 102/46 85/41 96/50 Pulse Ox 97 97 100 99 O2 Delivery Ventilator Ventilator Ventilator Ventilator 08/22/16 08/22/16 08/22/16 08/22/16 19:32 20:00 20:00 21:00 Pulse 115 115 Resp 22 31 B/P 103/60 91/53 Pulse Ox 98 99 99 O2 Delivery Ventilator Ventilator Mechanical Ventilator Ventilator 08/22/16 08/22/16 08/22/16 08/22/16 21:09 21:39 22:00 22:23 Pulse 118 124 Resp 31 22 22 B/P 108/44 116/67 Pulse Ox 100 99 98 O2 Delivery Ventilator Ventilator 08/22/16 08/22/16 08/23/16 08/23/16 22:56 23:00 00:00 00:00 Temp 98.9 98.9 Pulse 124 120 Resp 26 22 B/P 106/46 112/71 Pulse Ox 98 99 98 O2 Delivery Ventilator Ventilator Mechanical Ventilator Ventilator 08/23/16 08/23/16 08/23/16 08/23/16 01:00 02:00 02:12 03:00 Temp 98.9 98.9 Pulse 125 128 122 Resp 23 28 23 B/P 117/51 97/54 98/40 Pulse Ox 100 100 100 100 O2 Delivery Ventilator Ventilator Ventilator Ventilator 08/23/16 08/23/16 08/23/16 08/23/16 04:00 04:00 04:15 05:00 Pulse 122 120 Resp 21 22 B/P 95/42 108/41 Pulse Ox 98 99 99 O2 Delivery Mechanical Ventilator Ventilator Ventilator Ventilator 08/23/16 08/23/16 08/23/16 08/23/16 05:31 06:00 07:18 08:00 Pulse 122 116 112 Resp 22 21 B/P 108/44 107/38 87/41 Pulse Ox 100 98 100 O2 Delivery Ventilator Ventilator Ventilator 08/23/16 08/23/16 08/23/16 08/23/16 08:09 08:18 08:20 08:20 Temp 98.8 98.8 Pulse 117 117 122 Resp 21 B/P 98/45 98/45 98/45 Pulse Ox 100 O2 Delivery Mechanical Ventilator Ventilator O2 Flow Rate 5.0 08/23/16 08/23/16 09:02 09:53 Pulse 113 124 Resp 22 22 B/P 118/49 107/55 Pulse Ox 98 99 O2 Delivery Ventilator Ventilator Intake and Output 08/22/16 08/22/16 08/23/16 15:00 23:00 07:00 Intake Total 160 ml 7154.74 ml 2837.38 ml Output Total 730 ml 550 ml 630 ml Balance -570 ml 6604.74 ml 2207.38 ml JAGUAR BRICE MD Aug 23, 2016 10:24
[2016-08-23 10:47] LABS: BASO # 0.1 x10^3/uL (0.0-0.2); BASO % 1 % (0-3); EOS % 2 % (0-3); HEMATOCRIT 29.6 % (36.0-47.0); HEMOGLOBIN 9.5 g/dL (12.0-15.5); LYMPH # 1.7 x10^3/uL (1.0-4.8); LYMPH % 11 % (24-48); MEAN CORPUSCULAR HEMOGLOBIN 26 pg (25-35); MEAN CORPUSCULAR HGB CONC 32 g/dL (31-37); MEAN CORPUSCULAR VOLUME 82 fL (79-100); MONO % 4 % (0-9); NEUT % 83 % (31-73); PLATELET COUNT 185 x10^3/uL (140-400); RED BLOOD COUNT 3.63 x10^6/uL (3.50-5.40); RED CELL DISTRIBUTION WIDTH 18.6 % (11.5-14.5)
[2016-08-23 11:05] LABS: INR 1.9 (0.8-1.1); PROTHROMBIN TIME PATIENT 20.9 SEC (11.7-14.0)
--- NOTE | 2016-08-23 13:28 | PDOC ---
CARDIO Progress Notes Date and Time Date of Service 08/23/2016 Time of Evaluation 1325 Subjective Subjective: Other (intubated/sedated) Comments: no response to verbal stimuli Vitals Vitals Vital Signs Date Time Temp Pulse Resp B/P Pulse Ox O2 Delivery O2 Flow Rate FiO2 08/23/16 13:13 99 22 84/37 99 Ventilator 08/23/16 12:07 5.0 08/23/16 08:18 98.8 98.8 Weight Weight [ ] Stability Assessment Stability Assess.: unstable for transfer (Intesive V. sign monit. req) Input and Output Intake and Output Intake and Output 08/23/16 06:59 Intake Total 23002.12 ml Output Total 2010 ml Balance 8142.12 ml IV Total 5804.12 ml Tube Feeding 1466 ml Blood Product IV Normal Saline Flush 60 ml Other 2822 ml Output Urine Total 2010 ml Gastric Drainage Total 0 ml Laboratory Labs Laboratory Tests Test 08/23/16 05:30 08/23/16 10:30 Sodium Level 139mmol/L (136-145) Potassium Level 4.4mmol/L (3.5-5.1) Chloride Level 105mmol/L (98-107) Carbon Dioxide Level 28mmol/L (21-32) Anion Gap 6 (6-14) Blood Urea Nitrogen 16mg/dL (7-20) Creatinine 0.9mg/dL (0.6-1.0) Estimated GFR (Cockcroft-Gault) 64.1 BUN/Creatinine Ratio 18 (6-20) Glucose Level 115mg/dL (70-99) Calcium Level 7.2mg/dL (8.5-10.1) Total Bilirubin 0.5mg/dL (0.2-1.0) Aspartate Amino Transf (AST/SGOT) 34U/L (15-37) Alanine Aminotransferase (ALT/SGPT) 12U/L (14-59) Alkaline Phosphatase 72U/L (46-116) Total Protein 6.3g/dL (6.4-8.2) Albumin 1.0g/dL (3.4-5.0) Albumin/Globulin Ratio 0.2 (1.0-1.7) Procalcitonin 1.80ng/mL (0.00-0.10) White Blood Count 16.0x10^3/uL (4.0-11.0) Red Blood Count 3.63x10^6/uL (3.50-5.40) Hemoglobin 9.5g/dL (12.0-15.5) Hematocrit 29.6% (36.0-47.0) Mean Corpuscular Volume 82fL (79-100) Mean Corpuscular Hemoglobin 26pg (25-35) Mean Corpuscular Hemoglobin Concent 32g/dL (31-37) Red Cell Distribution Width 18.6% (11.5-14.5) Platelet Count 185x10^3/uL (140-400) Neutrophils (%) (Auto) 83% (31-73) Lymphocytes (%) (Auto) 11% (24-48) Monocytes (%) (Auto) 4% (0-9) Eosinophils (%) (Auto) 2% (0-3) Basophils (%) (Auto) 1% (0-3) Neutrophils # (Auto) 13.3x10^3uL (1.8-7.7) Lymphocytes # (Auto) 1.7x10^3/uL (1.0-4.8) Monocytes # (Auto) 0.7x10^3/uL (0.0-1.1) Eosinophils # (Auto) 0.3x10^3/uL (0.0-0.7) Basophils # (Auto) 0.1x10^3/uL (0.0-0.2) Prothrombin Time 20.9SEC (11.7-14.0) Prothromb Time International Ratio 1.9 (0.8-1.1) Microbiology Micro Microbiology 08/19/16 Blood Culture - Preliminary, Resulted NO GROWTH AFTER 4 DAYS 08/18/16 Urine Culture - Final, Complete 08/18/16 Urine Culture Result 1 (SILVINA) - Final, Complete Radiology Rad Impression CXR: 1. Stable tube positions. 2. Worsening pulmonary infiltrates most compatible with pulmonary edema due to congestive heart failure. Case Discussion Case Discussed with: Family Review of Systems Constitutional: yes: no symptom reported Physical Exam Chest: Symmetric LUNGS: Other (coarse anteriorly; ? crackles) Heart: S1S2, irregularly irregular (tachycardic), other (tele: AF/AT) Abdomen: Other (morbidly obese) Extremities: Other (+ lower extremity edema with venous stasis changes) Neurology: other (sedated) Assessment Assessment 1. cardiopulmonary arrest VT with shock to afib RVR to VT = total of 2 shocks echo with preserved LV function and EF of 55-60% and no WMA seen continues to require vasopressive support for hypotension continue supportive care 2. atrial fib/atrial tach INR subtherapeutic rate controlled with digoxin anti-arrhythmic - propafenone 3. acute respiratory failure remains intubated/vent per pulm 4 sepsis abx per ID ARACELY URBANO PATIENT SERVICES ASSISTANT Aug 23, 2016 13:28
--- NOTE | 2016-08-23 14:49 | PDOC ---
PULMONARY PROGRESS NOTES Subjective PT SEDATED ON VENT, on Levo Vitals Vital Signs Date Time Temp Pulse Resp B/P Pulse Ox O2 Delivery O2 Flow Rate FiO2 08/23/16 14:06 104 21 103/43 100 Ventilator 08/23/16 12:07 5.0 08/23/16 08:18 98.8 98.8 HEENT: Other (nc at perrl orally intubated. nose clear) Lungs: Crackles Cardiovascular: S1, S2 Abdomen: Soft, Non-tender, Other ( no mass obese) Extremities: Other (edema) Skin: Warm, Dry Labs Laboratory Tests Test 08/22/16 06:00 08/22/16 07:25 08/22/16 08:12 08/23/16 05:30 White Blood Count 12.6x10^3/uL (4.0-11.0) Red Blood Count 3.52x10^6/uL (3.50-5.40) Hemoglobin 9.2g/dL (12.0-15.5) Hematocrit 29.0% (36.0-47.0) Mean Corpuscular Volume 83fL (79-100) Mean Corpuscular Hemoglobin 26pg (25-35) Mean Corpuscular Hemoglobin Concent 32g/dL (31-37) Red Cell Distribution Width 18.2% (11.5-14.5) Platelet Count 166x10^3/uL (140-400) Neutrophils (%) (Auto) 82% (31-73) Lymphocytes (%) (Auto) 11% (24-48) Monocytes (%) (Auto) 5% (0-9) Eosinophils (%) (Auto) 2% (0-3) Basophils (%) (Auto) 0% (0-3) Neutrophils # (Auto) 10.4x10^3uL (1.8-7.7) Lymphocytes # (Auto) 1.4x10^3/uL (1.0-4.8) Monocytes # (Auto) 0.6x10^3/uL (0.0-1.1) Eosinophils # (Auto) 0.2x10^3/uL (0.0-0.7) Basophils # (Auto) 0.0x10^3/uL (0.0-0.2) Sodium Level 144mmol/L (136-145) 139mmol/L (136-145) Potassium Level 3.8mmol/L (3.5-5.1) 4.4mmol/L (3.5-5.1) Chloride Level 109mmol/L (98-107) 105mmol/L (98-107) Carbon Dioxide Level 29mmol/L (21-32) 28mmol/L (21-32) Anion Gap 6 (6-14) 6 (6-14) Blood Urea Nitrogen 16mg/dL (7-20) 16mg/dL (7-20) Creatinine 0.8mg/dL (0.6-1.0) 0.9mg/dL (0.6-1.0) Estimated GFR (Cockcroft-Gault) 73.4 64.1 BUN/Creatinine Ratio 20 (6-20) 18 (6-20) Glucose Level 134mg/dL (70-99) 115mg/dL (70-99) Calcium Level 6.7mg/dL (8.5-10.1) 7.2mg/dL (8.5-10.1) Total Bilirubin 0.5mg/dL (0.2-1.0) 0.5mg/dL (0.2-1.0) Aspartate Amino Transf (AST/SGOT) 35U/L (15-37) 34U/L (15-37) Alanine Aminotransferase (ALT/SGPT) 14U/L (14-59) 12U/L (14-59) Alkaline Phosphatase 79U/L (46-116) 72U/L (46-116) Total Protein 5.8g/dL (6.4-8.2) 6.3g/dL (6.4-8.2) Albumin 1.1g/dL (3.4-5.0) 1.0g/dL (3.4-5.0) Albumin/Globulin Ratio 0.2 (1.0-1.7) 0.2 (1.0-1.7) O2 Saturation 96% (92-99) Arterial Blood pH 7.50 (7.35-7.45) Arterial Blood pCO2 at Patient Temp 36mmHg (35-46) Arterial Blood pO2 at Patient Temp 78mmHg (65-108) Arterial Blood HCO3 28mmol/L (21-28) Arterial Blood Base Excess 4mmol/L (-3-3) FiO2 40 Prothrombin Time 23.4SEC (11.7-14.0) Prothromb Time International Ratio 2.2 (0.8-1.1) Procalcitonin 1.80ng/mL (0.00-0.10) Test 08/23/16 10:30 White Blood Count 16.0x10^3/uL (4.0-11.0) Red Blood Count 3.63x10^6/uL (3.50-5.40) Hemoglobin 9.5g/dL (12.0-15.5) Hematocrit 29.6% (36.0-47.0) Mean Corpuscular Volume 82fL (79-100) Mean Corpuscular Hemoglobin 26pg (25-35) Mean Corpuscular Hemoglobin Concent 32g/dL (31-37) Red Cell Distribution Width 18.6% (11.5-14.5) Platelet Count 185x10^3/uL (140-400) Neutrophils (%) (Auto) 83% (31-73) Lymphocytes (%) (Auto) 11% (24-48) Monocytes (%) (Auto) 4% (0-9) Eosinophils (%) (Auto) 2% (0-3) Basophils (%) (Auto) 1% (0-3) Neutrophils # (Auto) 13.3x10^3uL (1.8-7.7) Lymphocytes # (Auto) 1.7x10^3/uL (1.0-4.8) Monocytes # (Auto) 0.7x10^3/uL (0.0-1.1) Eosinophils # (Auto) 0.3x10^3/uL (0.0-0.7) Basophils # (Auto) 0.1x10^3/uL (0.0-0.2) Prothrombin Time 20.9SEC (11.7-14.0) Prothromb Time International Ratio 1.9 (0.8-1.1) Laboratory Tests Test 08/23/16 05:30 08/23/16 10:30 Sodium Level 139mmol/L (136-145) Potassium Level 4.4mmol/L (3.5-5.1) Chloride Level 105mmol/L (98-107) Carbon Dioxide Level 28mmol/L (21-32) Anion Gap 6 (6-14) Blood Urea Nitrogen 16mg/dL (7-20) Creatinine 0.9mg/dL (0.6-1.0) Estimated GFR (Cockcroft-Gault) 64.1 BUN/Creatinine Ratio 18 (6-20) Glucose Level 115mg/dL (70-99) Calcium Level 7.2mg/dL (8.5-10.1) Total Bilirubin 0.5mg/dL (0.2-1.0) Aspartate Amino Transf (AST/SGOT) 34U/L (15-37) Alanine Aminotransferase (ALT/SGPT) 12U/L (14-59) Alkaline Phosphatase 72U/L (46-116) Total Protein 6.3g/dL (6.4-8.2) Albumin 1.0g/dL (3.4-5.0) Albumin/Globulin Ratio 0.2 (1.0-1.7) Procalcitonin 1.80ng/mL (0.00-0.10) White Blood Count 16.0x10^3/uL (4.0-11.0) Red Blood Count 3.63x10^6/uL (3.50-5.40) Hemoglobin 9.5g/dL (12.0-15.5) Hematocrit 29.6% (36.0-47.0) Mean Corpuscular Volume 82fL (79-100) Mean Corpuscular Hemoglobin 26pg (25-35) Mean Corpuscular Hemoglobin Concent 32g/dL (31-37) Red Cell Distribution Width 18.6% (11.5-14.5) Platelet Count 185x10^3/uL (140-400) Neutrophils (%) (Auto) 83% (31-73) Lymphocytes (%) (Auto) 11% (24-48) Monocytes (%) (Auto) 4% (0-9) Eosinophils (%) (Auto) 2% (0-3) Basophils (%) (Auto) 1% (0-3) Neutrophils # (Auto) 13.3x10^3uL (1.8-7.7) Lymphocytes # (Auto) 1.7x10^3/uL (1.0-4.8) Monocytes # (Auto) 0.7x10^3/uL (0.0-1.1) Eosinophils # (Auto) 0.3x10^3/uL (0.0-0.7) Basophils # (Auto) 0.1x10^3/uL (0.0-0.2) Prothrombin Time 20.9SEC (11.7-14.0) Prothromb Time International Ratio 1.9 (0.8-1.1) Medications Active Scripts Medications Dose Route/Sig Days Date Category Dose Instructions Keflex (Cephalexin) 500 Mg Capsule 500 Mg PO QID 07/12/16 Reported take for 10 days start 07/12 Percocet 10-325 Mg Tablet (Oxycodone/Acetaminophen) 1 Each Tablet 1 Tab PO PRN Q6HRS PRN 07/12/16 Reported Potassium Chloride 20 Meq Tablet.er 20 Meq PO DAILY 07/12/16 Reported Ventolin Hfa Inhaler (Albuterol Sulfate) 18 Gm Hfa.aer.ad 2 Puff INH Q4HRS 07/12/16 Reported Atorvastatin Calcium 10 Mg Tablet 1 Tab PO DAILY 07/12/16 Reported Daily Vitamin (Multivitamin) 1 Each Tablet 1 Each PO DAILY 04/15/14 Reported Coumadin (Warfarin Sodium) 2.5 Mg Tablet 0.5 Tab PO DAILY 04/15/14 Reported Propafenone Hcl 225 Mg Cap.er.12h 225 Mg PO BID 04/15/14 Reported Pantoprazole Sodium 40 Mg Tablet.dr 1 Tab PO DAILY 04/15/14 Reported Aquaphor (Petrolatum,White) 99 Gm Oint...g. 99 Gm TP BID 12/04/13 Reported Cardizem Cd (Diltiazem Hcl) 120 Mg Cap.er.24h 120 Mg PO DAILY 12/04/13 Reported Zofran Odt (Ondansetron) 4 Mg Tab.rapdis 8 Mg PO Q8HRS 12/04/13 Reported x 2 days start 07/12 then 4 mg q 6hrs prn Lasix (Furosemide) 40 Mg Tablet 40 Mg PO DAILY 12/04/13 Reported Impression . 1. Acute respiratory failure secondary to sepsis. 2. Sepsis with hypotension. 3. Atrial fibrillation. 4. Acute on chronic kidney failure. 5. Morbid obesity. 6. MULTIPLE ALLERGIES TO MEDICATIONS INCLUDING AMOXICILLIN. 7. S/P code blue V-Fib 8. Abnormal cxr with infiltrates, possible edema or pneumonia Plan . PT NOT READY FOR WEANING STILL ON LEVO AND BICARB DRIP D/W WITH RN ANTIBX PER ID TUBE FEEDING FOR NUTRITION TWILA OROZCO MD Aug 23, 2016 14:49
[2016-08-23] MEDS: ATORVASTATIN CALCIUM 10 MG TABLET. PO SCH (20:32)
[2016-08-24] VITALS (24 sets, daily range): BP systolic 82–131; BP diastolic 35–64
[2016-08-24] MEDS: SODIUM BICARBONATE VIAL 50 MEQ in IV 1/2 NORMAL SALINE 1,000 ML IV SCH (05:37)
[2016-08-24] MEDS: MEROPENEM 1 GM in IV NORMAL SALINE 100ML 100 ML IV SCH ×3 (05:38→21:58)
[2016-08-24] MEDS: PROPAFENONE 150 MG TABLET. PO SCH ×3 (05:41→22:00)
[2016-08-24 05:52] LABS: BASO # 0.1 x10^3/uL (0.0-0.2); BASO % 1 % (0-3); EOS % 3 % (0-3); HEMATOCRIT 26.5 % (36.0-47.0); HEMOGLOBIN 8.7 g/dL (12.0-15.5); LYMPH # 1.3 x10^3/uL (1.0-4.8); LYMPH % 10 % (24-48); MEAN CORPUSCULAR HEMOGLOBIN 27 pg (25-35); MEAN CORPUSCULAR HGB CONC 33 g/dL (31-37); MEAN CORPUSCULAR VOLUME 81 fL (79-100); MONO % 5 % (0-9); NEUT % 83 % (31-73); PLATELET COUNT 167 x10^3/uL (140-400); RED BLOOD COUNT 3.27 x10^6/uL (3.50-5.40); RED CELL DISTRIBUTION WIDTH 18.9 % (11.5-14.5); WHITE BLOOD COUNT 13.3 x10^3/uL (4.0-11.0)
[2016-08-24 06:07] LABS: INR 1.6 (0.8-1.1)
[2016-08-24 06:17] LABS: CALCIUM 7.3 mg/dL (8.5-10.1); CREATININE 0.9 mg/dL (0.6-1.0); GFR 64.1; POTASSIUM 4.4 mmol/L (3.5-5.1)
--- NOTE | 2016-08-24 06:49 | PDOC ---
Infectious Disease Note Subjective Subjective Sedated but sedation turned off Remains intubated. Hypotension. on Levophed 5 mcg No fever or diarrhea ROS ROS Unobtainable Vital Sign Vital Signs Vital Signs Date Time Temp Pulse Resp B/P Pulse Ox O2 Delivery O2 Flow Rate FiO2 08/24/16 06:00 104 22 128/45 97 Ventilator 08/24/16 04:00 98.3 98.3 08/23/16 15:34 5.0 Physical Exam PHYSICAL EXAM GENERAL: Intubated and not responsive yet, mittens HEENT: Pupils small- reactive. ETT. OGT LUNGS: Clear HEART: S1S2, ABD: Obese, soft : Newman EXT: BLE edema. No cyanosis LIP OF SHANK CUTTER: Unresponsive/sedated. Responds to noxious stimuli SKIN: Purpuric-type rash anterior neck, as well as petechial type rash lightly on face and arms. RUE-PICC. clean Labs Lab Laboratory Tests Test 08/23/16 10:30 08/24/16 05:30 White Blood Count 16.0x10^3/uL (4.0-11.0) 13.3x10^3/uL (4.0-11.0) Red Blood Count 3.63x10^6/uL (3.50-5.40) 3.27x10^6/uL (3.50-5.40) Hemoglobin 9.5g/dL (12.0-15.5) 8.7g/dL (12.0-15.5) Hematocrit 29.6% (36.0-47.0) 26.5% (36.0-47.0) Mean Corpuscular Volume 82fL (79-100) 81fL (79-100) Mean Corpuscular Hemoglobin 26pg (25-35) 27pg (25-35) Mean Corpuscular Hemoglobin Concent 32g/dL (31-37) 33g/dL (31-37) Red Cell Distribution Width 18.6% (11.5-14.5) 18.9% (11.5-14.5) Platelet Count 185x10^3/uL (140-400) 167x10^3/uL (140-400) Neutrophils (%) (Auto) 83% (31-73) 83% (31-73) Lymphocytes (%) (Auto) 11% (24-48) 10% (24-48) Monocytes (%) (Auto) 4% (0-9) 5% (0-9) Eosinophils (%) (Auto) 2% (0-3) 3% (0-3) Basophils (%) (Auto) 1% (0-3) 1% (0-3) Neutrophils # (Auto) 13.3x10^3uL (1.8-7.7) 10.9x10^3uL (1.8-7.7) Lymphocytes # (Auto) 1.7x10^3/uL (1.0-4.8) 1.3x10^3/uL (1.0-4.8) Monocytes # (Auto) 0.7x10^3/uL (0.0-1.1) 0.6x10^3/uL (0.0-1.1) Eosinophils # (Auto) 0.3x10^3/uL (0.0-0.7) 0.4x10^3/uL (0.0-0.7) Basophils # (Auto) 0.1x10^3/uL (0.0-0.2) 0.1x10^3/uL (0.0-0.2) Prothrombin Time 20.9SEC (11.7-14.0) 18.0SEC (11.7-14.0) Prothromb Time International Ratio 1.9 (0.8-1.1) 1.6 (0.8-1.1) Sodium Level 137mmol/L (136-145) Potassium Level 4.4mmol/L (3.5-5.1) Chloride Level 104mmol/L (98-107) Carbon Dioxide Level 31mmol/L (21-32) Anion Gap 2 (6-14) Blood Urea Nitrogen 17mg/dL (7-20) Creatinine 0.9mg/dL (0.6-1.0) Estimated GFR (Cockcroft-Gault) 64.1 Glucose Level 129mg/dL (70-99) Calcium Level 7.3mg/dL (8.5-10.1) Objective Assessment Fever - ? sepsis/med/? central Group B strep. 08/18 sepsis. Repeat 08/19 neg. Now on 6 of levophed Pulmonary infiltrates Afib - RVR 08/21 Leukocytosis. -better Lactic acidosis, improved Dehydration LISSETH. resolved Hypotension likely sec to dehydration , infection appears less likely Obesity Respiratory failure s/p intubation MRSA nares positive Rash. purpuric/petechial-type -? reactive from code and intubation s/p code blue, V-fib. 08/18 Plan Plan of Care Add Zyvox/Micafungin Sputum/blood cults Cont meropenem 1 gm q8 F/u labs supportive care Critically ill Poor prognosis ALEX FRAZIER MD Aug 24, 2016 06:49
[2016-08-24] MEDS: MICAFUNGIN 100 MG in IV DEXTROSE 5% 100 ML IV SCH (07:45)
--- NOTE | 2016-08-24 07:49 | RAD ---
Portable chest, 08/24/2016: History: Intubation, respiratory failure Comparison is made to yesterday's study. The patient is rotated to the left. The tip of the ET tube lies well above the lyndon. An NG tube extends in the stomach. A right PICC extends into the superior aspect of the right atrium. The heart is enlarged. The pulmonary vascularity is congested. There are ongoing basilar infiltrates, left or right. The right basilar infiltrates appear to have improved slightly. There is probably pleural fluid contributing to the basilar opacities. No new abnormality is seen. IMPRESSION: 1. Stable tube positions. 2. Ongoing congestive heart failure and pulmonary edema, perhaps slightly improved in the right base.
[2016-08-24] MEDS: PANTOPRAZOLE IV PUSH 40 MG VIAL. IVP SCH (08:17)
[2016-08-24] MEDS: NYSTATIN TOPICAL POWDER 15GM BOTTLE. TP SCH ×2 (08:17→22:00)
[2016-08-24] MEDS: CHLORHEXIDINE 0.12% 15 ML MOUTHWASH. SWSP SCH ×2 (08:17→22:00)
[2016-08-24] MEDS: DIGOXIN IV 500 MCG/2 ML AMPUL. IV SCH (08:18)
[2016-08-24] MEDS: MULTIVITAMIN with MINERAL TABLET. PO SCH (08:18)
[2016-08-24] MEDS: ALBUTEROL SULFATE 2.5 MG/3 ML NEBU. NEB SCH ×4 (08:30→19:38)
[2016-08-24 09:43] LABS: HCO3 ABG 27 mmol/L (21-28); PCO2 ABG 38 mmHg (35-46); PH ABG 7.47 (7.35-7.45); PO2 ABG 89 mmHg (65-108); SAT O2 ABG 97 % (92-99)
[2016-08-24 09:45] LABS: FIO2 ABG 40
--- NOTE | 2016-08-24 10:29 | PDOC ---
PROGRESS NOTES Subjective Subjective on vent ,not responsive off sedation Objective Objective Vital Signs Date Time Temp Pulse Resp B/P Pulse Ox O2 Delivery O2 Flow Rate FiO2 08/24/16 09:00 102 21 100/64 98 Ventilator 08/24/16 08:00 98.6 98.6 08/23/16 15:34 5.0 Intake and Output 08/24/16 07:00 Intake Total 9472.3 ml Output Total 2993 ml Balance 6479.3 ml Intake Oral 0 ml IV Total 5014.3 ml Tube Feeding 2198 ml Blood Product IV Normal Saline Flush 30 ml Other 2230 ml Output Urine Total 2993 ml # Bowel Movements 2 Physical Exam Abdomen: Normal bowel sounds, No tenderness Heart: Normal S1, Normal S2, Other (tachycardic) Extremities: Other (trace to 1+ edema - LE) General: Other (INTUBATED) HEENT: Atraumatic Lungs: Normal air movement MUSCULOSKELETAL: No deformity Skin: No breakdown COMMENT pigmentation neck Diagnosis Problem List Problems Medical Problems: (1) Fall from standing Status: Acute (2) Left knee pain Status: Acute Assessment Assessment Problems Medical Problems: (1) Fall from standing Status: Acute (2) Left knee pain Status: Acute FINAL IMPRESSION: CODE BLUE INTUBATED for resp failure Bacteremia gram positive -strep. sepsis with lactic acidosis. coagulopathy 1. Acute sepsis with hypotension. 2. Elevated white count with hypertension as well as renal insufficiency. 3. Chronic recurrent cellulitis of the legs. 4. Chronic lymphedema. 5. Morbid obesity. 6. History of Clostridium difficile. 7. Chronic atrial fibrillation, on Coumadin. 8. coagulopathy PLAN: spoke with pulmonary iv antibiotics meropenum. restart on coumadin weaned off sedation. hypotension on low dose levophed Acute resiratory failure- on mechanical ventilation Coagulopathy INR decreased to1.6. D/gabby Femoral line . Thrombocytopenia resolved Hypokalemia- K 3.8 Improving. Leukocytosis- WBC 12.6 Prognosis is very poor. Problems: Plan Plan of Care Problems Medical Problems: (1) Fall from standing Status: Acute (2) Left knee pain Status: Acute Comment Review of Relevant I have reviewed the following items quentin (where applicable) has been applied. Labs Laboratory Tests Test 08/23/16 10:30 08/24/16 05:30 08/24/16 09:35 White Blood Count 16.0x10^3/uL (4.0-11.0) 13.3x10^3/uL (4.0-11.0) Red Blood Count 3.63x10^6/uL (3.50-5.40) 3.27x10^6/uL (3.50-5.40) Hemoglobin 9.5g/dL (12.0-15.5) 8.7g/dL (12.0-15.5) Hematocrit 29.6% (36.0-47.0) 26.5% (36.0-47.0) Mean Corpuscular Volume 82fL (79-100) 81fL (79-100) Mean Corpuscular Hemoglobin 26pg (25-35) 27pg (25-35) Mean Corpuscular Hemoglobin Concent 32g/dL (31-37) 33g/dL (31-37) Red Cell Distribution Width 18.6% (11.5-14.5) 18.9% (11.5-14.5) Platelet Count 185x10^3/uL (140-400) 167x10^3/uL (140-400) Neutrophils (%) (Auto) 83% (31-73) 83% (31-73) Lymphocytes (%) (Auto) 11% (24-48) 10% (24-48) Monocytes (%) (Auto) 4% (0-9) 5% (0-9) Eosinophils (%) (Auto) 2% (0-3) 3% (0-3) Basophils (%) (Auto) 1% (0-3) 1% (0-3) Neutrophils # (Auto) 13.3x10^3uL (1.8-7.7) 10.9x10^3uL (1.8-7.7) Lymphocytes # (Auto) 1.7x10^3/uL (1.0-4.8) 1.3x10^3/uL (1.0-4.8) Monocytes # (Auto) 0.7x10^3/uL (0.0-1.1) 0.6x10^3/uL (0.0-1.1) Eosinophils # (Auto) 0.3x10^3/uL (0.0-0.7) 0.4x10^3/uL (0.0-0.7) Basophils # (Auto) 0.1x10^3/uL (0.0-0.2) 0.1x10^3/uL (0.0-0.2) Prothrombin Time 20.9SEC (11.7-14.0) 18.0SEC (11.7-14.0) Prothromb Time International Ratio 1.9 (0.8-1.1) 1.6 (0.8-1.1) Sodium Level 137mmol/L (136-145) Potassium Level 4.4mmol/L (3.5-5.1) Chloride Level 104mmol/L (98-107) Carbon Dioxide Level 31mmol/L (21-32) Anion Gap 2 (6-14) Blood Urea Nitrogen 17mg/dL (7-20) Creatinine 0.9mg/dL (0.6-1.0) Estimated GFR (Cockcroft-Gault) 64.1 Glucose Level 129mg/dL (70-99) Calcium Level 7.3mg/dL (8.5-10.1) O2 Saturation 97% (92-99) Arterial Blood pH 7.47 (7.35-7.45) Arterial Blood pCO2 at Patient Temp 38mmHg (35-46) Arterial Blood pO2 at Patient Temp 89mmHg (65-108) Arterial Blood HCO3 27mmol/L (21-28) Arterial Blood Base Excess 4mmol/L (-3-3) FiO2 40 Microbiology 08/19/16 Blood Culture - Final, Complete NO GROWTH AFTER 5 DAYS 08/18/16 Urine Culture - Final, Complete 08/18/16 Urine Culture Result 1 (SILVINA) - Final, Complete Medications Current Medications Linezolid 300 ml @ 300 mls/hr Q12HR IV Last administered on 08/24/16 08:51; Start 08/24/16 at 09:00 Micafungin Sodium/ Dextrose (Mycamine) 100 ml @ 100 mls/hr Q24H IV Last administered on 08/24/16 07:45; Start 08/24/16 at 07:00 Warfarin Sodium (Coumadin Per Pharmacy) 1 each PRN DAILY PRN MC SEE COMMENTS; Start 08/24/16 at 09:15 Vitals/I & O Vital Sign - Last 24 Hours 08/23/16 08/23/16 08/23/16 08/23/16 10:54 12:07 12:08 12:44 Pulse 111 101 Resp 22 23 B/P 87/51 93/54 Pulse Ox 100 98 98 O2 Delivery Ventilator Mechanical Ventilator Ventilator Ventilator O2 Flow Rate 5.0 08/23/16 08/23/16 08/23/16 08/23/16 13:13 14:06 15:11 15:12 Pulse 99 104 113 120 Resp 22 21 B/P 84/37 103/43 83/38 99/48 Pulse Ox 99 100 100 O2 Delivery Ventilator Ventilator Ventilator 08/23/16 08/23/16 08/23/16 08/23/16 15:34 16:06 16:37 16:50 Pulse 109 110 Resp B/P 87/37 104/47 Pulse Ox 100 100 98 O2 Delivery Mechanical Ventilator Ventilator Ventilator Ventilator O2 Flow Rate 5.0 08/23/16 08/23/16 08/23/16 08/23/16 17:42 19:00 20:00 20:00 Temp 101.7 101.9 101.7 101.9 Pulse 125 110 107 Resp B/P 84/47 107/42 86/32 Pulse Ox 100 100 97 O2 Delivery Ventilator Ventilator Mechanical Ventilator Ventilator 08/23/16 08/23/16 08/23/16 08/23/16 20:07 21:00 21:58 22:00 Temp 100.3 100.3 Pulse 112 112 113 Resp B/P 89/40 86/40 101/33 Pulse Ox 97 97 95 O2 Delivery Ventilator Ventilator Ventilator 08/23/16 08/23/16 08/23/16 08/24/16 23:00 23:00 23:59 00:00 Temp 100.5 100.5 Pulse 103 103 Resp B/P 95/52 123/58 Pulse Ox 95 96 95 O2 Delivery Ventilator Ventilator Mechanical Ventilator Ventilator 08/24/16 08/24/16 08/24/16 08/24/16 01:00 01:00 02:00 03:00 Pulse 101 117 97 Resp 22 22 B/P 82/35 104/47 94/42 Pulse Ox 95 96 95 99 O2 Delivery Ventilator Ventilator Ventilator Ventilator 08/24/16 08/24/16 08/24/16 08/24/16 03:00 04:00 04:00 05:00 Temp 98.3 98.3 Pulse 97 109 Resp 22 22 B/P 114/52 108/49 Pulse Ox 99 97 96 O2 Delivery Ventilator Ventilator Mechanical Ventilator Ventilator 08/24/16 08/24/16 08/24/16 08/24/16 05:20 05:41 06:00 07:00 Pulse 100 104 100 Resp 22 21 B/P 108/49 128/45 104/46 Pulse Ox 99 97 96 O2 Delivery Ventilator Ventilator Ventilator 08/24/16 08/24/16 08/24/16 08/24/16 08:00 08:00 08:18 08:30 Temp 98.6 98.6 Pulse 98 99 Resp 21 B/P 112/46 101/50 Pulse Ox 97 96 O2 Delivery Ventilator Mechanical Ventilator Ventilator 08/24/16 09:00 Pulse 102 Resp 21 B/P 100/64 Pulse Ox 98 O2 Delivery Ventilator Intake and Output 08/23/16 08/23/16 08/24/16 15:00 23:00 07:00 Intake Total 120 ml 5893.3 ml 3459 ml Output Total 762 ml 936 ml 1295 ml Balance -642 ml 4957.3 ml 2164 ml JAGUAR BRICE MD Aug 24, 2016 10:29
--- NOTE | 2016-08-24 11:55 | PDOC ---
PULMONARY PROGRESS NOTES Subjective PT remains off sedation, not arousable Vitals Vital Signs Date Time Temp Pulse Resp B/P Pulse Ox O2 Delivery O2 Flow Rate FiO2 08/24/16 09:00 102 21 100/64 98 Ventilator 08/24/16 08:00 98.6 98.6 08/23/16 15:34 5.0 HEENT: Other (nc at perrl orally intubated. nose clear) Lungs: Other (decrease bs) Cardiovascular: S1, S2 Abdomen: Soft, Non-tender, Other ( no mass obese) Extremities: Other (edema) Skin: Warm, Dry Labs Laboratory Tests Test 08/23/16 05:30 08/23/16 10:30 08/24/16 05:30 08/24/16 09:35 Sodium Level 139mmol/L (136-145) 137mmol/L (136-145) Potassium Level 4.4mmol/L (3.5-5.1) 4.4mmol/L (3.5-5.1) Chloride Level 105mmol/L (98-107) 104mmol/L (98-107) Carbon Dioxide Level 28mmol/L (21-32) 31mmol/L (21-32) Anion Gap 6 (6-14) 2 (6-14) Blood Urea Nitrogen 16mg/dL (7-20) 17mg/dL (7-20) Creatinine 0.9mg/dL (0.6-1.0) 0.9mg/dL (0.6-1.0) Estimated GFR (Cockcroft-Gault) 64.1 64.1 BUN/Creatinine Ratio 18 (6-20) Glucose Level 115mg/dL (70-99) 129mg/dL (70-99) Calcium Level 7.2mg/dL (8.5-10.1) 7.3mg/dL (8.5-10.1) Total Bilirubin 0.5mg/dL (0.2-1.0) Aspartate Amino Transf (AST/SGOT) 34U/L (15-37) Alanine Aminotransferase (ALT/SGPT) 12U/L (14-59) Alkaline Phosphatase 72U/L (46-116) Total Protein 6.3g/dL (6.4-8.2) Albumin 1.0g/dL (3.4-5.0) Albumin/Globulin Ratio 0.2 (1.0-1.7) Procalcitonin 1.80ng/mL (0.00-0.10) White Blood Count 16.0x10^3/uL (4.0-11.0) 13.3x10^3/uL (4.0-11.0) Red Blood Count 3.63x10^6/uL (3.50-5.40) 3.27x10^6/uL (3.50-5.40) Hemoglobin 9.5g/dL (12.0-15.5) 8.7g/dL (12.0-15.5) Hematocrit 29.6% (36.0-47.0) 26.5% (36.0-47.0) Mean Corpuscular Volume 82fL (79-100) 81fL (79-100) Mean Corpuscular Hemoglobin 26pg (25-35) 27pg (25-35) Mean Corpuscular Hemoglobin Concent 32g/dL (31-37) 33g/dL (31-37) Red Cell Distribution Width 18.6% (11.5-14.5) 18.9% (11.5-14.5) Platelet Count 185x10^3/uL (140-400) 167x10^3/uL (140-400) Neutrophils (%) (Auto) 83% (31-73) 83% (31-73) Lymphocytes (%) (Auto) 11% (24-48) 10% (24-48) Monocytes (%) (Auto) 4% (0-9) 5% (0-9) Eosinophils (%) (Auto) 2% (0-3) 3% (0-3) Basophils (%) (Auto) 1% (0-3) 1% (0-3) Neutrophils # (Auto) 13.3x10^3uL (1.8-7.7) 10.9x10^3uL (1.8-7.7) Lymphocytes # (Auto) 1.7x10^3/uL (1.0-4.8) 1.3x10^3/uL (1.0-4.8) Monocytes # (Auto) 0.7x10^3/uL (0.0-1.1) 0.6x10^3/uL (0.0-1.1) Eosinophils # (Auto) 0.3x10^3/uL (0.0-0.7) 0.4x10^3/uL (0.0-0.7) Basophils # (Auto) 0.1x10^3/uL (0.0-0.2) 0.1x10^3/uL (0.0-0.2) Prothrombin Time 20.9SEC (11.7-14.0) 18.0SEC (11.7-14.0) Prothromb Time International Ratio 1.9 (0.8-1.1) 1.6 (0.8-1.1) Magnesium Level 1.6mg/dL (1.8-2.4) O2 Saturation 97% (92-99) Arterial Blood pH 7.47 (7.35-7.45) Arterial Blood pCO2 at Patient Temp 38mmHg (35-46) Arterial Blood pO2 at Patient Temp 89mmHg (65-108) Arterial Blood HCO3 27mmol/L (21-28) Arterial Blood Base Excess 4mmol/L (-3-3) FiO2 40 Laboratory Tests Test 08/24/16 05:30 08/24/16 09:35 White Blood Count 13.3x10^3/uL (4.0-11.0) Red Blood Count 3.27x10^6/uL (3.50-5.40) Hemoglobin 8.7g/dL (12.0-15.5) Hematocrit 26.5% (36.0-47.0) Mean Corpuscular Volume 81fL (79-100) Mean Corpuscular Hemoglobin 27pg (25-35) Mean Corpuscular Hemoglobin Concent 33g/dL (31-37) Red Cell Distribution Width 18.9% (11.5-14.5) Platelet Count 167x10^3/uL (140-400) Neutrophils (%) (Auto) 83% (31-73) Lymphocytes (%) (Auto) 10% (24-48) Monocytes (%) (Auto) 5% (0-9) Eosinophils (%) (Auto) 3% (0-3) Basophils (%) (Auto) 1% (0-3) Neutrophils # (Auto) 10.9x10^3uL (1.8-7.7) Lymphocytes # (Auto) 1.3x10^3/uL (1.0-4.8) Monocytes # (Auto) 0.6x10^3/uL (0.0-1.1) Eosinophils # (Auto) 0.4x10^3/uL (0.0-0.7) Basophils # (Auto) 0.1x10^3/uL (0.0-0.2) Prothrombin Time 18.0SEC (11.7-14.0) Prothromb Time International Ratio 1.6 (0.8-1.1) Sodium Level 137mmol/L (136-145) Potassium Level 4.4mmol/L (3.5-5.1) Chloride Level 104mmol/L (98-107) Carbon Dioxide Level 31mmol/L (21-32) Anion Gap 2 (6-14) Blood Urea Nitrogen 17mg/dL (7-20) Creatinine 0.9mg/dL (0.6-1.0) Estimated GFR (Cockcroft-Gault) 64.1 Glucose Level 129mg/dL (70-99) Calcium Level 7.3mg/dL (8.5-10.1) Magnesium Level 1.6mg/dL (1.8-2.4) O2 Saturation 97% (92-99) Arterial Blood pH 7.47 (7.35-7.45) Arterial Blood pCO2 at Patient Temp 38mmHg (35-46) Arterial Blood pO2 at Patient Temp 89mmHg (65-108) Arterial Blood HCO3 27mmol/L (21-28) Arterial Blood Base Excess 4mmol/L (-3-3) FiO2 40 Medications Active Scripts Medications Dose Route/Sig Days Date Category Dose Instructions Keflex (Cephalexin) 500 Mg Capsule 500 Mg PO QID 07/12/16 Reported take for 10 days start 07/12 Percocet 10-325 Mg Tablet (Oxycodone/Acetaminophen) 1 Each Tablet 1 Tab PO PRN Q6HRS PRN 07/12/16 Reported Potassium Chloride 20 Meq Tablet.er 20 Meq PO DAILY 07/12/16 Reported Ventolin Hfa Inhaler (Albuterol Sulfate) 18 Gm Hfa.aer.ad 2 Puff INH Q4HRS 07/12/16 Reported Atorvastatin Calcium 10 Mg Tablet 1 Tab PO DAILY 07/12/16 Reported Daily Vitamin (Multivitamin) 1 Each Tablet 1 Each PO DAILY 04/15/14 Reported Coumadin (Warfarin Sodium) 2.5 Mg Tablet 0.5 Tab PO DAILY 04/15/14 Reported Propafenone Hcl 225 Mg Cap.er.12h 225 Mg PO BID 04/15/14 Reported Pantoprazole Sodium 40 Mg Tablet.dr 1 Tab PO DAILY 04/15/14 Reported Aquaphor (Petrolatum,White) 99 Gm Oint...g. 99 Gm TP BID 12/04/13 Reported Cardizem Cd (Diltiazem Hcl) 120 Mg Cap.er.24h 120 Mg PO DAILY 12/04/13 Reported Zofran Odt (Ondansetron) 4 Mg Tab.rapdis 8 Mg PO Q8HRS 12/04/13 Reported x 2 days start 3/6 then 4 mg q 6hrs prn Lasix (Furosemide) 40 Mg Tablet 40 Mg PO DAILY 12/04/13 Reported Comments CXR improving aeration right base Impression . 1. Acute respiratory failure secondary to sepsis. 2. Sepsis with hypotension. 3. Atrial fibrillation. 4. Acute on chronic kidney failure. 5. Morbid obesity. 6. MULTIPLE ALLERGIES TO MEDICATIONS INCLUDING AMOXICILLIN. 7. S/P code blue V-Fib 8. Abnormal cxr with infiltrates, possible edema/? pneumonia, improving Plan . PT NOT READY FOR WEANING/ STILL SLEEPY SEDATION OFF/ ONCE AWAKE ,CPAP trial STILL ON LEVO/ D/C BICARB DRIP D/W WITH RN ANTIBX PER ID TUBE FEEDING FOR NUTRITION ALIYA GARCIA MD Aug 24, 2016 11:55
[2016-08-24] MEDS ORDERED: MAGNESIUM SULFATE 2GM 50 ML IV ONE (12:00)
--- NOTE | 2016-08-24 12:00 | PDOC ---
CARDIO Progress Notes Date and Time Date of Service 08/24/2016 Time of Evaluation 1155 Subjective Subjective: Other (intubated/sedated) Comments: tongue motion on ETT but did not respond to verbal stimuli Vitals Vitals Vital Signs Date Time Temp Pulse Resp B/P Pulse Ox O2 Delivery O2 Flow Rate FiO2 08/24/16 09:00 102 21 100/64 98 Ventilator 08/24/16 08:00 98.6 98.6 08/23/16 15:34 5.0 Weight Weight [ ] Stability Assessment Stability Assess.: unstable for transfer (Intesive V. sign monit. req) Input and Output Intake and Output Intake and Output 08/24/16 07:00 Intake Total 9472.3 ml Output Total 2993 ml Balance 6479.3 ml Intake Oral 0 ml IV Total 5014.3 ml Tube Feeding 2198 ml Blood Product IV Normal Saline Flush 30 ml Other 2230 ml Output Urine Total 2993 ml # Bowel Movements 2 Laboratory Labs Laboratory Tests Test 08/24/16 05:30 08/24/16 09:35 White Blood Count 13.3x10^3/uL (4.0-11.0) Red Blood Count 3.27x10^6/uL (3.50-5.40) Hemoglobin 8.7g/dL (12.0-15.5) Hematocrit 26.5% (36.0-47.0) Mean Corpuscular Volume 81fL (79-100) Mean Corpuscular Hemoglobin 27pg (25-35) Mean Corpuscular Hemoglobin Concent 33g/dL (31-37) Red Cell Distribution Width 18.9% (11.5-14.5) Platelet Count 167x10^3/uL (140-400) Neutrophils (%) (Auto) 83% (31-73) Lymphocytes (%) (Auto) 10% (24-48) Monocytes (%) (Auto) 5% (0-9) Eosinophils (%) (Auto) 3% (0-3) Basophils (%) (Auto) 1% (0-3) Neutrophils # (Auto) 10.9x10^3uL (1.8-7.7) Lymphocytes # (Auto) 1.3x10^3/uL (1.0-4.8) Monocytes # (Auto) 0.6x10^3/uL (0.0-1.1) Eosinophils # (Auto) 0.4x10^3/uL (0.0-0.7) Basophils # (Auto) 0.1x10^3/uL (0.0-0.2) Prothrombin Time 18.0SEC (11.7-14.0) Prothromb Time International Ratio 1.6 (0.8-1.1) Sodium Level 137mmol/L (136-145) Potassium Level 4.4mmol/L (3.5-5.1) Chloride Level 104mmol/L (98-107) Carbon Dioxide Level 31mmol/L (21-32) Anion Gap 2 (6-14) Blood Urea Nitrogen 17mg/dL (7-20) Creatinine 0.9mg/dL (0.6-1.0) Estimated GFR (Cockcroft-Gault) 64.1 Glucose Level 129mg/dL (70-99) Calcium Level 7.3mg/dL (8.5-10.1) Magnesium Level 1.6mg/dL (1.8-2.4) O2 Saturation 97% (92-99) Arterial Blood pH 7.47 (7.35-7.45) Arterial Blood pCO2 at Patient Temp 38mmHg (35-46) Arterial Blood pO2 at Patient Temp 89mmHg (65-108) Arterial Blood HCO3 27mmol/L (21-28) Arterial Blood Base Excess 4mmol/L (-3-3) FiO2 40 Microbiology Micro Microbiology 08/19/16 Blood Culture - Final, Complete NO GROWTH AFTER 5 DAYS 08/18/16 Urine Culture - Final, Complete 08/18/16 Urine Culture Result 1 (SILVINA) - Final, Complete Radiology Rad Impression CXR: 08/24/2016: Comparison is made to yesterday's study. The patient is rotated to the left. The tip of the ET tube lies well above the lyndon. An NG tube extends in the stomach. A right PICC extends into the superior aspect of the right atrium. The heart is enlarged. The pulmonary vascularity is congested. There are ongoing basilar infiltrates, left or right. The right basilar infiltrates appear to have improved slightly. There is probably pleural fluid contributing to the basilar opacities. No new abnormality is seen. IMPRESSION: 1. Stable tube positions. 2. Ongoing congestive heart failure and pulmonary edema, perhaps slightly improved in the right base. Case Discussion Case Discussed with: Family Review of Systems Constitutional: yes: no symptom reported Physical Exam Chest: Symmetric LUNGS: Other (coarse anteriorly; ? crackles) Heart: S1S2, irregularly irregular (tachycardic), other (tele: AF/AT) Abdomen: Other (morbidly obese; soft abdomen) Extremities: Other (+ lower extremity edema with venous stasis changes) Neurology: other (sedated) Assessment Assessment 1. cardiopulmonary arrest VT with shock to afib RVR to VT = total of 2 shocks echo with preserved LV function and EF of 55-60% and no WMA seen continues to require vasopressive support for hypotension continue supportive care - prognosis guarded 2. atrial fib/atrial tach INR subtherapeutic - warfarin has been resumed control rate with dig and dose increase to 250 mcg; holding/stop diltiazem as requiring vasopressive support for BP anti-arrhythmic - propafenone 3. acute respiratory failure remains intubated/vent per pulm 4. sepsis abx per ID 5. pulm edema/? diastolic CHF BP limits ability to diurese 6. hypomagnesemic will replace and recheck labs ARACELY Madrigal APRN Aug 24, 2016 12:00
[2016-08-24] MEDS ORDERED: WARFARIN 2 MG TABLET. PO ONE (16:00)
[2016-08-24] MEDS: NOREPINEPHRINE 8 MG in IV NORMAL SALINE 250 ML IV PRN (17:47)
[2016-08-24] MEDS ORDERED: PROPOFOL 100 ML IV PRN (19:00)
[2016-08-24] MEDS: ATORVASTATIN CALCIUM 10 MG TABLET. PO SCH (21:59)
[2016-08-25] VITALS (24 sets, daily range): BP systolic 90–127; BP diastolic 41–61
[2016-08-25 05:04] LABS: BASO % 0 % (0-3); EOS % 3 % (0-3); HEMATOCRIT 26.5 % (36.0-47.0); HEMOGLOBIN 8.4 g/dL (12.0-15.5); LYMPH # 0.8 x10^3/uL (1.0-4.8); LYMPH % 7 % (24-48); MEAN CORPUSCULAR HEMOGLOBIN 26 pg (25-35); MEAN CORPUSCULAR HGB CONC 32 g/dL (31-37); MEAN CORPUSCULAR VOLUME 82 fL (79-100); MONO % 5 % (0-9); NEUT % 86 % (31-73); PLATELET COUNT 157 x10^3/uL (140-400); RED BLOOD COUNT 3.22 x10^6/uL (3.50-5.40); RED CELL DISTRIBUTION WIDTH 18.5 % (11.5-14.5); WHITE BLOOD COUNT 12.5 x10^3/uL (4.0-11.0)
[2016-08-25 05:24] LABS: CALCIUM 7.8 mg/dL (8.5-10.1); CREATININE 0.9 mg/dL (0.6-1.0); GFR 64.1; POTASSIUM 4.7 mmol/L (3.5-5.1)
[2016-08-25 05:26] LABS: INR 1.5 (0.8-1.1); PROTHROMBIN TIME PATIENT 17.4 SEC (11.7-14.0)
[2016-08-25] MEDS: MEROPENEM 1 GM in IV NORMAL SALINE 100ML 100 ML IV SCH ×3 (05:45→23:21)
[2016-08-25] MEDS: PROPAFENONE 150 MG TABLET. PO SCH ×3 (05:45→23:21)
--- NOTE | 2016-08-25 07:12 | PDOC ---
Infectious Disease Note Subjective Subjective Sedated but sedation turned off Remains intubated. Hypotension. on Levophed 5 mcg No fever or diarrhea ROS ROS unobtainable Vital Sign Vital Signs Vital Signs Date Time Temp Pulse Resp B/P Pulse Ox O2 Delivery O2 Flow Rate FiO2 08/25/16 06:00 115 25 90/42 95 Ventilator 08/25/16 04:00 99.3 99.3 Physical Exam PHYSICAL EXAM GENERAL: Intubated and min responsive mittens HEENT: Pupils small- reactive. ETT. OGT LUNGS: Clear HEART: S1S2, ABD: Obese, soft : Newman EXT: BLE edema. No cyanosis APPARATUS CLEANER: Unresponsive/sedated. Responds to noxious stimuli SKIN: Purpuric-type rash anterior neck, as well as petechial type rash lightly on face and arms. RUE-PICC. clean Labs Lab Laboratory Tests Test 08/24/16 09:35 08/24/16 13:28 08/25/16 03:03 08/25/16 04:50 O2 Saturation 97% (92-99) Arterial Blood pH 7.47 (7.35-7.45) Arterial Blood pCO2 at Patient Temp 38mmHg (35-46) Arterial Blood pO2 at Patient Temp 89mmHg (65-108) Arterial Blood HCO3 27mmol/L (21-28) Arterial Blood Base Excess 4mmol/L (-3-3) FiO2 40 Glucose (Fingerstick) 124mg/dL (70-99) 108mg/dL (70-99) White Blood Count 12.5x10^3/uL (4.0-11.0) Red Blood Count 3.22x10^6/uL (3.50-5.40) Hemoglobin 8.4g/dL (12.0-15.5) Hematocrit 26.5% (36.0-47.0) Mean Corpuscular Volume 82fL (79-100) Mean Corpuscular Hemoglobin 26pg (25-35) Mean Corpuscular Hemoglobin Concent 32g/dL (31-37) Red Cell Distribution Width 18.5% (11.5-14.5) Platelet Count 157x10^3/uL (140-400) Neutrophils (%) (Auto) 86% (31-73) Lymphocytes (%) (Auto) 7% (24-48) Monocytes (%) (Auto) 5% (0-9) Eosinophils (%) (Auto) 3% (0-3) Basophils (%) (Auto) 0% (0-3) Neutrophils # (Auto) 10.8x10^3uL (1.8-7.7) Lymphocytes # (Auto) 0.8x10^3/uL (1.0-4.8) Monocytes # (Auto) 0.6x10^3/uL (0.0-1.1) Eosinophils # (Auto) 0.3x10^3/uL (0.0-0.7) Basophils # (Auto) 0.0x10^3/uL (0.0-0.2) Prothrombin Time 17.4SEC (11.7-14.0) Prothromb Time International Ratio 1.5 (0.8-1.1) Sodium Level 137mmol/L (136-145) Potassium Level 4.7mmol/L (3.5-5.1) Chloride Level 103mmol/L (98-107) Carbon Dioxide Level 30mmol/L (21-32) Anion Gap 4 (6-14) Blood Urea Nitrogen 15mg/dL (7-20) Creatinine 0.9mg/dL (0.6-1.0) Estimated GFR (Cockcroft-Gault) 64.1 Glucose Level 119mg/dL (70-99) Calcium Level 7.8mg/dL (8.5-10.1) Magnesium Level 1.9mg/dL (1.8-2.4) Objective Assessment Fever - ? sepsis/med/? central. Better Group B strep. 08/18 sepsis. Repeat 08/19 neg. Now on 5 of levophed Pulmonary infiltrates - GPC on Gram stain 08/24 Afib - RVR 08/21 Leukocytosis. -better Lactic acidosis, improved Dehydration LISSETH. resolved Hypotension likely sec to dehydration , infection appears less likely Obesity Respiratory failure s/p intubation MRSA nares positive Rash. purpuric/petechial-type -? reactive from code and intubation s/p code blue, V-fib. 08/18 Plan Plan of Care Cont Zyvox/Micafungin/Meropenem (may wean soon) F/u Sputum/blood cults F/u labs supportive care Await Palliative eval Critically ill Poor prognosis ALEX FRAZIER MD Aug 25, 2016 07:12
--- NOTE | 2016-08-25 07:53 | RAD ---
Portable chest, 08/25/2016: History: Shortness of breath Comparison is made to yesterday's study. The patient is rotated to the left. The ET tube tip lies well above the lyndon. An NG tube remains in place although its tip is not visible. A right PICC extends into the superior aspect of the right atrium. The heart is enlarged. There are ongoing basilar infiltrates, left greater than right which are unchanged. There is probably pleural fluid contributing to the basilar opacities. No new abnormality is seen. IMPRESSION: No significant change since yesterday's exam.
[2016-08-25] MEDS: ALBUTEROL SULFATE 2.5 MG/3 ML NEBU. NEB SCH ×4 (08:00→20:36)
[2016-08-25] MEDS: MICAFUNGIN 100 MG in IV DEXTROSE 5% 100 ML IV SCH (08:12)
[2016-08-25] MEDS: MULTIVITAMIN with MINERAL TABLET. PO SCH (08:12)
[2016-08-25] MEDS: PANTOPRAZOLE IV PUSH 40 MG VIAL. IVP SCH (08:12)
[2016-08-25] MEDS: DIGOXIN 125 MCG TABLET. NG SCH (08:13)
[2016-08-25] MEDS: NYSTATIN TOPICAL POWDER 15GM BOTTLE. TP SCH ×2 (08:13→20:43)
[2016-08-25] MEDS: CHLORHEXIDINE 0.12% 15 ML MOUTHWASH. SWSP SCH ×2 (08:13→20:42)
[2016-08-25] MEDS ORDERED: DIGOXIN 125 MCG TABLET. NG SCH (09:00)
[2016-08-25 09:31] LABS: HCO3 ABG 28 mmol/L (21-28); PCO2 ABG 39 mmHg (35-46); PH ABG 7.47 (7.35-7.45); PO2 ABG 97 mmHg (65-108); SAT O2 ABG 97 % (92-99)
[2016-08-25 09:48] LABS: FIO2 ABG 40
--- NOTE | 2016-08-25 10:05 | PDOC ---
PROGRESS NOTES Subjective Subjective t tube trial, on vent off sedation Objective Objective Vital Signs Date Time Temp Pulse Resp B/P Pulse Ox O2 Delivery O2 Flow Rate FiO2 08/25/16 09:01 102 17 111/47 98 Ventilator 08/25/16 08:30 98.5 98.5 08/25/16 08:00 5.0 Intake and Output 08/25/16 07:00 Intake Total 2776 ml Output Total 6395 ml Balance -3619 ml IV Total 598 ml Tube Feeding 1728 ml Other 450 ml Output Urine Total 6395 ml Gastric Drainage Total 0 ml # Bowel Movements 1 Physical Exam Abdomen: Normal bowel sounds, No tenderness Heart: Normal S1, Normal S2, Other (tachycardic) Extremities: Other (trace to 1+ edema - LE) General: Other (INTUBATED) HEENT: Atraumatic Lungs: Normal air movement MUSCULOSKELETAL: No deformity Skin: No breakdown COMMENT pigmentation neck Diagnosis Problem List Problems Medical Problems: (1) Fall from standing Status: Acute (2) Left knee pain Status: Acute Assessment Assessment Problems Medical Problems: (1) Fall from standing Status: Acute (2) Left knee pain Status: Acute FINAL IMPRESSION: CODE BLUE INTUBATED for resp failure Bacteremia gram positive -strep. sepsis with lactic acidosis. coagulopathy 1. Acute sepsis with hypotension. 2. Elevated white count with hypertension as well as renal insufficiency. 3. Chronic recurrent cellulitis of the legs. 4. Chronic lymphedema. 5. Morbid obesity. 6. History of Clostridium difficile. 7. Chronic atrial fibrillation, on Coumadin. 8. coagulopathy PLAN: spoke with pulmonary T tube trial today iv antibiotics restarted on coumadin, bridge with Lovenox weaned off sedation. hypotension on low dose levophed Acute resiratory failure- on mechanical ventilation Coagulopathy INR decreased to1.5. D/gabby Femoral line . Thrombocytopenia resolved Hypokalemia- K 3.8 Improving. Leukocytosis- WBC 12.6 Prognosis is very poor. Problems: Plan Plan of Care Problems Medical Problems: (1) Fall from standing Status: Acute (2) Left knee pain Status: Acute Comment Review of Relevant I have reviewed the following items quentin (where applicable) has been applied. Labs Laboratory Tests Test 08/24/16 13:28 08/25/16 03:03 08/25/16 04:50 08/25/16 08:50 Glucose (Fingerstick) 124mg/dL (70-99) 108mg/dL (70-99) White Blood Count 12.5x10^3/uL (4.0-11.0) Red Blood Count 3.22x10^6/uL (3.50-5.40) Hemoglobin 8.4g/dL (12.0-15.5) Hematocrit 26.5% (36.0-47.0) Mean Corpuscular Volume 82fL (79-100) Mean Corpuscular Hemoglobin 26pg (25-35) Mean Corpuscular Hemoglobin Concent 32g/dL (31-37) Red Cell Distribution Width 18.5% (11.5-14.5) Platelet Count 157x10^3/uL (140-400) Neutrophils (%) (Auto) 86% (31-73) Lymphocytes (%) (Auto) 7% (24-48) Monocytes (%) (Auto) 5% (0-9) Eosinophils (%) (Auto) 3% (0-3) Basophils (%) (Auto) 0% (0-3) Neutrophils # (Auto) 10.8x10^3uL (1.8-7.7) Lymphocytes # (Auto) 0.8x10^3/uL (1.0-4.8) Monocytes # (Auto) 0.6x10^3/uL (0.0-1.1) Eosinophils # (Auto) 0.3x10^3/uL (0.0-0.7) Basophils # (Auto) 0.0x10^3/uL (0.0-0.2) Prothrombin Time 17.4SEC (11.7-14.0) Prothromb Time International Ratio 1.5 (0.8-1.1) Sodium Level 137mmol/L (136-145) Potassium Level 4.7mmol/L (3.5-5.1) Chloride Level 103mmol/L (98-107) Carbon Dioxide Level 30mmol/L (21-32) Anion Gap 4 (6-14) Blood Urea Nitrogen 15mg/dL (7-20) Creatinine 0.9mg/dL (0.6-1.0) Estimated GFR (Cockcroft-Gault) 64.1 Glucose Level 119mg/dL (70-99) Calcium Level 7.8mg/dL (8.5-10.1) Magnesium Level 1.9mg/dL (1.8-2.4) O2 Saturation 97% (92-99) Arterial Blood pH 7.47 (7.35-7.45) Arterial Blood pCO2 at Patient Temp 39mmHg (35-46) Arterial Blood pO2 at Patient Temp 97mmHg (65-108) Arterial Blood HCO3 28mmol/L (21-28) Arterial Blood Base Excess 4mmol/L (-3-3) FiO2 40 Microbiology 08/24/16 Blood Culture - Preliminary, Resulted NO GROWTH AFTER 1 DAY 08/24/16 Gram Stain - Final, Complete 08/18/16 Urine Culture - Final, Complete 08/18/16 Urine Culture Result 1 (SILVINA) - Final, Complete Medications Current Medications Albumin Human (Plasmanate) 250 ml @ 62.5 mls/hr 1X ONCE IV ; Start 08/25/16 at 10:00; Stop 08/25/16 at 13:59; Status UNV Digoxin (Lanoxin) 250 mcg DAILY NG Last administered on 08/25/16 08:13; Start 08/25/16 at 09:00 Digoxin 125 mcg 125 mcg DAILY NG ; Start 08/25/16 at 09:00; Stop 08/25/16 at 09: 00; Status DC Magnesium Sulfate/ Dextrose (Magnesium Sulfate PREMIX 2GM) 50 ml @ 25 mls/hr 1X ONCE IV Last administered on 08/24/16 12:55; Start 08/24/16 at 12:00; Stop 08/24/16 at 13:59; Status DC Propofol (Diprivan) 100 ml @ 0 mls/hr CONT PRN IV SEE I/O RECORD; Start at 19:00 Warfarin Sodium 2 mg 2 mg 1X WARF ONCE PO Last administered on 08/24/16 16:59 ; Start 08/24/16 at 16:00; Stop 08/24/16 at 16:01; Status DC Warfarin Sodium 2 mg 2 mg 1X WARF ONCE PO ; Start 08/25/16 at 16:00; Stop 08/25 at 16:01 Vitals/I & O Vital Sign - Last 24 Hours 08/24/16 08/24/16 08/24/16 08/24/16 10:35 11:00 12:00 12:00 Temp 97.8 97.8 Pulse 102 100 Resp 18 24 B/P 125/49 114/52 Pulse Ox 98 98 98 O2 Delivery Ventilator Ventilator Mechanical Ventilator Ventilator 08/24/17 17 17 08/24/16 12:54 13:00 14:00 14:00 Pulse 103 102 105 Resp 18 22 B/P 107/52 124/50 110/49 Pulse Ox 98 97 97 O2 Delivery Ventilator Ventilator Ventilator 08/24/17 17 17 08/24/16 14:45 15:00 16:00 16:00 Temp 98.4 98.4 Pulse 98 102 Resp 18 22 B/P 102/54 83/39 Pulse Ox 98 98 98 O2 Delivery Ventilator Ventilator Mechanical Ventilator Ventilator 08/24/16 08/24/16 08/24/16 08/24/16 16:04 17:00 18:00 19:00 Pulse 111 114 117 Resp 23 24 25 B/P 123/48 96/48 96/48 Pulse Ox 98 98 97 99 O2 Delivery Ventilator Ventilator Ventilator Ventilator 08/24/16 08/24/16 08/24/16 08/24/16 19:38 20:00 20:00 21:00 Temp 99.4 99.4 Pulse 107 112 Resp 23 26 B/P 115/44 115/44 Pulse Ox 98 98 98 O2 Delivery Ventilator Mechanical Ventilator Ventilator Ventilator 08/24/16 08/24/16 08/24/16 08/24/16 22:00 22:00 22:15 23:00 Pulse 107 107 104 Resp 21 21 B/P 119/40 108/44 112/47 Pulse Ox 98 98 98 O2 Delivery Ventilator Ventilator Ventilator 08/24/16 08/25/16 08/25/16 08/25/16 23:59 00:00 00:12 01:00 Temp 99.4 99.4 Pulse 110 111 Resp 23 19 B/P 111/46 112/54 Pulse Ox 98 97 99 O2 Delivery Mechanical Ventilator Ventilator Ventilator Ventilator 08/25/16 08/25/16 08/25/16 08/25/16 01:25 02:00 03:00 03:25 Pulse 108 115 Resp 24 21 B/P 104/52 104/56 Pulse Ox 100 98 95 96 O2 Delivery Ventilator Ventilator Ventilator Ventilator 08/25/16 08/25/16 08/25/16 08/25/16 04:00 04:00 05:00 05:15 Temp 99.3 99.3 Pulse 115 106 Resp 21 23 B/P 90/42 110/43 Pulse Ox 95 96 96 O2 Delivery Ventilator Mechanical Ventilator Ventilator Ventilator 08/25/16 08/25/16 08/25/16 08/25/16 05:45 06:00 07:28 07:49 Pulse 115 115 104 Resp 25 18 B/P 90/42 90/42 113/47 Pulse Ox 95 97 96 O2 Delivery Ventilator Ventilator Ventilator 08/25/16 08/25/16 08/25/16 08/25/16 08:00 08:13 08:30 08:58 Temp 98.5 98.5 Pulse 106 111 Resp 17 B/P 113/44 119/59 Pulse Ox 95 96 O2 Delivery Mechanical Ventilator Ventilator Ventilator O2 Flow Rate 5.0 08/25/16 09:01 Pulse 102 Resp 17 B/P 111/47 Pulse Ox 98 O2 Delivery Ventilator Intake and Output 08/24/16 08/24/16 08/25/16 15:00 23:00 07:00 Intake Total 60 ml 655 ml 2061 ml Output Total 1745 ml 2425 ml 2225 ml Balance -1685 ml -1770 ml -164 ml JAGUAR BRICE MD Aug 25, 2016 10:05
[2016-08-25] MEDS ORDERED: ALBUMIN HUMAN 5% 250 ML IV ONE (10:30)
--- NOTE | 2016-08-25 11:30 | PDOC ---
CARDIO Progress Notes Date and Time Date of Service 08/25/2016 Time of Evaluation 1125 Subjective Subjective: Other (intubated/ off sedation ) Vitals Vitals Vital Signs Date Time Temp Pulse Resp B/P Pulse Ox O2 Delivery O2 Flow Rate FiO2 08/25/16 11:06 108 15 111/43 97 Ventilator 08/25/16 08:30 98.5 98.5 08/25/16 08:00 5.0 Weight Weight [ ] Stability Assessment Stability Assess.: unstable for transfer (Intesive V. sign monit. req) Input and Output Intake and Output Intake and Output 08/25/16 07:00 Intake Total 2776 ml Output Total 6395 ml Balance -3619 ml IV Total 598 ml Tube Feeding 1728 ml Other 450 ml Output Urine Total 6395 ml Gastric Drainage Total 0 ml # Bowel Movements 1 Laboratory Labs Laboratory Tests Test 08/24/16 13:28 08/25/16 03:03 08/25/16 04:50 08/25/16 08:50 Glucose (Fingerstick) 124mg/dL (70-99) 108mg/dL (70-99) White Blood Count 12.5x10^3/uL (4.0-11.0) Red Blood Count 3.22x10^6/uL (3.50-5.40) Hemoglobin 8.4g/dL (12.0-15.5) Hematocrit 26.5% (36.0-47.0) Mean Corpuscular Volume 82fL (79-100) Mean Corpuscular Hemoglobin 26pg (25-35) Mean Corpuscular Hemoglobin Concent 32g/dL (31-37) Red Cell Distribution Width 18.5% (11.5-14.5) Platelet Count 157x10^3/uL (140-400) Neutrophils (%) (Auto) 86% (31-73) Lymphocytes (%) (Auto) 7% (24-48) Monocytes (%) (Auto) 5% (0-9) Eosinophils (%) (Auto) 3% (0-3) Basophils (%) (Auto) 0% (0-3) Neutrophils # (Auto) 10.8x10^3uL (1.8-7.7) Lymphocytes # (Auto) 0.8x10^3/uL (1.0-4.8) Monocytes # (Auto) 0.6x10^3/uL (0.0-1.1) Eosinophils # (Auto) 0.3x10^3/uL (0.0-0.7) Basophils # (Auto) 0.0x10^3/uL (0.0-0.2) Prothrombin Time 17.4SEC (11.7-14.0) Prothromb Time International Ratio 1.5 (0.8-1.1) Sodium Level 137mmol/L (136-145) Potassium Level 4.7mmol/L (3.5-5.1) Chloride Level 103mmol/L (98-107) Carbon Dioxide Level 30mmol/L (21-32) Anion Gap 4 (6-14) Blood Urea Nitrogen 15mg/dL (7-20) Creatinine 0.9mg/dL (0.6-1.0) Estimated GFR (Cockcroft-Gault) 64.1 Glucose Level 119mg/dL (70-99) Calcium Level 7.8mg/dL (8.5-10.1) Magnesium Level 1.9mg/dL (1.8-2.4) O2 Saturation 97% (92-99) Arterial Blood pH 7.47 (7.35-7.45) Arterial Blood pCO2 at Patient Temp 39mmHg (35-46) Arterial Blood pO2 at Patient Temp 97mmHg (65-108) Arterial Blood HCO3 28mmol/L (21-28) Arterial Blood Base Excess 4mmol/L (-3-3) FiO2 40 Microbiology Micro Microbiology 08/24/16 Blood Culture - Preliminary, Resulted NO GROWTH AFTER 1 DAY 08/24/16 Gram Stain - Final, Complete 08/18/16 Urine Culture - Final, Complete 08/18/16 Urine Culture Result 1 (SILVINA) - Final, Complete Case Discussion Case Discussed with: Other (RN and palliative care) Physical Exam Chest: Symmetric LUNGS: Other (coarse anteriorly; ? crackles) Heart: S1S2, irregularly irregular (tachycardic), other (tele: AF/AT) Abdomen: Other (morbidly obese; soft abdomen) Extremities: Other (+ lower extremity edema with venous stasis changes) Neurology: other (unresponsive; off sedation ) Assessment Assessment 1. cardiopulmonary arrest VT with shock to afib RVR to VT = total of 2 shocks echo with preserved LV function and EF of 55-60% and no WMA seen continues to require vasopressive support for hypotension and has been uptitrated from yesterday continue supportive care - prognosis guarded; palliative care consult pending to determine goals of care 2. atrial fib/atrial tach INR subtherapeutic - warfarin has been resumed; lovenox also continue digoxin for rate control anti-arrhythmic - propafenone 3. acute respiratory failure remains intubated/vent - CPAP trial in progress, however required PS increase to 20 due to tachypnea per pulm 4. sepsis per ID 5. pulm edema/? diastolic CHF BP limits ability to diurese 6. hypomagnesemic will replace Will follow peripherally - please contact for further assistance ARACELY URBANO APRN Aug 25, 2016 11:30
--- NOTE | 2016-08-25 14:30 | PDOC ---
PULMONARY PROGRESS NOTES Subjective Pt remains off sedation, minimally arousable Vitals Vital Signs Date Time Temp Pulse Resp B/P Pulse Ox O2 Delivery O2 Flow Rate FiO2 08/25/16 14:08 106 16 117/46 97 Ventilator 08/25/16 12:52 98.2 98.2 08/25/16 11:33 5.0 HEENT: Other (nc at perrl orally intubated. nose clear) Lungs: Other (coarse) Cardiovascular: S1, S2 Abdomen: Soft, Non-tender, Other ( no mass obese) Extremities: Other (edema) Skin: Warm, Dry Labs Laboratory Tests Test 08/24/16 05:30 08/24/16 09:35 08/24/16 13:28 08/25/16 03:03 White Blood Count 13.3x10^3/uL (4.0-11.0) Red Blood Count 3.27x10^6/uL (3.50-5.40) Hemoglobin 8.7g/dL (12.0-15.5) Hematocrit 26.5% (36.0-47.0) Mean Corpuscular Volume 81fL (79-100) Mean Corpuscular Hemoglobin 27pg (25-35) Mean Corpuscular Hemoglobin Concent 33g/dL (31-37) Red Cell Distribution Width 18.9% (11.5-14.5) Platelet Count 167x10^3/uL (140-400) Neutrophils (%) (Auto) 83% (31-73) Lymphocytes (%) (Auto) 10% (24-48) Monocytes (%) (Auto) 5% (0-9) Eosinophils (%) (Auto) 3% (0-3) Basophils (%) (Auto) 1% (0-3) Neutrophils # (Auto) 10.9x10^3uL (1.8-7.7) Lymphocytes # (Auto) 1.3x10^3/uL (1.0-4.8) Monocytes # (Auto) 0.6x10^3/uL (0.0-1.1) Eosinophils # (Auto) 0.4x10^3/uL (0.0-0.7) Basophils # (Auto) 0.1x10^3/uL (0.0-0.2) Prothrombin Time 18.0SEC (11.7-14.0) Prothromb Time International Ratio 1.6 (0.8-1.1) Sodium Level 137mmol/L (136-145) Potassium Level 4.4mmol/L (3.5-5.1) Chloride Level 104mmol/L (98-107) Carbon Dioxide Level 31mmol/L (21-32) Anion Gap 2 (6-14) Blood Urea Nitrogen 17mg/dL (7-20) Creatinine 0.9mg/dL (0.6-1.0) Estimated GFR (Cockcroft-Gault) 64.1 Glucose Level 129mg/dL (70-99) Calcium Level 7.3mg/dL (8.5-10.1) Magnesium Level 1.6mg/dL (1.8-2.4) O2 Saturation 97% (92-99) Arterial Blood pH 7.47 (7.35-7.45) Arterial Blood pCO2 at Patient Temp 38mmHg (35-46) Arterial Blood pO2 at Patient Temp 89mmHg (65-108) Arterial Blood HCO3 27mmol/L (21-28) Arterial Blood Base Excess 4mmol/L (-3-3) FiO2 40 Glucose (Fingerstick) 124mg/dL (70-99) 108mg/dL (70-99) Test 08/25/16 04:50 08/25/16 08:50 White Blood Count 12.5x10^3/uL (4.0-11.0) Red Blood Count 3.22x10^6/uL (3.50-5.40) Hemoglobin 8.4g/dL (12.0-15.5) Hematocrit 26.5% (36.0-47.0) Mean Corpuscular Volume 82fL (79-100) Mean Corpuscular Hemoglobin 26pg (25-35) Mean Corpuscular Hemoglobin Concent 32g/dL (31-37) Red Cell Distribution Width 18.5% (11.5-14.5) Platelet Count 157x10^3/uL (140-400) Neutrophils (%) (Auto) 86% (31-73) Lymphocytes (%) (Auto) 7% (24-48) Monocytes (%) (Auto) 5% (0-9) Eosinophils (%) (Auto) 3% (0-3) Basophils (%) (Auto) 0% (0-3) Neutrophils # (Auto) 10.8x10^3uL (1.8-7.7) Lymphocytes # (Auto) 0.8x10^3/uL (1.0-4.8) Monocytes # (Auto) 0.6x10^3/uL (0.0-1.1) Eosinophils # (Auto) 0.3x10^3/uL (0.0-0.7) Basophils # (Auto) 0.0x10^3/uL (0.0-0.2) Prothrombin Time 17.4SEC (11.7-14.0) Prothromb Time International Ratio 1.5 (0.8-1.1) Sodium Level 137mmol/L (136-145) Potassium Level 4.7mmol/L (3.5-5.1) Chloride Level 103mmol/L (98-107) Carbon Dioxide Level 30mmol/L (21-32) Anion Gap 4 (6-14) Blood Urea Nitrogen 15mg/dL (7-20) Creatinine 0.9mg/dL (0.6-1.0) Estimated GFR (Cockcroft-Gault) 64.1 Glucose Level 119mg/dL (70-99) Calcium Level 7.8mg/dL (8.5-10.1) Magnesium Level 1.9mg/dL (1.8-2.4) O2 Saturation 97% (92-99) Arterial Blood pH 7.47 (7.35-7.45) Arterial Blood pCO2 at Patient Temp 39mmHg (35-46) Arterial Blood pO2 at Patient Temp 97mmHg (65-108) Arterial Blood HCO3 28mmol/L (21-28) Arterial Blood Base Excess 4mmol/L (-3-3) FiO2 40 Laboratory Tests Test 08/25/16 03:03 08/25/16 04:50 08/25/16 08:50 Glucose (Fingerstick) 108mg/dL (70-99) White Blood Count 12.5x10^3/uL (4.0-11.0) Red Blood Count 3.22x10^6/uL (3.50-5.40) Hemoglobin 8.4g/dL (12.0-15.5) Hematocrit 26.5% (36.0-47.0) Mean Corpuscular Volume 82fL (79-100) Mean Corpuscular Hemoglobin 26pg (25-35) Mean Corpuscular Hemoglobin Concent 32g/dL (31-37) Red Cell Distribution Width 18.5% (11.5-14.5) Platelet Count 157x10^3/uL (140-400) Neutrophils (%) (Auto) 86% (31-73) Lymphocytes (%) (Auto) 7% (24-48) Monocytes (%) (Auto) 5% (0-9) Eosinophils (%) (Auto) 3% (0-3) Basophils (%) (Auto) 0% (0-3) Neutrophils # (Auto) 10.8x10^3uL (1.8-7.7) Lymphocytes # (Auto) 0.8x10^3/uL (1.0-4.8) Monocytes # (Auto) 0.6x10^3/uL (0.0-1.1) Eosinophils # (Auto) 0.3x10^3/uL (0.0-0.7) Basophils # (Auto) 0.0x10^3/uL (0.0-0.2) Prothrombin Time 17.4SEC (11.7-14.0) Prothromb Time International Ratio 1.5 (0.8-1.1) Sodium Level 137mmol/L (136-145) Potassium Level 4.7mmol/L (3.5-5.1) Chloride Level 103mmol/L (98-107) Carbon Dioxide Level 30mmol/L (21-32) Anion Gap 4 (6-14) Blood Urea Nitrogen 15mg/dL (7-20) Creatinine 0.9mg/dL (0.6-1.0) Estimated GFR (Cockcroft-Gault) 64.1 Glucose Level 119mg/dL (70-99) Calcium Level 7.8mg/dL (8.5-10.1) Magnesium Level 1.9mg/dL (1.8-2.4) O2 Saturation 97% (92-99) Arterial Blood pH 7.47 (7.35-7.45) Arterial Blood pCO2 at Patient Temp 39mmHg (35-46) Arterial Blood pO2 at Patient Temp 97mmHg (65-108) Arterial Blood HCO3 28mmol/L (21-28) Arterial Blood Base Excess 4mmol/L (-3-3) FiO2 40 Medications Active Scripts Medications Dose Route/Sig Days Date Category Dose Instructions Keflex (Cephalexin) 500 Mg Capsule 500 Mg PO QID 07/12/16 Reported take for 10 days start 07/12 Percocet 10-325 Mg Tablet (Oxycodone/Acetaminophen) 1 Each Tablet 1 Tab PO PRN Q6HRS PRN 07/12/16 Reported Potassium Chloride 20 Meq Tablet.er 20 Meq PO DAILY 07/12/16 Reported Ventolin Hfa Inhaler (Albuterol Sulfate) 18 Gm Hfa.aer.ad 2 Puff INH Q4HRS 07/12/16 Reported Atorvastatin Calcium 10 Mg Tablet 1 Tab PO DAILY 07/12/16 Reported Daily Vitamin (Multivitamin) 1 Each Tablet 1 Each PO DAILY 04/15/14 Reported Coumadin (Warfarin Sodium) 2.5 Mg Tablet 0.5 Tab PO DAILY 04/15/14 Reported Propafenone Hcl 225 Mg Cap.er.12h 225 Mg PO BID 04/15/14 Reported Pantoprazole Sodium 40 Mg Tablet.dr 1 Tab PO DAILY 04/15/14 Reported Aquaphor (Petrolatum,White) 99 Gm Oint...g. 99 Gm TP BID 12/04/13 Reported Cardizem Cd (Diltiazem Hcl) 120 Mg Cap.er.24h 120 Mg PO DAILY 12/04/13 Reported Zofran Odt (Ondansetron) 4 Mg Tab.rapdis 8 Mg PO Q8HRS 12/04/13 Reported x 2 days start 07/12 then 4 mg q 6hrs prn Lasix (Furosemide) 40 Mg Tablet 40 Mg PO DAILY 12/04/13 Reported Comments CXR improving aeration right base Impression . 1. Acute respiratory failure secondary to sepsis. 2. Sepsis with hypotension. 3. Atrial fibrillation. 4. Acute on chronic kidney failure. 5. Morbid obesity. 6. MULTIPLE ALLERGIES TO MEDICATIONS INCLUDING AMOXICILLIN. 7. S/P code blue V-Fib 8. Abnormal cxr with improving right basal infiltrates, Plan . NOT FULLY AWAKE FOR EXTUBATION WILL CONTINUE CPAP TRIAL TOLERATED STILL ON LEVO/ OFF BICARB DRIP D/W WITH RN ANTIBX PER ID TUBE FEEDING FOR NUTRITION ALIYA GARCIA MD Aug 25, 2016 14:30
[2016-08-25] MEDS ORDERED: WARFARIN 2 MG TABLET. PO ONE (16:00)
--- NOTE | 2016-08-25 16:08 | PDOC2 ---
PALLIATIVE CARE Palliative Care Note Palliative Care Consult requested by Joi Summers to address goals of care/family support and discharge plan. Patient remains on Vent. Day #8. Off sedation. pressor x1. Weaning trials when more awake. Diagnosis: cardiopulmonary arrest; EF 55-60%; at fib/at. tach; acute respiratory failure-- weaning trials; sepsis; pulmonary edema?; No family at bedside. Will arrange meeting for communication and support. RITCHIE ECHEVERRIA Aug 25, 2016 16:08
[2016-08-25] MEDS: ATORVASTATIN CALCIUM 10 MG TABLET. PO SCH (20:44)
[2016-08-25] MEDS: NOREPINEPHRINE 8 MG in IV NORMAL SALINE 250 ML IV PRN (23:20)
[2016-08-26] VITALS (29 sets, daily range): BP systolic 82–136; BP diastolic 26–63
[2016-08-26] MEDS: PROPAFENONE 150 MG TABLET. PO SCH ×3 (05:46→21:33)
[2016-08-26] MEDS: MEROPENEM 1 GM in IV NORMAL SALINE 100ML 100 ML IV SCH ×3 (05:46→21:33)
[2016-08-26 06:02] LABS: BASO # 0.1 x10^3/uL (0.0-0.2); BASO % 1 % (0-3); EOS % 2 % (0-3); HEMATOCRIT 26.6 % (36.0-47.0); HEMOGLOBIN 8.7 g/dL (12.0-15.5); LYMPH # 1.1 x10^3/uL (1.0-4.8); LYMPH % 10 % (24-48); MEAN CORPUSCULAR HEMOGLOBIN 27 pg (25-35); MEAN CORPUSCULAR HGB CONC 33 g/dL (31-37); MEAN CORPUSCULAR VOLUME 81 fL (79-100); MONO % 5 % (0-9); NEUT % 83 % (31-73); PLATELET COUNT 184 x10^3/uL (140-400); RED BLOOD COUNT 3.27 x10^6/uL (3.50-5.40); RED CELL DISTRIBUTION WIDTH 18.3 % (11.5-14.5); WHITE BLOOD COUNT 11.4 x10^3/uL (4.0-11.0)
[2016-08-26 06:17] LABS: CALCIUM 8.2 mg/dL (8.5-10.1); CREATININE 0.9 mg/dL (0.6-1.0); GFR 64.1; POTASSIUM 4.4 mmol/L (3.5-5.1)
[2016-08-26] MEDS: MICAFUNGIN 100 MG in IV DEXTROSE 5% 100 ML IV SCH (06:30)
--- NOTE | 2016-08-26 07:27 | PDOC ---
Infectious Disease Note Subjective Subjective Sedation turned off min response Remains intubated. Hypotension. on Levophed 3 mcg No fever or diarrhea ROS ROS Unobtainable Vital Sign Vital Signs Vital Signs Date Time Temp Pulse Resp B/P Pulse Ox O2 Delivery O2 Flow Rate FiO2 08/26/16 07:19 99 Ventilator 08/26/16 06:00 122 20 103/37 08/26/16 04:00 98.4 98.4 08/25/16 15:59 5.0 Physical Exam PHYSICAL EXAM GENERAL: Intubated and min responsive mittens. Opens eyes but sluggish HEENT: Pupils small- reactive. ETT. OGT LUNGS: Clear HEART: S1S2, ABD: Obese, soft : Newman EXT: BLE edema. No cyanosis LACE STRIPPER: Unresponsive/sedated. Responds to noxious stimuli SKIN: Purpuric-type rash anterior neck, as well as petechial type rash lightly on face and arms. RUE-PICC. clean Labs Lab Laboratory Tests Test 08/25/16 08:50 08/26/16 05:50 O2 Saturation 97% (92-99) Arterial Blood pH 7.47 (7.35-7.45) Arterial Blood pCO2 at Patient Temp 39mmHg (35-46) Arterial Blood pO2 at Patient Temp 97mmHg (65-108) Arterial Blood HCO3 28mmol/L (21-28) Arterial Blood Base Excess 4mmol/L (-3-3) FiO2 40 White Blood Count 11.4x10^3/uL (4.0-11.0) Red Blood Count 3.27x10^6/uL (3.50-5.40) Hemoglobin 8.7g/dL (12.0-15.5) Hematocrit 26.6% (36.0-47.0) Mean Corpuscular Volume 81fL (79-100) Mean Corpuscular Hemoglobin 27pg (25-35) Mean Corpuscular Hemoglobin Concent 33g/dL (31-37) Red Cell Distribution Width 18.3% (11.5-14.5) Platelet Count 184x10^3/uL (140-400) Neutrophils (%) (Auto) 83% (31-73) Lymphocytes (%) (Auto) 10% (24-48) Monocytes (%) (Auto) 5% (0-9) Eosinophils (%) (Auto) 2% (0-3) Basophils (%) (Auto) 1% (0-3) Neutrophils # (Auto) 9.5x10^3uL (1.8-7.7) Lymphocytes # (Auto) 1.1x10^3/uL (1.0-4.8) Monocytes # (Auto) 0.6x10^3/uL (0.0-1.1) Eosinophils # (Auto) 0.2x10^3/uL (0.0-0.7) Basophils # (Auto) 0.1x10^3/uL (0.0-0.2) Sodium Level 137mmol/L (136-145) Potassium Level 4.4mmol/L (3.5-5.1) Chloride Level 104mmol/L (98-107) Carbon Dioxide Level 29mmol/L (21-32) Anion Gap 4 (6-14) Blood Urea Nitrogen 15mg/dL (7-20) Creatinine 0.9mg/dL (0.6-1.0) Estimated GFR (Cockcroft-Gault) 64.1 Glucose Level 122mg/dL (70-99) Calcium Level 8.2mg/dL (8.5-10.1) Objective Assessment Fever - ? sepsis/med/? central. Better ? Staph aureus Staph aureus in sputum 08/24 Group B strep. 08/18 sepsis. Repeat 08/19 neg. Now on 3 of levophed - better Pulmonary infiltrates - GPC on Gram stain 08/24 Afib - RVR 08/21 Leukocytosis. -better Lactic acidosis, improved Dehydration LISSETH. resolved Hypotension likely sec to dehydration , infection appears less likely Obesity Respiratory failure s/p intubation MRSA nares positive Rash. purpuric/petechial-type -? reactive from code and intubation s/p code blue, V-fib. 08/18 Plan Plan of Care Cont Zyvox/Micafungin/Meropenem (may wean soon) F/u Sputum/blood cults F/u labs supportive care Await Palliative eval Critically ill Poor prognosis ALEX FRAZIER MD Aug 26, 2016 07:27
[2016-08-26] MEDS: ALBUTEROL SULFATE 2.5 MG/3 ML NEBU. NEB SCH ×4 (07:54→19:53)
--- NOTE | 2016-08-26 09:44 | PDOC ---
PROGRESS NOTES Subjective Subjective pt awake off sedation Objective Objective Vital Signs Date Time Temp Pulse Resp B/P Pulse Ox O2 Delivery O2 Flow Rate FiO2 08/26/16 09:00 97 Ventilator 08/26/16 06:00 122 20 103/37 08/26/16 04:00 98.4 98.4 08/25/16 15:59 5.0 Intake and Output 08/26/16 07:00 Intake Total 5292 ml Output Total 5775 ml Balance -483 ml IV Total 1211 ml Tube Feeding 2401 ml Blood Product IV Normal Saline Flush 450 ml Other 1230 ml Output Urine Total 5775 ml Physical Exam Abdomen: Normal bowel sounds, No tenderness Heart: Normal S1, Normal S2, Other (tachycardic) Extremities: Other (trace to 1+ edema - LE) General: Other (INTUBATED) HEENT: Atraumatic Lungs: Normal air movement MUSCULOSKELETAL: No deformity Skin: No breakdown COMMENT pigmentation neck Diagnosis Problem List Problems Medical Problems: (1) Fall from standing Status: Acute (2) Left knee pain Status: Acute Assessment Assessment Problems Medical Problems: (1) Fall from standing Status: Acute (2) Left knee pain Status: Acute FINAL IMPRESSION: CODE BLUE INTUBATED for resp failure Bacteremia gram positive -strep. sepsis with lactic acidosis. coagulopathy 1. Acute sepsis with hypotension. 2. Elevated white count with hypertension as well as renal insufficiency. 3. Chronic recurrent cellulitis of the legs. 4. Chronic lymphedema. 5. Morbid obesity. 6. History of Clostridium difficile. 7. Chronic atrial fibrillation, on Coumadin. 8. coagulopathy PLAN: spoke with pulmonary today T tube trial today iv antibiotics zyvox+meropenum+diflucan restarted on coumadin, bridge with Lovenox weaned off sedation. hypotension on low dose levophed Acute resiratory failure- on mechanical ventilation Coagulopathy INR decreased to1.5. D/gabby Femoral line . Thrombocytopenia resolved Hypokalemia- K 3.8 Improving. Leukocytosis- WBC 12.6 Prognosis is very poor. Problems: Plan Plan of Care Problems Medical Problems: (1) Fall from standing Status: Acute (2) Left knee pain Status: Acute Comment Review of Relevant I have reviewed the following items quentin (where applicable) has been applied. Labs Laboratory Tests Test 08/26/16 05:50 White Blood Count 11.4x10^3/uL (4.0-11.0) Red Blood Count 3.27x10^6/uL (3.50-5.40) Hemoglobin 8.7g/dL (12.0-15.5) Hematocrit 26.6% (36.0-47.0) Mean Corpuscular Volume 81fL (79-100) Mean Corpuscular Hemoglobin 27pg (25-35) Mean Corpuscular Hemoglobin Concent 33g/dL (31-37) Red Cell Distribution Width 18.3% (11.5-14.5) Platelet Count 184x10^3/uL (140-400) Neutrophils (%) (Auto) 83% (31-73) Lymphocytes (%) (Auto) 10% (24-48) Monocytes (%) (Auto) 5% (0-9) Eosinophils (%) (Auto) 2% (0-3) Basophils (%) (Auto) 1% (0-3) Neutrophils # (Auto) 9.5x10^3uL (1.8-7.7) Lymphocytes # (Auto) 1.1x10^3/uL (1.0-4.8) Monocytes # (Auto) 0.6x10^3/uL (0.0-1.1) Eosinophils # (Auto) 0.2x10^3/uL (0.0-0.7) Basophils # (Auto) 0.1x10^3/uL (0.0-0.2) Sodium Level 137mmol/L (136-145) Potassium Level 4.4mmol/L (3.5-5.1) Chloride Level 104mmol/L (98-107) Carbon Dioxide Level 29mmol/L (21-32) Anion Gap 4 (6-14) Blood Urea Nitrogen 15mg/dL (7-20) Creatinine 0.9mg/dL (0.6-1.0) Estimated GFR (Cockcroft-Gault) 64.1 Glucose Level 122mg/dL (70-99) Calcium Level 8.2mg/dL (8.5-10.1) Microbiology 08/24/16 Blood Culture - Preliminary, Resulted NO GROWTH AFTER 1 DAY 08/24/16 Sputum Culture - Preliminary, Resulted 08/24/16 Sputum Result 1 - Preliminary, Resulted 08/18/16 Urine Culture - Final, Complete 4/12/17 Urine Culture Result 1 (SILVINA) - Final, Complete Medications Current Medications Albumin Human (Plasmanate) 250 ml @ 62.5 mls/hr 1X ONCE IV Last administered on 08/25/16 10:21; Start 08/25/16 at 10:30; Stop 08/25/16 at 14:29; Status DC Enoxaparin Sodium (Lovenox 150mg Syringe) 150 mg Q12HR SQ Last administered on 08/25/16 20:43; Start 08/25/16 at 11:00 Warfarin Sodium (Coumadin) 3 mg 1X WARF ONCE PO ; Start 08/26/16 at 16:00; Stop 08/26/16 at 16:01 Warfarin Sodium 2 mg 2 mg 1X WARF ONCE PO Last administered on 08/25/16 17:08 ; Start 08/25/16 at 16:00; Stop 08/25/16 at 16:01; Status DC Vitals/I & O Vital Sign - Last 24 Hours 08/25/16 08/25/16 08/25/16 08/25/16 10:04 11:06 11:30 11:33 Pulse 106 108 Resp 27 15 B/P 111/41 111/43 Pulse Ox 97 97 96 O2 Delivery Ventilator Ventilator Ventilator Mechanical Ventilator O2 Flow Rate 5.0 08/25/16 08/25/16 08/25/16 08/25/16 12:18 12:52 13:35 14:01 Temp 98.2 98.2 Pulse 110 109 106 Resp 15 20 B/P 123/48 108/47 117/46 Pulse Ox 97 97 96 O2 Delivery Ventilator Ventilator Ventilator 08/25/16 08/25/16 08/25/16 08/25/16 14:08 14:57 15:30 15:59 Pulse 106 110 Resp 16 17 B/P 117/46 114/43 Pulse Ox 97 97 97 O2 Delivery Ventilator Ventilator Ventilator Mechanical Ventilator O2 Flow Rate 5.0 08/25/16 08/25/16 08/25/16 08/25/16 16:01 16:51 17:52 19:00 Pulse 105 106 114 116 Resp 20 25 20 23 B/P 119/46 123/53 107/51 127/61 Pulse Ox 95 97 97 98 O2 Delivery Ventilator Ventilator Ventilator Ventilator 08/25/16 08/25/16 08/25/16 08/25/16 20:00 20:00 20:37 21:00 Temp 98.4 98.4 Pulse 117 113 Resp 27 22 B/P 107/48 107/48 Pulse Ox 96 97 98 O2 Delivery Ventilator Mechanical Ventilator Ventilator Ventilator 08/25/16 08/25/16 08/25/16 08/25/16 22:00 23:00 23:21 23:37 Pulse 123 123 121 Resp 21 21 B/P 120/44 110/58 110/58 Pulse Ox 98 98 99 O2 Delivery Ventilator Ventilator Ventilator 08/25/16 08/26/16 08/26/16 08/26/16 23:59 00:00 01:00 02:00 Temp 98.6 98.6 Pulse 119 124 118 Resp 22 20 27 B/P 121/49 136/52 123/38 Pulse Ox 98 100 100 O2 Delivery Mechanical Ventilator Ventilator Ventilator Ventilator 08/26/16 08/26/16 08/26/16 08/26/16 02:15 02:18 03:00 04:00 Pulse 122 Resp 20 B/P 124/42 123/58 Pulse Ox 99 100 O2 Delivery Ventilator Ventilator Mechanical Ventilator 08/26/16 08/26/16 08/26/16 08/26/16 04:00 04:00 05:00 05:46 Temp 98.4 98.4 Pulse 116 121 111 Resp 18 20 B/P 105/59 107/47 101/44 Pulse Ox 99 100 100 O2 Delivery Ventilator Ventilator Ventilator 08/26/16 08/26/16 08/26/16 08/26/16 06:00 07:19 07:55 09:00 Pulse 122 Resp 20 B/P 103/37 Pulse Ox 100 99 97 97 O2 Delivery Ventilator Ventilator Ventilator Ventilator Intake and Output 08/25/16 08/25/16 08/26/16 15:00 23:00 07:00 Intake Total 950 ml 2758 ml 1584 ml Output Total 2625 ml 1500 ml 1650 ml Balance -1675 ml 1258 ml -66 ml JAGUAR BRICE MD Aug 26, 2016 09:44
[2016-08-26] MEDS: MULTIVITAMIN with MINERAL TABLET. PO SCH (10:17)
[2016-08-26] MEDS: DIGOXIN 125 MCG TABLET. NG SCH (10:17)
[2016-08-26] MEDS: CHLORHEXIDINE 0.12% 15 ML MOUTHWASH. SWSP SCH ×2 (10:19→20:52)
[2016-08-26] MEDS: PANTOPRAZOLE IV PUSH 40 MG VIAL. IVP SCH (10:19)
[2016-08-26 10:54] LABS: HCO3 ABG 27 mmol/L (21-28); PCO2 ABG 40 mmHg (35-46); PH ABG 7.44 (7.35-7.45); PO2 ABG 116 mmHg (65-108); SAT O2 ABG 98 % (92-99)
[2016-08-26 10:57] LABS: FIO2 ABG 40
[2016-08-26 11:20] LABS: INR 1.6 (0.8-1.1)
--- NOTE | 2016-08-26 11:23 | PDOC ---
PULMONARY PROGRESS NOTES Subjective Pt awake, following commands still weak increase R/R on CPAP trials Vitals Vital Signs Date Time Temp Pulse Resp B/P Pulse Ox O2 Delivery O2 Flow Rate FiO2 08/26/16 10:17 120 123/52 08/26/16 09:00 97 Ventilator 08/26/16 06:00 20 08/26/16 04:00 98.4 98.4 08/25/16 15:59 5.0 General: Alert, No acute distress HEENT: Other (nc at perrl orally intubated. nose clear) Lungs: Other (decrease bs) Cardiovascular: S1, S2 Abdomen: Soft, Non-tender, Other ( no mass obese) Extremities: Other (edema) Skin: Warm, Dry Labs Laboratory Tests Test 08/24/16 13:28 08/25/16 03:03 08/25/16 04:50 08/25/16 08:50 Glucose (Fingerstick) 124mg/dL (70-99) 108mg/dL (70-99) White Blood Count 12.5x10^3/uL (4.0-11.0) Red Blood Count 3.22x10^6/uL (3.50-5.40) Hemoglobin 8.4g/dL (12.0-15.5) Hematocrit 26.5% (36.0-47.0) Mean Corpuscular Volume 82fL (79-100) Mean Corpuscular Hemoglobin 26pg (25-35) Mean Corpuscular Hemoglobin Concent 32g/dL (31-37) Red Cell Distribution Width 18.5% (11.5-14.5) Platelet Count 157x10^3/uL (140-400) Neutrophils (%) (Auto) 86% (31-73) Lymphocytes (%) (Auto) 7% (24-48) Monocytes (%) (Auto) 5% (0-9) Eosinophils (%) (Auto) 3% (0-3) Basophils (%) (Auto) 0% (0-3) Neutrophils # (Auto) 10.8x10^3uL (1.8-7.7) Lymphocytes # (Auto) 0.8x10^3/uL (1.0-4.8) Monocytes # (Auto) 0.6x10^3/uL (0.0-1.1) Eosinophils # (Auto) 0.3x10^3/uL (0.0-0.7) Basophils # (Auto) 0.0x10^3/uL (0.0-0.2) Prothrombin Time 17.4SEC (11.7-14.0) Prothromb Time International Ratio 1.5 (0.8-1.1) Sodium Level 137mmol/L (136-145) Potassium Level 4.7mmol/L (3.5-5.1) Chloride Level 103mmol/L (98-107) Carbon Dioxide Level 30mmol/L (21-32) Anion Gap 4 (6-14) Blood Urea Nitrogen 15mg/dL (7-20) Creatinine 0.9mg/dL (0.6-1.0) Estimated GFR (Cockcroft-Gault) 64.1 Glucose Level 119mg/dL (70-99) Calcium Level 7.8mg/dL (8.5-10.1) Magnesium Level 1.9mg/dL (1.8-2.4) O2 Saturation 97% (92-99) Arterial Blood pH 7.47 (7.35-7.45) Arterial Blood pCO2 at Patient Temp 39mmHg (35-46) Arterial Blood pO2 at Patient Temp 97mmHg (65-108) Arterial Blood HCO3 28mmol/L (21-28) Arterial Blood Base Excess 4mmol/L (-3-3) FiO2 40 Test 08/26/16 05:50 08/26/16 08:00 White Blood Count 11.4x10^3/uL (4.0-11.0) Red Blood Count 3.27x10^6/uL (3.50-5.40) Hemoglobin 8.7g/dL (12.0-15.5) Hematocrit 26.6% (36.0-47.0) Mean Corpuscular Volume 81fL (79-100) Mean Corpuscular Hemoglobin 27pg (25-35) Mean Corpuscular Hemoglobin Concent 33g/dL (31-37) Red Cell Distribution Width 18.3% (11.5-14.5) Platelet Count 184x10^3/uL (140-400) Neutrophils (%) (Auto) 83% (31-73) Lymphocytes (%) (Auto) 10% (24-48) Monocytes (%) (Auto) 5% (0-9) Eosinophils (%) (Auto) 2% (0-3) Basophils (%) (Auto) 1% (0-3) Neutrophils # (Auto) 9.5x10^3uL (1.8-7.7) Lymphocytes # (Auto) 1.1x10^3/uL (1.0-4.8) Monocytes # (Auto) 0.6x10^3/uL (0.0-1.1) Eosinophils # (Auto) 0.2x10^3/uL (0.0-0.7) Basophils # (Auto) 0.1x10^3/uL (0.0-0.2) Sodium Level 137mmol/L (136-145) Potassium Level 4.4mmol/L (3.5-5.1) Chloride Level 104mmol/L (98-107) Carbon Dioxide Level 29mmol/L (21-32) Anion Gap 4 (6-14) Blood Urea Nitrogen 15mg/dL (7-20) Creatinine 0.9mg/dL (0.6-1.0) Estimated GFR (Cockcroft-Gault) 64.1 Glucose Level 122mg/dL (70-99) Calcium Level 8.2mg/dL (8.5-10.1) O2 Saturation 98% (92-99) Arterial Blood pH 7.44 (7.35-7.45) Arterial Blood pCO2 at Patient Temp 40mmHg (35-46) Arterial Blood pO2 at Patient Temp 116mmHg (65-108) Arterial Blood HCO3 27mmol/L (21-28) Arterial Blood Base Excess 2mmol/L (-3-3) FiO2 40 Laboratory Tests Test 08/26/16 05:50 08/26/16 08:00 White Blood Count 11.4x10^3/uL (4.0-11.0) Red Blood Count 3.27x10^6/uL (3.50-5.40) Hemoglobin 8.7g/dL (12.0-15.5) Hematocrit 26.6% (36.0-47.0) Mean Corpuscular Volume 81fL (79-100) Mean Corpuscular Hemoglobin 27pg (25-35) Mean Corpuscular Hemoglobin Concent 33g/dL (31-37) Red Cell Distribution Width 18.3% (11.5-14.5) Platelet Count 184x10^3/uL (140-400) Neutrophils (%) (Auto) 83% (31-73) Lymphocytes (%) (Auto) 10% (24-48) Monocytes (%) (Auto) 5% (0-9) Eosinophils (%) (Auto) 2% (0-3) Basophils (%) (Auto) 1% (0-3) Neutrophils # (Auto) 9.5x10^3uL (1.8-7.7) Lymphocytes # (Auto) 1.1x10^3/uL (1.0-4.8) Monocytes # (Auto) 0.6x10^3/uL (0.0-1.1) Eosinophils # (Auto) 0.2x10^3/uL (0.0-0.7) Basophils # (Auto) 0.1x10^3/uL (0.0-0.2) Sodium Level 137mmol/L (136-145) Potassium Level 4.4mmol/L (3.5-5.1) Chloride Level 104mmol/L (98-107) Carbon Dioxide Level 29mmol/L (21-32) Anion Gap 4 (6-14) Blood Urea Nitrogen 15mg/dL (7-20) Creatinine 0.9mg/dL (0.6-1.0) Estimated GFR (Cockcroft-Gault) 64.1 Glucose Level 122mg/dL (70-99) Calcium Level 8.2mg/dL (8.5-10.1) O2 Saturation 98% (92-99) Arterial Blood pH 7.44 (7.35-7.45) Arterial Blood pCO2 at Patient Temp 40mmHg (35-46) Arterial Blood pO2 at Patient Temp 116mmHg (65-108) Arterial Blood HCO3 27mmol/L (21-28) Arterial Blood Base Excess 2mmol/L (-3-3) FiO2 40 Medications Active Scripts Medications Dose Route/Sig Days Date Category Dose Instructions Keflex (Cephalexin) 500 Mg Capsule 500 Mg PO QID 07/12/16 Reported take for 10 days start 07/12 Percocet 10-325 Mg Tablet (Oxycodone/Acetaminophen) 1 Each Tablet 1 Tab PO PRN Q6HRS PRN 07/12/16 Reported Potassium Chloride 20 Meq Tablet.er 20 Meq PO DAILY 07/12/16 Reported Ventolin Hfa Inhaler (Albuterol Sulfate) 18 Gm Hfa.aer.ad 2 Puff INH Q4HRS 07/12/16 Reported Atorvastatin Calcium 10 Mg Tablet 1 Tab PO DAILY 07/12/16 Reported Daily Vitamin (Multivitamin) 1 Each Tablet 1 Each PO DAILY 04/15/14 Reported Coumadin (Warfarin Sodium) 2.5 Mg Tablet 0.5 Tab PO DAILY 04/15/14 Reported Propafenone Hcl 225 Mg Cap.er.12h 225 Mg PO BID 04/15/14 Reported Pantoprazole Sodium 40 Mg Tablet.dr 1 Tab PO DAILY 04/15/14 Reported Aquaphor (Petrolatum,White) 99 Gm Oint...g. 99 Gm TP BID 12/04/13 Reported Cardizem Cd (Diltiazem Hcl) 120 Mg Cap.er.24h 120 Mg PO DAILY 12/04/13 Reported Zofran Odt (Ondansetron) 4 Mg Tab.rapdis 8 Mg PO Q8HRS 12/04/13 Reported x 2 days start 07/12 then 4 mg q 6hrs prn Lasix (Furosemide) 40 Mg Tablet 40 Mg PO DAILY 12/04/13 Reported Comments CXR improving aeration right base Impression . 1. Acute respiratory failure secondary to sepsis. 2. Sepsis with hypotension. low dose levo 3. Atrial fibrillation. 4. Acute on chronic kidney failure. 5. Morbid obesity. 6. MULTIPLE ALLERGIES TO MEDICATIONS INCLUDING AMOXICILLIN. 7. S/P code blue V-Fib 8. Abnormal cxr with improving right basal infiltrates, 9. Staph aureus in sputum 08/24 Group B strep. 08/18 sepsis. Repeat 08/19 neg. Plan . FULLY AWAKE HAS BEEN ON CPAP TRIALS FOR 30 MIN/ INCREASE R/R WILL CONTINUE SPONTANEOUS BREATHING TRIALS TOLERATED NOT READY FOR EXTUBATION YET STILL ON LEVO/ OFF BICARB DRIP D/W WITH RN ANTIBX PER ID TUBE FEEDING FOR NUTRITION ALIYA GARCIA MD Aug 26, 2016 11:23
[2016-08-26] MEDS: NYSTATIN TOPICAL POWDER 15GM BOTTLE. TP SCH ×2 (12:31→20:52)
[2016-08-26] MEDS: OXYCODONE/APAP 10/325 TABLET. PO PRN (14:21)
[2016-08-26] MEDS ORDERED: WARFARIN 3 MG TABLET. PO ONE (16:00)
[2016-08-26] MEDS ORDERED: MAGNESIUM SULFATE 2GM 50 ML IV ONE (20:30)
[2016-08-26] MEDS: ATORVASTATIN CALCIUM 10 MG TABLET. PO SCH (20:51)
[2016-08-27] VITALS (22 sets, daily range): BP systolic 88–144; BP diastolic 37–69
[2016-08-27 06:06] LABS: HEMATOCRIT 25.2 % (36.0-47.0); HEMOGLOBIN 8.5 g/dL (12.0-15.5); RED BLOOD COUNT 3.13 x10^6/uL (3.50-5.40); RED CELL DISTRIBUTION WIDTH 18.6 % (11.5-14.5); WHITE BLOOD COUNT 9.6 x10^3/uL (4.0-11.0)
[2016-08-27] MEDS: MEROPENEM 1 GM in IV NORMAL SALINE 100ML 100 ML IV SCH (06:06)
[2016-08-27] MEDS: PROPAFENONE 150 MG TABLET. PO SCH ×3 (06:07→22:00)
[2016-08-27 06:17] LABS: INR 1.6 (0.8-1.1); PROTHROMBIN TIME PATIENT 18.1 SEC (11.7-14.0)
[2016-08-27 06:34] LABS: CALCIUM 8.1 mg/dL (8.5-10.1); CREATININE 0.9 mg/dL (0.6-1.0); GFR 64.1; MAGNESIUM 2.1 mg/dL (1.8-2.4); POTASSIUM 4.3 mmol/L (3.5-5.1)
--- NOTE | 2016-08-27 07:02 | PDOC ---
Infectious Disease Note Subjective Subjective Remains intubated. Hypotension. on Levophed 3 mcg No fever or diarrhea ROS ROS Unobtainable Vital Sign Vital Signs Vital Signs Date Time Temp Pulse Resp B/P Pulse Ox O2 Delivery O2 Flow Rate FiO2 08/27/16 06:07 116 116/48 08/27/16 06:00 24 99 Ventilator 08/27/16 04:00 99.4 99.4 Physical Exam PHYSICAL EXAM GENERAL: Intubated and Alert. mittens. Opens eyes but sluggish HEENT: Pupils equal- reactive. ETT. OGT LUNGS: Clear HEART: S1S2, ABD: Obese, soft : Newman EXT: BLE edema. No cyanosis PULP ROLLER: Alert SKIN: Purpuric-type rash anterior neck, as well as petechial type rash lightly on face and arms. RUE-PICC. clean Labs Lab Laboratory Tests Test 08/26/16 08:00 08/26/16 10:50 08/27/16 05:45 O2 Saturation 98% (92-99) Arterial Blood pH 7.44 (7.35-7.45) Arterial Blood pCO2 at Patient Temp 40mmHg (35-46) Arterial Blood pO2 at Patient Temp 116mmHg (65-108) Arterial Blood HCO3 27mmol/L (21-28) Arterial Blood Base Excess 2mmol/L (-3-3) FiO2 40 Prothrombin Time 18.0SEC (11.7-14.0) Prothromb Time International Ratio 1.6 (0.8-1.1) White Blood Count 9.6x10^3/uL (4.0-11.0) Red Blood Count 3.13x10^6/uL (3.50-5.40) Hemoglobin 8.5g/dL (12.0-15.5) Hematocrit 25.2% (36.0-47.0) Mean Corpuscular Volume 80fL (79-100) Mean Corpuscular Hemoglobin 27pg (25-35) Mean Corpuscular Hemoglobin Concent 34g/dL (31-37) Red Cell Distribution Width 18.6% (11.5-14.5) Platelet Count 207x10^3/uL (140-400) Sodium Level 136mmol/L (136-145) Potassium Level 4.3mmol/L (3.5-5.1) Chloride Level 102mmol/L (98-107) Carbon Dioxide Level 30mmol/L (21-32) Anion Gap 4 (6-14) Blood Urea Nitrogen 17mg/dL (7-20) Creatinine 0.9mg/dL (0.6-1.0) Estimated GFR (Cockcroft-Gault) 64.1 Glucose Level 111mg/dL (70-99) Calcium Level 8.1mg/dL (8.5-10.1) Magnesium Level 2.1mg/dL (1.8-2.4) Objective Assessment Fever - better Staph aureus in sputum 08/24. MRSA Group B strep. 08/18 sepsis. Repeat 08/19 neg. Now on 1 of levophed - better Pulmonary infiltrates - GPC on Gram stain 08/24 Afib - RVR 08/21 Leukocytosis. -better Lactic acidosis, improved Dehydration LISSETH. resolved Hypotension likely sec to dehydration , infection appears less likely Obesity Respiratory failure s/p intubation MRSA nares positive Rash. purpuric/petechial-type -? reactive from code and intubation s/p code blue, V-fib. 08/18 Plan Plan of Care Cont Zyvox/Micafungin D/c Meropenem F/u blood cults F/u labs supportive care Await Palliative eval Critically ill ALEX FRAZIER MD Aug 27, 2016 07:02
[2016-08-27] MEDS: ALBUTEROL SULFATE 2.5 MG/3 ML NEBU. NEB SCH ×4 (08:00→19:48)
--- NOTE | 2016-08-27 08:19 | RAD ---
Indication respiratory failure. A single view of the chest was obtained and is compared to a study 2 days previously. Heart size is unchanged. Aeration of the right lung base has improved slightly compared to the previous exam. Significant volume loss in the left mid and lower lung field compatible with pleural fluid, atelectasis or pneumonia persists and appears similar. Right PICC line and nasogastric tube are noted. Endotracheal tube is appropriately positioned above the lyndon. IMPRESSION: Improved aeration of the right lung base. Persistent volume loss in the mid and left lower lung field similar to the previous study
[2016-08-27 08:24] LABS: HCO3 ABG 25 mmol/L (21-28); PCO2 ABG 26 mmHg (35-46); PO2 ABG 155 mmHg (65-108); SAT O2 ABG 99 % (92-99)
[2016-08-27 08:37] LABS: PH ABG 7.59 (7.35-7.45)
[2016-08-27] MEDS: CHLORHEXIDINE 0.12% 15 ML MOUTHWASH. SWSP SCH ×2 (09:00→21:00)
--- NOTE | 2016-08-27 09:51 | PDOC ---
PROGRESS NOTES Subjective Subjective on vent, sleepy this am,off sedation Objective Objective Vital Signs Date Time Temp Pulse Resp B/P Pulse Ox O2 Delivery O2 Flow Rate FiO2 08/27/16 09:00 110 22 124/49 100 Ventilator 08/27/16 08:00 98.2 98.2 08/27/16 08:00 5.0 Intake and Output 08/27/16 07:00 Intake Total 5530 ml Output Total 4680 ml Balance 850 ml Intake Oral 0 ml IV Total 543 ml Tube Feeding 2855 ml Other 2132 ml Output Urine Total 4680 ml # Bowel Movements 2 Physical Exam Abdomen: Normal bowel sounds, No tenderness Heart: Normal S1, Normal S2, Other (tachycardic) Extremities: Other (trace to 1+ edema - LE) General: Other (INTUBATED) HEENT: Atraumatic Lungs: Normal air movement MUSCULOSKELETAL: No deformity Skin: No breakdown COMMENT pigmentation neck Diagnosis Problem List Problems Medical Problems: (1) Fall from standing Status: Acute (2) Left knee pain Status: Acute Assessment Assessment Problems Medical Problems: (1) Fall from standing Status: Acute (2) Left knee pain Status: Acute FINAL IMPRESSION: s/ p CODE BLUE INTUBATED for resp failure Bacteremia ,gram positive -strep group B. sepsis with lactic acidosis. coagulopathy 1. Acute sepsis with hypotension. 2. Elevated white count with hypertension as well as renal insufficiency. 3. Chronic recurrent cellulitis of the legs. 4. Chronic lymphedema. 5. Morbid obesity. 6. History of Clostridium difficile. 7. Chronic atrial fibrillation, on Coumadin. 8. coagulopathy PLAN: spoke with pulmonary today T tube trial today iv antibiotics zyvox++micofungin restarted on coumadin, bridge with Lovenox weaned off sedation. hypotension on low dose levophed Acute resiratory failure- on mechanical ventilation Coagulopathy INR decreased to1.6. D/gabby Femoral line . Thrombocytopenia resolved Hypokalemia- K 4.0 Improving. Leukocytosis- WBC 9 improved Prognosis is very poor. Problems: Plan Plan of Care Problems Medical Problems: (1) Fall from standing Status: Acute (2) Left knee pain Status: Acute Comment Review of Relevant I have reviewed the following items quentin (where applicable) has been applied. Labs Laboratory Tests Test 08/26/16 10:50 08/27/16 05:45 08/27/16 08:00 Prothrombin Time 18.0SEC (11.7-14.0) 18.1SEC (11.7-14.0) Prothromb Time International Ratio 1.6 (0.8-1.1) 1.6 (0.8-1.1) White Blood Count 9.6x10^3/uL (4.0-11.0) Red Blood Count 3.13x10^6/uL (3.50-5.40) Hemoglobin 8.5g/dL (12.0-15.5) Hematocrit 25.2% (36.0-47.0) Mean Corpuscular Volume 80fL (79-100) Mean Corpuscular Hemoglobin 27pg (25-35) Mean Corpuscular Hemoglobin Concent 34g/dL (31-37) Red Cell Distribution Width 18.6% (11.5-14.5) Platelet Count 207x10^3/uL (140-400) Sodium Level 136mmol/L (136-145) Potassium Level 4.3mmol/L (3.5-5.1) Chloride Level 102mmol/L (98-107) Carbon Dioxide Level 30mmol/L (21-32) Anion Gap 4 (6-14) Blood Urea Nitrogen 17mg/dL (7-20) Creatinine 0.9mg/dL (0.6-1.0) Estimated GFR (Cockcroft-Gault) 64.1 Glucose Level 111mg/dL (70-99) Calcium Level 8.1mg/dL (8.5-10.1) Magnesium Level 2.1mg/dL (1.8-2.4) O2 Saturation 99% (92-99) Arterial Blood pH 7.59 (7.35-7.45) Arterial Blood pCO2 at Patient Temp 26mmHg (35-46) Arterial Blood pO2 at Patient Temp 155mmHg (65-108) Arterial Blood HCO3 25mmol/L (21-28) Arterial Blood Base Excess 4mmol/L (-3-3) Microbiology 08/24/16 Blood Culture - Preliminary, Resulted NO GROWTH AFTER 2 DAYS 08/24/16 Sputum Culture - Final, Complete 08/24/16 Sputum Result 1 - Final, Complete 08/24/16 Antimicrobic Susceptibility - Final, Complete 08/18/16 Urine Culture - Final, Complete 08/18/16 Urine Culture Result 1 (SILVINA) - Final, Complete Medications Current Medications Magnesium Sulfate/ Dextrose (Magnesium Sulfate PREMIX 2GM) 50 ml @ 25 mls/hr 1X ONCE IV Last administered on 08/26/16 20:30; Start 08/26/16 at 20:30; Stop 08/26/16 at 22:29; Status DC Warfarin Sodium (Coumadin) 3 mg 1X WARF ONCE PO ; Start 08/27/16 at 16:00; Stop 08/27/16 at 16:01 Warfarin Sodium 3 mg 3 mg 1X WARF ONCE PO Last administered on 08/26/16 20:51 ; Start 08/26/16 at 16:00; Stop 08/26/16 at 16:01; Status DC Vitals/I & O Vital Sign - Last 24 Hours 08/26/16 08/26/16 08/26/16 08/26/16 10:00 10:00 10:17 10:30 Pulse 120 122 120 114 Resp 19 20 45 B/P 111/45 123/52 123/52 96/41 Pulse Ox 100 100 100 O2 Delivery Ventilator Ventilator Ventilator 08/26/16 08/26/16 08/26/16 08/26/16 11:00 12:00 12:00 12:00 Temp 99.0 99.0 Pulse 124 120 Resp 26 32 B/P 105/41 111/50 Pulse Ox 100 97 O2 Delivery Ventilator Mechanical Ventilator Ventilator Mechanical Ventilator 08/26/16 08/26/16 08/26/16 08/26/16 12:06 13:00 14:00 14:07 Pulse 122 114 127 Resp 33 25 B/P 114/39 116/50 114/39 Pulse Ox 100 98 99 O2 Delivery Ventilator Ventilator Ventilator 08/26/16 08/26/16 08/26/16 08/26/16 14:21 15:00 15:30 15:58 Pulse 113 Resp 29 B/P 110/42 Pulse Ox 99 99 93 100 O2 Delivery Ventilator Ventilator Ventilator Ventilator 08/26/16 08/26/16 08/26/16 08/26/16 16:00 16:00 17:00 17:05 Temp 98.8 98.8 Pulse 113 113 Resp 17 18 B/P 109/37 92/37 Pulse Ox 96 100 100 O2 Delivery Mechanical Ventilator Ventilator Ventilator 08/26/16 08/26/16 08/26/16 08/26/16 18:00 19:00 19:49 20:00 Temp 99.1 99.1 Pulse 117 112 124 Resp 22 26 26 B/P 93/39 108/36 111/46 Pulse Ox 100 100 100 100 O2 Delivery Ventilator Ventilator Ventilator Ventilator 08/26/16 08/26/16 08/26/16 08/26/16 20:00 21:00 21:33 22:00 Pulse 119 117 120 Resp 28 32 B/P 110/26 119/43 101/48 Pulse Ox 100 100 O2 Delivery Mechanical Ventilator Ventilator Ventilator 08/26/16 08/26/16 08/26/16 08/27/16 23:00 23:30 23:59 00:00 Temp 99.3 99.3 Pulse 108 113 Resp 26 25 B/P 108/49 103/49 Pulse Ox 100 100 100 O2 Delivery Ventilator Ventilator Mechanical Ventilator Ventilator 08/27/16 08/27/16 08/27/16 08/27/16 01:00 01:33 02:00 02:55 Pulse 110 116 Resp 25 25 B/P 121/54 89/64 Pulse Ox 100 100 100 100 O2 Delivery Ventilator Ventilator Ventilator Ventilator 08/27/16 08/27/16 08/27/16 08/27/16 03:00 04:00 04:00 05:00 Temp 99.4 99.4 Pulse 111 116 116 Resp 24 22 25 B/P 108/48 116/52 116/48 Pulse Ox 100 98 98 O2 Delivery Ventilator Mechanical Ventilator Ventilator Ventilator 08/27/16 08/27/16 08/27/16 08/27/16 05:20 06:00 06:07 07:00 Pulse 105 116 106 Resp 24 22 B/P 105/40 116/48 112/51 Pulse Ox 100 99 100 O2 Delivery Ventilator Ventilator Ventilator 08/27/16 08/27/16 08/27/16 08/27/16 07:58 08:00 08:00 09:00 Temp 98.2 98.2 Pulse 102 110 Resp 28 22 B/P 101/47 124/49 Pulse Ox 100 98 100 O2 Delivery Ventilator Mechanical Ventilator Ventilator Ventilator O2 Flow Rate 5.0 Intake and Output 08/26/16 08/26/16 08/27/16 15:00 23:00 07:00 Intake Total 650 ml 1355 ml 3525 ml Output Total 2450 ml 1385 ml 845 ml Balance -1800 ml -30 ml 2680 ml KODURI,VINAYA K MD Aug 27, 2016 09:51
[2016-08-27] MEDS: MICAFUNGIN 100 MG in IV DEXTROSE 5% 100 ML IV SCH (09:53)
[2016-08-27] MEDS: PANTOPRAZOLE IV PUSH 40 MG VIAL. IVP SCH (09:54)
[2016-08-27] MEDS: MULTIVITAMIN with MINERAL TABLET. PO SCH (09:55)
[2016-08-27] MEDS: DIGOXIN 125 MCG TABLET. NG SCH (09:56)
[2016-08-27] MEDS: NYSTATIN TOPICAL POWDER 15GM BOTTLE. TP SCH ×2 (09:57→21:05)
--- NOTE | 2016-08-27 11:27 | PDOC ---
PULMONARY PROGRESS NOTES Subjective Pt awake, following commands increase R/R on CPAP trials yesterday Vitals Vital Signs Date Time Temp Pulse Resp B/P Pulse Ox O2 Delivery O2 Flow Rate FiO2 08/27/16 09:56 107 114/46 08/27/16 09:00 22 100 Ventilator 08/27/16 08:00 98.2 98.2 08/27/16 08:00 5.0 General: Alert, No acute distress HEENT: Other (nc at perrl orally intubated. nose clear) Lungs: Other (decrease bs) Cardiovascular: S1, S2 Abdomen: Soft, Non-tender, Other ( no mass obese) Extremities: Other (edema) Skin: Warm, Dry Labs Laboratory Tests Test 08/26/16 05:50 08/26/16 08:00 08/26/16 10:50 08/27/16 05:45 White Blood Count 11.4x10^3/uL (4.0-11.0) 9.6x10^3/uL (4.0-11.0) Red Blood Count 3.27x10^6/uL (3.50-5.40) 3.13x10^6/uL (3.50-5.40) Hemoglobin 8.7g/dL (12.0-15.5) 8.5g/dL (12.0-15.5) Hematocrit 26.6% (36.0-47.0) 25.2% (36.0-47.0) Mean Corpuscular Volume 81fL (79-100) 80fL (79-100) Mean Corpuscular Hemoglobin 27pg (25-35) 27pg (25-35) Mean Corpuscular Hemoglobin Concent 33g/dL (31-37) 34g/dL (31-37) Red Cell Distribution Width 18.3% (11.5-14.5) 18.6% (11.5-14.5) Platelet Count 184x10^3/uL (140-400) 207x10^3/uL (140-400) Neutrophils (%) (Auto) 83% (31-73) Lymphocytes (%) (Auto) 10% (24-48) Monocytes (%) (Auto) 5% (0-9) Eosinophils (%) (Auto) 2% (0-3) Basophils (%) (Auto) 1% (0-3) Neutrophils # (Auto) 9.5x10^3uL (1.8-7.7) Lymphocytes # (Auto) 1.1x10^3/uL (1.0-4.8) Monocytes # (Auto) 0.6x10^3/uL (0.0-1.1) Eosinophils # (Auto) 0.2x10^3/uL (0.0-0.7) Basophils # (Auto) 0.1x10^3/uL (0.0-0.2) Sodium Level 137mmol/L (136-145) 136mmol/L (136-145) Potassium Level 4.4mmol/L (3.5-5.1) 4.3mmol/L (3.5-5.1) Chloride Level 104mmol/L (98-107) 102mmol/L (98-107) Carbon Dioxide Level 29mmol/L (21-32) 30mmol/L (21-32) Anion Gap 4 (6-14) 4 (6-14) Blood Urea Nitrogen 15mg/dL (7-20) 17mg/dL (7-20) Creatinine 0.9mg/dL (0.6-1.0) 0.9mg/dL (0.6-1.0) Estimated GFR (Cockcroft-Gault) 64.1 64.1 Glucose Level 122mg/dL (70-99) 111mg/dL (70-99) Calcium Level 8.2mg/dL (8.5-10.1) 8.1mg/dL (8.5-10.1) O2 Saturation 98% (92-99) Arterial Blood pH 7.44 (7.35-7.45) Arterial Blood pCO2 at Patient Temp 40mmHg (35-46) Arterial Blood pO2 at Patient Temp 116mmHg (65-108) Arterial Blood HCO3 27mmol/L (21-28) Arterial Blood Base Excess 2mmol/L (-3-3) FiO2 40 Prothrombin Time 18.0SEC (11.7-14.0) 18.1SEC (11.7-14.0) Prothromb Time International Ratio 1.6 (0.8-1.1) 1.6 (0.8-1.1) Magnesium Level 2.1mg/dL (1.8-2.4) Test 08/27/16 08:00 O2 Saturation 99% (92-99) Arterial Blood pH 7.59 (7.35-7.45) Arterial Blood pCO2 at Patient Temp 26mmHg (35-46) Arterial Blood pO2 at Patient Temp 155mmHg (65-108) Arterial Blood HCO3 25mmol/L (21-28) Arterial Blood Base Excess 4mmol/L (-3-3) Laboratory Tests Test 08/27/16 05:45 08/27/16 08:00 White Blood Count 9.6x10^3/uL (4.0-11.0) Red Blood Count 3.13x10^6/uL (3.50-5.40) Hemoglobin 8.5g/dL (12.0-15.5) Hematocrit 25.2% (36.0-47.0) Mean Corpuscular Volume 80fL (79-100) Mean Corpuscular Hemoglobin 27pg (25-35) Mean Corpuscular Hemoglobin Concent 34g/dL (31-37) Red Cell Distribution Width 18.6% (11.5-14.5) Platelet Count 207x10^3/uL (140-400) Prothrombin Time 18.1SEC (11.7-14.0) Prothromb Time International Ratio 1.6 (0.8-1.1) Sodium Level 136mmol/L (136-145) Potassium Level 4.3mmol/L (3.5-5.1) Chloride Level 102mmol/L (98-107) Carbon Dioxide Level 30mmol/L (21-32) Anion Gap 4 (6-14) Blood Urea Nitrogen 17mg/dL (7-20) Creatinine 0.9mg/dL (0.6-1.0) Estimated GFR (Cockcroft-Gault) 64.1 Glucose Level 111mg/dL (70-99) Calcium Level 8.1mg/dL (8.5-10.1) Magnesium Level 2.1mg/dL (1.8-2.4) O2 Saturation 99% (92-99) Arterial Blood pH 7.59 (7.35-7.45) Arterial Blood pCO2 at Patient Temp 26mmHg (35-46) Arterial Blood pO2 at Patient Temp 155mmHg (65-108) Arterial Blood HCO3 25mmol/L (21-28) Arterial Blood Base Excess 4mmol/L (-3-3) Medications Active Scripts Medications Dose Route/Sig Days Date Category Dose Instructions Keflex (Cephalexin) 500 Mg Capsule 500 Mg PO QID 07/12/16 Reported take for 10 days start 07/12 Percocet 10-325 Mg Tablet (Oxycodone/Acetaminophen) 1 Each Tablet 1 Tab PO PRN Q6HRS PRN 07/12/16 Reported Potassium Chloride 20 Meq Tablet.er 20 Meq PO DAILY 07/12/16 Reported Ventolin Hfa Inhaler (Albuterol Sulfate) 18 Gm Hfa.aer.ad 2 Puff INH Q4HRS 07/12/16 Reported Atorvastatin Calcium 10 Mg Tablet 1 Tab PO DAILY 07/12/16 Reported Daily Vitamin (Multivitamin) 1 Each Tablet 1 Each PO DAILY 04/15/14 Reported Coumadin (Warfarin Sodium) 2.5 Mg Tablet 0.5 Tab PO DAILY 04/15/14 Reported Propafenone Hcl 225 Mg Cap.er.12h 225 Mg PO BID 04/15/14 Reported Pantoprazole Sodium 40 Mg Tablet.dr 1 Tab PO DAILY 04/15/14 Reported Aquaphor (Petrolatum,White) 99 Gm Oint...g. 99 Gm TP BID 12/04/13 Reported Cardizem Cd (Diltiazem Hcl) 120 Mg Cap.er.24h 120 Mg PO DAILY 12/04/13 Reported Zofran Odt (Ondansetron) 4 Mg Tab.rapdis 8 Mg PO Q8HRS 12/04/13 Reported x 2 days start 07/12 then 4 mg q 6hrs prn Lasix (Furosemide) 40 Mg Tablet 40 Mg PO DAILY 12/04/13 Reported Comments CXR improving aeration right base Impression . 1. Acute respiratory failure secondary to sepsis. 2. Sepsis with hypotension. low dose levo 3. Atrial fibrillation. 4. Acute on chronic kidney failure. 5. Morbid obesity. 6. MULTIPLE ALLERGIES TO MEDICATIONS INCLUDING AMOXICILLIN. 7. S/P code blue V-Fib 8. Abnormal cxr with improving right basal infiltrates, 9. Staph aureus in sputum 08/24 (MRSA) Group B strep. 08/18 sepsis. Repeat 08/19 neg. Plan . FULLY AWAKE WILL CONTINUE SPONTANEOUS BREATHING TRIALS WE MAY DO T-PIECE TRIAL BEFORE EXTUBATION / BIPAP POST EXTUBATION STILL ON LEVO/ OFF BICARB DRIP D/W WITH RN ANTIBX PER ID (MRSA) TUBE FEEDING FOR NUTRITION ALIYA GARCIA MD Aug 27, 2016 11:27
[2016-08-27 11:36] LABS: HCO3 ABG 28 mmol/L (21-28); PCO2 ABG 37 mmHg (35-46); PO2 ABG 111 mmHg (65-108); SAT O2 ABG 98 % (92-99)
[2016-08-27 11:48] LABS: PH ABG 7.49 (7.35-7.45)
--- NOTE | 2016-08-27 11:59 | PDOC2 ---
PALLIATIVE CARE Palliative Care Note Palliative Care Patient continuing weaning trails. Attempted to reach son Manohar to discuss plan of care. Message to return call. Will screen for [facility] RITCHIE ECHEVERRIA Aug 27, 2016 11:59
[2016-08-27] MEDS ORDERED: WARFARIN 3 MG TABLET. PO ONE (13:00)
[2016-08-27] MEDS ORDERED: ANTI-COAG MONITOR BY PHARMACY. MC PRN (14:45)
[2016-08-27 14:53] LABS: HCO3 ABG 27 mmol/L (21-28); PCO2 ABG 34 mmHg (35-46); PO2 ABG 97 mmHg (65-108); SAT O2 ABG 97 % (92-99)
[2016-08-27 14:54] LABS: FIO2 ABG 40; PH ABG 7.51 (7.35-7.45)
[2016-08-27 14:54] LABS: FIO2 ABG 40; HCO3 ABG 29 mmol/L (21-28); PCO2 ABG 40 mmHg (35-46); PH ABG 7.48 (7.35-7.45); PO2 ABG 69 mmHg (65-108); SAT O2 ABG 93 % (92-99)
[2016-08-27] MEDS: ATORVASTATIN CALCIUM 10 MG TABLET. PO SCH (21:00)
[2016-08-28] VITALS (23 sets, daily range): BP systolic 87–131; BP diastolic 39–55
[2016-08-28] MEDS: PROPAFENONE 150 MG TABLET. PO SCH ×3 (05:49→20:44)
[2016-08-28] MEDS: MICAFUNGIN 100 MG in IV DEXTROSE 5% 100 ML IV SCH (06:42)
[2016-08-28] MEDS: ALBUTEROL SULFATE 2.5 MG/3 ML NEBU. NEB SCH ×4 (07:36→19:32)
[2016-08-28] MEDS: MULTIVITAMIN with MINERAL TABLET. PO SCH (07:59)
[2016-08-28] MEDS: CHLORHEXIDINE 0.12% 15 ML MOUTHWASH. SWSP SCH (07:59)
[2016-08-28] MEDS: PANTOPRAZOLE IV PUSH 40 MG VIAL. IVP SCH (08:52)
[2016-08-28] MEDS: DIGOXIN 125 MCG TABLET. NG SCH (09:00)
[2016-08-28] MEDS: NYSTATIN TOPICAL POWDER 15GM BOTTLE. TP SCH ×2 (09:00→20:44)
[2016-08-28 09:20] LABS: PROTHROMBIN TIME PATIENT 21.6 SEC (11.7-14.0)
--- NOTE | 2016-08-28 09:53 | PDOC ---
PULMONARY PROGRESS NOTES Subjective extubated 08/27 doing better increase cough Vitals Vital Signs Date Time Temp Pulse Resp B/P Pulse Ox O2 Delivery O2 Flow Rate FiO2 08/28/16 07:37 95 Nasal Cannula 4.0 08/28/16 07:00 113 22 102/43 08/28/16 03:00 98.8 98.8 General: Alert, No acute distress HEENT: Other (nc at perrl orally intubated. nose clear) Lungs: Other (decrease bs) Cardiovascular: S1, S2 Abdomen: Soft, Non-tender, Other ( no mass obese) Extremities: Other (edema) Skin: Warm, Dry Labs Laboratory Tests Test 08/26/16 10:50 08/27/16 05:45 08/27/16 08:00 08/27/16 11:00 Prothrombin Time 18.0SEC (11.7-14.0) 18.1SEC (11.7-14.0) Prothromb Time International Ratio 1.6 (0.8-1.1) 1.6 (0.8-1.1) White Blood Count 9.6x10^3/uL (4.0-11.0) Red Blood Count 3.13x10^6/uL (3.50-5.40) Hemoglobin 8.5g/dL (12.0-15.5) Hematocrit 25.2% (36.0-47.0) Mean Corpuscular Volume 80fL (79-100) Mean Corpuscular Hemoglobin 27pg (25-35) Mean Corpuscular Hemoglobin Concent 34g/dL (31-37) Red Cell Distribution Width 18.6% (11.5-14.5) Platelet Count 207x10^3/uL (140-400) Sodium Level 136mmol/L (136-145) Potassium Level 4.3mmol/L (3.5-5.1) Chloride Level 102mmol/L (98-107) Carbon Dioxide Level 30mmol/L (21-32) Anion Gap 4 (6-14) Blood Urea Nitrogen 17mg/dL (7-20) Creatinine 0.9mg/dL (0.6-1.0) Estimated GFR (Cockcroft-Gault) 64.1 Glucose Level 111mg/dL (70-99) Calcium Level 8.1mg/dL (8.5-10.1) Magnesium Level 2.1mg/dL (1.8-2.4) O2 Saturation 99% (92-99) 98% (92-99) Arterial Blood pH 7.59 (7.35-7.45) 7.49 (7.35-7.45) Arterial Blood pCO2 at Patient Temp 26mmHg (35-46) 37mmHg (35-46) Arterial Blood pO2 at Patient Temp 155mmHg (65-108) 111mmHg (65-108) Arterial Blood HCO3 25mmol/L (21-28) 28mmol/L (21-28) Arterial Blood Base Excess 4mmol/L (-3-3) 4mmol/L (-3-3) FiO2 40.0 Test 08/27/16 12:30 08/27/16 14:30 08/28/16 09:00 O2 Saturation 93% (92-99) 97% (92-99) Arterial Blood pH 7.48 (7.35-7.45) 7.51 (7.35-7.45) Arterial Blood pCO2 at Patient Temp 40mmHg (35-46) 34mmHg (35-46) Arterial Blood pO2 at Patient Temp 69mmHg (65-108) 97mmHg (65-108) Arterial Blood HCO3 29mmol/L (21-28) 27mmol/L (21-28) Arterial Blood Base Excess 5mmol/L (-3-3) 4mmol/L (-3-3) FiO2 40 40 Prothrombin Time 21.6SEC (11.7-14.0) Prothromb Time International Ratio 2.0 (0.8-1.1) Laboratory Tests Test 08/27/16 11:00 08/27/16 12:30 08/27/16 14:30 08/28/16 09:00 O2 Saturation 98% (92-99) 93% (92-99) 97% (92-99) Arterial Blood pH 7.49 (7.35-7.45) 7.48 (7.35-7.45) 7.51 (7.35-7.45) Arterial Blood pCO2 at Patient Temp 37mmHg (35-46) 40mmHg (35-46) 34mmHg (35-46) Arterial Blood pO2 at Patient Temp 111mmHg (65-108) 69mmHg (65-108) 97mmHg (65-108) Arterial Blood HCO3 28mmol/L (21-28) 29mmol/L (21-28) 27mmol/L (21-28) Arterial Blood Base Excess 4mmol/L (-3-3) 5mmol/L (-3-3) 4mmol/L (-3-3) FiO2 40.0 40 40 Prothrombin Time 21.6SEC (11.7-14.0) Prothromb Time International Ratio 2.0 (0.8-1.1) Medications Active Scripts Medications Dose Route/Sig Days Date Category Dose Instructions Keflex (Cephalexin) 500 Mg Capsule 500 Mg PO QID 07/12/16 Reported take for 10 days start 07/12 Percocet 10-325 Mg Tablet (Oxycodone/Acetaminophen) 1 Each Tablet 1 Tab PO PRN Q6HRS PRN 07/12/16 Reported Potassium Chloride 20 Meq Tablet.er 20 Meq PO DAILY 07/12/16 Reported Ventolin Hfa Inhaler (Albuterol Sulfate) 18 Gm Hfa.aer.ad 2 Puff INH Q4HRS 07/12/16 Reported Atorvastatin Calcium 10 Mg Tablet 1 Tab PO DAILY 07/12/16 Reported Daily Vitamin (Multivitamin) 1 Each Tablet 1 Each PO DAILY 04/15/14 Reported Coumadin (Warfarin Sodium) 2.5 Mg Tablet 0.5 Tab PO DAILY 04/15/14 Reported Propafenone Hcl 225 Mg Cap.er.12h 225 Mg PO BID 04/15/14 Reported Pantoprazole Sodium 40 Mg Tablet.dr 1 Tab PO DAILY 04/15/14 Reported Aquaphor (Petrolatum,White) 99 Gm Oint...g. 99 Gm TP BID 12/04/13 Reported Cardizem Cd (Diltiazem Hcl) 120 Mg Cap.er.24h 120 Mg PO DAILY 12/04/13 Reported Zofran Odt (Ondansetron) 4 Mg Tab.rapdis 8 Mg PO Q8HRS 12/04/13 Reported x 2 days start 07/12 then 4 mg q 6hrs prn Lasix (Furosemide) 40 Mg Tablet 40 Mg PO DAILY 12/04/13 Reported Comments CXR improving aeration right base Impression . 1. Acute respiratory failure secondary to sepsis. extubated 08/27 2. Sepsis with hypotension. off levo 3. Atrial fibrillation. 4. Acute on chronic kidney failure. 5. Morbid obesity. 6. MULTIPLE ALLERGIES TO MEDICATIONS INCLUDING AMOXICILLIN. 7. S/P code blue V-Fib 8. Abnormal cxr with improving right basal infiltrates, 9. Staph aureus in sputum 08/24 (MRSA) Group B strep. 08/18 sepsis. Repeat 08/19 neg. Plan . FULLY AWAKE/EXTUBATED 08/27 NEEDS AGGRESSIVE PT SPEECH EVAL ANTIBIOTICS PER ID( MRSA IN SPUTUM) D/W WITH ALIYA BYRD MD Aug 28, 2016 09:53
--- NOTE | 2016-08-28 10:40 | PDOC ---
Infectious Disease Note Subjective Subjective Extubated yesterday, Mild cough and sore throat. Denies CP or SOA c/o pain knees bilaterally ROS ROS GEN: Denies fevers, chills, sweats GI: Denies n/v/d Vital Sign Vital Signs Vital Signs Date Time Temp Pulse Resp B/P Pulse Ox O2 Delivery O2 Flow Rate FiO2 08/28/16 10:00 112 22 97/48 95 Nasal Cannula 6.0 08/28/16 08:00 98.5 98.5 Physical Exam PHYSICAL EXAM GENERAL: Alert, calm, NAD HEENT: Oral mucosa pink NECK: Supple LUNGS: Clear HEART: Irregular ABD: Obese, soft, NT : Newman EXT: BLE trace edema. no cyanosis IT SYSTEMS ANALYST CONSULTANT: Alert, oriented SKIN: Purpuric-type rash anterior neck, some better RUE-PICC. clean Labs Lab Laboratory Tests Test 08/27/16 11:00 08/27/16 12:30 08/27/16 14:30 08/28/16 09:00 O2 Saturation 98% (92-99) 93% (92-99) 97% (92-99) Arterial Blood pH 7.49 (7.35-7.45) 7.48 (7.35-7.45) 7.51 (7.35-7.45) Arterial Blood pCO2 at Patient Temp 37mmHg (35-46) 40mmHg (35-46) 34mmHg (35-46) Arterial Blood pO2 at Patient Temp 111mmHg (65-108) 69mmHg (65-108) 97mmHg (65-108) Arterial Blood HCO3 28mmol/L (21-28) 29mmol/L (21-28) 27mmol/L (21-28) Arterial Blood Base Excess 4mmol/L (-3-3) 5mmol/L (-3-3) 4mmol/L (-3-3) FiO2 40.0 40 40 Prothrombin Time 21.6SEC (11.7-14.0) Prothromb Time International Ratio 2.0 (0.8-1.1) Micro 08/24. BLOOD CULTURE Preliminary NO GROWTH AFTER 3 DAYS Objective Assessment Fever. Resolved MRSA in sputum 08/24 Group B strep. 08/18 sepsis. Pulmonary infiltrates. Afib - RVR 08/21 Leukocytosis. -better Lactic acidosis, improved Dehydration LISSETH. resolved Hypotension. off pressors Obesity Respiratory failure s/p extubation, 08/27 MRSA nares positive Rash. purpuric/petechial-type -? reactive from code and intubation s/p code blue, V-fib. 08/18 Plan Plan of Care Cont Zyvox and Micafungin - Previous Meropenem 08/18-08/27 Monitor labs/BC supportive care Await Palliative eval Critically ill Patient seen and examined. Chart reviewed. Case discussed with CAMP HOUSEKEEPER. Agree with above plan. STORMY BAL ELECTROLOGIST Aug 28, 2016 10:40 VALERIE THACKER MD Aug 28, 2016 17:46
[2016-08-28] MEDS: DIGOXIN IV 500 MCG/2 ML AMPUL. IV SCH (11:31)
--- NOTE | 2016-08-28 15:32 | PDOC ---
PROGRESS NOTES Subjective Subjective extubated yesterday,anxious and nervous Objective Objective Vital Signs Date Time Temp Pulse Resp B/P Pulse Ox O2 Delivery O2 Flow Rate FiO2 08/28/16 15:00 115 20 117/47 93 Nasal Cannula 6.0 08/28/16 12:00 98.5 98.5 Intake and Output 08/28/16 07:00 Intake Total 880 ml Output Total 2945 ml Balance -2065 ml Intake Oral 130 ml IV Total 300 ml Tube Feeding 450 ml Output Urine Total 2945 ml Physical Exam Abdomen: Normal bowel sounds, No tenderness Heart: Normal S1, Normal S2, Other (tachycardic) Extremities: Other (trace to 1+ edema - LE) General: Other (INTUBATED) HEENT: Atraumatic Lungs: Normal air movement MUSCULOSKELETAL: No deformity Skin: No breakdown COMMENT pigmentation neck Diagnosis Problem List Problems Medical Problems: (1) Fall from standing Status: Acute (2) Left knee pain Status: Acute Assessment Assessment Problems Medical Problems: (1) Fall from standing Status: Acute (2) Left knee pain Status: Acute FINAL IMPRESSION: s/ p CODE BLUE. Extubated 08/27/16 INTUBATED for resp failure Bacteremia ,gram positive -strep group B. sepsis with lactic acidosis. coagulopathy 1. Acute sepsis with hypotension. 2. Elevated white count with hypertension as well as renal insufficiency. 3. Chronic recurrent cellulitis of the legs. 4. Chronic lymphedema. 5. Morbid obesity. 6. History of Clostridium difficile. 7. Chronic atrial fibrillation, on Coumadin. 8. coagulopathy PLAN: spoke RN.NPO for now T tube trial yesterday and extubated iv antibiotics zyvox++micofungin restarted on coumadin, bridge with Lovenox, inr 2.1 weaned off sedation. hypotension on low dose levophed Thrombocytopenia resolved Hypokalemia- K 4.0 Improving. Leukocytosis- WBC 9 improved Prognosis is very poor. Problems: Plan Plan of Care Problems Medical Problems: (1) Fall from standing Status: Acute (2) Left knee pain Status: Acute Comment Review of Relevant I have reviewed the following items quentin (where applicable) has been applied. Labs Laboratory Tests Test 08/28/16 09:00 Prothrombin Time 21.6SEC (11.7-14.0) Prothromb Time International Ratio 2.0 (0.8-1.1) Microbiology 4/18/17 Blood Culture - Preliminary, Resulted NO GROWTH AFTER 3 DAYS 08/24/16 Sputum Culture - Final, Complete 08/24/16 Sputum Result 1 - Final, Complete 08/24/16 Antimicrobic Susceptibility - Final, Complete 08/18/16 Urine Culture - Final, Complete 08/18/16 Urine Culture Result 1 (SILVINA) - Final, Complete Medications Current Medications Digoxin (Lanoxin) 250 mcg DAILY IV Last administered on 08/28/16t 11:31; Start 08/28/16 at 11:00 Warfarin Sodium (Coumadin) 2 mg 1X WARF ONCE PO ; Start 08/28/16 at 16:00; Stop 08/28/16 at 16:01 Vitals/I & O Vital Sign - Last 24 Hours 08/27/16 08/27/16 08/27/16 08/27/16 16:00 16:58 18:04 19:00 Temp 97.6 97.6 Pulse 107 107 105 Resp 28 B/P 144/68 144/68 98/49 Pulse Ox 99 99 98 O2 Delivery Bi-pap BiPAP/CPAP BiPAP/CPAP Nasal Cannula O2 Flow Rate 6.0 08/27/16 08/27/16 08/27/16 08/27/16 19:48 20:00 20:00 20:00 Pulse 111 Resp 33 B/P 98/51 Pulse Ox 97 97 O2 Delivery Nasal Cannula Nasal Cannula Nasal Cannula O2 Flow Rate 4.0 4.0 6.0 6.0 08/27/16 08/27/16 08/27/16 08/27/16 21:00 22:00 22:00 22:35 Pulse 111 113 113 Resp 30 28 B/P 101/48 99/46 99/46 Pulse Ox 97 98 97 O2 Delivery BiPAP/CPAP BiPAP/CPAP 08/27/16 08/28/16 08/28/16 08/28/16 23:00 00:00 00:00 00:20 Temp 98.8 98.8 Pulse 112 114 Resp 28 28 B/P 104/69 100/41 Pulse Ox 99 99 98 O2 Delivery BiPAP/CPAP Bi-pap BiPAP/CPAP 08/28/16 08/28/16 08/28/16 08/28/16 01:00 02:00 03:00 03:15 Temp 98.8 98.8 Pulse 104 108 100 Resp 26 28 B/P 95/51 97/40 107/41 Pulse Ox 100 100 100 99 O2 Delivery BiPAP/CPAP BiPAP/CPAP BiPAP/CPAP 08/28/16 08/28/16 08/28/16 08/28/16 04:00 04:00 04:00 05:00 Pulse 109 112 Resp 24 B/P 97/43 102/40 Pulse Ox 96 94 O2 Delivery Nasal Cannula Nasal Cannula Nasal Cannula O2 Flow Rate 6.0 6.0 6.0 6.0 08/28/16 08/28/16 08/28/16 08/28/16 06:00 07:00 07:37 08:00 Temp 98.5 98.5 Pulse 107 113 106 Resp B/P 95/43 102/43 102/43 Pulse Ox 98 96 95 96 O2 Delivery Nasal Cannula Nasal Cannula Nasal Cannula Nasal Cannula O2 Flow Rate 6.0 6.0 4.0 6.0 08/28/16 08/28/16 08/28/16 08/28/16 08:00 09:00 10:00 11:00 Pulse 108 112 115 Resp B/P 101/46 97/48 116/55 Pulse Ox 96 95 94 O2 Delivery Nasal Cannula Nasal Cannula Nasal Cannula Nasal Cannula O2 Flow Rate 6.0 6.0 6.0 6.0 08/28/16 08/28/16 08/28/16 08/28/16 11:31 11:49 12:00 12:00 Temp 98.5 98.5 Pulse 113 117 Resp 20 B/P 116/55 131/51 Pulse Ox 96 97 O2 Delivery Nasal Cannula Nasal Cannula Nasal Cannula O2 Flow Rate 4.0 6.0 6.0 08/28/16 08/28/16 13:00 15:00 Pulse 118 115 Resp 20 20 B/P 116/46 117/47 Pulse Ox 95 93 O2 Delivery Nasal Cannula Nasal Cannula O2 Flow Rate 6.0 6.0 Intake and Output 08/27/16 08/27/16 08/28/16 15:00 23:00 07:00 Intake Total 580 ml 300 ml Output Total 515 ml 1825 ml 605 ml Balance 65 ml -1525 ml -605 ml JAGUAR BRICE MD Aug 28, 2016 15:32
[2016-08-28] MEDS ORDERED: WARFARIN 2 MG TABLET. PO ONE (16:00)
[2016-08-28] MEDS: fentaNYL PF VIAL 100 MCG/2 ML VIAL IV PRN (16:34)
[2016-08-28] MEDS: IV DEXTROSE 5% - 0.9 % NACL 1,000 ML IV SCH (16:37)
[2016-08-28] MEDS: ATORVASTATIN CALCIUM 10 MG TABLET. PO SCH (20:44)
[2016-08-29] VITALS (22 sets, daily range): BP systolic 95–140; BP diastolic 0–76
[2016-08-29] MEDS: IV DEXTROSE 5% - 0.9 % NACL 1,000 ML IV SCH ×3 (00:57→21:37)
[2016-08-29] MEDS: PROPAFENONE 150 MG TABLET. PO SCH ×3 (00:58→20:36)
[2016-08-29] MEDS: fentaNYL PF VIAL 100 MCG/2 ML VIAL IV PRN ×3 (03:39→23:01)
[2016-08-29] MEDS: MICAFUNGIN 100 MG in IV DEXTROSE 5% 100 ML IV SCH (05:51)
[2016-08-29 06:29] LABS: BASO % 1 % (0-3); EOS % 1 % (0-3); HEMATOCRIT 25.8 % (36.0-47.0); HEMOGLOBIN 8.5 g/dL (12.0-15.5); LYMPH # 0.8 x10^3/uL (1.0-4.8); LYMPH % 8 % (24-48); MEAN CORPUSCULAR HEMOGLOBIN 27 pg (25-35); MEAN CORPUSCULAR HGB CONC 33 g/dL (31-37); MEAN CORPUSCULAR VOLUME 82 fL (79-100); MONO % 5 % (0-9); NEUT % 86 % (31-73); PLATELET COUNT 243 x10^3/uL (140-400); RED BLOOD COUNT 3.16 x10^6/uL (3.50-5.40); RED CELL DISTRIBUTION WIDTH 18.4 % (11.5-14.5); WHITE BLOOD COUNT 10.6 x10^3/uL (4.0-11.0)
[2016-08-29 06:41] LABS: CALCIUM 8.2 mg/dL (8.5-10.1); CREATININE 0.8 mg/dL (0.6-1.0); GFR 73.4; POTASSIUM 4.1 mmol/L (3.5-5.1)
[2016-08-29 06:46] LABS: INR 2.3 (0.8-1.1); PROTHROMBIN TIME PATIENT 23.8 SEC (11.7-14.0)
[2016-08-29] MEDS: ALBUTEROL SULFATE 2.5 MG/3 ML NEBU. NEB SCH ×5 (08:12→19:59)
[2016-08-29] MEDS: DIGOXIN IV 500 MCG/2 ML AMPUL. IV SCH (08:17)
[2016-08-29] MEDS: PANTOPRAZOLE IV PUSH 40 MG VIAL. IVP SCH (08:17)
[2016-08-29] MEDS: NYSTATIN TOPICAL POWDER 15GM BOTTLE. TP SCH ×2 (08:27→20:36)
[2016-08-29] MEDS: MULTIVITAMIN with MINERAL TABLET. PO SCH (08:27)
--- NOTE | 2016-08-29 08:30 | PDOC ---
Infectious Disease Note Subjective Subjective Mild SOA and anxiety Periods of confusion in chair nearly four hours yesterday No fever + BM ROS ROS Limited Vital Sign Vital Signs Vital Signs Date Time Temp Pulse Resp B/P Pulse Ox O2 Delivery O2 Flow Rate FiO2 08/29/16 08:22 95 BiPAP/CPAP 08/29/16 08:18 6.0 08/29/16 08:17 94 120/60 08/29/16 07:00 31 08/29/16 06:00 98.6 98.6 Physical Exam PHYSICAL EXAM GENERAL: Alert, calm, NAD HEENT: Oral mucosa pink NECK: Supple LUNGS: Clear, tachypneic HEART: Irregular ABD: Obese, soft, NT, BS present : Newman EXT: BLE 1+ edema. no cyanosis BIOLOGICAL SCIENCES INSTRUCTOR: Alert, less conversant SKIN: Purpuric-type rash anterior neck, fading RUE-PICC. clean Labs Lab Laboratory Tests Test 08/28/16 09:00 08/29/16 06:00 Prothrombin Time 21.6SEC (11.7-14.0) 23.8SEC (11.7-14.0) Prothromb Time International Ratio 2.0 (0.8-1.1) 2.3 (0.8-1.1) White Blood Count 10.6x10^3/uL (4.0-11.0) Red Blood Count 3.16x10^6/uL (3.50-5.40) Hemoglobin 8.5g/dL (12.0-15.5) Hematocrit 25.8% (36.0-47.0) Mean Corpuscular Volume 82fL (79-100) Mean Corpuscular Hemoglobin 27pg (25-35) Mean Corpuscular Hemoglobin Concent 33g/dL (31-37) Red Cell Distribution Width 18.4% (11.5-14.5) Platelet Count 243x10^3/uL (140-400) Neutrophils (%) (Auto) 86% (31-73) Lymphocytes (%) (Auto) 8% (24-48) Monocytes (%) (Auto) 5% (0-9) Eosinophils (%) (Auto) 1% (0-3) Basophils (%) (Auto) 1% (0-3) Neutrophils # (Auto) 9.1x10^3uL (1.8-7.7) Lymphocytes # (Auto) 0.8x10^3/uL (1.0-4.8) Monocytes # (Auto) 0.5x10^3/uL (0.0-1.1) Eosinophils # (Auto) 0.1x10^3/uL (0.0-0.7) Basophils # (Auto) 0.0x10^3/uL (0.0-0.2) Sodium Level 139mmol/L (136-145) Potassium Level 4.1mmol/L (3.5-5.1) Chloride Level 104mmol/L (98-107) Carbon Dioxide Level 29mmol/L (21-32) Anion Gap 6 (6-14) Blood Urea Nitrogen 16mg/dL (7-20) Creatinine 0.8mg/dL (0.6-1.0) Estimated GFR (Cockcroft-Gault) 73.4 Glucose Level 106mg/dL (70-99) Calcium Level 8.2mg/dL (8.5-10.1) Micro 08/24. BLOOD CULTURE Preliminary NO GROWTH AFTER 3 DAYS Objective Assessment Fever. Resolved MRSA in sputum 08/24 Group B strep. 08/18 sepsis. Pulmonary infiltrates. Afib - RVR 08/21 Leukocytosis. -better Lactic acidosis, improved Dehydration LISSETH. resolved Hypotension. off pressors Obesity Respiratory failure s/p extubation, 08/27 MRSA nares positive Rash. purpuric/petechial-type -? reactive from code and intubation, fading s/p code blue, V-fib. 08/18 Warfarin therapy Plan Plan of Care Cont Zyvox and Micafungin - Previous Meropenem 08/18-08/27 Monitor labs/BC supportive care Await Palliative eval Critically ill Patient seen and examined. Case discussed with PUNCH PRESS SETTER. Chart reviewed. Agree with above plan. STORMY BAL APRN Aug 29, 2016 08:30 VALERIE THACKER MD Aug 29, 2016 15:06
--- NOTE | 2016-08-29 10:26 | PDOC ---
PULMONARY PROGRESS NOTES Subjective extubated 08/27 tired today did not wear BIPAP last night Vitals Vital Signs Date Time Temp Pulse Resp B/P Pulse Ox O2 Delivery O2 Flow Rate FiO2 08/29/16 08:50 100 BiPAP/CPAP 08/29/16 08:18 6.0 08/29/16 08:17 94 120/60 08/29/16 08:00 99.1 32 99.1 General: No acute distress HEENT: Other (nc at perrl orally intubated. nose clear) Lungs: Other (decrease bs) Cardiovascular: S1, S2 Abdomen: Soft, Non-tender, Other ( no mass obese) Extremities: Other (edema) Skin: Warm, Dry Labs Laboratory Tests Test 08/27/16 11:00 08/27/16 12:30 08/27/16 14:30 08/28/16 09:00 O2 Saturation 98% (92-99) 93% (92-99) 97% (92-99) Arterial Blood pH 7.49 (7.35-7.45) 7.48 (7.35-7.45) 7.51 (7.35-7.45) Arterial Blood pCO2 at Patient Temp 37mmHg (35-46) 40mmHg (35-46) 34mmHg (35-46) Arterial Blood pO2 at Patient Temp 111mmHg (65-108) 69mmHg (65-108) 97mmHg (65-108) Arterial Blood HCO3 28mmol/L (21-28) 29mmol/L (21-28) 27mmol/L (21-28) Arterial Blood Base Excess 4mmol/L (-3-3) 5mmol/L (-3-3) 4mmol/L (-3-3) FiO2 40.0 40 40 Prothrombin Time 21.6SEC (11.7-14.0) Prothromb Time International Ratio 2.0 (0.8-1.1) Test 08/29/16 06:00 White Blood Count 10.6x10^3/uL (4.0-11.0) Red Blood Count 3.16x10^6/uL (3.50-5.40) Hemoglobin 8.5g/dL (12.0-15.5) Hematocrit 25.8% (36.0-47.0) Mean Corpuscular Volume 82fL (79-100) Mean Corpuscular Hemoglobin 27pg (25-35) Mean Corpuscular Hemoglobin Concent 33g/dL (31-37) Red Cell Distribution Width 18.4% (11.5-14.5) Platelet Count 243x10^3/uL (140-400) Neutrophils (%) (Auto) 86% (31-73) Lymphocytes (%) (Auto) 8% (24-48) Monocytes (%) (Auto) 5% (0-9) Eosinophils (%) (Auto) 1% (0-3) Basophils (%) (Auto) 1% (0-3) Neutrophils # (Auto) 9.1x10^3uL (1.8-7.7) Lymphocytes # (Auto) 0.8x10^3/uL (1.0-4.8) Monocytes # (Auto) 0.5x10^3/uL (0.0-1.1) Eosinophils # (Auto) 0.1x10^3/uL (0.0-0.7) Basophils # (Auto) 0.0x10^3/uL (0.0-0.2) Prothrombin Time 23.8SEC (11.7-14.0) Prothromb Time International Ratio 2.3 (0.8-1.1) Sodium Level 139mmol/L (136-145) Potassium Level 4.1mmol/L (3.5-5.1) Chloride Level 104mmol/L (98-107) Carbon Dioxide Level 29mmol/L (21-32) Anion Gap 6 (6-14) Blood Urea Nitrogen 16mg/dL (7-20) Creatinine 0.8mg/dL (0.6-1.0) Estimated GFR (Cockcroft-Gault) 73.4 Glucose Level 106mg/dL (70-99) Calcium Level 8.2mg/dL (8.5-10.1) Laboratory Tests Test 08/29/16 06:00 White Blood Count 10.6x10^3/uL (4.0-11.0) Red Blood Count 3.16x10^6/uL (3.50-5.40) Hemoglobin 8.5g/dL (12.0-15.5) Hematocrit 25.8% (36.0-47.0) Mean Corpuscular Volume 82fL (79-100) Mean Corpuscular Hemoglobin 27pg (25-35) Mean Corpuscular Hemoglobin Concent 33g/dL (31-37) Red Cell Distribution Width 18.4% (11.5-14.5) Platelet Count 243x10^3/uL (140-400) Neutrophils (%) (Auto) 86% (31-73) Lymphocytes (%) (Auto) 8% (24-48) Monocytes (%) (Auto) 5% (0-9) Eosinophils (%) (Auto) 1% (0-3) Basophils (%) (Auto) 1% (0-3) Neutrophils # (Auto) 9.1x10^3uL (1.8-7.7) Lymphocytes # (Auto) 0.8x10^3/uL (1.0-4.8) Monocytes # (Auto) 0.5x10^3/uL (0.0-1.1) Eosinophils # (Auto) 0.1x10^3/uL (0.0-0.7) Basophils # (Auto) 0.0x10^3/uL (0.0-0.2) Prothrombin Time 23.8SEC (11.7-14.0) Prothromb Time International Ratio 2.3 (0.8-1.1) Sodium Level 139mmol/L (136-145) Potassium Level 4.1mmol/L (3.5-5.1) Chloride Level 104mmol/L (98-107) Carbon Dioxide Level 29mmol/L (21-32) Anion Gap 6 (6-14) Blood Urea Nitrogen 16mg/dL (7-20) Creatinine 0.8mg/dL (0.6-1.0) Estimated GFR (Cockcroft-Gault) 73.4 Glucose Level 106mg/dL (70-99) Calcium Level 8.2mg/dL (8.5-10.1) Medications Active Scripts Medications Dose Route/Sig Days Date Category Dose Instructions Keflex (Cephalexin) 500 Mg Capsule 500 Mg PO QID 07/12/16 Reported take for 10 days start 07/12 Percocet 10-325 Mg Tablet (Oxycodone/Acetaminophen) 1 Each Tablet 1 Tab PO PRN Q6HRS PRN 07/12/16 Reported Potassium Chloride 20 Meq Tablet.er 20 Meq PO DAILY 07/12/16 Reported Ventolin Hfa Inhaler (Albuterol Sulfate) 18 Gm Hfa.aer.ad 2 Puff INH Q4HRS 07/12/16 Reported Atorvastatin Calcium 10 Mg Tablet 1 Tab PO DAILY 07/12/16 Reported Daily Vitamin (Multivitamin) 1 Each Tablet 1 Each PO DAILY 04/15/14 Reported Coumadin (Warfarin Sodium) 2.5 Mg Tablet 0.5 Tab PO DAILY 04/15/14 Reported Propafenone Hcl 225 Mg Cap.er.12h 225 Mg PO BID 04/15/14 Reported Pantoprazole Sodium 40 Mg Tablet.dr 1 Tab PO DAILY 04/15/14 Reported Aquaphor (Petrolatum,White) 99 Gm Oint...g. 99 Gm TP BID 12/04/13 Reported Cardizem Cd (Diltiazem Hcl) 120 Mg Cap.er.24h 120 Mg PO DAILY 12/04/13 Reported Zofran Odt (Ondansetron) 4 Mg Tab.rapdis 8 Mg PO Q8HRS 12/04/13 Reported x 2 days start 07/12 then 4 mg q 6hrs prn Lasix (Furosemide) 40 Mg Tablet 40 Mg PO DAILY 12/04/13 Reported Comments CXR improving aeration right base Impression . 1. Acute respiratory failure secondary to sepsis. extubated 08/27 2. Sepsis with hypotension. off levo 3. Atrial fibrillation. 4. Acute on chronic kidney failure. 5. Morbid obesity. 6. MULTIPLE ALLERGIES TO MEDICATIONS INCLUDING AMOXICILLIN. 7. S/P code blue V-Fib 8. Abnormal cxr with improving right basal infiltrates, 9. Staph aureus in sputum 08/24 (MRSA) Group B strep. 08/18 sepsis. Repeat 08/19 neg. Plan . EXTUBATED 08/27 NEEDS AGGRESSIVE PT SPEECH EVAL ANTIBIOTICS PER ID( MRSA IN SPUTUM) BIPAP QHS D/W WITH SIVA BRENNER IS ALIYA GARCIA MD Aug 29, 2016 10:26
--- NOTE | 2016-08-29 11:41 | PDOC ---
PROGRESS NOTES Subjective Subjective on BIPAP, sleepy this am ,did not sleep well last night Objective Objective Vital Signs Date Time Temp Pulse Resp B/P Pulse Ox O2 Delivery O2 Flow Rate FiO2 08/29/16 08:50 100 BiPAP/CPAP 08/29/16 08:18 6.0 08/29/16 08:17 94 120/60 08/29/16 08:00 99.1 32 99.1 Intake and Output 08/29/16 07:00 Intake Total 625 ml Output Total 1375 ml Balance -750 ml IV Total 400 ml Tube Feeding 225 ml Output Urine Total 1375 ml # Bowel Movements 4 Physical Exam Abdomen: Normal bowel sounds, No tenderness Heart: Normal S1, Normal S2, Other (tachycardic) Extremities: Other (trace to 1+ edema - LE) General: Other (INTUBATED) HEENT: Atraumatic Lungs: Normal air movement MUSCULOSKELETAL: No deformity Skin: No breakdown COMMENT pigmentation neck Diagnosis Problem List Problems Medical Problems: (1) Fall from standing Status: Acute (2) Left knee pain Status: Acute Assessment Assessment Problems Medical Problems: (1) Fall from standing Status: Acute (2) Left knee pain Status: Acute FINAL IMPRESSION: s/ p CODE BLUE. Extubated 08/27/16 INTUBATED for resp failure Bacteremia ,gram positive -strep group B. sepsis with lactic acidosis. coagulopathy 1. Acute sepsis with hypotension. 2. Elevated white count with hypertension as well as renal insufficiency. 3. Chronic recurrent cellulitis of the legs. 4. Chronic lymphedema. 5. Morbid obesity. 6. History of Clostridium difficile. 7. Chronic atrial fibrillation, on Coumadin. 8. coagulopathy PLAN: BIPAP for now. spoke RN.NPO for now T tube trial and extubated on 08/27/16 iv antibiotics zyvox++micofungin restarted on coumadin, d/c Lovenox, inr 2.1 weaned off sedation. hypotension corrected Thrombocytopenia resolved Hypokalemia- K 4.0 Improving. Leukocytosis- WBC 9 improved SELECT screen? Problems: Plan Plan of Care Problems Medical Problems: (1) Fall from standing Status: Acute (2) Left knee pain Status: Acute Comment Review of Relevant I have reviewed the following items quentin (where applicable) has been applied. Labs Laboratory Tests Test 08/29/16 06:00 White Blood Count 10.6x10^3/uL (4.0-11.0) Red Blood Count 3.16x10^6/uL (3.50-5.40) Hemoglobin 8.5g/dL (12.0-15.5) Hematocrit 25.8% (36.0-47.0) Mean Corpuscular Volume 82fL (79-100) Mean Corpuscular Hemoglobin 27pg (25-35) Mean Corpuscular Hemoglobin Concent 33g/dL (31-37) Red Cell Distribution Width 18.4% (11.5-14.5) Platelet Count 243x10^3/uL (140-400) Neutrophils (%) (Auto) 86% (31-73) Lymphocytes (%) (Auto) 8% (24-48) Monocytes (%) (Auto) 5% (0-9) Eosinophils (%) (Auto) 1% (0-3) Basophils (%) (Auto) 1% (0-3) Neutrophils # (Auto) 9.1x10^3uL (1.8-7.7) Lymphocytes # (Auto) 0.8x10^3/uL (1.0-4.8) Monocytes # (Auto) 0.5x10^3/uL (0.0-1.1) Eosinophils # (Auto) 0.1x10^3/uL (0.0-0.7) Basophils # (Auto) 0.0x10^3/uL (0.0-0.2) Prothrombin Time 23.8SEC (11.7-14.0) Prothromb Time International Ratio 2.3 (0.8-1.1) Sodium Level 139mmol/L (136-145) Potassium Level 4.1mmol/L (3.5-5.1) Chloride Level 104mmol/L (98-107) Carbon Dioxide Level 29mmol/L (21-32) Anion Gap 6 (6-14) Blood Urea Nitrogen 16mg/dL (7-20) Creatinine 0.8mg/dL (0.6-1.0) Estimated GFR (Cockcroft-Gault) 73.4 Glucose Level 106mg/dL (70-99) Calcium Level 8.2mg/dL (8.5-10.1) Microbiology 08/24/16 Blood Culture - Preliminary, Resulted NO GROWTH AFTER 4 DAYS 08/24/16 Sputum Culture - Final, Complete 08/24/16 Sputum Result 1 - Final, Complete 08/24/16 Antimicrobic Susceptibility - Final, Complete 08/18/16 Urine Culture - Final, Complete 08/18/16 Urine Culture Result 1 (SILVINA) - Final, Complete Medications Current Medications Dextrose/Sodium Chloride (Iv D5% - NS) 1,000 ml @ 100 mls/hr Q10H IV Last administered on 08/29/16 00:57; Start 08/28/16 at 15:30 Fentanyl Citrate 25 mcg 25 mcg PRN Q3HRS PRN IV PAIN Last administered on 08:18; Start 08/28/16 at 15:30 Warfarin Sodium (Coumadin) 2 mg 1X WARF ONCE PO ; Start 08/28/16 at 16:00; Stop 08/28/16 at 16:01; Status DC Warfarin Sodium (Coumadin) 2 mg 1X WARF ONCE PO ; Start 08/29/16 at 16:00; Stop 08/29/16 at 16:01 Vitals/I & O Vital Sign - Last 24 Hours 08/28/16 08/28/16 08/28/16 08/28/16 11:49 12:00 12:00 13:00 Temp 98.5 98.5 Pulse 117 118 Resp 20 20 B/P 131/51 116/46 Pulse Ox 96 97 95 O2 Delivery Nasal Cannula Nasal Cannula Nasal Cannula Nasal Cannula O2 Flow Rate 4.0 6.0 6.0 6.0 08/28/16 08/28/16 08/28/16 08/28/16 15:00 16:00 16:00 16:03 Temp 98.0 98.0 Pulse 115 113 Resp 20 20 B/P 117/47 93/40 Pulse Ox 93 91 96 O2 Delivery Nasal Cannula Nasal Cannula Nasal Cannula Nasal Cannula O2 Flow Rate 6.0 6.0 6.0 4.0 08/28/16 08/28/16 08/28/16 08/28/16 16:34 17:00 18:00 19:00 Temp 98.2 98.2 Pulse 116 117 113 Resp 22 20 28 B/P 99/52 105/43 124/45 Pulse Ox 92 92 93 92 O2 Delivery Nasal Cannula Nasal Cannula Nasal Cannula Nasal Cannula O2 Flow Rate 6.0 6.0 6.0 3.0 4/22/17 08/28/16 08/28/16 08/28/16 19:34 20:00 20:00 21:00 Pulse 115 109 Resp B/P 116/44 111/41 Pulse Ox 93 94 98 O2 Delivery Nasal Cannula Nasal Cannula Nasal Cannula Nasal Cannula O2 Flow Rate 4.0 5.0 5.0 5.0 08/28/16 08/28/16 08/29/16 08/29/16 22:00 23:00 00:00 00:00 Temp 98.6 98.6 Pulse 110 110 Resp 24 B/P 101/53 87/39 Pulse Ox 95 95 O2 Delivery Nasal Cannula Nasal Cannula Nasal Cannula O2 Flow Rate 5.0 5.0 6.0 5.0 08/29/16 08/29/16 08/29/16 08/29/16 00:00 01:00 02:00 03:00 Temp 98.6 98.6 Pulse 114 116 114 116 Resp 24 B/P 96/34 106/45 121/48 114/53 Pulse Ox 94 96 94 97 O2 Delivery Nasal Cannula Nasal Cannula Nasal Cannula Nasal Cannula O2 Flow Rate 6.0 6.0 6.0 6.0 08/29/16 08/29/16 08/29/16 08/29/16 03:39 04:00 04:00 04:00 Pulse 118 Resp 28 24 B/P Pulse Ox 97 97 O2 Delivery Nasal Cannula Nasal Cannula Nasal Cannula O2 Flow Rate 6.0 6.0 6.0 6.0 08/29/16 08/29/16 08/29/16 08/29/16 04:09 05:00 06:00 07:00 Temp 98.6 98.6 Pulse 113 112 117 Resp 30 31 B/P 133/54 120/76 120/49 Pulse Ox 100 100 93 O2 Delivery Nasal Cannula Nasal Cannula Nasal Cannula O2 Flow Rate 6.0 6.0 6.0 6.0 08/29/16 08/29/16 08/29/16 08/29/16 08:00 08:00 08:14 08:17 Temp 99.1 99.1 Pulse 119 94 Resp 32 B/P 140/52 120/60 Pulse Ox 98 O2 Delivery Bi-pap BiPAP/CPAP Nasal Cannula O2 Flow Rate 6.0 08/29/16 08/29/16 08/29/16 08:18 08:22 08:50 Pulse Ox 100 95 100 O2 Delivery Nasal Cannula BiPAP/CPAP BiPAP/CPAP O2 Flow Rate 6.0 Intake and Output 08/28/16 08/28/16 08/29/16 15:00 23:00 07:00 Intake Total 100 ml 525 ml Output Total 490 ml 510 ml 375 ml Balance -390 ml 15 ml -375 ml JAGUAR BRICE MD Aug 29, 2016 11:40
[2016-08-29] MEDS ORDERED: WARFARIN 2 MG TABLET. PO ONE (16:00)
[2016-08-29] MEDS: ATORVASTATIN CALCIUM 10 MG TABLET. PO SCH (20:36)
[2016-08-29] MEDS: LORAZEPAM 2 MG/ML VIAL. IV PRN (21:38)
[2016-08-30] VITALS (23 sets, daily range): BP systolic 100–160; BP diastolic 39–66
[2016-08-30] MEDS: PROPAFENONE 150 MG TABLET. PO SCH ×2 (06:00→19:37)
[2016-08-30 06:41] LABS: BASO % 1 % (0-3); EOS % 1 % (0-3); HEMATOCRIT 25.6 % (36.0-47.0); HEMOGLOBIN 8.1 g/dL (12.0-15.5); LYMPH # 0.8 x10^3/uL (1.0-4.8); LYMPH % 9 % (24-48); MEAN CORPUSCULAR HEMOGLOBIN 27 pg (25-35); MEAN CORPUSCULAR HGB CONC 32 g/dL (31-37); MEAN CORPUSCULAR VOLUME 85 fL (79-100); MONO % 6 % (0-9); NEUT % 85 % (31-73); PLATELET COUNT 227 x10^3/uL (140-400); RED BLOOD COUNT 3.03 x10^6/uL (3.50-5.40); RED CELL DISTRIBUTION WIDTH 18.3 % (11.5-14.5)
[2016-08-30 06:49] LABS: INR 2.9 (0.8-1.1); PROTHROMBIN TIME PATIENT 28.3 SEC (11.7-14.0)
[2016-08-30 07:14] LABS: CALCIUM 8.3 mg/dL (8.5-10.1); CREATININE 0.8 mg/dL (0.6-1.0); GFR 73.4; POTASSIUM 4.1 mmol/L (3.5-5.1)
[2016-08-30] MEDS: MICAFUNGIN 100 MG in IV DEXTROSE 5% 100 ML IV SCH (07:29)
--- NOTE | 2016-08-30 07:36 | PDOC ---
Infectious Disease Note Subjective Subjective States ok. Wants to get into flii Mild SOA and anxiety Periods of confusion ROS ROS Difficult to ascertain on BiPAP Vital Sign Vital Signs Vital Signs Date Time Temp Pulse Resp B/P Pulse Ox O2 Delivery O2 Flow Rate FiO2 08/30/16 06:00 75 28 116/47 96 BiPAP/CPAP 08/30/16 04:00 6.0 08/30/16 03:00 98.8 98.8 Physical Exam PHYSICAL EXAM GENERAL: Alert, calm, NAD - on Bipap HEENT: PERRL NECK: Supple LUNGS: Clear, tachypneic HEART: Irregular ABD: Obese, soft, NT, BS present : Newman EXT: BLE 1+ edema. 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 clean Labs Lab Laboratory Tests Test 08/30/16 06:20 White Blood Count 9.0x10^3/uL (4.0-11.0) Red Blood Count 3.03x10^6/uL (3.50-5.40) Hemoglobin 8.1g/dL (12.0-15.5) Hematocrit 25.6% (36.0-47.0) Mean Corpuscular Volume 85fL (79-100) Mean Corpuscular Hemoglobin 27pg (25-35) Mean Corpuscular Hemoglobin Concent 32g/dL (31-37) Red Cell Distribution Width 18.3% (11.5-14.5) Platelet Count 227x10^3/uL (140-400) Neutrophils (%) (Auto) 85% (31-73) Lymphocytes (%) (Auto) 9% (24-48) Monocytes (%) (Auto) 6% (0-9) Eosinophils (%) (Auto) 1% (0-3) Basophils (%) (Auto) 1% (0-3) Neutrophils # (Auto) 7.6x10^3uL (1.8-7.7) Lymphocytes # (Auto) 0.8x10^3/uL (1.0-4.8) Monocytes # (Auto) 0.5x10^3/uL (0.0-1.1) Eosinophils # (Auto) 0.1x10^3/uL (0.0-0.7) Basophils # (Auto) 0.0x10^3/uL (0.0-0.2) Prothrombin Time 28.3SEC (11.7-14.0) Prothromb Time International Ratio 2.9 (0.8-1.1) Sodium Level 139mmol/L (136-145) Potassium Level 4.1mmol/L (3.5-5.1) Chloride Level 105mmol/L (98-107) Carbon Dioxide Level 28mmol/L (21-32) Anion Gap 6 (6-14) Blood Urea Nitrogen 15mg/dL (7-20) Creatinine 0.8mg/dL (0.6-1.0) Estimated GFR (Cockcroft-Gault) 73.4 Glucose Level 127mg/dL (70-99) Calcium Level 8.3mg/dL (8.5-10.1) Objective Assessment Fever - better Staph aureus in sputum 08/24. MRSA Group B strep. 08/18 sepsis. Repeat 08/19 neg. Pulmonary infiltrates - GPC on Gram stain 08/24 Afib - RVR 08/21 Leukocytosis. -better Lactic acidosis, improved Dehydration LISSETH. resolved Hypotension likely sec to dehydration , infection appears less likely Obesity Respiratory failure s/p intubation. Extubated 08/27 MRSA nares positive Rash. purpuric/petechial-type -? reactive from code and intubation s/p code blue, V-fib. 08/18 Plan Plan of Care Cont Zyvox (08/24) and Micafungin - Previous Meropenem 08/18-08/27 Monitor labs/BC supportive care Critically ill ALEX FRAZIER MD Aug 30, 2016 07:36
[2016-08-30] MEDS: PANTOPRAZOLE IV PUSH 40 MG VIAL. IVP SCH (08:02)
[2016-08-30] MEDS: DIGOXIN IV 500 MCG/2 ML AMPUL. IV SCH (08:03)
[2016-08-30] MEDS: NYSTATIN TOPICAL POWDER 15GM BOTTLE. TP SCH ×2 (08:04→21:40)
[2016-08-30] MEDS: ALBUTEROL SULFATE 2.5 MG/3 ML NEBU. NEB SCH ×4 (08:48→20:49)
[2016-08-30 09:00] LABS: HCO3 ABG 26 mmol/L (21-28); PCO2 ABG 45 mmHg (35-46); PH ABG 7.38 (7.35-7.45); PO2 ABG 84 mmHg (65-108); SAT O2 ABG 95 % (92-99)
[2016-08-30] MEDS: MULTIVITAMIN with MINERAL TABLET. PO SCH (09:00)
[2016-08-30 09:05] LABS: FIO2 ABG 40
--- NOTE | 2016-08-30 10:00 | PDOC ---
PROGRESS NOTES Subjective Subjective anxious today ,off BIPAP Objective Objective Vital Signs Date Time Temp Pulse Resp B/P Pulse Ox O2 Delivery O2 Flow Rate FiO2 08/30/16 08:48 99 BiPAP/CPAP 08/30/16 08:03 79 08/30/16 08:00 6.0 08/30/16 08:00 98.4 32 110/48 98.4 Intake and Output 08/30/16 07:00 Intake Total 1300 ml Output Total 1265 ml Balance 35 ml IV Total 1300 ml Output Urine Total 1265 ml # Bowel Movements 1 Physical Exam Abdomen: Normal bowel sounds, No tenderness Heart: Normal S1, Normal S2, Other (tachycardic) Extremities: Other (trace to 1+ edema - LE) General: Other (INTUBATED) HEENT: Atraumatic Lungs: Other (dec inspiration) MUSCULOSKELETAL: No deformity Skin: No breakdown Diagnosis Problem List Problems Medical Problems: (1) Fall from standing Status: Acute (2) Left knee pain Status: Acute Assessment Assessment Problems Medical Problems: (1) Fall from standing Status: Acute (2) Left knee pain Status: Acute FINAL IMPRESSION: MRSA lung infection s/ p CODE BLUE. Extubated 08/27/16 INTUBATED for resp failure Bacteremia ,gram positive -strep group B. sepsis with lactic acidosis. coagulopathy 1. Acute sepsis with hypotension. 2. Elevated white count with hypertension as well as renal insufficiency. 3. Chronic recurrent cellulitis of the legs. 4. Chronic lymphedema. 5. Morbid obesity. 6. History of Clostridium difficile. 7. Chronic atrial fibrillation, on Coumadin. 8. coagulopathy PLAN:Zyvox for MRSA in sputum BIPAPat night ,oxygen mask daytime spoke RN.NPO for now, speech consult T tube trial and extubated on 08/27/16 iv antibiotics zyvox++micofungin restarted on coumadin, d/c Lovenox, inr 2.8 weaned off sedation. hypotension corrected Thrombocytopenia resolved Hypokalemia- K 4.0 Improving. Leukocytosis- WBC [address] Dodd SELECT screen? Problems: Plan Plan of Care Problems Medical Problems: (1) Fall from standing Status: Acute (2) Left knee pain Status: Acute Comment Review of Relevant I have reviewed the following items quentin (where applicable) has been applied. Labs Laboratory Tests Test 08/30/16 06:20 08/30/16 08:55 White Blood Count 9.0x10^3/uL (4.0-11.0) Red Blood Count 3.03x10^6/uL (3.50-5.40) Hemoglobin 8.1g/dL (12.0-15.5) Hematocrit 25.6% (36.0-47.0) Mean Corpuscular Volume 85fL (79-100) Mean Corpuscular Hemoglobin 27pg (25-35) Mean Corpuscular Hemoglobin Concent 32g/dL (31-37) Red Cell Distribution Width 18.3% (11.5-14.5) Platelet Count 227x10^3/uL (140-400) Neutrophils (%) (Auto) 85% (31-73) Lymphocytes (%) (Auto) 9% (24-48) Monocytes (%) (Auto) 6% (0-9) Eosinophils (%) (Auto) 1% (0-3) Basophils (%) (Auto) 1% (0-3) Neutrophils # (Auto) 7.6x10^3uL (1.8-7.7) Lymphocytes # (Auto) 0.8x10^3/uL (1.0-4.8) Monocytes # (Auto) 0.5x10^3/uL (0.0-1.1) Eosinophils # (Auto) 0.1x10^3/uL (0.0-0.7) Basophils # (Auto) 0.0x10^3/uL (0.0-0.2) Prothrombin Time 28.3SEC (11.7-14.0) Prothromb Time International Ratio 2.9 (0.8-1.1) Sodium Level 139mmol/L (136-145) Potassium Level 4.1mmol/L (3.5-5.1) Chloride Level 105mmol/L (98-107) Carbon Dioxide Level 28mmol/L (21-32) Anion Gap 6 (6-14) Blood Urea Nitrogen 15mg/dL (7-20) Creatinine 0.8mg/dL (0.6-1.0) Estimated GFR (Cockcroft-Gault) 73.4 Glucose Level 127mg/dL (70-99) Calcium Level 8.3mg/dL (8.5-10.1) O2 Saturation 95% (92-99) Arterial Blood pH 7.38 (7.35-7.45) Arterial Blood pCO2 at Patient Temp 45mmHg (35-46) Arterial Blood pO2 at Patient Temp 84mmHg (65-108) Arterial Blood HCO3 26mmol/L (21-28) Arterial Blood Base Excess 1mmol/L (-3-3) FiO2 40 Microbiology 08/24/16 Blood Culture - Final, Complete NO GROWTH AFTER 5 DAYS 08/24/16 Sputum Culture - Final, Complete 08/24/16 Sputum Result 1 - Final, Complete 08/24/16 Antimicrobic Susceptibility - Final, Complete 08/18/16 Urine Culture - Final, Complete 08/18/16 Urine Culture Result 1 (SILVINA) - Final, Complete Medications Current Medications Lorazepam (Ativan) 0.5 mg PRN Q6HRS PRN IV ANXIETY / AGITATION Last administered on 08/29/16t 21:38; Start 08/29/16 at 21:30 Warfarin Sodium (Coumadin) 2 mg 1X WARF ONCE PO ; Start 08/29/16 at 16:00; Stop 08/29/16 at 16:01; Status DC Vitals/I & O Vital Sign - Last 24 Hours 08/29/16 08/29/16 08/29/16 08/29/16 10:00 11:00 12:00 12:00 Temp 98.1 98.1 Pulse 100 88 112 Resp 30 32 30 B/P 125/50 112/52 116/44 Pulse Ox 99 100 99 O2 Delivery BiPAP/CPAP BiPAP/CPAP BiPAP/CPAP Bi-pap 08/29/16 08/29/16 08/29/16 08/29/16 12:45 13:27 14:00 15:00 Pulse 106 112 Resp 41 38 B/P 125/55 115/56 Pulse Ox 95 95 99 99 O2 Delivery BiPAP/CPAP Nasal Cannula BiPAP/CPAP BiPAP/CPAP O2 Flow Rate 6.0 08/29/16 08/29/16 08/29/16 08/29/16 16:00 16:00 16:23 17:00 Temp 98.3 98.3 Pulse 109 112 Resp 32 30 B/P 106/50 119/46 Pulse Ox 100 99 100 O2 Delivery Bi-pap BiPAP/CPAP BiPAP/CPAP BiPAP/CPAP 08/29/16 08/29/16 08/29/1608/29/17 17:12 18:00 19:00 19:59 Temp 98.6 98.6 Pulse 112 109 Resp 30 26 B/P 103/55 97/41 Pulse Ox 100 100 100 100 O2 Delivery BiPAP/CPAP BiPAP/CPAP BiPAP/CPAP BiPAP/CPAP 08/29/16 08/29/16 08/29/16 08/29/16 20:00 20:00 21:00 22:00 Pulse 109 109 101 Resp 28 30 B/P 95/34 112/45 118/52 Pulse Ox 100 100 100 O2 Delivery BiPAP/CPAP Bi-pap BiPAP/CPAP O2 Flow Rate 6.0 08/29/16 08/29/16 08/29/16 08/29/16 23:00 23:01 23:31 23:37 Temp 98.6 98.6 Pulse 108 Resp 19 25 30 B/P 109/51 Pulse Ox 100 100 100 99 O2 Delivery BiPAP/CPAP BiPAP/CPAP BiPAP/CPAP BiPAP/CPAP 08/30/16 08/30/16 08/30/16 08/30/16 00:00 00:00 01:00 02:00 Pulse 104 104 112 Resp 30 27 22 B/P 108/56 113/50 112/50 Pulse Ox 99 100 100 O2 Delivery BiPAP/CPAP Bi-pap BiPAP/CPAP BiPAP/CPAP 08/30/16 08/30/16 08/30/16 08/30/16 02:30 03:00 04:00 04:00 Temp 98.8 98.8 Pulse 111 112 Resp 27 34 B/P 107/46 107/43 Pulse Ox 99 100 98 O2 Delivery BiPAP/CPAP BiPAP/CPAP Bi-pap BiPAP/CPAP 08/30/16 08/30/16 08/30/16 08/30/16 04:00 04:25 05:00 05:56 Pulse 87 Resp 28 B/P 102/50 Pulse Ox 96 100 96 O2 Delivery BiPAP/CPAP BiPAP/CPAP BiPAP/CPAP O2 Flow Rate 6.0 08/30/16 08/30/16 08/30/16 08/30/16 06:00 08:00 08:00 08:00 Temp 98.4 98.4 Pulse 75 108 Resp 28 32 B/P 116/47 110/48 Pulse Ox 96 100 O2 Delivery BiPAP/CPAP BiPAP/CPAP Bi-pap O2 Flow Rate 6.0 08/30/16 08/30/16 08:03 08:48 Pulse 79 Pulse Ox 99 O2 Delivery BiPAP/CPAP Intake and Output 08/29/16 08/29/16 08/30/16 15:00 23:00 07:00 Intake Total 1300 ml Output Total 300 ml 755 ml 210 ml Balance -300 ml 545 ml -210 ml JAGUAR BRICE MD Aug 30, 2016 10:00
--- NOTE | 2016-08-30 10:31 | PDOC2 ---
PALLIATIVE CARE Palliative Care Note Palliative Care Patient alert. Oriented x 3. Reviewed medical condition. Patient in respiratory distress. RR 38 States she would not want resuscitation or to be put back on the ventilator if needed. BiPap for respiratory distress would be acceptable by patient. Patient would not want tracheostomy. Understands she likely would need to spend the rest of her life in a facility for care. Patient placed back on BiPap. Will continue to try to reach family to inform of patient's wishes. Spoke with Dr. Beck who is aware of patient wishes. RITCHIE ECHEVERRIA Aug 30, 2016 10:31
--- NOTE | 2016-08-30 12:07 | PDOC ---
PULMONARY PROGRESS NOTES Subjective extubated 08/27 c/o SOA today Vitals Vital Signs Date Time Temp Pulse Resp B/P Pulse Ox O2 Delivery O2 Flow Rate FiO2 08/30/16 10:00 94 38 123/59 93 Venturi Mask 08/30/16 09:00 98.4 98.4 08/30/16 08:00 6.0 General: Alert, Mild Distress HEENT: Other (nc at perrl orally intubated. nose clear) Lungs: Other (decrease bs) Cardiovascular: S1, S2 Abdomen: Soft, Non-tender, Other ( no mass obese) Extremities: Other (edema) Skin: Warm, Dry Labs Laboratory Tests Test 08/29/16 06:00 08/30/16 06:20 08/30/16 08:55 White Blood Count 10.6x10^3/uL (4.0-11.0) 9.0x10^3/uL (4.0-11.0) Red Blood Count 3.16x10^6/uL (3.50-5.40) 3.03x10^6/uL (3.50-5.40) Hemoglobin 8.5g/dL (12.0-15.5) 8.1g/dL (12.0-15.5) Hematocrit 25.8% (36.0-47.0) 25.6% (36.0-47.0) Mean Corpuscular Volume 82fL (79-100) 85fL (79-100) Mean Corpuscular Hemoglobin 27pg (25-35) 27pg (25-35) Mean Corpuscular Hemoglobin Concent 33g/dL (31-37) 32g/dL (31-37) Red Cell Distribution Width 18.4% (11.5-14.5) 18.3% (11.5-14.5) Platelet Count 243x10^3/uL (140-400) 227x10^3/uL (140-400) Neutrophils (%) (Auto) 86% (31-73) 85% (31-73) Lymphocytes (%) (Auto) 8% (24-48) 9% (24-48) Monocytes (%) (Auto) 5% (0-9) 6% (0-9) Eosinophils (%) (Auto) 1% (0-3) 1% (0-3) Basophils (%) (Auto) 1% (0-3) 1% (0-3) Neutrophils # (Auto) 9.1x10^3uL (1.8-7.7) 7.6x10^3uL (1.8-7.7) Lymphocytes # (Auto) 0.8x10^3/uL (1.0-4.8) 0.8x10^3/uL (1.0-4.8) Monocytes # (Auto) 0.5x10^3/uL (0.0-1.1) 0.5x10^3/uL (0.0-1.1) Eosinophils # (Auto) 0.1x10^3/uL (0.0-0.7) 0.1x10^3/uL (0.0-0.7) Basophils # (Auto) 0.0x10^3/uL (0.0-0.2) 0.0x10^3/uL (0.0-0.2) Prothrombin Time 23.8SEC (11.7-14.0) 28.3SEC (11.7-14.0) Prothromb Time International Ratio 2.3 (0.8-1.1) 2.9 (0.8-1.1) Sodium Level 139mmol/L (136-145) 139mmol/L (136-145) Potassium Level 4.1mmol/L (3.5-5.1) 4.1mmol/L (3.5-5.1) Chloride Level 104mmol/L (98-107) 105mmol/L (98-107) Carbon Dioxide Level 29mmol/L (21-32) 28mmol/L (21-32) Anion Gap 6 (6-14) 6 (6-14) Blood Urea Nitrogen 16mg/dL (7-20) 15mg/dL (7-20) Creatinine 0.8mg/dL (0.6-1.0) 0.8mg/dL (0.6-1.0) Estimated GFR (Cockcroft-Gault) 73.4 73.4 Glucose Level 106mg/dL (70-99) 127mg/dL (70-99) Calcium Level 8.2mg/dL (8.5-10.1) 8.3mg/dL (8.5-10.1) O2 Saturation 95% (92-99) Arterial Blood pH 7.38 (7.35-7.45) Arterial Blood pCO2 at Patient Temp 45mmHg (35-46) Arterial Blood pO2 at Patient Temp 84mmHg (65-108) Arterial Blood HCO3 26mmol/L (21-28) Arterial Blood Base Excess 1mmol/L (-3-3) FiO2 40 Laboratory Tests Test 08/30/16 06:20 08/30/16 08:55 White Blood Count 9.0x10^3/uL (4.0-11.0) Red Blood Count 3.03x10^6/uL (3.50-5.40) Hemoglobin 8.1g/dL (12.0-15.5) Hematocrit 25.6% (36.0-47.0) Mean Corpuscular Volume 85fL (79-100) Mean Corpuscular Hemoglobin 27pg (25-35) Mean Corpuscular Hemoglobin Concent 32g/dL (31-37) Red Cell Distribution Width 18.3% (11.5-14.5) Platelet Count 227x10^3/uL (140-400) Neutrophils (%) (Auto) 85% (31-73) Lymphocytes (%) (Auto) 9% (24-48) Monocytes (%) (Auto) 6% (0-9) Eosinophils (%) (Auto) 1% (0-3) Basophils (%) (Auto) 1% (0-3) Neutrophils # (Auto) 7.6x10^3uL (1.8-7.7) Lymphocytes # (Auto) 0.8x10^3/uL (1.0-4.8) Monocytes # (Auto) 0.5x10^3/uL (0.0-1.1) Eosinophils # (Auto) 0.1x10^3/uL (0.0-0.7) Basophils # (Auto) 0.0x10^3/uL (0.0-0.2) Prothrombin Time 28.3SEC (11.7-14.0) Prothromb Time International Ratio 2.9 (0.8-1.1) Sodium Level 139mmol/L (136-145) Potassium Level 4.1mmol/L (3.5-5.1) Chloride Level 105mmol/L (98-107) Carbon Dioxide Level 28mmol/L (21-32) Anion Gap 6 (6-14) Blood Urea Nitrogen 15mg/dL (7-20) Creatinine 0.8mg/dL (0.6-1.0) Estimated GFR (Cockcroft-Gault) 73.4 Glucose Level 127mg/dL (70-99) Calcium Level 8.3mg/dL (8.5-10.1) O2 Saturation 95% (92-99) Arterial Blood pH 7.38 (7.35-7.45) Arterial Blood pCO2 at Patient Temp 45mmHg (35-46) Arterial Blood pO2 at Patient Temp 84mmHg (65-108) Arterial Blood HCO3 26mmol/L (21-28) Arterial Blood Base Excess 1mmol/L (-3-3) FiO2 40 Medications Active Scripts Medications Dose Route/Sig Days Date Category Dose Instructions Keflex (Cephalexin) 500 Mg Capsule 500 Mg PO QID 07/12/16 Reported take for 10 days start 07/12 Percocet 10-325 Mg Tablet (Oxycodone/Acetaminophen) 1 Each Tablet 1 Tab PO PRN Q6HRS PRN 07/12/16 Reported Potassium Chloride 20 Meq Tablet.er 20 Meq PO DAILY 07/12/16 Reported Ventolin Hfa Inhaler (Albuterol Sulfate) 18 Gm Hfa.aer.ad 2 Puff INH Q4HRS 07/12/16 Reported Atorvastatin Calcium 10 Mg Tablet 1 Tab PO DAILY 07/12/16 Reported Daily Vitamin (Multivitamin) 1 Each Tablet 1 Each PO DAILY 04/15/14 Reported Coumadin (Warfarin Sodium) 2.5 Mg Tablet 0.5 Tab PO DAILY 04/15/14 Reported Propafenone Hcl 225 Mg Cap.er.12h 225 Mg PO BID 04/15/14 Reported Pantoprazole Sodium 40 Mg Tablet.dr 1 Tab PO DAILY 04/15/14 Reported Aquaphor (Petrolatum,White) 99 Gm Oint...g. 99 Gm TP BID 12/04/13 Reported Cardizem Cd (Diltiazem Hcl) 120 Mg Cap.er.24h 120 Mg PO DAILY 12/04/13 Reported Zofran Odt (Ondansetron) 4 Mg Tab.rapdis 8 Mg PO Q8HRS 12/04/13 Reported x 2 days start 3/6 then 4 mg q 6hrs prn Lasix (Furosemide) 40 Mg Tablet 40 Mg PO DAILY 12/04/13 Reported Comments CXR improving aeration right base Impression . 1. Acute respiratory failure secondary to sepsis. extubated 08/27 2. Sepsis with hypotension. off levo 3. Atrial fibrillation. 4. Acute on chronic kidney failure. 5. Morbid obesity. 6. MULTIPLE ALLERGIES TO MEDICATIONS INCLUDING AMOXICILLIN. 7. S/P code blue V-Fib 8. Abnormal cxr with improving right basal infiltrates, 9. Staph aureus in sputum 08/24 (MRSA) Group B strep. 08/18 sepsis. Repeat 08/19 neg. Plan . EXTUBATED 08/27 NEEDS AGGRESSIVE PT SPEECH EVAL ANTIBIOTICS PER ID( MRSA IN SPUTUM) BIPAP QHS/ PRN D/W WITH RN NEBDarwin IS I HAD DISCUSSED ADVANCED DIRECTIVES WITH PATIENT IN FRONT OF PALLIATIVE RN. SHE DOES NOT WANT RE-INTUBATION/ CPR/ SHOCK DNR/DNI ALIYA GARCIA MD Aug 30, 2016 12:07
--- NOTE | 2016-08-30 13:35 | RAD ---
Portable chest, 08/30/2016: History: COPD, congestive heart failure Comparison is made to a study from 08/27/2016. The ET tube and NG tube have been removed. A right PICC remains in place extending to the level of the atriocaval junction. The heart is enlarged. There are worsening perihilar opacities with loss of vascular margination. The findings suggest pulmonary edema. There is blunting of the lateral costophrenic angles compatible with associated pleural fluid. IMPRESSION: Congestive heart failure with worsening moderate pulmonary infiltrates and pleural effusions.
--- NOTE | 2016-08-30 14:41 | PDOC2 ---
PALLIATIVE CARE Palliative Care Note Palliative Care Plan: Spokes with l[facility] e [facility]. Family meeting 1715 today. 1745; Met with patient's son Manohar, mother Kalina, sister Rosa M; son Narendra unable to be here. Reviewed current medical condition. Respiratory Distress Shared with family patient's wishes; DNR/DNI. Would not want a tracheostomy. Will plan to transfer to [facility] pending acceptance of insurance. Son tearful. Family supportive of patient decision. 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 Will continue to follow. Manohar: [phone] ; first contact. Kalina; mother--[phone] Rosa M; sister --[phone] Narendra; [phone] RITCHIE ECHEVERRIA Aug 30, 2016 14:41
[2016-08-30] MEDS: TPN PER PHARMACY MC PRN (15:04)
[2016-08-30] MEDS: ATORVASTATIN CALCIUM 10 MG TABLET. PO SCH (19:37)
[2016-08-30] MEDS ORDERED: TOTAL PARENTERAL NUTRITION 1,424.9987 ML, AMINO ACIDS 10 % 60 GM, DEXTROSE 70 % IN WATE... IV SCH ×10 (22:00)
[2016-08-31] VITALS (24 sets, daily range): BP systolic 67–156; BP diastolic 37–87
[2016-08-31] MEDS: PROPAFENONE 150 MG TABLET. PO SCH ×3 (03:34→20:50)
[2016-08-31] MEDS: fentaNYL PF VIAL 100 MCG/2 ML VIAL IV PRN ×2 (03:41→09:22)
[2016-08-31] MEDS: IV DEXTROSE 5% - 0.9 % NACL 1,000 ML IV SCH (03:42)
[2016-08-31 05:11] LABS: PROTHROMBIN TIME PATIENT 29.4 SEC (11.7-14.0)
[2016-08-31 05:29] LABS: CALCIUM 8.2 mg/dL (8.5-10.1); CREATININE 0.8 mg/dL (0.6-1.0); GFR 73.4; MAGNESIUM 1.9 mg/dL (1.8-2.4); PHOSPHORUS 3.6 mg/dL (2.6-4.7); POTASSIUM 3.7 mmol/L (3.5-5.1)
--- NOTE | 2016-08-31 07:24 | PDOC ---
Infectious Disease Note Subjective Subjective States ok. ROS ROS Difficult to understand Vital Sign Vital Signs Vital Signs Date Time Temp Pulse Resp B/P Pulse Ox O2 Delivery O2 Flow Rate FiO2 08/31/16 06:00 76 27 114/54 100 BiPAP/CPAP 08/31/16 05:00 98.8 98.8 08/31/16 03:41 6.0 Physical Exam PHYSICAL EXAM GENERAL: Alert, calm, NAD - on Bipap HEENT: PERRL NECK: Supple LUNGS: Clear HEART: Irregular ABD: Obese, soft, NT, BS present : Newman EXT: BLE 1+ edema. 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 clean Labs Lab Laboratory Tests Test 08/30/16 08:55 08/31/16 04:45 O2 Saturation 95% (92-99) Arterial Blood pH 7.38 (7.35-7.45) Arterial Blood pCO2 at Patient Temp 45mmHg (35-46) Arterial Blood pO2 at Patient Temp 84mmHg (65-108) Arterial Blood HCO3 26mmol/L (21-28) Arterial Blood Base Excess 1mmol/L (-3-3) FiO2 40 Prothrombin Time 29.4SEC (11.7-14.0) Prothromb Time International Ratio 3.0 (0.8-1.1) Sodium Level 142mmol/L (136-145) Potassium Level 3.7mmol/L (3.5-5.1) Chloride Level 106mmol/L (98-107) Carbon Dioxide Level 28mmol/L (21-32) Anion Gap 8 (6-14) Blood Urea Nitrogen 16mg/dL (7-20) Creatinine 0.8mg/dL (0.6-1.0) Estimated GFR (Cockcroft-Gault) 73.4 Glucose Level 119mg/dL (70-99) Glucose (Fingerstick) 119mg/dL (70-99) Calcium Level 8.2mg/dL (8.5-10.1) Phosphorus Level 3.6mg/dL (2.6-4.7) Magnesium Level 1.9mg/dL (1.8-2.4) Triglycerides Level 102mg/dL (0-150) Objective Assessment Fever - better Staph aureus in sputum 08/24. MRSA Group B strep. 08/18 sepsis. Repeat 08/19 neg. Pulmonary infiltrates - GPC on Gram stain 08/24 Afib - RVR 08/21 Leukocytosis. -better Lactic acidosis, improved Dehydration LISSETH. resolved Hypotension likely sec to dehydration , infection appears less likely Obesity Respiratory failure s/p intubation. Extubated 08/27. DNR/DNI MRSA nares positive Rash. purpuric/petechial-type -? reactive from code and intubation s/p code blue, V-fib. 08/18 Plan Plan of Care Cont Zyvox (08/24) and Micafungin - Previous Meropenem 08/18-08/27. Wean soon Monitor labs/BC supportive care DNR/DNI ALEX FRAZIER MD Aug 31, 2016 07:24
[2016-08-31] MEDS: ALBUTEROL SULFATE 2.5 MG/3 ML NEBU. NEB SCH ×4 (07:43→20:19)
[2016-08-31] MEDS: NYSTATIN TOPICAL POWDER 15GM BOTTLE. TP SCH ×2 (08:02→21:13)
[2016-08-31] MEDS: DIGOXIN IV 500 MCG/2 ML AMPUL. IV SCH (08:03)
[2016-08-31] MEDS: PANTOPRAZOLE IV PUSH 40 MG VIAL. IVP SCH (08:03)
[2016-08-31] MEDS: MULTIVITAMIN with MINERAL TABLET. PO SCH (08:04)
[2016-08-31] MEDS: MICAFUNGIN 100 MG in IV DEXTROSE 5% 100 ML IV SCH (08:04)
[2016-08-31] MEDS ORDERED: BUPIVACAINE MPF 0.25% 10 ML VIAL. IJ ONE (09:15)
[2016-08-31] MEDS ORDERED: methylPREDNISolone ACETATE 80 MG/ML VIAL. IM ONE (09:15)
--- NOTE | 2016-08-31 09:28 | PDOC ---
PROGRESS NOTES Subjective Subjective on BIPAP Objective Objective Vital Signs Date Time Temp Pulse Resp B/P Pulse Ox O2 Delivery O2 Flow Rate FiO2 08/31/16 09:22 20 97 08/31/16 09:00 98 133/65 BiPAP/CPAP 08/31/16 08:00 6.0 08/31/16 08:00 97.6 97.6 Intake and Output 08/31/16 07:00 Intake Total 2061 ml Output Total 900 ml Balance 1161 ml Intake Oral 0 ml IV Total 2061 ml Output Urine Total 900 ml # Bowel Movements 1 Physical Exam Abdomen: Normal bowel sounds, No tenderness Heart: Normal S1, Normal S2, Other (tachycardic) Extremities: Other (trace to 1+ edema - LE) General: Other (INTUBATED) HEENT: Atraumatic Lungs: Other (dec inspiration) MUSCULOSKELETAL: No deformity Skin: No breakdown COMMENT bhakta Diagnosis Problem List Problems Medical Problems: (1) Fall from standing Status: Acute (2) Left knee pain Status: Acute Assessment Assessment Problems Medical Problems: (1) Fall from standing Status: Acute (2) Left knee pain Status: Acute FINAL IMPRESSION: MRSA lung infection s/ p CODE BLUE. Extubated 08/27/16 INTUBATED for resp failure Bacteremia ,gram positive -strep group B. sepsis with lactic acidosis. coagulopathy 1. Acute sepsis with hypotension. 2. Elevated white count with hypertension as well as renal insufficiency. 3. Chronic recurrent cellulitis of the legs. 4. Chronic lymphedema. 5. Morbid obesity. 6. History of Clostridium difficile. 7. Chronic atrial fibrillation, on Coumadin. 8. coagulopathy PLAN:spoke with Pulmonary. DNR/DNI as per pts request. to selelct today?. TPN for nutrition. Zyvox for MRSA in sputum BIPAP at night ,oxygen mask daytime spoke RN.NPO for now, speech consult T tube trial and extubated on 08/27/16 iv antibiotics zyvox++micofungin restarted on coumadin, d/c Lovenox, inr 3.0 weaned off sedation. hypotension corrected Thrombocytopenia resolved Hypokalemia- K 4.0 Improving. Leukocytosis- WBC [address] Dodd [facility]? Problems: Plan Plan of Care Problems Medical Problems: (1) Fall from standing Status: Acute (2) Left knee pain Status: Acute Comment Review of Relevant I have reviewed the following items quentin (where applicable) has been applied. Labs Laboratory Tests Test 08/31/16 04:45 Prothrombin Time 29.4SEC (11.7-14.0) Prothromb Time International Ratio 3.0 (0.8-1.1) Sodium Level 142mmol/L (136-145) Potassium Level 3.7mmol/L (3.5-5.1) Chloride Level 106mmol/L (98-107) Carbon Dioxide Level 28mmol/L (21-32) Anion Gap 8 (6-14) Blood Urea Nitrogen 16mg/dL (7-20) Creatinine 0.8mg/dL (0.6-1.0) Estimated GFR (Cockcroft-Gault) 73.4 Glucose Level 119mg/dL (70-99) Glucose (Fingerstick) 119mg/dL (70-99) Calcium Level 8.2mg/dL (8.5-10.1) Phosphorus Level 3.6mg/dL (2.6-4.7) Magnesium Level 1.9mg/dL (1.8-2.4) Triglycerides Level 102mg/dL (0-150) Microbiology 08/24/16 Blood Culture - Final, Complete NO GROWTH AFTER 5 DAYS 08/24/16 Sputum Culture - Final, Complete 08/24/16 Sputum Result 1 - Final, Complete 08/24/16 Antimicrobic Susceptibility - Final, Complete 08/18/16 Urine Culture - Final, Complete 08/18/16 Urine Culture Result 1 (SILVINA) - Final, Complete Medications Current Medications Bupivacaine HCl (Sensorcaine-Mpf 0.25%) 10 ml 1X ONCE IJ ; Start 08/31/16 at 09 :15; Stop 08/31/16 at 09:16; Status DC Info 1 each 1 each PRN DAILY PRN MC SEE COMMENTS Last administered on t 15:04; Start 08/30/16 at 15:00 Methylprednisolone Acetate (Depo-Medrol 80mg Vial) 80 mg 1X ONCE IM ; Start at 09:15; Stop 08/31/16 at 09:16; Status DC Sodium Chloride/ Potassium Chloride/ Potassium Phosphate/ Magnesium Sulfate/ Calcium Gluconate/ Multivitamins/ Chromium/Copper/ Manganese/Seleni/ Zn/Total Parenteral Nutrition/Amino Acids/Dextrose/ Fat Emulsion Intravenous (Sodium Chloride/ Potassium Phosphate/Calc... 1,512 ml @ 63 mls/hr TPN CONT IV Last administered on 08/30/16t 21:40; Start 08/30/16 at 22:00; Stop 08/31/16 at 21:59 Warfarin Sodium (Coumadin - No Dose Today) 1 each 1X WARF ONCE MC ; Start 08/30 at 16:00; Stop 08/30/16 at 16:01; Status DC Vitals/I & O Vital Sign - Last 24 Hours 08/30/16 08/30/16 08/30/16 08/30/16 10:00 10:50 11:00 12:00 Pulse 94 116 Resp 38 40 B/P 123/59 121/49 Pulse Ox 93 100 O2 Delivery Venturi Mask BiPAP/CPAP BiPAP/CPAP Bi-pap 08/30/16 08/30/16 08/30/16 08/30/16 12:00 12:00 12:45 13:00 Temp 98.1 98.1 Pulse 94 74 Resp 32 30 B/P 160/60 123/62 Pulse Ox 99 100 100 O2 Delivery BiPAP/CPAP BiPAP/CPAP O2 Flow Rate 6.0 08/30/16 08/30/16 08/30/16 08/30/16 14:00 15:00 16:00 16:00 Pulse 108 111 Resp 28 30 B/P 144/66 107/45 Pulse Ox 100 100 O2 Delivery BiPAP/CPAP BiPAP/CPAP Bi-pap O2 Flow Rate 6.0 08/30/16 08/30/16 08/30/16 08/30/16 16:00 16:22 17:00 18:00 Temp 98.1 98.1 Pulse 116 104 110 Resp 36 32 34 B/P 106/50 109/48 118/46 Pulse Ox 100 100 100 100 O2 Delivery BiPAP/CPAP BiPAP/CPAP BiPAP/CPAP BiPAP/CPAP 08/30/16 08/30/16 08/30/16 08/30/16 19:00 20:00 20:00 20:49 Temp 99.2 99.2 Pulse 110 105 Resp 20 21 B/P 118/46 110/44 Pulse Ox 100 100 100 O2 Delivery BiPAP/CPAP BiPAP/CPAP Bi-pap BiPAP/CPAP 08/30/16 08/30/16 08/30/16 08/30/16 21:00 22:00 23:00 23:34 Pulse 92 82 102 Resp 20 20 20 B/P 118/53 100/46 105/53 Pulse Ox 100 100 100 99 O2 Delivery BiPAP/CPAP BiPAP/CPAP BiPAP/CPAP BiPAP/CPAP 08/30/16 08/31/16 08/31/16 08/31/16 23:59 00:00 01:00 01:30 Temp 98.9 98.9 Pulse 73 73 Resp 20 20 B/P 111/44 112/42 Pulse Ox 100 100 100 O2 Delivery Bi-pap BiPAP/CPAP BiPAP/CPAP BiPAP/CPAP 08/31/16 08/31/16 08/31/16 08/31/16 02:00 03:00 03:40 03:41 Pulse 74 107 Resp 20 40 44 B/P 105/37 67/45 Pulse Ox 100 100 100 100 O2 Delivery BiPAP/CPAP BiPAP/CPAP BiPAP/CPAP O2 Flow Rate 6.0 08/31/16 08/31/16 08/31/16 08/31/16 04:00 04:00 04:11 05:00 Temp 98.8 98.8 Pulse 77 76 Resp 37 27 B/P 103/48 114/50 Pulse Ox 100 100 100 O2 Delivery Bi-pap BiPAP/CPAP BiPAP/CPAP 08/31/16 08/31/16 08/31/16 08/31/16 05:38 06:00 07:00 07:43 Pulse 76 108 Resp 27 24 B/P 114/54 111/87 Pulse Ox 97 100 93 97 O2 Delivery BiPAP/CPAP BiPAP/CPAP BiPAP/CPAP BiPAP/CPAP 08/31/16 08/31/16 08/31/16 08/31/16 08:00 08:00 08:00 08:03 Temp 97.6 97.6 Pulse 110 111 Resp 25 B/P 136/63 136/63 Pulse Ox 100 O2 Delivery BiPAP/CPAP Bi-pap O2 Flow Rate 6.0 08/31/16 08/31/16 09:00 09:22 Pulse 98 Resp 22 20 B/P 133/65 Pulse Ox 97 97 O2 Delivery BiPAP/CPAP Intake and Output 08/30/16 08/30/16 08/31/16 15:00 23:00 07:00 Intake Total 400 ml 720 ml 941 ml Output Total 280 ml 360 ml 260 ml Balance 120 ml 360 ml 681 ml JAGUAR BRICE MD Aug 31, 2016 09:28
--- NOTE | 2016-08-31 12:46 | PDOC ---
PULMONARY PROGRESS NOTES Subjective extubated 08/27 ON BIPAP Vitals Vital Signs Date Time Temp Pulse Resp B/P Pulse Ox O2 Delivery O2 Flow Rate FiO2 08/31/16 12:00 6.0 08/31/16 12:00 Bi-pap 08/31/16 12:00 98.0 88 20 135/49 98 98.0 General: Alert, Mild Distress HEENT: Other (nc at perrl orally intubated. nose clear) Lungs: Other (decrease bs) Cardiovascular: S1, S2 Abdomen: Soft, Non-tender, Other ( no mass obese) Extremities: Other (edema) Skin: Warm, Dry Labs Laboratory Tests Test 08/30/16 06:20 08/30/16 08:55 08/31/16 04:45 White Blood Count 9.0x10^3/uL (4.0-11.0) Red Blood Count 3.03x10^6/uL (3.50-5.40) Hemoglobin 8.1g/dL (12.0-15.5) Hematocrit 25.6% (36.0-47.0) Mean Corpuscular Volume 85fL (79-100) Mean Corpuscular Hemoglobin 27pg (25-35) Mean Corpuscular Hemoglobin Concent 32g/dL (31-37) Red Cell Distribution Width 18.3% (11.5-14.5) Platelet Count 227x10^3/uL (140-400) Neutrophils (%) (Auto) 85% (31-73) Lymphocytes (%) (Auto) 9% (24-48) Monocytes (%) (Auto) 6% (0-9) Eosinophils (%) (Auto) 1% (0-3) Basophils (%) (Auto) 1% (0-3) Neutrophils # (Auto) 7.6x10^3uL (1.8-7.7) Lymphocytes # (Auto) 0.8x10^3/uL (1.0-4.8) Monocytes # (Auto) 0.5x10^3/uL (0.0-1.1) Eosinophils # (Auto) 0.1x10^3/uL (0.0-0.7) Basophils # (Auto) 0.0x10^3/uL (0.0-0.2) Prothrombin Time 28.3SEC (11.7-14.0) 29.4SEC (11.7-14.0) Prothromb Time International Ratio 2.9 (0.8-1.1) 3.0 (0.8-1.1) Sodium Level 139mmol/L (136-145) 142mmol/L (136-145) Potassium Level 4.1mmol/L (3.5-5.1) 3.7mmol/L (3.5-5.1) Chloride Level 105mmol/L (98-107) 106mmol/L (98-107) Carbon Dioxide Level 28mmol/L (21-32) 28mmol/L (21-32) Anion Gap 6 (6-14) 8 (6-14) Blood Urea Nitrogen 15mg/dL (7-20) 16mg/dL (7-20) Creatinine 0.8mg/dL (0.6-1.0) 0.8mg/dL (0.6-1.0) Estimated GFR (Cockcroft-Gault) 73.4 73.4 Glucose Level 127mg/dL (70-99) 119mg/dL (70-99) Calcium Level 8.3mg/dL (8.5-10.1) 8.2mg/dL (8.5-10.1) O2 Saturation 95% (92-99) Arterial Blood pH 7.38 (7.35-7.45) Arterial Blood pCO2 at Patient Temp 45mmHg (35-46) Arterial Blood pO2 at Patient Temp 84mmHg (65-108) Arterial Blood HCO3 26mmol/L (21-28) Arterial Blood Base Excess 1mmol/L (-3-3) FiO2 40 Glucose (Fingerstick) 119mg/dL (70-99) Phosphorus Level 3.6mg/dL (2.6-4.7) Magnesium Level 1.9mg/dL (1.8-2.4) Triglycerides Level 102mg/dL (0-150) Laboratory Tests Test 08/31/16 04:45 Prothrombin Time 29.4SEC (11.7-14.0) Prothromb Time International Ratio 3.0 (0.8-1.1) Sodium Level 142mmol/L (136-145) Potassium Level 3.7mmol/L (3.5-5.1) Chloride Level 106mmol/L (98-107) Carbon Dioxide Level 28mmol/L (21-32) Anion Gap 8 (6-14) Blood Urea Nitrogen 16mg/dL (7-20) Creatinine 0.8mg/dL (0.6-1.0) Estimated GFR (Cockcroft-Gault) 73.4 Glucose Level 119mg/dL (70-99) Glucose (Fingerstick) 119mg/dL (70-99) Calcium Level 8.2mg/dL (8.5-10.1) Phosphorus Level 3.6mg/dL (2.6-4.7) Magnesium Level 1.9mg/dL (1.8-2.4) Triglycerides Level 102mg/dL (0-150) Medications Active Scripts Medications Dose Route/Sig Days Date Category Dose Instructions Keflex (Cephalexin) 500 Mg Capsule 500 Mg PO QID 07/12/16 Reported take for 10 days start 07/12 Percocet 10-325 Mg Tablet (Oxycodone/Acetaminophen) 1 Each Tablet 1 Tab PO PRN Q6HRS PRN 07/12/16 Reported Potassium Chloride 20 Meq Tablet.er 20 Meq PO DAILY 07/12/16 Reported Ventolin Hfa Inhaler (Albuterol Sulfate) 18 Gm Hfa.aer.ad 2 Puff INH Q4HRS 07/12/16 Reported Atorvastatin Calcium 10 Mg Tablet 1 Tab PO DAILY 07/12/16 Reported Daily Vitamin (Multivitamin) 1 Each Tablet 1 Each PO DAILY 04/15/14 Reported Coumadin (Warfarin Sodium) 2.5 Mg Tablet 0.5 Tab PO DAILY 04/15/14 Reported Propafenone Hcl 225 Mg Cap.er.12h 225 Mg PO BID 04/15/14 Reported Pantoprazole Sodium 40 Mg Tablet.dr 1 Tab PO DAILY 04/15/14 Reported Aquaphor (Petrolatum,White) 99 Gm Oint...g. 99 Gm TP BID 12/04/13 Reported Cardizem Cd (Diltiazem Hcl) 120 Mg Cap.er.24h 120 Mg PO DAILY 12/04/13 Reported Zofran Odt (Ondansetron) 4 Mg Tab.rapdis 8 Mg PO Q8HRS 12/04/13 Reported x 2 days start 07/12 then 4 mg q 6hrs prn Lasix (Furosemide) 40 Mg Tablet 40 Mg PO DAILY 12/04/13 Reported Impression . 1. Acute respiratory failure secondary to sepsis. extubated 08/27 2. Sepsis with hypotension. off levo 3. Atrial fibrillation. 4. Acute on chronic kidney failure. 5. Morbid obesity. 6. MULTIPLE ALLERGIES TO MEDICATIONS INCLUDING AMOXICILLIN. 7. S/P code blue V-Fib 8. Abnormal cxr with improving right basal infiltrates, 9. Staph aureus in sputum 08/24 (MRSA) Group B strep. 08/18 sepsis. Repeat 08/19 neg. Plan . DOES NOT TOLERATE OFF BIPAP, OK TO TRANSFER TO [facility] RESP STATUS VERY TENUOUS PT MAY DECOMPENSATED IN ROUTE TO [facility] EXTUBATED 08/27 ANTIBIOTICS PER ID( MRSA IN SPUTUM) BIPAP QHS/ PRN D/W WITH RN NEBS IS DR GARCIA, HAD LONG DISCUSSION WITH PATIENT, IN FRONT OF PALLIATIVE RN. SHE DOES NOT WANT RE-INTUBATION/ CPR/ SHOCK DNR/DNI TWILA OROZCO MD Aug 31, 2016 12:46
[2016-08-31] MEDS: TPN PER PHARMACY MC PRN (14:27)
[2016-08-31] MEDS: ATORVASTATIN CALCIUM 10 MG TABLET. PO SCH (20:50)
[2016-08-31] MEDS ORDERED: ATROPINE 0.5 MG/5 ML DISP.SYRIN. ONE (21:27)
[2016-08-31] MEDS ORDERED: TOTAL PARENTERAL NUTRITION 1,424.9987 ML, AMINO ACIDS 10 % 60 GM, DEXTROSE 70 % IN WATE... IV SCH ×10 (22:00)
[2016-09-01] VITALS (24 sets, daily range): BP systolic 99–171; BP diastolic 44–91
--- NOTE | 2016-09-01 01:36 | CONS ---
DATE OF CONSULTATION: LOCATION: ____ in ICU. ATTENDING PHYSICIAN: Antoine Townsend MD. The patient was seen at the request of Dr. Townsend for rehab evaluation. HISTORY OF PRESENT ILLNESS: This is a 60-year-old female with morbid obesity, atrial fibrillation, chronic lymphedema, and C. diff colitis in the past. The patient was at [facility] requiring from leg cellulitis, went home; was not doing well. She had pain in her knees from degenerative joint disease. The patient was found with leukocytosis, some confusion and renal failure. The patient was diagnosed as having acute sepsis with hypotension and confusion. The patient with history of atrial fibrillation, hypertension, hyperlipidemia, status post appendectomy, cholecystectomy, tubal ligation, cardiac catheterization in the past, known allergic to SULFA, AMOXIL, CARBOLIC ACID, DABIGATRAN AND DEMEROL. The patient lives at home and she had a few stairs for her to manage at home. She lives with her son. She required standby assistance for self-care, had a chair to sit while taking a shower standing up. She has been walking using a roller walker and cane prior to the present hospitalization. She had a bariatric walker, but does not fit in the hallways or doors. She requires some help with self-care at home from her son and she complains left knee pain. The patient during this hospitalization was treated for acute respiratory failure requiring intubation. She is extubated on 08/27/2016 and right now she is on and off BiPAP. The patient is being considered for transfer to long-term acute care unit. PHYSICAL EXAMINATION: Today revealed she is sitting in bedside chair. She had generalized muscle weakness and stiffness of her knees. She also had painful limited movements of her lumbar spine. She requires maximal assistance with bed mobility and transfers. I have not tested her ambulation skills at this time. ASSESSMENT: A middle-aged female with recent hospitalization for acute sepsis, leukocytosis, acute respiratory failure, chronic recurrent cellulitis of her lower extremities with associated lymphedema, morbid obesity, painful degenerative joint disease of her knees, history of C. diff colitis, and chronic atrial fibrillation, on Coumadin. RECOMMENDATIONS: At her request, I have injected her left knee with a Depo-Medrol and Marcaine under aseptic skin technique after skin preparation using alcohol. She tolerated the procedure satisfactorily without any side effects. Dr. Townsend, I appreciate asking me to participate in the care of this interesting patient. I will be glad to follow her with you as needed for her rehabilitation. Agree with the plan for transfer to long-term acute care unit if she qualifies. PINA GANDARA MD DR: SELAM/shayla JOB#: [id number] / [id number]
[2016-09-01] MEDS: LORAZEPAM 2 MG/ML VIAL. IV PRN ×3 (02:20→22:10)
[2016-09-01 05:32] LABS: INR 1.7 (0.8-1.1); PROTHROMBIN TIME PATIENT 19.2 SEC (11.7-14.0)
[2016-09-01 05:48] LABS: CALCIUM 8.5 mg/dL (8.5-10.1); CREATININE 0.9 mg/dL (0.6-1.0); GFR 64.1; POTASSIUM 4.3 mmol/L (3.5-5.1)
[2016-09-01] MEDS: PROPAFENONE 150 MG TABLET. PO SCH ×3 (06:00→20:59)
[2016-09-01] MEDS: ALBUTEROL SULFATE 2.5 MG/3 ML NEBU. NEB SCH ×4 (07:34→19:54)
--- NOTE | 2016-09-01 07:54 | PDOC ---
Infectious Disease Note Subjective Subjective On Bipap ROS ROS Difficult to understand today Vital Sign Vital Signs Vital Signs Date Time Temp Pulse Resp B/P Pulse Ox O2 Delivery O2 Flow Rate FiO2 09/01/16 07:35 97 BiPAP/CPAP 09/01/16 07:00 72 33 124/60 09/01/16 04:00 99.0 99.0 08/31/16 16:00 6.0 Physical Exam PHYSICAL EXAM GENERAL: Alert, NAD - on Bipap HEENT: PERRL NECK: Supple LUNGS: Clear HEART: Irregular ABD: Obese, soft, NT, BS present : Newman EXT: BLE trace edema. no cyanosis PAPER RULER: Alert, SKIN: Purpuric-type rash anterior neck, fading RUE-PICC. clean Labs Lab Laboratory Tests Test 08/31/16 21:24 09/01/16 04:45 Glucose (Fingerstick) 136mg/dL (70-99) Prothrombin Time 19.2SEC (11.7-14.0) Prothromb Time International Ratio 1.7 (0.8-1.1) Sodium Level 140mmol/L (136-145) Potassium Level 4.3mmol/L (3.5-5.1) Chloride Level 107mmol/L (98-107) Carbon Dioxide Level 28mmol/L (21-32) Anion Gap 5 (6-14) Blood Urea Nitrogen 19mg/dL (7-20) Creatinine 0.9mg/dL (0.6-1.0) Estimated GFR (Cockcroft-Gault) 64.1 Glucose Level 130mg/dL (70-99) Calcium Level 8.5mg/dL (8.5-10.1) Phosphorus Level 4.0mg/dL (2.6-4.7) Magnesium Level 2.0mg/dL (1.8-2.4) Objective Assessment Fever - better Staph aureus in sputum 08/24. MRSA Group B strep. 08/18 sepsis. Repeat 08/19 neg. Episodes of Bradycardia Pulmonary infiltrates - On BiPap Afib - RVR 08/21 Leukocytosis. -better Lactic acidosis, improved Dehydration LISSETH. resolved Hypotension likely sec to dehydration , infection appears less likely Obesity Respiratory failure s/p intubation. Extubated 08/27. DNR/DNI - on Bipap MRSA nares positive Rash. purpuric/petechial-type -? reactive from code and intubation s/p code blue, V-fib. 08/18 Plan Plan of Care Cont Zyvox (08/24) and Micafungin - Wean soon - Previous Meropenem 08/18- 08/27. Monitor labs/BC supportive care Repeat CXR this am DNR/DNI Still critically ill ALEX FRAZIER MD Sep 01, 2016 07:54
[2016-09-01] MEDS: MICAFUNGIN 100 MG in IV DEXTROSE 5% 100 ML IV SCH (08:07)
[2016-09-01] MEDS: MULTIVITAMIN with MINERAL TABLET. PO SCH (09:00)
--- NOTE | 2016-09-01 09:01 | RAD ---
Exam: AP portable chest. History: Respiratory failure. Comparison: 08/30/2016. Findings: Cardiac silhouette appears borderline. Right-sided PICC line is unchanged. Aortic sclerosis is noted. No pneumothorax is seen. There are probably small bilateral pleural effusions. There is some interval improvement in bilateral airspace disease, right worse than left. Impression: 1. There is some interval improvement in bilateral airspace disease. Findings are nonspecific, but could represent improvement in pulmonary edema, ARDS, or pneumonia.
[2016-09-01] MEDS: PANTOPRAZOLE IV PUSH 40 MG VIAL. IVP SCH (09:07)
[2016-09-01] MEDS: DIGOXIN IV 500 MCG/2 ML AMPUL. IV SCH (09:07)
[2016-09-01] MEDS: NYSTATIN TOPICAL POWDER 15GM BOTTLE. TP SCH ×2 (09:08→22:06)
--- NOTE | 2016-09-01 09:43 | PDOC ---
PROGRESS NOTES Subjective Subjective on BIPAP, bradycardia to 35 last night Objective Objective Vital Signs Date Time Temp Pulse Resp B/P Pulse Ox O2 Delivery O2 Flow Rate FiO2 09/01/16 09:07 74 146/69 09/01/16 09:00 26 97 BiPAP/CPAP 09/01/16 08:00 97.7 97.7 08/31/16 16:00 6.0 Intake and Output 09/01/16 06:59 Intake Total 2067 ml Output Total 843 ml Balance 1224 ml Intake Oral 0 ml IV Total 2067 ml Output Urine Total 843 ml # Bowel Movements 4 Physical Exam Abdomen: Normal bowel sounds, No tenderness Heart: Normal S1, Normal S2, Other Extremities: Other (trace to 1+ edema - LE) General: Other HEENT: Atraumatic Lungs: Other (dec inspiration) MUSCULOSKELETAL: No deformity Skin: No breakdown COMMENT bhakta Diagnosis Problem List Problems Medical Problems: (1) Fall from standing Status: Acute (2) Left knee pain Status: Acute (3) Respiratory failure Status: Acute Assessment Assessment Problems Medical Problems: (1) Fall from standing Status: Acute (2) Left knee pain Status: Acute FINAL IMPRESSION: MRSA lung infection s/ p CODE BLUE. Extubated 08/27/16 INTUBATED for resp failure Bacteremia ,gram positive -strep group B. sepsis with lactic acidosis. coagulopathy 1. Acute sepsis with hypotension. 2. Elevated white count with hypertension as well as renal insufficiency. 3. Chronic recurrent cellulitis of the legs. 4. Chronic lymphedema. 5. Morbid obesity. 6. History of Clostridium difficile. 7. Chronic atrial fibrillation, on Coumadin. 8. coagulopathy PLAN:bradycardia dependent on BIPAP spoke with Pulmonary. DNR/DNI as per pts request. spoke to insurance, did not authorize select t transfer TPN for nutrition. Zyvox for MRSA in sputum BIPAP at night ,oxygen mask daytime spoke RN.NPO for now, speech consult T tube trial and extubated on 08/27/16 iv antibiotics zyvox++micofungin restarted on coumadin, d/c Lovenox, inr 1.7 weaned off sedation. hypotension corrected Thrombocytopenia resolved Hypokalemia- K 4.0 Improving. Leukocytosis- WBC 9 improved Problems: Plan Plan of Care Problems Medical Problems: (1) Fall from standing Status: Acute (2) Left knee pain Status: Acute (3) Respiratory failure Status: Acute Comment Review of Relevant I have reviewed the following items quentin (where applicable) has been applied. Labs Laboratory Tests Test 08/31/16 21:24 09/01/16 04:45 Glucose (Fingerstick) 136mg/dL (70-99) Prothrombin Time 19.2SEC (11.7-14.0) Prothromb Time International Ratio 1.7 (0.8-1.1) Sodium Level 140mmol/L (136-145) Potassium Level 4.3mmol/L (3.5-5.1) Chloride Level 107mmol/L (98-107) Carbon Dioxide Level 28mmol/L (21-32) Anion Gap 5 (6-14) Blood Urea Nitrogen 19mg/dL (7-20) Creatinine 0.9mg/dL (0.6-1.0) Estimated GFR (Cockcroft-Gault) 64.1 Glucose Level 130mg/dL (70-99) Calcium Level 8.5mg/dL (8.5-10.1) Phosphorus Level 4.0mg/dL (2.6-4.7) Magnesium Level 2.0mg/dL (1.8-2.4) Microbiology 08/24/16 Blood Culture - Final, Complete NO GROWTH AFTER 5 DAYS 08/24/16 Sputum Culture - Final, Complete 08/24/16 Sputum Result 1 - Final, Complete 08/24/16 Antimicrobic Susceptibility - Final, Complete 08/18/16 Urine Culture - Final, Complete 08/18/16 Urine Culture Result 1 (SILVINA) - Final, Complete Medications Current Medications Atropine Sulfate 0.5 mg STK-MED ONCE .ROUTE ; Start 08/31/16 at 21:27; Stop at 21:28; Status DC Sodium Chloride/ Potassium Chloride/ Potassium Phosphate/ Magnesium Sulfate/ Calcium Gluconate/ Multivitamins/ Chromium/Copper/ Manganese/Seleni/ Zn/Total Parenteral Nutrition/Amino Acids/Dextrose/ Fat Emulsion Intravenous (Sodium Chloride/ Potassium Phosphate/Calc... 1,512 ml @ 63 mls/hr TPN CONT IV Last administered on 08/31/16t 21:58; Start 08/31/16 at 22:00; Stop 09/01/16 at 21:59 Vitals/I & O Vital Sign - Last 24 Hours 08/31/16 08/31/16 08/31/16 08/31/16 09:52 10:00 11:00 11:00 Pulse 98 98 Resp 22 22 25 B/P 156/70 117/57 Pulse Ox 97 97 93 97 O2 Delivery BiPAP/CPAP BiPAP/CPAP BiPAP/CPAP O2 Flow Rate 6.0 08/31/16 08/31/16 08/31/16 08/31/16 12:00 12:00 12:00 13:00 Temp 98.0 98.0 Pulse 88 89 Resp 20 21 B/P 135/49 136/50 Pulse Ox 98 97 O2 Delivery BiPAP/CPAP Bi-pap BiPAP/CPAP O2 Flow Rate 6.0 08/31/16 08/31/16 08/31/16 08/31/16 13:00 14:00 15:00 15:03 Pulse 74 96 Resp 21 23 B/P 126/43 153/58 Pulse Ox 95 99 96 96 O2 Delivery BiPAP/CPAP BiPAP/CPAP BiPAP/CPAP BiPAP/CPAP 08/31/16 08/31/16 08/31/16 08/31/16 16:00 16:00 16:00 17:00 Temp 97.9 97.9 Pulse 96 94 Resp 23 20 B/P 110/60 123/62 Pulse Ox 100 100 O2 Delivery BiPAP/CPAP Bi-pap BiPAP/CPAP O2 Flow Rate 6.0 08/31/16 08/31/16 08/31/16 08/31/16 18:00 19:00 20:00 20:00 Temp 98.9 98.9 Pulse 96 89 96 Resp 21 42 42 B/P 120/50 98/46 109/48 Pulse Ox 94 93 91 O2 Delivery BiPAP/CPAP BiPAP/CPAP BiPAP/CPAP Bi-pap 08/31/16 08/31/16 08/31/16 08/31/16 20:19 21:00 22:00 23:00 Pulse 109 90 Resp 30 30 B/P 107/37 110/44 Pulse Ox 92 94 94 93 O2 Delivery BiPAP/CPAP BiPAP/CPAP BiPAP/CPAP BiPAP/CPAP 08/31/16 08/31/16 09/01/16 09/01/16 23:00 23:59 00:00 01:00 Temp 99.0 99.0 Pulse 108 114 Resp 30 30 B/P 96/46 111/60 Pulse Ox 93 93 93 O2 Delivery BiPAP/CPAP Bi-pap BiPAP/CPAP BiPAP/CPAP 09/01/16 09/01/16 09/01/16 09/01/16 01:00 02:00 03:00 03:00 Pulse 109 109 109 Resp 30 39 49 B/P 141/44 147/91 108/57 Pulse Ox 94 94 91 96 O2 Delivery BiPAP/CPAP BiPAP/CPAP BiPAP/CPAP BiPAP/CPAP 09/01/16 09/01/16 09/01/16 09/01/16 04:00 04:00 05:00 05:00 Temp 99.0 99.0 Pulse 106 106 Resp 28 28 B/P 135/57 135/57 Pulse Ox 98 98 98 O2 Delivery BiPAP/CPAP Bi-pap BiPAP/CPAP BiPAP/CPAP 09/01/16 09/01/16 09/01/16 09/01/16 06:00 07:00 07:35 08:00 Pulse 104 72 Resp 28 33 B/P 122/54 124/60 Pulse Ox 99 97 97 O2 Delivery BiPAP/CPAP BiPAP/CPAP BiPAP/CPAP Bi-pap 09/01/16 09/01/16 09/01/16 08:00 09:00 09:07 Temp 97.7 97.7 Pulse 79 74 74 Resp 33 26 B/P 136/57 146/69 146/69 Pulse Ox 96 97 O2 Delivery BiPAP/CPAP BiPAP/CPAP Intake and Output 08/31/16 08/31/16 09/01/16 14:59 22:59 06:59 Intake Total 0 ml 671 ml 1396 ml Output Total 290 ml 263 ml 290 ml Balance -290 ml 408 ml 1106 ml JAGUAR BRICE MD Sep 01, 2016 09:43
--- NOTE | 2016-09-01 10:10 | PDOC ---
PROGRESS NOTES Subjective Subjective She feels better with left knee pain. Objective Objective Vital Signs Date Time Temp Pulse Resp B/P Pulse Ox O2 Delivery O2 Flow Rate FiO2 09/01/16 10:00 103 45 132/58 92 BiPAP/CPAP 09/01/16 08:00 97.7 97.7 08/31/16 16:00 6.0 Intake and Output 09/01/16 07:00 Intake Total 2067 ml Output Total 893 ml Balance 1174 ml Intake Oral 0 ml IV Total 2067 ml Output Urine Total 893 ml # Bowel Movements 4 Physical Exam Physical Exam She continues with problems with her breathing and bradycardia and asystole. Assessment Assessment Problems Medical Problems: (1) Fall from standing Status: Acute (2) Left knee pain Status: Acute (3) Respiratory failure Status: Acute Plan Plan of Care To continue present care efforts as tolerated. Comment Review of Relevant I have reviewed the following items quentin (where applicable) has been applied. Labs Laboratory Tests Test 08/31/16 04:45 08/31/16 21:24 09/01/16 04:45 Prothrombin Time 29.4SEC (11.7-14.0) 19.2SEC (11.7-14.0) Prothromb Time International Ratio 3.0 (0.8-1.1) 1.7 (0.8-1.1) Sodium Level 142mmol/L (136-145) 140mmol/L (136-145) Potassium Level 3.7mmol/L (3.5-5.1) 4.3mmol/L (3.5-5.1) Chloride Level 106mmol/L (98-107) 107mmol/L (98-107) Carbon Dioxide Level 28mmol/L (21-32) 28mmol/L (21-32) Anion Gap 8 (6-14) 5 (6-14) Blood Urea Nitrogen 16mg/dL (7-20) 19mg/dL (7-20) Creatinine 0.8mg/dL (0.6-1.0) 0.9mg/dL (0.6-1.0) Estimated GFR (Cockcroft-Gault) 73.4 64.1 Glucose Level 119mg/dL (70-99) 130mg/dL (70-99) Glucose (Fingerstick) 119mg/dL (70-99) 136mg/dL (70-99) Calcium Level 8.2mg/dL (8.5-10.1) 8.5mg/dL (8.5-10.1) Phosphorus Level 3.6mg/dL (2.6-4.7) 4.0mg/dL (2.6-4.7) Magnesium Level 1.9mg/dL (1.8-2.4) 2.0mg/dL (1.8-2.4) Triglycerides Level 102mg/dL (0-150) Laboratory Tests Test 08/31/16 21:24 09/01/16 04:45 Glucose (Fingerstick) 136mg/dL (70-99) Prothrombin Time 19.2SEC (11.7-14.0) Prothromb Time International Ratio 1.7 (0.8-1.1) Sodium Level 140mmol/L (136-145) Potassium Level 4.3mmol/L (3.5-5.1) Chloride Level 107mmol/L (98-107) Carbon Dioxide Level 28mmol/L (21-32) Anion Gap 5 (6-14) Blood Urea Nitrogen 19mg/dL (7-20) Creatinine 0.9mg/dL (0.6-1.0) Estimated GFR (Cockcroft-Gault) 64.1 Glucose Level 130mg/dL (70-99) Calcium Level 8.5mg/dL (8.5-10.1) Phosphorus Level 4.0mg/dL (2.6-4.7) Magnesium Level 2.0mg/dL (1.8-2.4) Microbiology 08/24/16 Blood Culture - Final, Complete NO GROWTH AFTER 5 DAYS 08/24/16 Sputum Culture - Final, Complete 08/24/16 Sputum Result 1 - Final, Complete 08/24/16 Antimicrobic Susceptibility - Final, Complete 08/18/16 Urine Culture - Final, Complete 08/18/16 Urine Culture Result 1 (SILVINA) - Final, Complete Medications Current Medications Ketorolac Tromethamine (Toradol Im) 30 mg 1X ONCE IM Last administered on 08/17t 11:28; Start 08/17/16 at 11:30; Stop 08/17/16 at 11:31; Status DC Ondansetron HCl (Zofran) 4 mg PRN Q8HRS PRN IV NAUSEA/VOMITING; Start 08/17/16 at 14:30; Stop 08/18/16 at 14:29; Status DC Morphine Sulfate 2 mg PRN Q2HR PRN IV PAIN; Start 08/17/16 at 14:30; Stop 08/18 at 14:29; Status DC Acetaminophen (Tylenol) 650 mg PRN Q4HRS PRN PO FEVER; Start 08/17/16 at 14:30 ; Stop 08/18/16 at 14:29; Status DC Atorvastatin Calcium (Lipitor) 10 mg QHS PO Last administered on 08/26/16 20: 51; Start 08/17/16 at 21:00 Diltiazem HCl (Cardizem 24hr Cd) 120 mg DAILY PO Last administered on 08:20; Start 08/18/16 at 09:00; Stop 08/24/16 at 10:36; Status DC Furosemide (Lasix) 40 mg DAILY PO ; Start 08/18/16 at 09:00; Stop 08/18/16 at 10 :10; Status DC Ondansetron HCl (Zofran Odt) 8 mg Q8HRS PO Last administered on 08/17/16 22:16 ; Start 08/17/16 at 22:00; Stop 08/18/16 at 01:13; Status DC Oxycodone/ Acetaminophen (Percocet 10/325) 1 tab PRN Q6HRS PRN PO PAIN Last administered on 08/26/16 14:21; Start 08/17/16 at 18:30 Pantoprazole Sodium (Protonix) 40 mg DAILYAC PO Last administered on 08/18/16 09:29; Start 08/18/16 at 07:30; Stop 08/18/16 at 17:08; Status DC Propafenone HCl (Rythmol Sr) 225 mg BID PO Last administered on 08/17/16 22:20 ; Start 08/17/16 at 21:00; Stop 08/20/16 at 21:33; Status DC Warfarin Sodium (Coumadin) 2.5 mg DAILY PO Last administered on 08/18/16 10:01 ; Start 08/17/16 at 22:00; Stop 08/18/16 at 12:48; Status DC Non-Formulary Medication 2 puff Q4HRS INH FOR ASTHMA; Start 08/17/16 at 20:00; Status UNV Multivitamins (Thera M Plus) 1 tab DAILY PO Last administered on 08/27/16 09: 55; Start 08/18/16 at 09:00 Non-Formulary Medication 99 gm BID TP ; Start 08/17/16 at 21:00; Status UNV Potassium Chloride (Klor-Con) 20 meq DAILYWBKFT PO Last administered on 09:29; Start 08/18/16 at 08:00; Stop 08/18/16 at 10:10; Status DC Nystatin (Nystop) 1 dante BID TP Last administered on 09/01/16 09:08; Start 03/25 at 21:00 Albuterol Sulfate (Ventolin Neb Soln) 2.5 mg RTQID NEB Last administered on 07:34; Start 08/17/16 at 20:00 Warfarin Sodium (Coumadin Per Physician) 1 each PRN DAILY PRN MC SEE COMMENTS Last administered on 08/18/16 15:20; Start 08/17/16 at 21:15; Stop 08/19/16 at 06:32; Status DC Ondansetron HCl 8 mg 8 mg PRN Q8HRS PRN PO NAUSEA; Start 08/18/16 at 01:15 Sodium Chloride 1,000 ml @ 100 mls/hr Q10H IV Last administered on 08/18/16 12:10; Start 08/18/16 at 10:00; Stop 08/19/16 at 02:21; Status DC Sodium Chloride 1,000 ml @ 1,000 mls/hr 1X ONCE IV Last administered on 12:34; Start 08/18/16 at 10:00; Stop 08/18/16 at 10:59; Status DC Vancomycin HCl 1.5 gm/Sodium Chloride 500 ml @ 250 mls/hr Q24H IV ; Start 08/18 at 10:00; Status UNV Vancomycin HCl/ Sodium Chloride (Iv Sodium Chloride 0.9% 250ml) 250 ml @ 250 mls/hr DAILY IV ; Start 08/19/16 at 09:00; Status UNV Vancomycin HCl 1 each 1 each PRN DAILY PRN MC SEE COMMENTS; Start 08/18/16 at 10:00; Stop 08/18/16 at 12:31; Status DC Levofloxacin/ Dextrose 100 ml @ 100 mls/hr Q24H IV ; Start 08/18/16 at 10:00; Status UNV Levofloxacin/ Dextrose 150 ml @ 100 mls/hr Q24H IV Last administered on 12:09; Start 08/18/16 at 11:00; Stop 08/18/16 at 12:31; Status DC Vancomycin HCl 2 gm/Sodium Chloride 500 ml @ 250 mls/hr 1X ONCE IV Last administered on 08/18/16 12:28; Start 08/18/16 at 11:00; Stop 08/18/16 at 12:36 ; Status DC Meropenem/Sodium Chloride (Merrem/Iv Sodium Chloride 0.9% 50ml) 50 ml @ 100 mls /hr Q8HRS IV Last administered on 08/19/16 05:21; Start 08/18/16 at 14:00; Stop 08/19/16 at 08:47; Status DC Warfarin Sodium 2.5 mg 2.5 mg DAILY16 PO ; Start 08/19/16 at 16:00; Stop at 16:00; Status DC Norepinephrine Bitartrate 8 mg/ Sodium Chloride 258 ml @ 1.93 mls/hr CONT PRN IV SEE I/O RECORD Last administered on 08/25/16 23:20; Start 08/18/16 at 13:00 Midazolam HCl (Versed 100mg/ 100ml Premix) 100 ml @ As Directed STK-MED ONCE IV ; Start 08/18/16 at 13:05; Stop 08/18/16 at 13:06; Status DC Digoxin 250 mcg 250 mcg 1X STAT IV Last administered on 08/18/16 15:19; Start 08/18/16 at 14:29; Stop 08/18/16 at 14:33; Status DC Magnesium Sulfate/ Dextrose 100 ml @ 100 mls/hr 1X ONCE IV Last administered on 08/18/16 15:00; Start 08/18/16 at 15:00; Stop 08/18/16 at 15:59; Status DC Sodium Chloride (Iv Sodium Chloride 0.9% 1000ml Bag) 1,000 ml @ 1,000 mls/hr 1X ONCE IV Last administered on 08/18/16 18:05; Start 08/18/16 at 17:45; Stop 08/18/16 at 18:44; Status DC Pantoprazole Sodium (Protonix Vial) 40 mg DAILY IVP Last administered on 09:07; Start 08/19/16 at 09:00 Acetaminophen 650 mg 650 mg PRN Q6HRS PRN PO FEVER Last administered on 20:06; Start 08/18/16 at 17:15 Sodium Bicarbonate 50 meq/Sodium Chloride 1,050 ml @ 150 mls/hr Q7H IV Last administered on 08/24/16 05:37; Start 08/18/16 at 18:30; Stop 08/24/16 at 10:26 ; Status DC Fentanyl Citrate 30 ml @ 0 mls/hr CONT PRN IV PROTOCOL; Start 08/18/16 at 17:45 ; Status UNV Morphine Sulfate (Morphine 30 Mg/ 30 ml MU[employer]ING MACHINE OPERATOR) 30 ml @ 0 mls/hr CONT PRN PRN IV PROTOCOL Last administered on 08/22/16 21:09; Start 08/18/16 at 17:45 Digoxin 250 mcg 250 mcg 1X ONCE IV Last administered on 08/18/16 18:17; Start 08/18/16 at 18:30; Stop 08/18/16 at 18:31; Status DC Midazolam HCl 100 ml @ As Directed STK-MED ONCE IV ; Start 08/18/16 at 18:21; Stop 08/18/16 at 18:22; Status DC Midazolam HCl 100 ml @ 0 mls/hr CONT PRN IV SEE I/O RECORD Last administered on 08/22/16 01:03; Start 08/18/16 at 18:30; Stop 08/24/16 at 18:54; Status DC Meropenem/Sodium Chloride (Merrem/Iv Sodium Chloride 0.9% 50ml) 50 ml @ 100 mls /hr Q6HRS IV Last administered on 08/21/16 11:33; Start 08/19/16 at 12:00; Stop 08/21/16 at 11:37; Status DC Midazolam HCl (Versed) 5 mg STK-MED ONCE .ROUTE ; Start 08/18/16 at 12:57; Stop 08/19/16 at 11:14; Status DC Epinephrine HCl (Epinephrine Syringe) 1 mg STK-MED ONCE .ROUTE ; Start 08/18/16 at 12:57; Stop 08/19/16 at 11:14; Status DC Sodium Bicarbonate 50 meq STK-MED ONCE .ROUTE ; Start 08/18/16 at 12:57; Stop at 11:14; Status DC Epinephrine HCl (Epinephrine Syringe) 1 mg STK-MED ONCE .ROUTE ; Start 08/18/16 at 12:57; Stop 08/19/16 at 11:14; Status DC Lidocaine/Sodium Bicarbonate 20 ml 20 ml STK-MED ONCE IJ ; Start 08/19/16 at 13: 35; Stop 08/19/16 at 13:36; Status DC Heparin Sodium/ Sodium Chloride 500 ml @ As Directed STK-MED ONCE .ROUTE ; Start 08/19/16 at 13:36; Stop 08/19/16 at 13:37; Status DC Lidocaine/Sodium Bicarbonate (Buffered Lidocaine 1%) 3 ml 1X ONCE IJ Last administered on 08/19/16 14:13; Start 08/19/16 at 14:00; Stop 08/19/16 at 14:01 ; Status DC Heparin Sodium/ Sodium Chloride 60 unit 1X ONCE IV Last administered on 14:14; Start 08/19/16 at 14:00; Stop 08/19/16 at 14:01; Status DC Digoxin (Lanoxin) 500 mcg 1X ONCE IV ; Start 08/19/16 at 18:15; Stop 08/19/16 at 18:16; Status Cancel Potassium Chloride (KCl Oral Soln) 40 meq 1X ONCE PEG Last administered on 18:18; Start 08/19/16 at 18:15; Stop 08/19/16 at 18:16; Status DC Digoxin (Lanoxin) 125 mcg 1X ONCE IV Last administered on 08/19/16 18:18; Start 08/19/16 at 18:15; Stop 08/19/16 at 18:16; Status DC Digoxin (Lanoxin) 125 mcg 1X ONCE IV Last administered on 08/20/16 04:07; Start 08/20/16 at 04:15; Stop 08/20/16 at 04:16; Status DC Vancomycin HCl 1 each 1 each PRN DAILY PRN MC SEE COMMENTS Last administered on 08/21/16 09:29; Start 08/20/16 at 08:00; Stop 08/21/16 at 11:37; Status DC Vancomycin HCl 2 gm/Sodium Chloride 500 ml @ 250 mls/hr 1X ONCE IV Last administered on 08/20/16 10:33; Start 08/20/16 at 08:00; Stop 08/20/16 at 09:59 ; Status DC Potassium Chloride 50 ml @ 50 mls/hr 1X ONCE IV Last administered on 10:31; Start 08/20/16 at 10:00; Stop 08/20/16 at 10:59; Status DC Vancomycin HCl/ Sodium Chloride (Iv Sodium Chloride 0.9% 500ml Bag) 500 ml @ 250 mls/hr Q12H IV Last administered on 08/21/16 11:29; Start 08/20/16 at 23: 00; Stop 08/21/16 at 11:37; Status DC Vancomycin HCl 1 each 1X ONCE MC ; Start 08/21/16 at 22:30; Stop 08/21/16 at 22 :30; Status DC Phytonadione (Mephyton) 2.5 mg 1X ONCE NG Last administered on 08/20/16 15:30 ; Start 08/20/16 at 15:00; Stop 08/20/16 at 15:03; Status DC Propafenone HCl 150 mg 150 mg Q8HRS PO Last administered on 08/27/16 12:41; Start 08/20/16 at 22:00 Meropenem/Sodium Chloride (Merrem/Iv Sodium Chloride 0.9% 100ml) 100 ml @ 200 mls/hr Q8HRS IV Last administered on 08/27/16 06:06; Start 08/21/16 at 14:00; Stop 08/27/16 at 07:01; Status DC Digoxin (Lanoxin) 125 mcg DAILY IV Last administered on 08/24/16 08:18; Start 08/21/16 at 15:00; Stop 08/24/16 at 10:36; Status DC Chlorhexidine Gluconate 15 ml 15 ml BID SWSP Last administered on 08/27/16 09: 00; Start 08/22/16 at 11:00; Stop 08/28/16 at 08:00; Status DC Linezolid 300 ml @ 300 mls/hr Q12HR IV Last administered on 09/01/16 09:07; Start 08/24/16 at 09:00 Micafungin Sodium/ Dextrose (Mycamine) 100 ml @ 100 mls/hr Q24H IV Last administered on 09/01/16 08:07; Start 08/24/16 at 07:00 Warfarin Sodium (Coumadin Per Pharmacy) 1 each PRN DAILY PRN MC SEE COMMENTS Last administered on 08/31/16 12:20; Start 08/24/16 at 09:15 Digoxin 125 mcg 125 mcg DAILY NG ; Start 08/25/16 at 09:00; Stop 08/25/16 at 09: 00; Status DC Magnesium Sulfate/ Dextrose (Magnesium Sulfate PREMIX 2GM) 50 ml @ 25 mls/hr 1X ONCE IV Last administered on 08/24/16 12:55; Start 08/24/16 at 12:00; Stop 08/24/16 at 13:59; Status DC Digoxin (Lanoxin) 250 mcg DAILY NG Last administered on 08/27/16 09:56; Start 08/25/16 at 09:00; Stop 08/28/16 at 10:49; Status DC Warfarin Sodium 2 mg 2 mg 1X WARF ONCE PO Last administered on 08/24/16 16:59 ; Start 08/24/16 at 16:00; Stop 08/24/16 at 16:01; Status DC Propofol (Diprivan) 100 ml @ 0 mls/hr CONT PRN IV SEE I/O RECORD; Start at 19:00 Warfarin Sodium 2 mg 2 mg 1X WARF ONCE PO Last administered on 08/25/16 17:08 ; Start 08/25/16 at 16:00; Stop 08/25/16 at 16:01; Status DC Albumin Human (Plasmanate) 250 ml @ 62.5 mls/hr 1X ONCE IV Last administered on 08/25/16 10:21; Start 08/25/16 at 10:30; Stop 08/25/16 at 14:29; Status DC Enoxaparin Sodium (Lovenox 150mg Syringe) 150 mg Q12HR SQ Last administered on 08/29/16 08:17; Start 08/25/16 at 11:00; Stop 08/29/16 at 10:13; Status DC Warfarin Sodium 3 mg 3 mg 1X WARF ONCE PO Last administered on 08/26/16 20:51 ; Start 08/26/16 at 16:00; Stop 08/26/16 at 16:01; Status DC Magnesium Sulfate/ Dextrose (Magnesium Sulfate PREMIX 2GM) 50 ml @ 25 mls/hr 1X ONCE IV Last administered on 08/26/16 20:30; Start 08/26/16 at 20:30; Stop 08/26/16 at 22:29; Status DC Warfarin Sodium (Coumadin) 3 mg 1X WARF ONCE PO Last administered on 12:51; Start 08/27/16 at 13:00; Stop 08/27/16 at 13:01; Status DC Info (Anti-Coagulation Monitoring By Pharmacy) 1 each PRN DAILY PRN MC SEE COMMENTS; Start 08/27/16 at 14:45; Status Cancel Digoxin (Lanoxin) 250 mcg DAILY IV Last administered on 09/01/16 09:07; Start 08/28/16 at 11:00 Warfarin Sodium (Coumadin) 2 mg 1X WARF ONCE PO ; Start 08/28/16 at 16:00; Stop 08/28/16 at 16:01; Status DC Fentanyl Citrate 25 mcg 25 mcg PRN Q3HRS PRN IV PAIN Last administered on 09:22; Start 08/28/16 at 15:30 Dextrose/Sodium Chloride (Iv D5% - NS) 1,000 ml @ 100 mls/hr Q10H IV Last administered on 08/31/16 03:42; Start 08/28/16 at 15:30; Stop 08/30/16 at 21:59 ; Status DC Warfarin Sodium (Coumadin) 2 mg 1X WARF ONCE PO ; Start 08/29/16 at 16:00; Stop 08/29/16 at 16:01; Status DC Lorazepam (Ativan) 0.5 mg PRN Q6HRS PRN IV ANXIETY / AGITATION Last administered on 09/01/16 02:20; Start 08/29/16 at 21:30 Warfarin Sodium (Coumadin - No Dose Today) 1 each 1X WARF ONCE MC ; Start 08/30 at 16:00; Stop 08/30/16 at 16:01; Status DC Info 1 each 1 each PRN DAILY PRN MC SEE COMMENTS Last administered on 14:27; Start 08/30/16 at 15:00 Sodium Chloride/ Potassium Chloride/ Potassium Phosphate/ Magnesium Sulfate/ Calcium Gluconate/ Multivitamins/ Chromium/Copper/ Manganese/Seleni/ Zn/Total Parenteral Nutrition/Amino Acids/Dextrose/ Fat Emulsion Intravenous (Sodium Chloride/ Potassium Phosphate/Calc... 1,512 ml @ 63 mls/hr TPN CONT IV Last administered on 08/30/16 21:40; Start 08/30/16 at 22:00; Stop 08/31/16 at 21:59 ; Status DC Methylprednisolone Acetate (Depo-Medrol 80mg Vial) 80 mg 1X ONCE IM Last administered on 08/31/16 09:33; Start 08/31/16 at 09:15; Stop 08/31/16 at 09:16 ; Status DC Bupivacaine HCl 10 ml 10 ml 1X ONCE IJ Last administered on 08/31/16 09:34; Start 08/31/16 at 09:15; Stop 08/31/16 at 09:16; Status DC Sodium Chloride/ Potassium Chloride/ Potassium Phosphate/ Magnesium Sulfate/ Calcium Gluconate/ Multivitamins/ Chromium/Copper/ Manganese/Seleni/ Zn/Total Parenteral Nutrition/Amino Acids/Dextrose/ Fat Emulsion Intravenous (Sodium Chloride/ Potassium Phosphate/Calc... 1,512 ml @ 63 mls/hr TPN CONT IV Last administered on 08/31/16 21:58; Start 08/31/16 at 22:00; Stop 09/01/16 at 21:59 Atropine Sulfate 0.5 mg STK-MED ONCE .ROUTE ; Start 08/31/16 at 21:27; Stop at 21:28; Status DC Enoxaparin Sodium (Lovenox 150mg Syringe) 150 mg BID SQ ; Start 09/01/16 at 10: 00 Active Scripts Active Reported Keflex (Cephalexin) 500 Mg Capsule 500 Mg PO QID take for 10 days start 07/12 Percocet 10-325 Mg Tablet (Oxycodone/Acetaminophen) 1 Each Tablet 1 Tab PO PRN Q6HRS PRN Potassium Chloride 20 Meq Tablet.er 20 Meq PO DAILY Ventolin Hfa Inhaler (Albuterol Sulfate) 18 Gm Hfa.aer.ad 2 Puff INH Q4HRS Atorvastatin Calcium 10 Mg Tablet 1 Tab PO DAILY Daily Vitamin (Multivitamin) 1 Each Tablet 1 Each PO DAILY Coumadin (Warfarin Sodium) 2.5 Mg Tablet 0.5 Tab PO DAILY Propafenone Hcl 225 Mg Cap.er.12h 225 Mg PO BID Pantoprazole Sodium 40 Mg Tablet.dr 1 Tab PO DAILY Aquaphor (Petrolatum,White) 99 Gm Oint...g. 99 Gm TP BID Cardizem Cd (Diltiazem Hcl) 120 Mg Cap.er.24h 120 Mg PO DAILY Zofran Odt (Ondansetron) 4 Mg Tab.rapdis 8 Mg PO Q8HRS x 2 days start 6 then 4 mg q 6hrs prn Lasix (Furosemide) 40 Mg Tablet 40 Mg PO DAILY Vitals/I & O Vital Sign - Last 24 Hours 08/31/16 08/31/16 08/31/16 08/31/16 11:00 11:00 12:00 12:00 Temp 98.0 98.0 Pulse 98 88 Resp 25 20 B/P 117/57 135/49 Pulse Ox 93 97 98 O2 Delivery BiPAP/CPAP BiPAP/CPAP BiPAP/CPAP Bi-pap 08/31/16 08/31/16 08/31/16 08/31/16 12:00 13:00 13:00 14:00 Pulse 89 74 Resp 21 21 B/P 136/50 126/43 Pulse Ox 97 95 99 O2 Delivery BiPAP/CPAP BiPAP/CPAP BiPAP/CPAP O2 Flow Rate 6.0 08/31/16 08/31/16 08/31/16 08/31/16 15:00 15:03 16:00 16:00 Pulse 96 96 Resp 23 23 B/P 153/58 110/60 Pulse Ox 96 96 100 O2 Delivery BiPAP/CPAP BiPAP/CPAP BiPAP/CPAP O2 Flow Rate 6.0 08/31/16 08/31/16 08/31/16 08/31/16 16:00 17:00 18:00 19:00 Temp 97.9 97.9 Pulse 94 96 89 Resp 20 21 42 B/P 123/62 120/50 98/46 Pulse Ox 100 94 93 O2 Delivery Bi-pap BiPAP/CPAP BiPAP/CPAP BiPAP/CPAP 08/31/16 08/31/16 08/31/16 08/31/16 20:00 20:00 20:19 21:00 Temp 98.9 98.9 Pulse 96 109 Resp 42 30 B/P 109/48 107/37 Pulse Ox 91 92 94 O2 Delivery BiPAP/CPAP Bi-pap BiPAP/CPAP BiPAP/CPAP 08/31/16 08/31/16 08/31/16 08/31/16 22:00 23:00 23:00 23:59 Pulse 90 108 Resp 30 30 B/P 110/44 96/46 Pulse Ox 94 93 93 O2 Delivery BiPAP/CPAP BiPAP/CPAP BiPAP/CPAP Bi-pap 09/01/16 09/01/16 09/01/16 09/01/16 00:00 01:00 01:00 02:00 Temp 99.0 99.0 Pulse 114 109 109 Resp 30 30 39 B/P 111/60 141/44 147/91 Pulse Ox 93 93 94 94 O2 Delivery BiPAP/CPAP BiPAP/CPAP BiPAP/CPAP BiPAP/CPAP 09/01/16 09/01/16 09/01/16 09/01/16 03:00 03:00 04:00 04:00 Temp 99.0 99.0 Pulse 109 106 Resp 49 28 B/P 108/57 135/57 Pulse Ox 91 96 98 O2 Delivery BiPAP/CPAP BiPAP/CPAP BiPAP/CPAP Bi-pap 09/01/16 09/01/16 09/01/16 09/01/16 05:00 05:00 06:00 07:00 Pulse 106 104 72 Resp 28 28 33 B/P 135/57 122/54 124/60 Pulse Ox 98 98 99 97 O2 Delivery BiPAP/CPAP BiPAP/CPAP BiPAP/CPAP BiPAP/CPAP 09/01/16 09/01/16 09/01/16 09/01/16 07:35 08:00 08:00 09:00 Temp 97.7 97.7 Pulse 79 74 Resp 33 26 B/P 136/57 146/69 Pulse Ox 97 96 97 O2 Delivery BiPAP/CPAP Bi-pap BiPAP/CPAP BiPAP/CPAP 09/01/16 09/01/16 09:07 10:00 Pulse 74 103 Resp 45 B/P 146/69 132/58 Pulse Ox 92 O2 Delivery BiPAP/CPAP Intake and Output 08/31/16 08/31/16 09/01/16 15:00 23:00 07:00 Intake Total 0 ml 671 ml 1396 ml Output Total 270 ml 263 ml 360 ml Balance -270 ml 408 ml 1036 ml PINA GANDARA MD Sep 01, 2016 10:10
--- NOTE | 2016-09-01 13:12 | PDOC ---
PULMONARY PROGRESS NOTES Subjective extubated 08/27 ON BIPAP Vitals Vital Signs Date Time Temp Pulse Resp B/P Pulse Ox O2 Delivery O2 Flow Rate FiO2 09/01/16 13:00 103 45 160/58 94 BiPAP/CPAP 09/01/16 12:00 96.9 96.9 08/31/16 16:00 6.0 General: Alert, Mild Distress HEENT: Other (nc at perrl orally intubated. nose clear) Lungs: Other (decrease bs) Cardiovascular: S1, S2 Abdomen: Soft, Non-tender, Other ( no mass obese) Extremities: Other (edema) Skin: Warm, Dry Labs Laboratory Tests Test 08/31/16 04:45 08/31/16 21:24 09/01/16 04:45 Prothrombin Time 29.4SEC (11.7-14.0) 19.2SEC (11.7-14.0) Prothromb Time International Ratio 3.0 (0.8-1.1) 1.7 (0.8-1.1) Sodium Level 142mmol/L (136-145) 140mmol/L (136-145) Potassium Level 3.7mmol/L (3.5-5.1) 4.3mmol/L (3.5-5.1) Chloride Level 106mmol/L (98-107) 107mmol/L (98-107) Carbon Dioxide Level 28mmol/L (21-32) 28mmol/L (21-32) Anion Gap 8 (6-14) 5 (6-14) Blood Urea Nitrogen 16mg/dL (7-20) 19mg/dL (7-20) Creatinine 0.8mg/dL (0.6-1.0) 0.9mg/dL (0.6-1.0) Estimated GFR (Cockcroft-Gault) 73.4 64.1 Glucose Level 119mg/dL (70-99) 130mg/dL (70-99) Glucose (Fingerstick) 119mg/dL (70-99) 136mg/dL (70-99) Calcium Level 8.2mg/dL (8.5-10.1) 8.5mg/dL (8.5-10.1) Phosphorus Level 3.6mg/dL (2.6-4.7) 4.0mg/dL (2.6-4.7) Magnesium Level 1.9mg/dL (1.8-2.4) 2.0mg/dL (1.8-2.4) Triglycerides Level 102mg/dL (0-150) Laboratory Tests Test 08/31/16 21:24 09/01/16 04:45 Glucose (Fingerstick) 136mg/dL (70-99) Prothrombin Time 19.2SEC (11.7-14.0) Prothromb Time International Ratio 1.7 (0.8-1.1) Sodium Level 140mmol/L (136-145) Potassium Level 4.3mmol/L (3.5-5.1) Chloride Level 107mmol/L (98-107) Carbon Dioxide Level 28mmol/L (21-32) Anion Gap 5 (6-14) Blood Urea Nitrogen 19mg/dL (7-20) Creatinine 0.9mg/dL (0.6-1.0) Estimated GFR (Cockcroft-Gault) 64.1 Glucose Level 130mg/dL (70-99) Calcium Level 8.5mg/dL (8.5-10.1) Phosphorus Level 4.0mg/dL (2.6-4.7) Magnesium Level 2.0mg/dL (1.8-2.4) Medications Active Scripts Medications Dose Route/Sig Days Date Category Dose Instructions Keflex (Cephalexin) 500 Mg Capsule 500 Mg PO QID 07/12/16 Reported take for 10 days start 07/12 Percocet 10-325 Mg Tablet (Oxycodone/Acetaminophen) 1 Each Tablet 1 Tab PO PRN Q6HRS PRN 07/12/16 Reported Potassium Chloride 20 Meq Tablet.er 20 Meq PO DAILY 07/12/16 Reported Ventolin Hfa Inhaler (Albuterol Sulfate) 18 Gm Hfa.aer.ad 2 Puff INH Q4HRS 07/12/16 Reported Atorvastatin Calcium 10 Mg Tablet 1 Tab PO DAILY 07/12/16 Reported Daily Vitamin (Multivitamin) 1 Each Tablet 1 Each PO DAILY 04/15/14 Reported Coumadin (Warfarin Sodium) 2.5 Mg Tablet 0.5 Tab PO DAILY 04/15/14 Reported Propafenone Hcl 225 Mg Cap.er.12h 225 Mg PO BID 04/15/14 Reported Pantoprazole Sodium 40 Mg Tablet.dr 1 Tab PO DAILY 04/15/14 Reported Aquaphor (Petrolatum,White) 99 Gm Oint...g. 99 Gm TP BID 12/04/13 Reported Cardizem Cd (Diltiazem Hcl) 120 Mg Cap.er.24h 120 Mg PO DAILY 12/04/13 Reported Zofran Odt (Ondansetron) 4 Mg Tab.rapdis 8 Mg PO Q8HRS 12/04/13 Reported x 2 days start 07/12 then 4 mg q 6hrs prn Lasix (Furosemide) 40 Mg Tablet 40 Mg PO DAILY 12/04/13 Reported Impression . 1. Acute respiratory failure secondary to sepsis. extubated 08/27 2. Sepsis with hypotension. off levo 3. Atrial fibrillation. 4. Acute on chronic kidney failure. 5. Morbid obesity. 6. MULTIPLE ALLERGIES TO MEDICATIONS INCLUDING AMOXICILLIN. 7. S/P code blue V-Fib 8. Abnormal cxr with improving right basal infiltrates, 9. Staph aureus in sputum 08/24 (MRSA) Group B strep. 08/18 sepsis. Repeat 08/19 neg. Plan . DOES NOT TOLERATE OFF BIPAP, VERY SOA TODAY WILL ADD ATIVAN PROGNOSIS IS POOR I THINK SHE WILL NOT SURVIVE THIS ADMISSION WILL TALK TO PALLIATIVE CAR RESP STATUS VERY TENUOUS EXTUBATED 08/27 ANTIBIOTICS PER ID( MRSA IN SPUTUM) BIPAP QHS/ PRN D/W WITH RN NEBS IS DR GARCIA, HAD LONG DISCUSSION WITH PATIENT, IN FRONT OF PALLIATIVE RN. SHE DOES NOT WANT RE-INTUBATION/ CPR/ SHOCK DNR/DNI TWILA OROZCO MD Sep 01, 2016 13:12
[2016-09-01] MEDS: TPN PER PHARMACY MC PRN (14:45)
--- NOTE | 2016-09-01 15:00 | PDOC2 ---
PALLIATIVE CARE Palliative Care Note Palliative Care Patient alert. Respiratory rate 40's. Denies pain. Anxious. Remembers conversation with Dr. Oliveira. Pulling BiPap off becomes bradycardia immediately. Not ready to stop BiPap and focus on comfort. Wants to talk with her sons. Stating she needs something for anxiety. Spoke with Margaret. Will medicate and call Dr. Oliveira for more medication if needed. Margaret spoke with son Narendra. He is aware of his mother's condition. Manohar-- son called to arrange follow-up meeting. Message left to return call. RITCHIE ECHEVERRIA Sep 01, 2016 15:00
[2016-09-01] MEDS: ATORVASTATIN CALCIUM 10 MG TABLET. PO SCH (20:59)
[2016-09-01] MEDS ORDERED: TOTAL PARENTERAL NUTRITION IV SCH ×10 (22:00)
[2016-09-01] MEDS ORDERED: AMINO ACIDS IV SCH ×10 (22:00)
[2016-09-01] MEDS ORDERED: [UNRECOGNIZED DRUG - OTHER] IV SCH ×10 (22:00)
[2016-09-01] MEDS ORDERED: DEXTROSE 70% IV SCH ×10 (22:00)
[2016-09-02] VITALS (23 sets, daily range): BP systolic 87–156; BP diastolic 47–72
[2016-09-02] MEDS: LORAZEPAM 2 MG/ML VIAL. IV PRN ×2 (03:21→12:16)
[2016-09-02 05:53] LABS: INR 1.7 (0.8-1.1)
[2016-09-02] MEDS: PROPAFENONE 150 MG TABLET. PO SCH ×3 (06:00→21:53)
[2016-09-02 06:11] LABS: CALCIUM 8.7 mg/dL (8.5-10.1); CREATININE 0.9 mg/dL (0.6-1.0); GFR 64.1; MAGNESIUM 2.2 mg/dL (1.8-2.4); PHOSPHORUS 5.2 mg/dL (2.6-4.7); POTASSIUM 4.7 mmol/L (3.5-5.1)
[2016-09-02] MEDS: ALBUTEROL SULFATE 2.5 MG/3 ML NEBU. NEB SCH ×4 (07:27→19:49)
--- NOTE | 2016-09-02 07:31 | PDOC ---
Infectious Disease Note Subjective Subjective On Bipap DARWIN GRANADOS Unable to obtain but did say she was comfortable Vital Sign Vital Signs Vital Signs Date Time Temp Pulse Resp B/P Pulse Ox O2 Delivery O2 Flow Rate FiO2 09/02/16 06:00 121 131/50 91 BiPAP/CPAP 09/02/16 04:00 98.4 40 98.4 09/01/16 20:00 6.0 Physical Exam PHYSICAL EXAM GENERAL: Alert, - on Bipap. Tachypneic but appears comfortable HEENT: PERRL NECK: Supple LUNGS: Clear HEART: Irregular ABD: Obese, soft, NT, BS present : Newman EXT: BLE trace edema. no cyanosis UX LEAD: Alert, SKIN: Purpuric-type rash anterior neck, fading RUE-PICC. clean Labs Lab Laboratory Tests Test 09/02/16 05:00 Prothrombin Time 19.0SEC (11.7-14.0) Prothromb Time International Ratio 1.7 (0.8-1.1) Sodium Level 139mmol/L (136-145) Potassium Level 4.7mmol/L (3.5-5.1) Chloride Level 107mmol/L (98-107) Carbon Dioxide Level 27mmol/L (21-32) Anion Gap 5 (6-14) Blood Urea Nitrogen 26mg/dL (7-20) Creatinine 0.9mg/dL (0.6-1.0) Estimated GFR (Cockcroft-Gault) 64.1 Glucose Level 121mg/dL (70-99) Calcium Level 8.7mg/dL (8.5-10.1) Phosphorus Level 5.2mg/dL (2.6-4.7) Magnesium Level 2.2mg/dL (1.8-2.4) Objective Assessment Fever - better Staph aureus in sputum 08/24. MRSA Group B strep. 08/18 sepsis. Repeat 08/19 neg. Episodes of Bradycardia Pulmonary infiltrates - On BiPap Afib - RVR 08/21 Leukocytosis. -better Lactic acidosis, improved Dehydration LISSETH. resolved Hypotension likely sec to dehydration , infection appears less likely Obesity Respiratory failure s/p intubation. Extubated 08/27. DNR/DNI - on Bipap MRSA nares positive Rash. purpuric/petechial-type -? reactive from code and intubation s/p code blue, V-fib. 08/18 Plan Plan of Care Cont Zyvox (08/24) and Micafungin - Wean soon - Previous Meropenem 08/18- 08/27. Monitor labs/BC supportive care Repeat CXR this am DNR/DNI Still critically ill Poor prognosis ALEX FRAZIER MD Sep 02, 2016 07:31
[2016-09-02] MEDS: MULTIVITAMIN with MINERAL TABLET. PO SCH (09:00)
--- NOTE | 2016-09-02 09:40 | PDOC ---
PROGRESS NOTES Subjective Subjective sleepy barely awake, on BIPAP Objective Objective Vital Signs Date Time Temp Pulse Resp B/P Pulse Ox O2 Delivery O2 Flow Rate FiO2 09/02/16 07:29 94 BiPAP/CPAP 09/02/16 06:00 121 131/50 09/02/16 04:00 98.4 40 98.4 09/01/16 20:00 6.0 Intake and Output 09/02/16 07:00 Intake Total 1845 ml Output Total 730 ml Balance 1115 ml IV Total 1845 ml Output Urine Total 730 ml Physical Exam Abdomen: Normal bowel sounds, No tenderness Heart: Normal S1, Normal S2, Other Extremities: Other (scar lymph edema legs) General: Other HEENT: Atraumatic Lungs: Other (dec inspiration) MUSCULOSKELETAL: No deformity Neck: No thyromegaly Neuro: Other (sleepy) Skin: No breakdown COMMENT bhakta Diagnosis Problem List Problems Medical Problems: (1) Fall from standing Status: Acute (2) Left knee pain Status: Acute (3) Respiratory failure Status: Acute Assessment Assessment Problems Medical Problems: (1) Fall from standing Status: Acute (2) Left knee pain Status: Acute FINAL IMPRESSION: respiratory failure on BIPAP MRSA lung infection s/ p CODE BLUE. Extubated 08/27/16 INTUBATED for resp failure Bacteremia ,gram positive -strep group B. sepsis with lactic acidosis. coagulopathy 1. Acute sepsis with hypotension. 2. Elevated white count with hypertension as well as renal insufficiency. 3. Chronic recurrent cellulitis of the legs. 4. Chronic lymphedema. 5. Morbid obesity. 6. History of Clostridium difficile. 7. Chronic atrial fibrillation, on Coumadin. 8. coagulopathy PLAN:bradycardia resolved. TPN for nutrition Lovenox to bridge+coumadin dependent on BIPAP spoke with Pulmonary. DNR/DNI as per pts request. spoke to insurance, did not authorize select t transfer Zyvox for MRSA in sputum spoke RN.NPO for now, speech consult T tube trial and extubated on 08/27/16 iv antibiotics zyvox++micofungin restarted on coumadin, d/c Lovenox, inr 1.7 weaned off sedation. hypotension corrected Thrombocytopenia resolved Hypokalemia- K 4.0 Improving. Leukocytosis- WBC 9 improved Problems: Plan Plan of Care Problems Medical Problems: (1) Fall from standing Status: Acute (2) Left knee pain Status: Acute (3) Respiratory failure Status: Acute Comment Review of Relevant I have reviewed the following items quentin (where applicable) has been applied. Labs Laboratory Tests Test 09/02/16 05:00 Prothrombin Time 19.0SEC (11.7-14.0) Prothromb Time International Ratio 1.7 (0.8-1.1) Sodium Level 139mmol/L (136-145) Potassium Level 4.7mmol/L (3.5-5.1) Chloride Level 107mmol/L (98-107) Carbon Dioxide Level 27mmol/L (21-32) Anion Gap 5 (6-14) Blood Urea Nitrogen 26mg/dL (7-20) Creatinine 0.9mg/dL (0.6-1.0) Estimated GFR (Cockcroft-Gault) 64.1 Glucose Level 121mg/dL (70-99) Calcium Level 8.7mg/dL (8.5-10.1) Phosphorus Level 5.2mg/dL (2.6-4.7) Magnesium Level 2.2mg/dL (1.8-2.4) Microbiology 08/24/16 Blood Culture - Final, Complete NO GROWTH AFTER 5 DAYS 08/24/16 Sputum Culture - Final, Complete 08/24/16 Sputum Result 1 - Final, Complete 08/24/16 Antimicrobic Susceptibility - Final, Complete 08/18/16 Urine Culture - Final, Complete 08/18/16 Urine Culture Result 1 (SILVINA) - Final, Complete Medications Current Medications Enoxaparin Sodium (Lovenox 150mg Syringe) 150 mg BID SQ Last administered on 22:10; Start 09/01/16 at 10:00 Lorazepam 2 mg 2 mg PRN Q4HRS PRN IV ANXIETY / AGITATION Last administered on 03:21; Start 09/01/16 at 10:15 Sodium Chloride/ Potassium Chloride/ Potassium Phosphate/ Magnesium Sulfate/ Calcium Gluconate/ Multivitamins/ Chromium/Copper/ Manganese/Seleni/ Zn/Total Parenteral Nutrition/Amino Acids/Dextrose/ Fat Emulsion Intravenous (Sodium Chloride/ Potassium Phosphate/Calc... 1,472 ml @ 61.333 mls/ hr TPN CONT IV Last administered on 09/01/16 22:06; Start 09/01/16 at 22:00; Stop 09/02/16 at 21:59 Vitals/I & O Vital Sign - Last 24 Hours 09/01/16 09/01/16 09/01/16 09/01/16 10:00 10:10 11:00 11:53 Pulse 103 113 Resp 45 43 B/P 132/58 99/54 Pulse Ox 92 94 93 94 O2 Delivery BiPAP/CPAP BiPAP/CPAP BiPAP/CPAP BiPAP/CPAP 09/01/16 09/01/16 09/01/16 09/01/16 12:00 12:00 13:00 13:00 Temp 96.9 96.9 Pulse 107 103 Resp 41 45 B/P 157/65 160/58 Pulse Ox 99 94 97 O2 Delivery BiPAP/CPAP Bi-pap BiPAP/CPAP BiPAP/CPAP 09/01/16 09/01/16 09/01/16 09/01/16 13:39 14:00 15:00 15:06 Pulse 103 100 95 Resp 41 27 B/P 160/58 151/74 124/60 Pulse Ox 89 100 96 O2 Delivery BiPAP/CPAP BiPAP/CPAP BiPAP/CPAP 09/01/16 09/01/16 09/01/16 09/01/16 16:00 16:00 17:00 17:25 Temp 98.4 98.4 Pulse 97 116 Resp 41 41 B/P 126/51 171/86 Pulse Ox 95 98 96 O2 Delivery Bi-pap BiPAP/CPAP BiPAP/CPAP BiPAP/CPAP 09/01/16 09/01/16 09/01/16 09/01/16 18:00 19:00 19:55 20:00 Pulse 109 106 Resp 41 41 B/P 132/58 106/78 Pulse Ox 96 90 96 O2 Delivery BiPAP/CPAP BiPAP/CPAP BiPAP/CPAP Bi-pap 09/01/16 09/01/16 09/01/16 09/01/16 20:00 20:00 21:00 22:00 Temp 98.8 98.8 Pulse 108 107 108 Resp 40 40 47 B/P 149/52 128/76 149/52 Pulse Ox 92 89 90 O2 Delivery BiPAP/CPAP BiPAP/CPAP BiPAP/CPAP O2 Flow Rate 6.0 4/26/17 4/26/17 4/26/17 4/27/17 23:00 23:15 23:59 00:00 Temp 98.7 98.7 Pulse 105 82 Resp 28 43 B/P 127/62 125/54 Pulse Ox 92 91 91 O2 Delivery BiPAP/CPAP BiPAP/CPAP Bi-pap BiPAP/CPAP 09/02/16 09/02/16 09/02/16 09/02/16 00:50 01:00 02:00 03:00 Pulse 102 106 106 Resp 36 30 30 B/P 110/47 87/70 110/60 Pulse Ox 91 91 90 85 O2 Delivery BiPAP/CPAP BiPAP/CPAP BiPAP/CPAP BiPAP/CPAP 09/02/16 09/02/16 09/02/16 09/02/16 03:12 04:00 04:00 05:00 Temp 98.4 98.4 Pulse 106 121 Resp 40 B/P 133/52 131/72 Pulse Ox 90 96 96 O2 Delivery BiPAP/CPAP BiPAP/CPAP Bi-pap BiPAP/CPAP 09/02/16 09/02/16 09/02/16 05:50 06:00 07:29 Pulse 121 B/P 131/50 Pulse Ox 98 91 94 O2 Delivery BiPAP/CPAP BiPAP/CPAP BiPAP/CPAP Intake and Output 09/01/16 09/01/16 09/02/16 15:00 23:00 07:00 Intake Total 1845 ml Output Total 365 ml 205 ml 160 ml Balance -365 ml -205 ml 1685 ml JAGUAR BRICE MD Sep 02, 2016 09:40
[2016-09-02] MEDS: PANTOPRAZOLE IV PUSH 40 MG VIAL. IVP SCH (10:10)
[2016-09-02] MEDS: DIGOXIN IV 500 MCG/2 ML AMPUL. IV SCH (10:11)
[2016-09-02] MEDS: MICAFUNGIN 100 MG in IV DEXTROSE 5% 100 ML IV SCH (10:12)
[2016-09-02] MEDS: NYSTATIN TOPICAL POWDER 15GM BOTTLE. TP SCH ×2 (10:12→21:00)
[2016-09-02] MEDS: fentaNYL PF VIAL 100 MCG/2 ML VIAL IV PRN (10:18)
[2016-09-02] MEDS: TPN PER PHARMACY MC PRN (12:24)
--- NOTE | 2016-09-02 14:57 | PDOC ---
PULMONARY PROGRESS NOTES Subjective extubated 08/27 ON BIPAP Vitals Vital Signs Date Time Temp Pulse Resp B/P Pulse Ox O2 Delivery O2 Flow Rate FiO2 09/02/16 14:32 98 BiPAP/CPAP 09/02/16 12:05 6.0 09/02/16 12:00 98.6 112 41 143/62 98.6 General: Alert, Mild Distress HEENT: Other (nc at perrl orally intubated. nose clear) Lungs: Other (decrease bs) Cardiovascular: S1, S2 Abdomen: Soft, Non-tender, Other Extremities: Other (edema) Skin: Warm, Dry Labs Laboratory Tests Test 08/31/16 21:24 09/01/16 04:45 09/02/16 05:00 Glucose (Fingerstick) 136mg/dL (70-99) Prothrombin Time 19.2SEC (11.7-14.0) 19.0SEC (11.7-14.0) Prothromb Time International Ratio 1.7 (0.8-1.1) 1.7 (0.8-1.1) Sodium Level 140mmol/L (136-145) 139mmol/L (136-145) Potassium Level 4.3mmol/L (3.5-5.1) 4.7mmol/L (3.5-5.1) Chloride Level 107mmol/L (98-107) 107mmol/L (98-107) Carbon Dioxide Level 28mmol/L (21-32) 27mmol/L (21-32) Anion Gap 5 (6-14) 5 (6-14) Blood Urea Nitrogen 19mg/dL (7-20) 26mg/dL (7-20) Creatinine 0.9mg/dL (0.6-1.0) 0.9mg/dL (0.6-1.0) Estimated GFR (Cockcroft-Gault) 64.1 64.1 Glucose Level 130mg/dL (70-99) 121mg/dL (70-99) Calcium Level 8.5mg/dL (8.5-10.1) 8.7mg/dL (8.5-10.1) Phosphorus Level 4.0mg/dL (2.6-4.7) 5.2mg/dL (2.6-4.7) Magnesium Level 2.0mg/dL (1.8-2.4) 2.2mg/dL (1.8-2.4) Laboratory Tests Test 09/02/16 05:00 Prothrombin Time 19.0SEC (11.7-14.0) Prothromb Time International Ratio 1.7 (0.8-1.1) Sodium Level 139mmol/L (136-145) Potassium Level 4.7mmol/L (3.5-5.1) Chloride Level 107mmol/L (98-107) Carbon Dioxide Level 27mmol/L (21-32) Anion Gap 5 (6-14) Blood Urea Nitrogen 26mg/dL (7-20) Creatinine 0.9mg/dL (0.6-1.0) Estimated GFR (Cockcroft-Gault) 64.1 Glucose Level 121mg/dL (70-99) Calcium Level 8.7mg/dL (8.5-10.1) Phosphorus Level 5.2mg/dL (2.6-4.7) Magnesium Level 2.2mg/dL (1.8-2.4) Medications Active Scripts Medications Dose Route/Sig Days Date Category Dose Instructions Keflex (Cephalexin) 500 Mg Capsule 500 Mg PO QID 07/12/16 Reported take for 10 days start 07/12 Percocet 10-325 Mg Tablet (Oxycodone/Acetaminophen) 1 Each Tablet 1 Tab PO PRN Q6HRS PRN 07/12/16 Reported Potassium Chloride 20 Meq Tablet.er 20 Meq PO DAILY 07/12/16 Reported Ventolin Hfa Inhaler (Albuterol Sulfate) 18 Gm Hfa.aer.ad 2 Puff INH Q4HRS 07/12/16 Reported Atorvastatin Calcium 10 Mg Tablet 1 Tab PO DAILY 07/12/16 Reported Daily Vitamin (Multivitamin) 1 Each Tablet 1 Each PO DAILY 04/15/14 Reported Coumadin (Warfarin Sodium) 2.5 Mg Tablet 0.5 Tab PO DAILY 04/15/14 Reported Propafenone Hcl 225 Mg Cap.er.12h 225 Mg PO BID 04/15/14 Reported Pantoprazole Sodium 40 Mg Tablet. 1 Tab PO DAILY 04/15/14 Reported Aquaphor (Petrolatum,White) 99 Gm Oint...g. 99 Gm TP BID 7/29/14 Reported Cardizem Cd (Diltiazem Hcl) 120 Mg Cap.er.24h 120 Mg PO DAILY 12/04/13 Reported Zofran Odt (Ondansetron) 4 Mg Tab.rapdis 8 Mg PO Q8HRS 12/04/13 Reported x 2 days start 3/6 then 4 mg q 6hrs prn Lasix (Furosemide) 40 Mg Tablet 40 Mg PO DAILY 12/04/13 Reported Impression . 1. Acute respiratory failure secondary to sepsis. extubated 08/27 2. Sepsis with hypotension. off levo 3. Atrial fibrillation. 4. Acute on chronic kidney failure. 5. Morbid obesity. 6. MULTIPLE ALLERGIES TO MEDICATIONS INCLUDING AMOXICILLIN. 7. S/P code blue V-Fib 8. Abnormal cxr with improving right basal infiltrates, 9. Staph aureus in sputum 08/24 (MRSA) Group B strep. 08/18 sepsis. Repeat 08/19 neg. Plan . DOES NOT TOLERATE OFF BIPAP, VERY SOA TODAY,ACTIVELY DYING, VERY UNCOMFORTABLE DESPITE ATIVAN WILL ADD MORPHINE PROGNOSIS IS POOR I THINK SHE WILL NOT SURVIVE THIS ADMISSION RESP STATUS VERY TENUOUS EXTUBATED 08/27 ANTIBIOTICS PER ID( MRSA IN SPUTUM) BIPAP QHS/ PRN D/W WITH RN NEBS IS DR GARCIA, HAD LONG DISCUSSION WITH PATIENT, IN FRONT OF PALLIATIVE RN. SHE DOES NOT WANT RE-INTUBATION/ CPR/ SHOCK DNR/DNI TWILA OROZCO MD Sep 02, 2016 14:57
[2016-09-02] MEDS: MORPHINE SULFATE/PF 30 ML IV PRN (16:19)
[2016-09-02] MEDS: ATORVASTATIN CALCIUM 10 MG TABLET. PO SCH (21:00)
[2016-09-02] MEDS ORDERED: [UNRECOGNIZED DRUG - OTHER] IV SCH ×9 (22:00)
[2016-09-02] MEDS ORDERED: AMINO ACIDS IV SCH ×9 (22:00)
[2016-09-02] MEDS ORDERED: DEXTROSE 70% IV SCH ×9 (22:00)
[2016-09-02] MEDS ORDERED: TOTAL PARENTERAL NUTRITION IV SCH ×9 (22:00)
[2016-09-03] VITALS (25 sets, daily range): BP systolic 57–131; BP diastolic 29–75
[2016-09-03] MEDS: MORPHINE SULFATE/PF 30 ML IV PRN ×3 (00:45→21:54)
[2016-09-03] MEDS: PROPAFENONE 150 MG TABLET. PO SCH ×3 (06:00→22:00)
[2016-09-03 06:02] LABS: BASO # 0.1 x10^3/uL (0.0-0.2); BASO % 1 % (0-3); EOS % 4 % (0-3); HEMOGLOBIN 7.6 g/dL (12.0-15.5); LYMPH # 0.9 x10^3/uL (1.0-4.8); LYMPH % 7 % (24-48); MEAN CORPUSCULAR HEMOGLOBIN 28 pg (25-35); MEAN CORPUSCULAR HGB CONC 32 g/dL (31-37); MEAN CORPUSCULAR VOLUME 86 fL (79-100); MONO % 4 % (0-9); NEUT % 84 % (31-73); PLATELET COUNT 201 x10^3/uL (140-400); RED BLOOD COUNT 2.78 x10^6/uL (3.50-5.40); RED CELL DISTRIBUTION WIDTH 18.9 % (11.5-14.5)
[2016-09-03 06:10] LABS: INR 1.5 (0.8-1.1); PROTHROMBIN TIME PATIENT 16.9 SEC (11.7-14.0)
[2016-09-03] MEDS: MICAFUNGIN 100 MG in IV DEXTROSE 5% 100 ML IV SCH (06:30)
[2016-09-03 06:38] LABS: CALCIUM 8.6 mg/dL (8.5-10.1); GFR 56.7; POTASSIUM 5.1 mmol/L (3.5-5.1)
[2016-09-03] MEDS: ALBUTEROL SULFATE 2.5 MG/3 ML NEBU. NEB SCH ×4 (08:00→19:58)
[2016-09-03] MEDS: MULTIVITAMIN with MINERAL TABLET. PO SCH (09:00)
[2016-09-03] MEDS: LORAZEPAM 2 MG/ML VIAL. IV PRN (09:13)
[2016-09-03] MEDS: NYSTATIN TOPICAL POWDER 15GM BOTTLE. TP SCH ×2 (09:13→21:28)
[2016-09-03] MEDS: PANTOPRAZOLE IV PUSH 40 MG VIAL. IVP SCH (09:14)
[2016-09-03] MEDS: DIGOXIN IV 500 MCG/2 ML AMPUL. IV SCH (09:15)
--- NOTE | 2016-09-03 09:56 | PDOC ---
Infectious Disease Note Subjective Subjective Remains on BiPAP. FiO2 40% Morphine gtt TPN ROS ROS Unobtainable Vital Sign Vital Signs Vital Signs Date Time Temp Pulse Resp B/P Pulse Ox O2 Delivery O2 Flow Rate FiO2 09/03/16 09:15 117 131/72 09/03/16 06:00 37 95 BiPAP/CPAP 09/03/16 04:00 6.0 09/03/16 04:00 98.1 98.1 Physical Exam PHYSICAL EXAM GENERAL: On BiPAP LUNGS: Clear HEART: S1S2, tachy ABD: Obese, soft, BS present : Newman EXT: BLE edema. No cyanosis BARGEMAN: Unresponsive SKIN: without rash. RUE-PICC. clean Labs Lab Laboratory Tests Test 09/03/16 05:30 White Blood Count 13.0x10^3/uL (4.0-11.0) Red Blood Count 2.78x10^6/uL (3.50-5.40) Hemoglobin 7.6g/dL (12.0-15.5) Hematocrit 24.0% (36.0-47.0) Mean Corpuscular Volume 86fL (79-100) Mean Corpuscular Hemoglobin 28pg (25-35) Mean Corpuscular Hemoglobin Concent 32g/dL (31-37) Red Cell Distribution Width 18.9% (11.5-14.5) Platelet Count 201x10^3/uL (140-400) Neutrophils (%) (Auto) 84% (31-73) Lymphocytes (%) (Auto) 7% (24-48) Monocytes (%) (Auto) 4% (0-9) Eosinophils (%) (Auto) 4% (0-3) Basophils (%) (Auto) 1% (0-3) Neutrophils # (Auto) 10.9x10^3uL (1.8-7.7) Lymphocytes # (Auto) 0.9x10^3/uL (1.0-4.8) Monocytes # (Auto) 0.6x10^3/uL (0.0-1.1) Eosinophils # (Auto) 0.6x10^3/uL (0.0-0.7) Basophils # (Auto) 0.1x10^3/uL (0.0-0.2) Prothrombin Time 16.9SEC (11.7-14.0) Prothromb Time International Ratio 1.5 (0.8-1.1) Sodium Level 137mmol/L (136-145) Potassium Level 5.1mmol/L (3.5-5.1) Chloride Level 107mmol/L (98-107) Carbon Dioxide Level 23mmol/L (21-32) Anion Gap 7 (6-14) Blood Urea Nitrogen 38mg/dL (7-20) Creatinine 1.0mg/dL (0.6-1.0) Estimated GFR (Cockcroft-Gault) 56.7 Glucose Level 95mg/dL (70-99) Calcium Level 8.6mg/dL (8.5-10.1) Objective Assessment Fever. Resolved MRSA in sputum 08/24. Treated Group B strep. 08/18 sepsis. Treated Pulmonary infiltrates. Periods of bradycardia Afib - RVR 08/21 Leukocytosis. -better Lactic acidosis, improved Dehydration LISSETH. resolved Hypotension. off pressors Obesity Respiratory failure s/p extubation, 08/27. On BiPAP MRSA nares positive Rash. purpuric/petechial-type -? reactive from code and intubation, fading s/p code blue, V-fib. 08/18 Warfarin therapy Plan Plan of Care D/c Zyvox (08/24) and Micafungin DNR/DNI Poor prognosis Call with questions Attending Co-Sign The patient was seen and interviewed as well as examined at the bedside. The chart was reviewed. The case was discussed. Agree with the plan of care. STORMY BAL APRN Sep 03, 2016 09:56 YOLETTE COOK MD Sep 03, 2016 14:28
--- NOTE | 2016-09-03 10:19 | PDOC ---
PROGRESS NOTES Subjective Subjective On BIPAP, Tachycardia 130,, low bp 90/60 Objective Objective Vital Signs Date Time Temp Pulse Resp B/P Pulse Ox O2 Delivery O2 Flow Rate FiO2 09/03/16 09:15 117 131/72 09/03/16 06:00 37 95 BiPAP/CPAP 09/03/16 04:00 6.0 09/03/16 04:00 98.1 98.1 Intake and Output 09/03/16 07:00 Intake Total 2216 ml Output Total 964 ml Balance 1252 ml IV Total 2216 ml Output Urine Total 964 ml Physical Exam Abdomen: Normal bowel sounds, No tenderness Heart: Normal S1, Normal S2, Other Extremities: Other (scar lymph edema legs) General: Other HEENT: Atraumatic Lungs: Other (dec inspiration) MUSCULOSKELETAL: No deformity Neck: No thyromegaly Neuro: Other (sleepy) Skin: No breakdown COMMENT bhakta Diagnosis Problem List Problems Medical Problems: (1) Fall from standing Status: Acute (2) Left knee pain Status: Acute (3) Respiratory failure Status: Acute Assessment Assessment Problems Medical Problems: (1) Fall from standing Status: Acute (2) Left knee pain Status: Acute FINAL IMPRESSION: Afib/flutter with RVR respiratory failure on BIPAP MRSA lung infection s/ p CODE BLUE. Extubated 08/27/16 INTUBATED for resp failure Bacteremia ,gram positive -strep group B. sepsis with lactic acidosis. coagulopathy 1. Acute sepsis with hypotension. 2. Elevated white count with hypertension as well as renal insufficiency. 3. Chronic recurrent cellulitis of the legs. 4. Chronic lymphedema. 5. Morbid obesity. 6. History of Clostridium difficile. 7. Chronic atrial fibrillation, on Coumadin. 8. coagulopathy PLAN:poor prognosis family leaning towards inpatient hospice. afib /flutter with RVR with hypotension. TPN for nutrition. BIPAP Lovenox to bridge+coumadin dependent on BIPAP spoke with Pulmonary. DNR/DNI as per pts request. spoke to insurance, did not authorize select t transfer Zyvox for MRSA in sputum spoke RN.NPO for now, speech consult T tube trial and extubated on 08/27/16 iv antibiotics zyvox++micofungin restarted on coumadin, d/c Lovenox, inr 1.7 weaned off sedation. hypotension corrected Thrombocytopenia resolved Hypokalemia- K 4.0 Improving. Leukocytosis- WBC 9 improved Problems: Plan Plan of Care Problems Medical Problems: (1) Fall from standing Status: Acute (2) Left knee pain Status: Acute (3) Respiratory failure Status: Acute Comment Review of Relevant I have reviewed the following items quentin (where applicable) has been applied. Labs Laboratory Tests Test 09/03/16 05:30 White Blood Count 13.0x10^3/uL (4.0-11.0) Red Blood Count 2.78x10^6/uL (3.50-5.40) Hemoglobin 7.6g/dL (12.0-15.5) Hematocrit 24.0% (36.0-47.0) Mean Corpuscular Volume 86fL (79-100) Mean Corpuscular Hemoglobin 28pg (25-35) Mean Corpuscular Hemoglobin Concent 32g/dL (31-37) Red Cell Distribution Width 18.9% (11.5-14.5) Platelet Count 201x10^3/uL (140-400) Neutrophils (%) (Auto) 84% (31-73) Lymphocytes (%) (Auto) 7% (24-48) Monocytes (%) (Auto) 4% (0-9) Eosinophils (%) (Auto) 4% (0-3) Basophils (%) (Auto) 1% (0-3) Neutrophils # (Auto) 10.9x10^3uL (1.8-7.7) Lymphocytes # (Auto) 0.9x10^3/uL (1.0-4.8) Monocytes # (Auto) 0.6x10^3/uL (0.0-1.1) Eosinophils # (Auto) 0.6x10^3/uL (0.0-0.7) Basophils # (Auto) 0.1x10^3/uL (0.0-0.2) Prothrombin Time 16.9SEC (11.7-14.0) Prothromb Time International Ratio 1.5 (0.8-1.1) Sodium Level 137mmol/L (136-145) Potassium Level 5.1mmol/L (3.5-5.1) Chloride Level 107mmol/L (98-107) Carbon Dioxide Level 23mmol/L (21-32) Anion Gap 7 (6-14) Blood Urea Nitrogen 38mg/dL (7-20) Creatinine 1.0mg/dL (0.6-1.0) Estimated GFR (Cockcroft-Gault) 56.7 Glucose Level 95mg/dL (70-99) Calcium Level 8.6mg/dL (8.5-10.1) Microbiology 08/24/16 Blood Culture - Final, Complete NO GROWTH AFTER 5 DAYS 08/24/16 Sputum Culture - Final, Complete 08/24/16 Sputum Result 1 - Final, Complete 08/24/16 Antimicrobic Susceptibility - Final, Complete 08/18/16 Urine Culture - Final, Complete 08/18/16 Urine Culture Result 1 (SILVINA) - Final, Complete Medications Current Medications Morphine Sulfate (Morphine 30 Mg/ 30 ml PILOT CONTROL OPERATOR) 30 ml @ 0 mls/hr CONT PRN PRN IV PROTOCOL Last administered on 09/03/16 00:45; Start 09/02/16 at 15:15 Sodium Chloride 90 meq/Potassium Chloride 50 meq/ Magnesium Sulfate 8 meq/ Calcium Gluconate 10 meq/ Multivitamins 10 ml/Chromium/ Copper/Manganese/ Seleni /Zn 1 ml/ Total Parenteral Nutrition/Amino Acids/Dextrose/ Fat Emulsion Intravenous 1,512 ml @ 63 mls/hr TPN CONT IV Last administered on 09/02/16 21:53; Start 09/02/16 at 22:00; Stop 09/03/16 at 21:59 Vitals/I & O Vital Sign - Last 24 Hours 09/02/16 09/02/16 09/02/16 09/02/16 10:30 10:49 11:00 11:31 Pulse 106 Resp 35 39 B/P 129/55 Pulse Ox 98 84 91 O2 Delivery BiPAP/CPAP BiPAP/CPAP BiPAP/CPAP O2 Flow Rate 6.0 09/02/16 09/02/16 09/02/16 09/02/16 12:00 12:00 12:05 13:00 Temp 98.6 98.6 Pulse 112 110 Resp 41 43 B/P 143/62 126/60 Pulse Ox 100 98 O2 Delivery BiPAP/CPAP Bi-pap BiPAP/CPAP O2 Flow Rate 6.0 09/02/16 09/02/16 09/02/16 09/02/16 13:16 14:00 14:00 14:32 Pulse 112 105 Resp 42 B/P 103/54 156/63 Pulse Ox 98 97 98 O2 Delivery BiPAP/CPAP BiPAP/CPAP BiPAP/CPAP 09/02/16 09/02/16 09/02/16 09/02/16 15:00 16:00 16:00 16:08 Temp 98.8 98.8 Pulse 98 103 Resp 46 47 B/P 132/58 103/54 Pulse Ox 99 100 97 O2 Delivery BiPAP/CPAP Bi-pap BiPAP/CPAP BiPAP/CPAP 09/02/16 09/02/16 09/02/16 09/02/16 16:13 16:19 16:49 18:00 Pulse 94 Resp 36 30 B/P 126/62 Pulse Ox 97 99 95 O2 Delivery BiPAP/CPAP BiPAP/CPAP BiPAP/CPAP O2 Flow Rate 6.0 09/02/16 09/02/16 09/02/16 09/02/16 18:09 19:00 19:46 20:00 Pulse 99 Resp 45 B/P 118/54 Pulse Ox 98 90 96 O2 Delivery BiPAP/CPAP BiPAP/CPAP BiPAP/CPAP Bi-pap 09/02/16 09/02/16 09/02/16 09/02/16 20:00 20:00 21:00 21:53 Temp 98.1 98.1 Pulse 104 90 108 Resp 42 27 B/P 131/55 111/50 111/64 Pulse Ox 97 93 O2 Delivery BiPAP/CPAP BiPAP/CPAP O2 Flow Rate 6.0 09/02/16 09/02/16 09/02/16 09/03/16 22:00 23:00 23:22 00:00 Pulse 88 82 Resp 29 24 B/P 111/64 118/58 Pulse Ox 89 96 95 O2 Delivery BiPAP/CPAP BiPAP/CPAP BiPAP/CPAP O2 Flow Rate 6.0 09/03/16 09/03/16 09/03/16 09/03/16 00:00 00:00 00:45 01:00 Temp 98.4 98.4 Pulse 104 102 Resp 23 26 27 B/P 117/56 113/56 Pulse Ox 94 92 93 O2 Delivery Bi-pap BiPAP/CPAP BiPAP/CPAP BiPAP/CPAP 09/03/16 09/03/16 09/03/16 09/03/16 01:46 02:00 03:00 03:30 Pulse 101 104 Resp 35 46 B/P 87/40 91/38 104/52 Pulse Ox 92 92 90 O2 Delivery BiPAP/CPAP BiPAP/CPAP BiPAP/CPAP 09/03/16 09/03/16 09/03/16 09/03/16 03:40 04:00 04:00 04:00 Temp 98.1 98.1 Pulse 114 Resp 31 B/P 99/50 Pulse Ox 92 97 O2 Delivery BiPAP/CPAP Bi-pap BiPAP/CPAP O2 Flow Rate 6.0 09/03/16 09/03/16 09/03/16 09/03/16 05:00 05:40 06:00 06:00 Pulse 115 113 119 Resp 21 37 B/P 107/51 107/51 Pulse Ox 94 96 95 O2 Delivery BiPAP/CPAP BiPAP/CPAP BiPAP/CPAP 09/03/16 09:15 Pulse 117 B/P 131/72 Intake and Output 09/02/16 09/02/16 09/03/16 15:00 23:00 07:00 Intake Total 2216 ml Output Total 175 ml 643 ml 146 ml Balance -175 ml -643 ml 2070 ml JAGUAR BRICE MD Sep 03, 2016 10:19
[2016-09-03] MEDS: TPN PER PHARMACY MC PRN ×2 (11:11→11:33)
--- NOTE | 2016-09-03 13:12 | PDOC ---
PULMONARY PROGRESS NOTES Subjective APPEARS WORSE TODAY Vitals Vital Signs Date Time Temp Pulse Resp B/P Pulse Ox O2 Delivery O2 Flow Rate FiO2 09/03/16 13:01 22 98 BiPAP/CPAP 09/03/16 12:55 123 100/37 09/03/16 04:00 6.0 09/03/16 04:00 98.1 98.1 General: Alert, Mild Distress HEENT: Other (nc at perrl orally intubated. nose clear) Lungs: Other (decrease bs) Cardiovascular: S1, S2 Abdomen: Soft, Non-tender, Other Extremities: Other (edema) Skin: Warm, Dry Labs Laboratory Tests Test 09/02/16 05:00 09/03/16 05:30 Prothrombin Time 19.0SEC (11.7-14.0) 16.9SEC (11.7-14.0) Prothromb Time International Ratio 1.7 (0.8-1.1) 1.5 (0.8-1.1) Sodium Level 139mmol/L (136-145) 137mmol/L (136-145) Potassium Level 4.7mmol/L (3.5-5.1) 5.1mmol/L (3.5-5.1) Chloride Level 107mmol/L (98-107) 107mmol/L (98-107) Carbon Dioxide Level 27mmol/L (21-32) 23mmol/L (21-32) Anion Gap 5 (6-14) 7 (6-14) Blood Urea Nitrogen 26mg/dL (7-20) 38mg/dL (7-20) Creatinine 0.9mg/dL (0.6-1.0) 1.0mg/dL (0.6-1.0) Estimated GFR (Cockcroft-Gault) 64.1 56.7 Glucose Level 121mg/dL (70-99) 95mg/dL (70-99) Calcium Level 8.7mg/dL (8.5-10.1) 8.6mg/dL (8.5-10.1) Phosphorus Level 5.2mg/dL (2.6-4.7) Magnesium Level 2.2mg/dL (1.8-2.4) White Blood Count 13.0x10^3/uL (4.0-11.0) Red Blood Count 2.78x10^6/uL (3.50-5.40) Hemoglobin 7.6g/dL (12.0-15.5) Hematocrit 24.0% (36.0-47.0) Mean Corpuscular Volume 86fL (79-100) Mean Corpuscular Hemoglobin 28pg (25-35) Mean Corpuscular Hemoglobin Concent 32g/dL (31-37) Red Cell Distribution Width 18.9% (11.5-14.5) Platelet Count 201x10^3/uL (140-400) Neutrophils (%) (Auto) 84% (31-73) Lymphocytes (%) (Auto) 7% (24-48) Monocytes (%) (Auto) 4% (0-9) Eosinophils (%) (Auto) 4% (0-3) Basophils (%) (Auto) 1% (0-3) Neutrophils # (Auto) 10.9x10^3uL (1.8-7.7) Lymphocytes # (Auto) 0.9x10^3/uL (1.0-4.8) Monocytes # (Auto) 0.6x10^3/uL (0.0-1.1) Eosinophils # (Auto) 0.6x10^3/uL (0.0-0.7) Basophils # (Auto) 0.1x10^3/uL (0.0-0.2) Laboratory Tests Test 09/03/16 05:30 White Blood Count 13.0x10^3/uL (4.0-11.0) Red Blood Count 2.78x10^6/uL (3.50-5.40) Hemoglobin 7.6g/dL (12.0-15.5) Hematocrit 24.0% (36.0-47.0) Mean Corpuscular Volume 86fL (79-100) Mean Corpuscular Hemoglobin 28pg (25-35) Mean Corpuscular Hemoglobin Concent 32g/dL (31-37) Red Cell Distribution Width 18.9% (11.5-14.5) Platelet Count 201x10^3/uL (140-400) Neutrophils (%) (Auto) 84% (31-73) Lymphocytes (%) (Auto) 7% (24-48) Monocytes (%) (Auto) 4% (0-9) Eosinophils (%) (Auto) 4% (0-3) Basophils (%) (Auto) 1% (0-3) Neutrophils # (Auto) 10.9x10^3uL (1.8-7.7) Lymphocytes # (Auto) 0.9x10^3/uL (1.0-4.8) Monocytes # (Auto) 0.6x10^3/uL (0.0-1.1) Eosinophils # (Auto) 0.6x10^3/uL (0.0-0.7) Basophils # (Auto) 0.1x10^3/uL (0.0-0.2) Prothrombin Time 16.9SEC (11.7-14.0) Prothromb Time International Ratio 1.5 (0.8-1.1) Sodium Level 137mmol/L (136-145) Potassium Level 5.1mmol/L (3.5-5.1) Chloride Level 107mmol/L (98-107) Carbon Dioxide Level 23mmol/L (21-32) Anion Gap 7 (6-14) Blood Urea Nitrogen 38mg/dL (7-20) Creatinine 1.0mg/dL (0.6-1.0) Estimated GFR (Cockcroft-Gault) 56.7 Glucose Level 95mg/dL (70-99) Calcium Level 8.6mg/dL (8.5-10.1) Medications Active Scripts Medications Dose Route/Sig Days Date Category Dose Instructions Keflex (Cephalexin) 500 Mg Capsule 500 Mg PO QID 07/12/16 Reported take for 10 days start 07/12 Percocet 10-325 Mg Tablet (Oxycodone/Acetaminophen) 1 Each Tablet 1 Tab PO PRN Q6HRS PRN 07/12/16 Reported Potassium Chloride 20 Meq Tablet.er 20 Meq PO DAILY 07/12/16 Reported Ventolin Hfa Inhaler (Albuterol Sulfate) 18 Gm Hfa.aer.ad 2 Puff INH Q4HRS 07/12/16 Reported Atorvastatin Calcium 10 Mg Tablet 1 Tab PO DAILY 07/12/16 Reported Daily Vitamin (Multivitamin) 1 Each Tablet 1 Each PO DAILY 04/15/14 Reported Coumadin (Warfarin Sodium) 2.5 Mg Tablet 0.5 Tab PO DAILY 12/8/14 Reported Propafenone Hcl 225 Mg Cap.er.12h 225 Mg PO BID 04/15/14 Reported Pantoprazole Sodium 40 Mg Tablet. 1 Tab PO DAILY 04/15/14 Reported Aquaphor (Petrolatum,White) 99 Gm Oint...g. 99 Gm TP BID 12/04/13 Reported Cardizem Cd (Diltiazem Hcl) 120 Mg Cap.er.24h 120 Mg PO DAILY 12/04/13 Reported Zofran Odt (Ondansetron) 4 Mg Tab.rapdis 8 Mg PO Q8HRS 12/04/13 Reported x 2 days start 3/6 then 4 mg q 6hrs prn Lasix (Furosemide) 40 Mg Tablet 40 Mg PO DAILY 12/04/13 Reported Impression . 1. Acute respiratory failure secondary to sepsis. extubated 08/27 2. Sepsis with hypotension. off levo 3. Atrial fibrillation. 4. Acute on chronic kidney failure. 5. Morbid obesity. 6. MULTIPLE ALLERGIES TO MEDICATIONS INCLUDING AMOXICILLIN. 7. S/P code blue V-Fib 8. Abnormal cxr with improving right basal infiltrates, 9. Staph aureus in sputum 08/24 (MRSA) Group B strep. 08/18 sepsis. Repeat 08/19 neg. Plan . APPEARS WORSE TODAY, B/P LOW WILL ADD NS, CONTINUE BIPAP D/W DR BRICE, RN DOES NOT TOLERATE OFF BIPAP, VERY SOA TODAY,ACTIVELY DYING, VERY UNCOMFORTABLE DESPITE ATIVAN CONTINUE MORPHINE PROGNOSIS IS POOR I THINK SHE WILL NOT SURVIVE THIS ADMISSION RESP STATUS VERY TENUOUS EXTUBATED 08/27 ANTIBIOTICS PER ID( MRSA IN SPUTUM) BIPAP QHS/ PRN D/W WITH RN NEBS IS DR GARCIA, HAD LONG DISCUSSION WITH PATIENT, IN FRONT OF PALLIATIVE RN. SHE DOES NOT WANT RE-INTUBATION/ CPR/ SHOCK DNR/DNI TWILA OROZCO MD Sep 03, 2016 13:12
[2016-09-03] MEDS: ATORVASTATIN CALCIUM 10 MG TABLET. PO SCH (21:00)
[2016-09-03] MEDS ORDERED: [UNRECOGNIZED DRUG - OTHER] IV SCH ×9 (22:00)
[2016-09-03] MEDS ORDERED: DEXTROSE 70% IV SCH ×36 (22:00)
[2016-09-03] MEDS ORDERED: [UNRECOGNIZED DRUG - OTHER] IV SCH ×9 (22:00)
[2016-09-03] MEDS ORDERED: AMINO ACIDS IV SCH ×36 (22:00)
[2016-09-03] MEDS ORDERED: [UNRECOGNIZED DRUG - OTHER] IV SCH ×9 (22:00)
[2016-09-03] MEDS ORDERED: [UNRECOGNIZED DRUG - OTHER] IV SCH ×9 (22:00)
[2016-09-03] MEDS ORDERED: TOTAL PARENTERAL NUTRITION IV SCH ×36 (22:00)
[2016-09-04] VITALS (9 sets, daily range): BP systolic 52–70; BP diastolic 5–32
[2016-09-04] MEDS: MORPHINE SULFATE/PF 30 ML IV PRN (04:20)
[2016-09-04] MEDS: PROPAFENONE 150 MG TABLET. PO SCH ×2 (05:32→08:09)
[2016-09-04] MEDS: ALBUTEROL SULFATE 2.5 MG/3 ML NEBU. NEB SCH (08:00)
[2016-09-04] MEDS: MULTIVITAMIN with MINERAL TABLET. PO SCH (08:09)
[2016-09-04] MEDS: LORAZEPAM 2 MG/ML VIAL. IV PRN (08:41)
[2016-09-04] MEDS: NYSTATIN TOPICAL POWDER 15GM BOTTLE. TP SCH (09:00)
[2016-09-04] MEDS: PANTOPRAZOLE IV PUSH 40 MG VIAL. IVP SCH (09:00)
[2016-09-04] MEDS: DIGOXIN IV 500 MCG/2 ML AMPUL. IV SCH (09:00)
--- NOTE | 2016-09-05 11:53 | PDOC ---
Provider Note Provider Note summary dictated. #[id number] JAGUAR BRICE MD Sep 05, 2016 11:53
--- NOTE | 2016-09-05 13:01 | DS ---
DATE OF DISCHARGE: 09/04/2016 DATE OF : 09/04/2016. REASON FOR ADMISSION TO THE HOSPITAL: Sepsis, streptococcal bacteremia. CONSULTATIONS: Dr. Beck, Dr. Evangelist Flores, Dr. Tiwari, and Cardiology Dr. Sanabria. PROCEDURES DONE: 1. Echocardiogram. 2. Code blue. 3. Intubation. 4. Central line. HOSPITAL COURSE: The patient is a 60-year-old female, morbidly obese, who has chronic lymphedema of lower extremities. The patient has been sick recently in the last 6 months in and out of the hospital with infections, mostly in lower extremities. She has a history of chronic atrial fibrillation, rate controlled on Rythmol. She is on Coumadin for anticoagulation, morbidly obese, history of hypertension, and hyperlipidemia. She was having DJD, was very weak in lower extremities, came to the Emergency Room, and by the morning, her condition got worse. She was lethargic, was brought to the ICU, but later in the afternoon the patient had a code blue, went into ventricular tachycardia and was shocked and also put on ventilator. The patient's blood cultures came back positive for group B streptococcus 4 out of 4. The patient was treated with broad-spectrum antibiotics, vancomycin and Zosyn. The patient was seen by Cardiology and was continued on Coumadin. She was seen by Infectious Disease, was on antibiotics, seen by Pulmonology, was on ventilator. The patient was on Levophed for a couple of days for hypertension, and she was in the ventilator for at least a week. The patient was gradually extubated, but her Pulmonary results were very weak. The patient does not want any re-intubation, cold blue. The patient was seen by Palliative team. Family had a couple of discussions, finally agreeable to inpatient hospice care. In the meantime, the patient was placed on BiPAP, TPN for nutrition, and Lovenox for anticoagulation. In spite of best efforts, the patient's condition deteriorated, and the patient on 09/04/2016. FINAL DIAGNOSES: 1. Acute sepsis. 2. Group B streptococcal bacteremia. 3. AC Respiratory failure requiring ventilator. 4. Code blue. 5. Acute kidney failure. 6. Morbid obesity. 7. Chronic lymphedema. 8. Chronic atrial fibrillation with rapid ventricular response. 9. General debility and decline, and the patient from medical causes. JAGUAR BRICE MD DR: Naga JOB#: [id number] / [id number] JAIDA
== END 2016-09-04 08:51 | disposition expired | DRG 870 ==
LOC: ER 10:08 → 4 NORTH 14:00 → 1 WEST ICU 08-18 10:21
PROVIDERS: ADMIT Internal Medicine; ATTEND Internal Medicine
PROC: 05HD33Z Insertion of Infusion Device into Right Cephalic Vein, Percutaneous Approach (ICD-10-PCS; principal; 2016-08-18)
PROC: B54MZZA Ultrasonography of Right Upper Extremity Veins, Guidance (ICD-10-PCS; 2016-08-18)
PROC: 0BH17EZ Insertion of Endotracheal Airway into Trachea, Via Natural or Artificial Opening (ICD-10-PCS; 2016-08-19)
PROC: 5A1955Z Respiratory Ventilation, Greater than 96 Consecutive Hours (ICD-10-PCS; 2016-08-19)
PROC: 5A09457 Assistance with Respiratory Ventilation, 24-96 Consecutive Hours, Continuous Positive Airway Pressure (ICD-10-PCS; 2016-08-27)
DX: A41.9 Sepsis, unspecified organism (principal); J96.00 Acute respiratory failure, unspecified whether with hypoxia or hypercapnia; J18.9 Pneumonia, unspecified organism; I13.0 Hypertensive heart and chronic kidney disease with heart failure and stage 1 through stage 4 chronic kidney disease, or unspecified chronic kidney disease; I47.2 Ventricular tachycardia; I48.92 Unspecified atrial flutter; I50.30 Unspecified diastolic (congestive) heart failure; Z68.44 Body mass index [BMI] 60.0-69.9, adult; N17.9 Acute kidney failure, unspecified; D68.9 Coagulation defect, unspecified; E66.01 Morbid (severe) obesity due to excess calories; E78.5 Hyperlipidemia, unspecified; E83.42 Hypomagnesemia; E86.0 Dehydration; F41.9 Anxiety disorder, unspecified; I48.2 Chronic atrial fibrillation; I49.01 Ventricular fibrillation; I46.9 Cardiac arrest, cause unspecified; M19.90 Unspecified osteoarthritis, unspecified site; N18.9 Chronic kidney disease, unspecified; Z51.5 Encounter for palliative care; M25.562 Pain in left knee; I89.0 Lymphedema, not elsewhere classified; B95.1 Streptococcus, group B, as the cause of diseases classified elsewhere; Z79.01 Long term (current) use of anticoagulants; Z86.19 Personal history of other infectious and parasitic diseases; Z86.79 Personal history of other diseases of the circulatory system; Z88.2 Allergy status to sulfonamides; Z90.49 Acquired absence of other specified parts of digestive tract; Z98.51 Tubal ligation status; Z88.1 Allergy status to other antibiotic agents; Z88.8 Allergy status to other drugs, medicaments and biological substances; Z66 Do not resuscitate
CPT/HCPCS: 36415; 36569; 36600; 71010; 73560; 74000; 76937; 80048; 80053; 80061; 81001; 82805; 82947; 83605; 83735; 84100; 84145; 84443; 84478; 84484; 85007; 85027; 85610; 87040; 87070; 87086; 87186; 87205; 87641; 93005; 93306; 93970; 94002; 94003; 94250; 94640; 94660; 94760; 96372; C1751; C1769; C1892; C9113; J0171; J0610; J1040; J1160; J1650; J1885; J1956; J2020; J2060; J2185; J2248; J2250; J2270; J3010; J3370; J3475; J3480; J3490; J7030; J7040; J7042; J7050; J7060; P9041; Q0162; 97110; 97530; 97535; 99285-25